=== PATIENT | male | born 1930 | race Caucasian/White ===

== ENCOUNTER → 2016-10-28 | Outpatient (CLI) | payer MEDICARE, OTHER | LOC: SP 14:59 | PROVIDERS: ATTEND Internal Medicine Pulmonary Disease | DX: R93.8 Abnormal findings on diagnostic imaging of other specified body structures (principal) | CPT/HCPCS: 93880 ==

== ENCOUNTER → 2016-10-30 | Day surgery (SDC) | payer MEDICARE, OTHER ==
[~2016-10-30] MED LIST: LIDOCAINE 2% JELLY 5 ML TUBE ONE
== END ==
LOC: END 10:54
PROVIDERS: ATTEND Internal Medicine Gastroenterology
PROC: 4A0B7BZ Measurement of Gastrointestinal Pressure, Via Natural or Artificial Opening (ICD-10-PCS; principal; 2016-10-30)
DX: R13.10 Dysphagia, unspecified (principal)
CPT/HCPCS: 91010

== ENCOUNTER 2016-12-21 12:02 | Emergency (ER) | payer MEDICARE, OTHER ==
[2016-12-21] MEDS ORDERED: ASPIRIN 81 MG TABLET, CHEWABLE PO ONE (12:21)
--- NOTE | 2016-12-21 12:21 | ER Document Report ---
ED Medical Screen (RME) - General Chief Complaint: Chest Pain Stated Complaint: COUGH Mode of Arrival: Ambulatory Information source: Patient Notes: Very young looking 86-year-old male presents this morning with right-sided chest pain shortness of breath. Reports he's coughing up blood. Reports he's had this cough and difficulty for the past year with his lungs. Denies other symptoms such as fever vomiting diarrhea. Patient speaking in clear reports no shortness of breath noted. RR unlabored 100% O2 sat. I have greeted and performed a rapid initial assessment of this patient. A comprehensive ED assessment and evaluation of the patient, analysis of test results and completion of the medical decision making process will be conducted by additional ED providers. TRAVEL OUTSIDE OF THE [place] IN LAST 30 DAYS: No - Related Data Allergies/Adverse Reactions: morphine [Morphine] Allergy (Verified 12/21/16 12:18) tetracycline [Tetracycline] Allergy (Verified 12/21/16 12:18) Past Medical History - Social History Chew tobacco use (# tins/day): No Frequency of alcohol use: None Drug Abuse: None - Past Medical History Cardiac Medical History: Reports: Hx Coronary Artery Disease, Hx Heart Attack, Hx Hypertension, Hx Peripheral Vascular Disease Neurological Medical History: Denies: Hx Cerebrovascular Accident, Hx Seizures Renal/ Medical History: Denies: Hx Peritoneal Dialysis GI Medical History: Reports: Hx Ulcer - HAD VAGOTOMY-ANTRECTOMY WITH A B-II ANASTOMOSIS Musculoskeltal Medical History: Denies Hx Arthritis Psychiatric Medical History: Reports: Hx Post Traumatic Stress Disorder Past Surgical History: Reports: Hx Bowel Surgery - x10 V&A w/ B-II anastomosis, Hx Carotid Endarterectomy - RIGHT SIDE, Hx Coronary Stent, Hx Vascular Surgery - ILIAC, FEMORAL STENTS - Immunizations Hx Diphtheria, Pertussis, Tetanus Vaccination: Yes Physical Exam - Vital signs Vitals: Temp Pulse Resp BP Pulse Ox 98.1 F 82 16 141/79 H 100 12/21/16 12:18 12/21/16 12:18 12/21/16 12:18 12/21/16 12:18 12/21/16 12:18 Course - Vital Signs Vital signs: Temp Pulse Resp BP Pulse Ox 98.1 F 82 16 141/79 H 100 12/21/16 12:18 12/21/16 12:18 12/21/16 12:18 12/21/16 12:18 12/21/16 12:18
[2016-12-21 12:55] LABS: ABSOLUTE BASOPHILS # (AUTO) 0.1 10^3/uL (0.0-0.2); ABSOLUTE EOSINOPHILS # (AUTO) 0.2 10^3/uL (0.0-0.6); ABSOLUTE LYMPHOCYTES (AUTO) 1.6 10^3/uL (0.5-4.7); ABSOLUTE MONOCYTES (AUTO) 0.6 10^3/uL (0.1-1.4); ABSOLUTE NEUT (AUTO) 6.1 10^3/uL (1.7-8.2); BASOPHILS % (AUTO) 0.7 % (0-2); EOSINOPHILS % (AUTO) 2.2 % (0-6); HEMATOCRIT 32.3 % (37.9-51.0); HEMOGLOBIN 10.8 g/dL (13.5-17.0); HGB HCT DIFFERENCE 0.1; LYMPHOCYTES % (AUTO) 18.1 % (13-45); MEAN CORPUSCULAR HEMOGLOBIN 28.9 pg (27.0-33.4); MEAN CORPUSCULAR HGB CONC 33.5 g/dL (32.0-36.0); MEAN CORPUSCULAR VOLUME 86 fl (80-97); MONOCYTES % (AUTO) 7.5 % (3-13); RED BLOOD COUNT 3.74 10^6/uL (4.35-5.55); RED CELL DISTRIBUTION WIDTH 15.6 % (11.5-14.0); SEGMENTED NEUTROPHILS % (AUTO) 71.5 % (42-78); WHITE BLOOD COUNT 8.6 10^3/uL (4.0-10.5)
--- NOTE | 2016-12-21 13:09 | ER Document Report ---
ED Cardiac - General Chief Complaint: Chest Pain Stated Complaint: COUGH Mode of Arrival: Ambulatory Notes: The patient is an 86-year-old male, past medical history CAD s/p 4 stents, hypertension, gastric ulcers status post partial gastrectomy, CKD< presents with a few hours of substernal chest pain and radiation to his right shoulder. He is also having 1 month of a cough and he noticed specks of blood in his cough earlier today. He was given 1 nitroglycerin and his pain resolved. He denies nausea, vomiting, leg swelling, shortness of breath, fevers, headache, rash or back pain. TRAVEL OUTSIDE OF THE [place] IN LAST 30 DAYS: No - Related Data Allergies/Adverse Reactions: morphine [Morphine] Allergy (Verified 12/21/16 12:18) tetracycline [Tetracycline] Allergy (Verified 12/21/16 12:18) Past Medical History - General Information source: Patient - Social History Smoking Status: Never Smoker Chew tobacco use (# tins/day): No Frequency of alcohol use: None Drug Abuse: None Family History: Reviewed & Not Pertinent, Other - unable to obtain - Past Medical History Cardiac Medical History: Reports: Hx Coronary Artery Disease, Hx Heart Attack, Hx Hypertension, Hx Peripheral Vascular Disease Neurological Medical History: Denies: Hx Cerebrovascular Accident, Hx Seizures Renal/ Medical History: Denies: Hx Peritoneal Dialysis GI Medical History: Reports: Hx Ulcer - HAD VAGOTOMY-ANTRECTOMY WITH A B-II ANASTOMOSIS Musculoskeltal Medical History: Denies Hx Arthritis Psychiatric Medical History: Reports: Hx Post Traumatic Stress Disorder Past Surgical History: Reports: Hx Bowel Surgery - x10 V&A w/ B-II anastomosis, Hx Carotid Endarterectomy - RIGHT SIDE, Hx Coronary Stent, Hx Vascular Surgery - ILIAC, FEMORAL STENTS - Immunizations Hx Diphtheria, Pertussis, Tetanus Vaccination: Yes Hx Pneumococcal Vaccination: 09/29/19 Review of Systems - Review of Systems Notes: REVIEW OF SYSTEMS: CONSTITUTIONAL: -fevers, -chills EENT: -eye pain, -difficulty swallowing, -nasal congestion CARDIOVASCULAR: +chest pain, -syncope. RESPIRATORY: +cough, -SOB GASTROINTESTINAL: -abdominal pain, - nausea, -vomiting, -diarrhea GENITOURINARY: -dysuria, -hematuria MUSCULOSKELETAL: -back pain, -neck pain SKIN: -rash or skin lesions. HEMATOLOGIC: -easy bruising or bleeding. LYMPHATIC: -swollen, enlarged glands. NEUROLOGICAL: -altered mental status or loss of consciousness, -headache, - neurologic symptoms PSYCHIATRIC: -anxiety, -depression. ALL OTHER SYSTEMS REVIEWED AND NEGATIVE. Physical Exam - Vital signs Vitals: Temp Pulse Resp BP Pulse Ox 98.1 F 82 16 141/79 H 100 12/21/16 12:18 12/21/16 12:18 12/21/16 12:18 12/21/16 12:18 12/21/16 12:18 - Notes Notes: PHYSICAL EXAMINATION: GENERAL: Well-appearing, well-nourished and in no acute distress. HEAD: Atraumatic, normocephalic. EYES: Pupils equal round and reactive to light, extraocular movements intact, sclera anicteric, conjunctiva are normal. ENT: nares patent, oropharynx clear without exudates. Moist mucous membranes. NECK: Normal range of motion, supple without lymphadenopathy LUNGS: Breath sounds clear to auscultation bilaterally and equal. No wheezes rales or rhonchi. HEART: Regular rate and rhythm without murmurs ABDOMEN: Soft, nontender, normoactive bowel sounds. No guarding, no rebound. No masses appreciated. EXTREMITIES: Normal range of motion, no pitting or edema. No cyanosis. NEUROLOGICAL: Cranial nerves grossly intact. Normal speech, normal gait. Normal sensory, motor, and reflex exams. PSYCH: Normal mood, normal affect. SKIN: Warm, Dry, normal turgor, no rashes or lesions noted. Course - Re-evaluation Re-evalutation: Patient without chest pain. His EKG does show new ST depressions and T-wave inversions in the anterior lateral leads compared to his EKG on 01/10/2016. His first troponin was 0.08, which is baseline for him. His second troponin increased to 0.11. He remains without chest pain. Will begin a heparin drip due to rising troponin and CKD. Patient also with slight hyperkalemia of 5.5. His creatinine is baseline for him. There are peaked T waves on his EKG, so calcium, insulin and dextrose and Lasix provided for patient to help temporize. 12/21/16 18:[address] Rojas and he has accepted patient under Dr. Foley' s service to Inpatient Telemetry bed at [facility]. - Vital Signs Vital signs: Temp Pulse Resp BP Pulse Ox 97.9 F 82 16 107/93 H 99 12/21/16 18:41 12/21/16 12:18 12/21/16 18:01 12/21/16 18:00 12/21/16 18:01 - Laboratory Result Diagrams: 12/21/16 12:30 12/21/16 12:30 Laboratory results interpreted by me: 12/21/16 12/21/16 12:30 12:30 RBC 3.74 L Hgb 10.8 L Hct 32.3 L RDW 15.6 H Potassium 5.5 H Chloride 109 H BUN 27 H Creatinine 1.61 H Est GFR ( Amer) 50 L Est GFR (Non-Af Amer) 41 L Total Protein 6.0 L Albumin 3.4 L - Diagnostic Test Radiology reviewed: Image reviewed, Reports reviewed Radiology results interpreted by me: CXR: NAD - EKG Interpretation by Me EKG shows normal: Sinus rhythm Additional EKG results interpreted by me: ST depression and T-wave inversions in anterolateral leads, new since 12/2015 EKG Critical Care Note - Critical Care Note Total time excluding time spent on procedures (mins): 35 Discharge - Discharge Clinical Impression: NSTEMI (non-ST elevated myocardial infarction), Hyperkalemia Condition: Stable Disposition: [facility] Referrals: ROMEL LAMB MD [Primary Care Provider] - Follow up as needed
[2016-12-21 13:12] LABS: ALANINE AMINOTRANSFERASE 22 U/L (21-72); ALBUMIN 3.4 g/dL (3.5-5.0); ALKALINE PHOSPHATASE 110 U/L (38-126); ANION GAP 10 (5-19); ASPARTATE AMINO TRANSFERASE 20 U/L (17-59); BILIRUBIN,DIRECT 0.3 mg/dL (0.0-0.4); BILIRUBIN,TOTAL 0.7 mg/dL (0.2-1.3); BLOOD UREA NITROGEN 27 mg/dL (7-20); CALCIUM 9.4 mg/dL (8.4-10.2); CARBON DIOXIDE 23 mmol/L (22-30); CHLORIDE 109 mmol/L (98-107); CREATININE RESULT 1.61 mg/dL (0.52-1.25); GLUCOSE 92 mg/dL (75-110); POTASSIUM 5.5 mmol/L (3.6-5.0); SODIUM 142.2 mmol/L (137-145)
[2016-12-21] MEDS ORDERED: INSULIN REG, HUMAN 100 UNIT/ML 3 ML VIAL (PYX) IV ONE (15:31)
[2016-12-21] MEDS ORDERED: DEXTROSE 50%-WATER 25 GM/50 ML DISP.SYRIN IV ONE (15:31)
[2016-12-21] MEDS ORDERED: CALCIUM GLUCONATE 1000 MG/10 ML INJ IV ONE (15:31)
[2016-12-21] MEDS ORDERED: FUROSEMIDE INJ/PF 40 MG/4 ML SDV IV ONE (15:32)
[2016-12-21] MEDS ORDERED: HEPARIN SOD (PORCINE) 1,000 UNIT/ML 10 ML VIAL IV ONE ×3 (19:36→19:55)
[2016-12-21] MEDS ORDERED: HEPARIN SODIUM,PORCINE/D5W 250 ML IV PRN (19:46)
[2016-12-21 20:02] LABS: PROTHROMBIN TIME 12.9 SEC (11.4-15.4)
[2016-12-21 20:30] VITALS: BP 127/83
--- NOTE | 2016-12-21 22:20 | EKG REPORT ---
SEVERITY:- ABNORMAL ECG - SINUS RHYTHM MULTIFORM VENTRICULAR PREMATURE COMPLEXES LEFT ANTERIOR FASCICULAR BLOCK. NONSPECIFIC LATERAL ST-T CHANGES : Confirmed by: Jon Vela MD 21-Dec-2016 17:35:49
--- NOTE | 2016-12-21 22:20 | EKG REPORT ---
SEVERITY:- ABNORMAL ECG - SINUS RHYTHM LEFT ANTERIOR FASCICULAR BLOCK NONSPECIFIC LATERAL ST-T CHANGES : Confirmed by: Jon Vela MD 21-Dec-2016 17:36:54
--- NOTE | 2016-12-21 22:27 | EKG REPORT ---
SEVERITY:- ABNORMAL ECG - SINUS RHYTHM VENTRICULAR PREMATURE COMPLEX IVCD NONSPECIFIC ANTEROLATERAL ST-T CHANGES : Confirmed by: Jon Vela MD 21-Dec-2016 17:34:07
== END 2016-12-21 20:30 | disposition short-term general hospital (02) ==
LOC: ER 12:02
DX: I21.4 Non-ST elevation (NSTEMI) myocardial infarction (principal); R07.9 Chest pain, unspecified; R05 Cough; I25.10 Atherosclerotic heart disease of native coronary artery without angina pectoris; I10 Essential (primary) hypertension
CPT/HCPCS: 93005; 96376; 99291; 96374; 96375; 36415; 85025; 85610; 80053; 84484; 71020; 93010; J1644 ×2; A9270 ×2; J0610; J3490; J1940; J1815

== ENCOUNTER 2018-01-13 09:46 | Day surgery (SDC) | payer MEDICARE, OTHER ==
[~2018-01-13 09:46] MED LIST changes: +BUPIVACAINE HCL 0.75% INJ/PF (7.5 MG/1 ML) 10 ML SDV OD PRN; +CHONDR SU A NA/HYALUR INTRAOC KIT (SURGICARE) ONE; +EPINEPHRINE INJ/PF 1 MG/1 ML AMPULE ONE; +KETOROLAC TROMETHAMINE 0.45% 4 DROP/0.4 ML DROPERETTE OD PRN; +LIDOCAINE 1% INJ-PF (10 MG/ML) 30 ML SDV ONE; -LIDOCAINE 2% JELLY 5 ML TUBE ONE; +LIDOCAINE 4% INJ/PF (40 MG/ML) 5 ML AMPUL OD PRN
[2018-01-13] MEDS: CYCLOPENTOLATE 0.2%/PHENYLEPHRINE 1% OPH SOLN 2 ML OD PRN ×3 (09:58→10:19)
[2018-01-13] MEDS: TROPICAMIDE 1% OPH SOLN 3 ML OD PRN ×3 (09:58→10:19)
[2018-01-13] MEDS: BESIFLOXACIN HCL 0.6% OPH SUSP 5 ML BOTTLE OD PRN ×3 (09:59→11:06)
[2018-01-13] MEDS: TETRACAINE HCL 0.5% OPH SOLN 0.6 ML DROPERETTE OD PRN ×2 (10:00→10:26)
[2018-01-13] MEDS ORDERED: FENTANYL CITRATE INJ/PF 100 MCG/2 ML AMPUL ONE (10:14)
[2018-01-13] MEDS ORDERED: ONDANSETRON HCL INJ/PF 4 MG/2 ML SDV ONE (10:14)
[2018-01-13] MEDS ORDERED: MIDAZOLAM 2 MG/2 ML INJ ONE (10:14)
--- NOTE | 2018-01-13 11:54 | [facility] OPERATIVE REPORT E ---
[facility] Operative Report NAME: ROSELYN DECKER AGE: 87Y DATE OF SURGERY: 01/13/2018 ROOM: PREOPERATIVE DIAGNOSIS: CATARACT, RIGHT EYE. POSTOPERATIVE DIAGNOSIS: CATARACT, RIGHT EYE. PROCEDURE PERFORMED: Phacoemulsification with posterior chamber intraocular lens, right eye. SURGEON: BERTHA VARMA M.D. ANESTHESIA: Topical with MAC. INDICATIONS FOR SURGERY: Difficulty driving at night, best corrected visual acuity 20/30. PROCEDURE: The patient was brought to the Operating Room and placed on the operative table. Following tetracaine drops, topical anesthesia was administered. This consisted of instrument wipe pledgets soaked in a solution of 4% Xylocaine mixed with 0.75% Marcaine in a 1:2 ratio. A 2 x 1 cm pledget was placed in the superior fornix. A 1 x 1 cm pledget was placed in the inferior fornix. The eye was patched shut for 5 minutes. The patch was removed. The eye was sterilely prepped and draped in the usual manner. Lid speculum was placed in the eye. The pledgets were removed. 4-0 black silk sutures were placed around the superior and the inferior rectus muscles to be used as traction. A conjunctival peritomy was made at the 10 o'clock position. Hemostasis was obtained with bipolar cautery. A posterior limbal groove was created using a crescent knife and dissected anteriorly towards the cornea. A sharp point blade was used to create a paracentesis site at the 2 o'clock position. A 2.4 mm keratome was used to enter the anterior chamber through the groove. Viscoelastic was injected into the anterior chamber. An anterior capsulotomy was performed using Utrata forceps in a capsulorrhexis fashion. Hydrodissection and hydrodelineation were performed. Phacoemulsification was performed in [id number] technique. A total of 7.38 CDE seconds phaco time was used. Following this, the I/A unit was used to remove residual cortex. Viscoelastic was injected into the capsular bag. Intraocular lens model [id number], 22.5 diopters, serial number [id number] was placed in the capsular bag. The I/A unit was used to remove residual viscoelastic. The wound was seen to be watertight under high and low pressure, and no sutures were placed. The intraocular lens was well centered. The pressure was adjusted in the eye to normal pressure. The 4-0 black silk sutures and lid speculum were removed. The eye was shielded after Besivance drops were placed. The patient tolerated the procedure well and was sent to the Recovery Room in good condition. DICTATING PHYSICIAN: BERTHA VARMA M.D. [id number] PHY#: [id number] ID: [id number] JOB#: [id number] ACCT: [id number] cc:BERTHA VARMA M.D. >
--- NOTE | 2018-01-13 18:05 | [facility] DISCHARGE SUMMARY E ---
[facility] Discharge Summary NAME: ROSELYN DECKER AGE: 87Y ADMITTED: 01/13/2018 DISCHARGED: HOSPITAL COURSE: The patient is an 87-year-old gentleman who underwent uneventful cataract extraction with intraocular lens implant, right eye on 01/13/2018. He will be discharged to home. He is instructed to resume preoperative medications, take Tylenol as needed for discomfort, to keep his eye shielded, to use Besivance, Durezol, and Ilevro at 3:00 p.m. and 8:00 p.m., to follow up in my office in 1 day. DICTATING PHYSICIAN: BERTHA VARMA M.D. [id number] PHY#: [id number] ID: [id number] JOB#: [id number] ACCT: [id number] cc:BERTHA VARMA M.D. >
== END 2018-01-13 12:15 | disposition home or self-care (01) ==
LOC: SC 09:46
PROVIDERS: ATTEND Ophthalmology
PROC: 08RJ3JZ Replacement of Right Lens with Synthetic Substitute, Percutaneous Approach (ICD-10-PCS; principal; 2018-01-13 11:00)
DX: H25.813 Combined forms of age-related cataract, bilateral (principal); H16.223 Keratoconjunctivitis sicca, not specified as Sjogren's, bilateral; I10 Essential (primary) hypertension; E78.00 Pure hypercholesterolemia, unspecified; E03.9 Hypothyroidism, unspecified; R01.1 Cardiac murmur, unspecified; Z88.5 Allergy status to narcotic agent; Z79.82 Long term (current) use of aspirin; Z79.899 Other long term (current) drug therapy; Z79.02 Long term (current) use of antithrombotics/antiplatelets; I25.2 Old myocardial infarction; Z85.46 Personal history of malignant neoplasm of prostate; Z85.819 Personal history of malignant neoplasm of unspecified site of lip, oral cavity, and pharynx
CPT/HCPCS: 66984; V2632; J2250; J3490 ×4; A9270; J0171; J2405; 142; J3010

== ENCOUNTER 2018-01-14 15:37 | Inpatient (IN) | payer MEDICARE, OTHER ==
[2018-01-14] MEDS ORDERED: ASPIRIN 81 MG TABLET, CHEWABLE PO ONE (15:58)
[2018-01-14 16:05] LABS: ABSOLUTE LYMPHOCYTES (AUTO) 1.1 10^3/uL (0.5-4.7); ABSOLUTE MONOCYTES (AUTO) 0.3 10^3/uL (0.1-1.4); ABSOLUTE NEUT (AUTO) 5.8 10^3/uL (1.7-8.2); BASOPHILS % (AUTO) 0.6 % (0-2); EOSINOPHILS % (AUTO) 0.6 % (0-6); HEMATOCRIT 28.6 % (37.9-51.0); HEMOGLOBIN 9.4 g/dL (13.5-17.0); LYMPHOCYTES % (AUTO) 15.5 % (13-45); MEAN CORPUSCULAR HEMOGLOBIN 28.1 pg (27.0-33.4); MEAN CORPUSCULAR HGB CONC 32.9 g/dL (32.0-36.0); MEAN CORPUSCULAR VOLUME 86 fl (80-97); MONOCYTES % (AUTO) 4.1 % (3-13); PLATELET COUNT 153 10^3/uL (150-450); RED BLOOD COUNT 3.35 10^6/uL (4.35-5.55); RED CELL DISTRIBUTION WIDTH 18.4 % (11.5-14.0); SEGMENTED NEUTROPHILS % (AUTO) 79.2 % (42-78); TOTAL CELLS COUNTED % (AUTO) 100 %; WHITE BLOOD COUNT 7.3 10^3/uL (4.0-10.5)
--- NOTE | 2018-01-14 16:14 | ER Document Report ---
ED Cardiac - General Chief Complaint: Chest Pain Stated Complaint: CHEST PAIN Time Seen by Provider: 01/14/18 16:12 Notes: The patient is an 87-year-old male, past medical history CAD (w/ 2 stents), repaired AAA, gastritis, presents with left upper abdominal pain rating to his left upper chest. Described as sharp and worse than he has ever had. He received 4 mg IV Zofran prior to arrival and an EKG by EMS shows ventricular bigeminy. Patient denies shortness of breath, vomiting, fevers, back pain, leg swelling, hemoptysis, diarrhea, constipation or neurologic signs. TRAVEL OUTSIDE OF THE [place] IN LAST 30 DAYS: No - Related Data Allergies/Adverse Reactions: morphine [Morphine] Allergy (Verified 01/14/18 16:02) tetracycline [Tetracycline] Allergy (Verified 01/14/18 16:02) Past Medical History - General Information source: Patient - Social History Smoking Status: Unknown if Ever Smoked Family History: Reviewed & Not Pertinent, Other - unable to obtain - Past Medical History Cardiac Medical History: Reports: Hx Coronary Artery Disease, Hx Heart Attack - X2=STENTS 2001 & 2016, Hx Hypercholesterolemia, Hx Hypertension, Hx Peripheral Vascular Disease Pulmonary Medical History: Denies: Hx Asthma Neurological Medical History: Denies: Hx Cerebrovascular Accident, Hx Seizures Renal/ Medical History: Denies: Hx Peritoneal Dialysis GI Medical History: Denies: Hx Hepatitis, Hx Hiatal Hernia, Hx Ulcer Musculoskeltal Medical History: Denies Hx Arthritis Psychiatric Medical History: Reports: Hx Post Traumatic Stress Disorder Denies: Hx Depression - anxiety Infectious Medical History: Denies: Hx Hepatitis Past Surgical History: Reports: Hx Abdominal Surgery - stomach resection, Hx Bowel Surgery - x10 V&A w/ B-II anastomosis, Hx Carotid Endarterectomy - RIGHT SIDE, Hx Coronary Stent, Hx Vascular Surgery - ILIAC, FEMORAL STENTS. Denies: Hx Open Heart Surgery, Hx Pacemaker - Immunizations Hx Diphtheria, Pertussis, Tetanus Vaccination: Yes Hx Pneumococcal Vaccination: 09/29/19 Review of Systems - Review of Systems Notes: REVIEW OF SYSTEMS: CONSTITUTIONAL: -fevers, -chills EENT: -eye pain, -difficulty swallowing, -nasal congestion CARDIOVASCULAR: +chest pain, -syncope. RESPIRATORY: -cough, -SOB GASTROINTESTINAL: -abdominal pain, +nausea, -vomiting, -diarrhea GENITOURINARY: -dysuria, -hematuria MUSCULOSKELETAL: -back pain, -neck pain SKIN: -rash or skin lesions. HEMATOLOGIC: -easy bruising or bleeding. LYMPHATIC: -swollen, enlarged glands. NEUROLOGICAL: -altered mental status or loss of consciousness, -headache, - neurologic symptoms PSYCHIATRIC: -anxiety, -depression. ALL OTHER SYSTEMS REVIEWED AND NEGATIVE. Physical Exam - Vital signs Vitals: Resp Pulse Ox 15 98 01/14/18 15:47 01/14/18 15:47 - Notes Notes: PHYSICAL EXAMINATION: GENERAL: Uncomfortable. HEAD: Atraumatic, normocephalic. EYES: Pupils equal round and reactive to light, extraocular movements intact, sclera anicteric, conjunctiva are normal. ENT: nares patent, oropharynx clear without exudates. Moist mucous membranes. NECK: Normal range of motion, supple without lymphadenopathy LUNGS: Breath sounds clear to auscultation bilaterally and equal. No wheezes rales or rhonchi. HEART: Regular rate. ABDOMEN: Soft, nontender, normoactive bowel sounds. No guarding, no rebound. No masses appreciated. EXTREMITIES: Normal range of motion, no pitting or edema. No cyanosis. NEUROLOGICAL: Cranial nerves grossly intact. Normal speech, normal gait. Normal sensory and motor exams. PSYCH: Normal mood, normal affect. SKIN: Warm, Dry, normal turgor, no rashes or lesions noted. Course - Re-evaluation Re-evalutation: Patient rise with worsening epigastric pain and chest pain. EKG shows ventricular bigeminy. Blood pressure is normal. 01/14/18 16:[address] Sadler (Management Intern). He recommends IV beta- blockers for ventricular bigeminy. If the patient's troponin is normal, we can keep patient at [place] and he will consult. If patient's troponin is elevated, he recommends transfer. 01/14/18 16:40 Troponin is negative and blood pressure is remaining stable. Creatinine is at baseline. EKG does not show a STEMI. His primary care physician is Dr. Lamb. He requires admission for further evaluation and treatment of his chest pain and ventricular bigeminy. 01/14/18 16:[address] Marshall and will admit patient to Tele. - Vital Signs Vital signs: Temp Pulse Resp BP Pulse Ox 20 121/78 97 01/14/18 16:22 01/14/18 16:22 01/14/18 16:22 - Laboratory Result Diagrams: 01/14/18 15:55 01/14/18 15:55 Laboratory results interpreted by me: 01/14/18 01/14/18 15:55 15:55 RBC 3.35 L Hgb 9.4 L Hct 28.6 L RDW 18.4 H Seg Neutrophils % 79.2 H Potassium 5.1 H Chloride 110 H BUN 37 H Creatinine 1.99 H Est GFR ( Amer) 39 L Est GFR (Non-Af Amer) 32 L Glucose 116 H Total Protein 5.7 L Albumin 3.3 L - Diagnostic Test Radiology reviewed: Image reviewed, Reports reviewed Radiology results interpreted by me: CXR: NAD - EKG Interpretation by Me EKG shows normal: Sinus rhythm Rate: Normal Rhythm: PVC's When compared to previous EKG there are: Changes noted Additional EKG results interpreted by me: Ventricular bigeminy Discharge - Discharge Clinical Impression: Ventricular bigeminy Chest pain Qualifiers: Chest pain type: unspecified Qualified Code(s): R07.9 - Chest pain, unspecified Condition: Stable Disposition: ADMITTED INPATIENT Admitting Provider: Hospitalist - [facility] Admitted: Telemetry Referrals: ROMEL LAMB MD [Primary Care Provider] - Follow up as needed
[2018-01-14 16:24] LABS: ALANINE AMINOTRANSFERASE 28 U/L (21-72); ALBUMIN 3.3 g/dL (3.5-5.0); ALKALINE PHOSPHATASE 97 U/L (38-126); ANION GAP 9 (5-19); ASPARTATE AMINO TRANSFERASE 21 U/L (17-59); BILIRUBIN,DIRECT 0.4 mg/dL (0.0-0.4); BILIRUBIN,TOTAL 0.4 mg/dL (0.2-1.3); BLOOD UREA NITROGEN 37 mg/dL (7-20); CALCIUM 9.1 mg/dL (8.4-10.2); CARBON DIOXIDE 23 mmol/L (22-30); CHLORIDE 110 mmol/L (98-107); CREATINE KINASE 81 U/L (55-170); GLUCOSE 116 mg/dL (75-110); POTASSIUM 5.1 mmol/L (3.6-5.0); SODIUM 141.8 mmol/L (137-145); TOTAL PROTEIN 5.7 g/dL (6.3-8.2)
[2018-01-14] MEDS ORDERED: NORMAL SALINE 1000 ML 1,000 ML IV ONE (16:32)
[2018-01-14] MEDS ORDERED: METOPROLOL TARTRATE PF/INJ 5 MG/5 ML SDV IV ONE (16:32)
[2018-01-14] MEDS ORDERED: ONDANSETRON HCL INJ/PF 4 MG/2 ML SDV IV ONE (16:32)
[2018-01-14 16:35] LABS: CREATINE KINASE MB 1.53 ng/mL (<4.55)
[2018-01-14 16:37] LABS: TROPONIN I < 0.012 ng/mL
--- NOTE | 2018-01-14 16:38 | RADIOLOGY REPORT (SQ) ---
EXAM DESCRIPTION: CHEST SINGLE VIEW COMPLETED DATE/TIME: 01/14/2018 4:17 pm REASON FOR STUDY: chest pain COMPARISON: 12/21/2016 EXAM PARAMETERS: NUMBER OF VIEWS: One view. TECHNIQUE: Single frontal radiographic view of the chest acquired. RADIATION DOSE: NA LIMITATIONS: None. FINDINGS: LUNGS AND PLEURA: No opacities, masses or pneumothorax. No pleural effusion. MEDIASTINUM AND HILAR STRUCTURES: No masses. Contour normal. HEART AND VASCULAR STRUCTURES: Heart normal in size. Normal vasculature. BONES: No acute findings. HARDWARE: None in the chest. OTHER: No other significant finding. IMPRESSION: NO ACUTE RADIOGRAPHIC FINDING IN THE CHEST. TECHNICAL DOCUMENTATION: JOB ID: [id number] [employer]- All Rights Reserved Reading location - IP/workstation name: [email or web address]
[2018-01-14] MEDS ORDERED: ACETAMINOPHEN 650 MG SUPP.RECT PR PRN (17:22)
[2018-01-14] MEDS ORDERED: LEVALBUTEROL HCL NEB 1.25 MG/3 ML AMPUL NEB PRN (17:22)
[2018-01-14] MEDS ORDERED: (PENDING PHARMACY ID) (Polyvinyl Alcohol/Povidone/Pf [Refresh Classic Eye Drops] 1 DROP) OU SCH (18:00)
[2018-01-14] MEDS ORDERED: (PENDING PHARMACY ID) (Difluprednate [Durezol] 1 DROP) OD SCH (18:00)
[2018-01-14] MEDS ORDERED: BESIFLOXACIN HCL 0.6% OPH SUSP 5 ML BOTTLE OD SCH (18:00)
--- NOTE | 2018-01-14 18:03 | PDOC H&P ---
History of Present Illness Admission Date/PCP: ROMEL LAMB MD Patient complains of: Chest pain History of Present Illness: ROSELYN DECKER is a 87 year old male with long-standing left lower chest pain since he had some stents placed several years ago. He had a right cataract replacement yesterday went back to the livestock rancher today for follow -up and was complaining of very severe chest pain that migrated around his chest and upper abdomen. Apparently got an EKG, was found to be in bigeminy, and was sent over to the emergency department. He continues to have pain. Pain may be worse with standing. Otherwise unrelated to activity. He took Tylenol for it without effect. Unaffected by nitro. Associated with severe nausea, and intermittent diaphoresis, and mild lightheadedness. He has no arm, neck, or jaw symptoms. He has had no loss of consciousness, no vomiting, or diarrhea. He reports a chronic cough from sinus issues that is unchanged. He denies swelling. States she has been walking in the mall and has noted a decrease in exercise tolerance that has come on slowly over the last few months. 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, Hyperlipidema, Hypertension, Peripheral Vascular Disease, Other - No history of irregular heartbeat Pulmonary Medical History: Denies: Asthma EENT Medical History: Reports: Cataracts - Status post replacement right cataract yesterday Neurological Medical History: Reports: Seizures Endocrine Medical History: Reports: Hypothyroidism Renal/ Medical History: Reports: Chronic Kidney Disease Malignancy Medical History: Reports: Other - Throat cancer and prostate cancer GI Medical History: Denies: Hepatitis, Hiatal Hernia Musculoskeltal Medical History: Denies: Arthritis Psychiatric Medical History: Reports: Post Traumatic Stress Disorder Denies: Depression - anxiety Hematology: Denies: Anemia, Sickle Cell Disease Past Surgical History Past Surgical History: Reports: Cardiac Catheterization, Carotid Endarterectomy - RIGHT SIDE, Coronary Stent, Vascular Surgery - ILIAC, FEMORAL STENTS Denies: Pacemaker Social History Smoking Status: Former Smoker Frequency of Alcohol Use: None Hx Recreational Drug Use: No Hx Prescription Drug Abuse: No - Advance Directive Resuscitation Status: Full Code - If he should be unable to make a decision he would want his to be his decision maker Family History Family History: Malignancy - Colon cancer Parental Family History Reviewed: Yes Children Family History Reviewed: Yes Sibling(s) Family History Reviewed.: Yes Medication/Allergy Home Medications: Alprazolam [Xanax 0.5 mg Tablet] 1 mg PO DAILY 01/14/18 Amlodipine Besylate [Norvasc 10 mg Tablet] 10 mg PO DAILY 01/14/18 Aspirin [Aspirin 81 mg Chewable Tablet] 81 mg PO DAILY 01/14/18 Atorvastatin Calcium [Lipitor 80 mg Tablet] 80 mg PO QHS 01/14/18 Besifloxacin HCl [Besivance 0.6% Oph Susp 5 ml] 1 drop OD BID 01/14/18 Clopidogrel Bisulfate [Plavix 75 mg Tablet] 75 mg PO DAILY 01/14/18 Cyanocobalamin (Vitamin B-12) [Vitamin B-12] 1,000 mcg PO DAILY 01/14/18 Difluprednate [Durezol] 1 drop OD BID 01/14/18 Fluticasone Propionate [Flonase Nasal [place] 50 Mcg/[place] 16 gm] 1 spray NAREB DAILY 01/14/18 Levothyroxine Sodium [Synthroid 0.05 mg Tablet] 0.05 mg PO Q6AM 01/14/18 Metoprolol Tartrate [Lopressor 25 mg Tablet] 25 mg PO DAILY 01/14/18 Nepafenac [Ilevro] 1 drop OD QAM 01/14/18 Pantoprazole Sodium [Protonix] 40 mg PO DAILY 01/14/18 Polyvinyl Alcohol/Povidone/Pf [Refresh Classic Eye Drops] 1 drop OU BID Promethazine HCl [Phenergan 25 mg Tablet] 12.5 mg PO DAILY 01/14/18 Allergies/Adverse Reactions: morphine [Morphine] Allergy (Verified 01/14/18 16:02) tetracycline [Tetracycline] Allergy (Verified 01/14/18 16:02) Review of Systems All systems: reviewed and no additional remarkable complaints except as stated Physical Exam Vital Signs: Temp Pulse Resp BP Pulse Ox 20 121/78 97 01/14/18 16:22 01/14/18 16:22 01/14/18 16:22 General appearance: PRESENT: no acute distress, thin Respiratory exam: PRESENT: clear to auscultation rodrigo Cardiovascular exam: PRESENT: irregular rhythm - Telemetry showed sinus rhythm with frequent PVCs GI/Abdominal exam: PRESENT: soft Extremities exam: PRESENT: other - No edema Musculoskeletal exam: PRESENT: normal inspection Neurological exam: PRESENT: altered, oriented to person, oriented to place, oriented to time, oriented to situation, CN II-XII grossly intact Psychiatric exam: PRESENT: anxious Skin exam: PRESENT: dry, warm Results Laboratory Results: 01/14/18 15:55 01/14/18 15:55 01/14/18 01/14/18 15:55 15:55 WBC 7.3 RBC 3.35 L Hgb 9.4 L Hct 28.6 L MCV 86 MCH 28.1 MCHC 32.9 RDW 18.4 H Plt Count 153 Seg Neutrophils % 79.2 H Lymphocytes % 15.5 Monocytes % 4.1 Eosinophils % 0.6 Basophils % 0.6 Absolute Neutrophils 5.8 Absolute Lymphocytes 1.1 Absolute Monocytes 0.3 Absolute Eosinophils 0.0 Absolute Basophils 0.0 Sodium 141.8 Potassium 5.1 H Chloride 110 H Carbon Dioxide 23 Anion Gap 9 BUN 37 H Creatinine 1.99 H Est GFR ( Amer) 39 L Est GFR (Non-Af Amer) 32 L Glucose 116 H Calcium 9.1 Total Bilirubin 0.4 AST 21 ALT 28 Alkaline Phosphatase 97 Total Protein 5.7 L Albumin 3.3 L 01/14/18 01/14/18 15:55 15:55 Creatine Kinase 81 CK-MB (CK-2) 1.53 Troponin I < 0.012 Impressions: Chest X-Ray 01/14/18 15:58 IMPRESSION: NO ACUTE RADIOGRAPHIC FINDING IN THE CHEST. Assessment & Plan - Diagnosis (1) Ventricular ectopy Is this a current diagnosis for this admission?: Yes Plan: Increase his Lopressor and consult cardiology (2) Chest pain Qualifiers: Chest pain type: other chest pain Qualified Code(s): R07.89 - Other chest pain; R07.8 - Other chest pain Is this a current diagnosis for this admission?: Yes Plan: Mostly atypical features. We will monitor him on telemetry, get serial cardiac enzymes, consult cardiology. (3) History of cataract extraction with lens replacement Is this a current diagnosis for this admission?: Yes Plan: Yesterday. Associated increased stress may have brought this on. Conceivably, 1 of his new eye Medications may have caused some difficulty as well. (5) HTN (hypertension) Qualifiers: Hypertension type: essential hypertension Qualified Code(s): I10 - Essential (primary) hypertension Is this a current diagnosis for this admission?: Yes Plan: He is on Norvasc and Lopressor at home. I will cut back on his Norvasc, so that we can increase his Lopressor. (6) CAD (coronary artery disease) Qualifiers: Coronary Disease-Associated Artery/Lesion type: [place] artery Associated angina: with unspecified angina Is this a current diagnosis for this admission?: Yes Plan: Unclear whether this recurrent pain he has is angina or an anginal equivalent. (7) Hypothyroid Qualifiers: Hypothyroidism type: acquired Qualified Code(s): E03.9 - Hypothyroidism, unspecified Plan: Continue Synthroid and check a TSH in the morning
[2018-01-14 18:07] LABS: ALBUMIN 3.6 g/dL (3.5-5.0); ANION GAP 12 (5-19); BLOOD UREA NITROGEN 41 mg/dL (7-20); CALCIUM 9.6 mg/dL (8.4-10.2); CARBON DIOXIDE 20 mmol/L (22-30); CHLORIDE 115 mmol/L (98-107); GLUCOSE 124 mg/dL (75-110); PHOSPHORUS 4.1 mg/dL (2.5-4.5); POTASSIUM 5.3 mmol/L (3.6-5.0); SODIUM 147.1 mmol/L (137-145)
[2018-01-14] MEDS ORDERED: METOPROLOL TARTRATE 25 MG TABLET PO SCH (22:00)
--- NOTE | 2018-01-14 22:42 | EKG REPORT ---
SEVERITY:- ABNORMAL ECG - SINUS RHYTHM VENTRICULAR BIGEMINY INCOMPLETE LEFT BUNDLE BRANCH BLOCK : Confirmed by: Gene Sadler 14-Jan-2018 22:42:08
[2018-01-14] MEDS: PROMETHAZINE HCL INJ 25 MG/1 ML VIAL IV PRN (23:38)
[2018-01-14] MEDS: BESIFLOXACIN HCL 0.6% OPH SUSP 5 ML BOTTLE OD SCH (23:38)
[2018-01-14] MEDS ORDERED: FLUTICASONE NASAL SPRAY 50 MCG/SPRY 120 SPRAY/16 GM NAREB ONE (23:45)
[2018-01-15] MEDS: ATORVASTATIN CALCIUM 80 MG TABLET PO SCH ×2 (02:48→22:33)
[2018-01-15] MEDS: ONDANSETRON HCL INJ/PF 4 MG/2 ML SDV IV PRN ×4 (03:00→19:46)
[2018-01-15 05:03] LABS: CHOLESTEROL 150.15 mg/dL (0-200); TRIGLYCERIDES 103 mg/dL (<150)
[2018-01-15 05:14] LABS: DIRECT LDL 57 mg/dL (<100)
[2018-01-15] MEDS: METOPROLOL TARTRATE 25 MG TABLET PO SCH ×3 (05:18→22:34)
[2018-01-15] MEDS: PROMETHAZINE HCL INJ 25 MG/1 ML VIAL IV PRN ×3 (05:21→17:29)
[2018-01-15] MEDS: ALPRAZOLAM 0.5 MG TABLET PO SCH ×3 (06:59→22:33)
[2018-01-15] MEDS ORDERED: (PENDING PHARMACY ID) (Nepafenac [Ilevro] 1 DROP) OD SCH (08:00)
[2018-01-15] MEDS: LANSOPRAZOLE 30 MG TAB.RAP.DR PO SCH (08:35)
[2018-01-15] MEDS: LEVOTHYROXINE SODIUM 0.05 MG TABLET PO SCH (08:35)
[2018-01-15] MEDS: CLOPIDOGREL BISULFATE 75 MG TABLET PO SCH (09:13)
[2018-01-15] MEDS: CYANOCOBALAMIN (VITAMIN B-12) 1,000 MCG TABLET PO SCH (09:13)
[2018-01-15] MEDS: ASPIRIN 81 MG TABLET, CHEWABLE PO SCH (09:13)
[2018-01-15] MEDS: POLYETHYLENE GLYCOL 3350 POWDER 17 GM/1 PACKET PO SCH (09:14)
--- NOTE | 2018-01-15 09:14 | EKG REPORT ---
SEVERITY:- ABNORMAL ECG - SINUS RHYTHM MULTIFORM VENTRICULAR PREMATURE COMPLEXES INCOMPLETE LEFT BUNDLE BRANCH BLOCK APCs : Confirmed by: Gene Sadler 15-Jan-2018 09:14:29
[2018-01-15] MEDS ORDERED: 1/2 NORMAL SALINE 1,000 ML IV PRN (09:19)
[2018-01-15] MEDS ORDERED: AMLODIPINE BESYLATE 5 MG TABLET PO SCH (10:00)
[2018-01-15] MEDS ORDERED: ALPRAZOLAM 0.5 MG TABLET PO SCH (10:00)
[2018-01-15] MEDS: OPTH OD SCH ×3 (11:02→18:11)
[2018-01-15] MEDS: DIFLUPREDNATE 0.05% OD SCH ×2 (11:02→18:11)
[2018-01-15] MEDS: FLUTICASONE NASAL SPRAY 50 MCG/SPRY 120 SPRAY/16 GM NAREB SCH (11:04)
[2018-01-15] MEDS: BESIFLOXACIN HCL 0.6% OPH SUSP 5 ML BOTTLE OD SCH ×2 (11:05→18:40)
[2018-01-15] MEDS: NEPAFENAC 0.3% OD SCH (11:06)
--- NOTE | 2018-01-15 12:37 | PDOC PROGRESS REPORT ---
Subjective Progress Note for:: 01/15/18 Subjective:: Continues to complain of severe abdominal pain. Has had ongoing nausea and vomiting. Reason For Visit: ATYPICAL CHEST PAIN, VENTRICULAR ECTOPY Physical Exam Vital Signs: Temp Pulse Resp BP Pulse Ox 97.9 F 80 16 151/68 H 89 L 01/15/18 04:00 01/15/18 10:05 01/15/18 10:05 01/15/18 04:00 01/15/18 10:05 Intake & Output 01/14/18 01/15/18 01/16/18 06:59 06:59 06:59 Intake Total 75 Output Total 325 Balance -250 Weight 63.7 kg General appearance: PRESENT: mild distress, thin Respiratory exam: PRESENT: clear to auscultation rodrigo Cardiovascular exam: PRESENT: irregular rhythm GI/Abdominal exam: PRESENT: normal bowel sounds, soft. ABSENT: tenderness Neurological exam: PRESENT: alert, oriented to person, oriented to place Psychiatric exam: PRESENT: agitated Skin exam: PRESENT: dry, warm Results Laboratory Results: 01/15/18 04:24 Triglycerides 103 Cholesterol 150.15 LDL Cholesterol Direct 57 VLDL Cholesterol 21.0 HDL Cholesterol 60 01/14/18 01/15/18 22:00 04:24 Troponin I 0.014 < 0.012 Impressions: Chest X-Ray 01/14/18 15:58 IMPRESSION: NO ACUTE RADIOGRAPHIC FINDING IN THE CHEST. Assessment & Plan - Diagnosis (1) Ventricular ectopy Is this a current diagnosis for this admission?: Yes Plan: Cardiology has been consulted. Continue to monitor closely. (2) Chest pain Qualifiers: Chest pain type: other chest pain Qualified Code(s): R07.89 - Other chest pain; R07.8 - Other chest pain Is this a current diagnosis for this admission?: Yes Plan: Mostly atypical features. We will monitor him on telemetry, cardiac enzymes have been negative 3, consulted cardiology. (3) Dumping syndrome Is this a current diagnosis for this admission?: Yes Plan: I think this is the source of his pain he has had flares before. I will consult a dietitian for recommendations, and put him on frequent high-protein snacks in the meantime. To be safe I will get an acute abdominal series. (4) History of cataract extraction with lens replacement Is this a current diagnosis for this admission?: Yes Plan: Yesterday. Associated increased stress may have brought this on. Conceivably, 1 of his new eye Medications may have caused some difficulty as well. (5) Epilepsy, generalized, convulsive Is this a current diagnosis for this admission?: No Plan: Continue home medications (6) HTN (hypertension) Qualifiers: Hypertension type: essential hypertension Qualified Code(s): I10 - Essential (primary) hypertension Is this a current diagnosis for this admission?: Yes Plan: Continue current medications with further adjustments as dictated by cardiology. (7) CAD (coronary artery disease) Qualifiers: Coronary Disease-Associated Artery/Lesion type: [place] artery Associated angina: with unspecified angina Is this a current diagnosis for this admission?: Yes Plan: Unclear whether this recurrent pain is angina or an anginal equivalent. I am more inclined to think this is related to his chronic GI issues (8) Hypothyroid Qualifiers: Hypothyroidism type: acquired Qualified Code(s): E03.9 - Hypothyroidism, unspecified Is this a current diagnosis for this admission?: Yes Plan: Continue home medications
[2018-01-15 13:03] LABS: ABSOLUTE BASOPHILS # (AUTO) 0.1 10^3/uL (0.0-0.2); ABSOLUTE LYMPHOCYTES (AUTO) 1.5 10^3/uL (0.5-4.7); ABSOLUTE MONOCYTES (AUTO) 0.6 10^3/uL (0.1-1.4); ABSOLUTE NEUT (AUTO) 11.5 10^3/uL (1.7-8.2); BASOPHILS % (AUTO) 0.4 % (0-2); EOSINOPHILS % (AUTO) 0.3 % (0-6); HEMATOCRIT 30.4 % (37.9-51.0); HEMOGLOBIN 9.6 g/dL (13.5-17.0); LYMPHOCYTES % (AUTO) 11.2 % (13-45); MEAN CORPUSCULAR HEMOGLOBIN 27.7 pg (27.0-33.4); MEAN CORPUSCULAR HGB CONC 31.7 g/dL (32.0-36.0); MEAN CORPUSCULAR VOLUME 88 fl (80-97); MONOCYTES % (AUTO) 4.1 % (3-13); PLATELET COUNT 162 10^3/uL (150-450); RED BLOOD COUNT 3.47 10^6/uL (4.35-5.55); RED CELL DISTRIBUTION WIDTH 18.5 % (11.5-14.0); TOTAL CELLS COUNTED % (AUTO) 100 %; WHITE BLOOD COUNT 13.7 10^3/uL (4.0-10.5)
[2018-01-15 13:06] LABS: ALANINE AMINOTRANSFERASE 27 U/L (21-72); ALBUMIN 3.3 g/dL (3.5-5.0); ALKALINE PHOSPHATASE 89 U/L (38-126); ANION GAP 12 (5-19); ASPARTATE AMINO TRANSFERASE 22 U/L (17-59); BILIRUBIN,DIRECT 0.3 mg/dL (0.0-0.4); BILIRUBIN,TOTAL 0.5 mg/dL (0.2-1.3); BLOOD UREA NITROGEN 36 mg/dL (7-20); CALCIUM 9.1 mg/dL (8.4-10.2); CARBON DIOXIDE 20 mmol/L (22-30); CHLORIDE 112 mmol/L (98-107); GLUCOSE 128 mg/dL (75-110); PHOSPHORUS 4.6 mg/dL (2.5-4.5); POTASSIUM 4.7 mmol/L (3.6-5.0); SODIUM 144.3 mmol/L (137-145); TOTAL PROTEIN 5.6 g/dL (6.3-8.2)
--- NOTE | 2018-01-15 13:37 | PDOC CONSULTATION ---
Consultation Consult Date: 01/14/18 Attending physician:: BINU CONTRERAS Consult reason:: Chest pain, abdominal pain History of Present Illness Admission Date/PCP: 01/14/18 17:23 ROMEL LAMB MD Patient complains of: Abdominal and chest pain History of Present Illness: ROSELYN DECKER is a 87 year old male with long-standing left lower chest pain since he had some stents placed several years ago. 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 Apparently got an EKG, was found to be in bigeminy, and was sent over to the emergency department. He continues to have pain. Pain may be worse with standing. Otherwise unrelated to activity. He took Tylenol for it without effect. Unaffected by nitro. Associated with severe nausea, and intermittent diaphoresis, and mild lightheadedness. He has no arm, neck, or jaw symptoms. He has had no loss of consciousness, no vomiting, or diarrhea. He reports a chronic cough from sinus issues that is unchanged. He denies swelling. States she has been walking in the mall and has noted a decrease in exercise tolerance that has come on slowly over the last few months. This history obtained by the hospitalist was reviewed and confirmed. In addition patient also complained of severe discomfort in the left lower quadrant. Patient claims that he had a aortic aneurysm stent graft placed from that site and since then he has had intermittent discomfort in that area. Patient denied any prior history of strokes or mini strokes. He does have history of coronary stents. Patient denied any sustained palpitations, syncope , near syncope. Patient claims that he does not feel the extra beats. Past Medical History Cardiac Medical History: Reports: Coronary Artery Disease, Myocardial Infarction - X2=STENTS 2001 & 2017, Hyperlipidema, Hypertension, Peripheral Vascular Disease, Other - No history of irregular heartbeat Pulmonary Medical History: Denies: Asthma EENT Medical History: Reports: Cataracts - Status post replacement right cataract yesterday Neurological Medical History: Reports: Seizures Endocrine Medical History: Reports: Hypothyroidism Renal/ Medical History: Reports: Chronic Kidney Disease Malignancy Medical History: Reports: Other - Throat cancer and prostate cancer GI Medical History: Denies: Hepatitis, Hiatal Hernia Musculoskeltal Medical History: Denies: Arthritis Psychiatric Medical History: Reports: Post Traumatic Stress Disorder Denies: Depression - anxiety Hematology: Denies: Anemia, Sickle Cell Disease Past Surgical History Past Surgical History: Reports: Cardiac Catheterization, Carotid Endarterectomy - RIGHT SIDE, Coronary Stent, Vascular Surgery - ILIAC, FEMORAL STENTS, aortic aneurysm stent graft Denies: Pacemaker Social History Information Source: Patient Smoking Status: Former Smoker Frequency of Alcohol Use: None Hx Recreational Drug Use: No Hx Prescription Drug Abuse: No - Advance Directive Resuscitation Status: Full Code Surrogate healthcare decision maker:: Surrogate decision-maker is patient's Family History Family History: Malignancy - Colon cancer Parental Family History Reviewed: Yes Children Family History Reviewed: Yes Sibling(s) Family History Reviewed.: Yes Medication/Allergy Home Medications: Alprazolam [Xanax 0.5 mg Tablet] 0.5 mg PO BID 01/14/18 Amlodipine Besylate [Norvasc 10 mg Tablet] 10 mg PO DAILY 01/14/18 Aspirin [Aspirin 81 mg Chewable Tablet] 81 mg PO DAILY 01/14/18 Besifloxacin HCl [Besivance 0.6% Oph Susp 5 ml] 1 drop OD BID MDD FOR 10DAYS AFTER SURGERY 01/14/18 Clopidogrel Bisulfate [Plavix 75 mg Tablet] 75 mg PO DAILY 01/14/18 Cyanocobalamin (Vitamin B-12) [Vitamin B-12] 1,000 mcg PO DAILY 01/14/18 Difluprednate [Durezol] 1 drop OD BID MDD FOR 10DAYS AFTER SURGERY 01/14/18 Fluticasone Propionate [Flonase Nasal [place] 50 Mcg/[place] 16 gm] 1 spray NAREB DAILY 01/14/18 Levothyroxine Sodium [Synthroid 0.05 mg Tablet] 0.05 mg PO Q6AM 01/14/18 Metoprolol Tartrate [Lopressor 25 mg Tablet] 25 mg PO DAILY 01/14/18 Nepafenac [Ilevro] 1 drop OD QAM MDD FOR 31DAYS AFTER SURGERY 01/14/18 Pantoprazole Sodium [Protonix] 40 mg PO DAILY 01/14/18 Polyvinyl Alcohol/Povidone/Pf [Refresh Classic Eye Drops] 1 drop OU BID Promethazine HCl [Phenergan 25 mg Tablet] 12.5 mg PO DAILY 01/14/18 Atorvastatin Calcium [Lipitor 20 mg Tablet] 20 mg PO QHS 01/15/18 Allergies/Adverse Reactions: morphine [Morphine] Allergy (Verified 01/14/18 16:02) tetracycline [Tetracycline] Allergy (Verified 01/14/18 16:02) Review of Systems Review of Systems: Please see history of present illness and past medical history as wall. Constitutional: No fever or chills reported. Fatigue and tiredness reported. Head : No recent chronic headaches, recent head injury. Eyes: No recent eye pain, diplopia, redness, discharge, acute visual changes. Ears: No recent chronic ear pain, acute hearing loss, ear discharge. Oral cavity: No recent ulcerations, bleeding, oral cavity discomfort. Neck: No recent acute neck pain reported. Hematologic: No recent easy bruising or bleeding or hematologic malignancy reported. Lymphatic: No recent lymphatic malignancy, chronic lymphadenopathy reported yet Cardiovascular system review: See history of present illness. Respiratory system review: No recent chronic cough, hemoptysis, blood clots in the lungs reported. Mild Shortness of breath on exertion Gastrointestinal system review: Left lower quadrant abdominal pain reported but denies hematemesis, melena, recent change in bowel habits. Genitourinary system review: No recent acute or chronic hematuria, flank pain, UTI etc. reported. Skin system review: Negative for any recent abnormal bruising, no rash, no pruritus reported. Neurologic: No prior history of strokes, mini strokes, seizure disorder. Psychologic: No history of major psychosis or major depression reported. Musculoskeletal: Minor aches and pains reported. No acute joint swelling reported. Endocrine: No recent polyuria, polydipsia, recent heat or cold intolerance. Physical Exam Vital Signs: Temp Pulse Resp BP Pulse Ox 97.7 F 50 L 9 L 100/57 L 94 01/14/18 18:46 01/14/18 18:46 01/14/18 20:11 01/14/18 20:11 01/14/18 20:11 Exam: GENERAL: well-nourished and in no acute distress. Alert and oriented x3 HEAD: Atraumatic, normocephalic. EYES: Pupils equal round and reactive to light, extraocular movements intact, sclera anicteric, conjunctiva are normal. ENT: TMs normal, nares patent, oropharynx clear without exudates. Moist mucous membranes. No oral ulcerations or bleeding gums noted NECK: supple without lymphadenopathy. Trachea is central. No cervical or axillary lymphadenopathy noted. Carotids are 2+, JVD WNL LUNGS: Respiration seems nonlabored, no significant accessory muscle action noted. Breath sounds clear to auscultation bilaterally and equal noted. No wheezes rales or rhonchi noted. No significant dullness noted on percussion. CHEST: Palpation of the chest wall shows no significant chest wall tenderness. HEART: [place] LEAD CAREGIVER, No PSH, 1/6 TANMA[place] aortic area, 1/6 hong systolic murmur mitral area, no rubs, no gallops. ABDOMEN: Soft, no significant tenderness appreciated, normoactive bowel sounds. No guarding, no rebound. No rigidity noted . No masses appreciated. EXTREMITIES: Pedal pulses are 1-2+, no calf tenderness noted. No clubbing or cyanosis. negative pedal edema noted NEUROLOGICAL: Focused neurological exam showed no significant neurologic deficit. Normal speech, no focal weakness appreciated. PSYCH: Normal mood, normal affect. Judgment and insight within normal limits. SKIN: No significant ecchymosis, skin is noted to be warm. MUSCULOSKELETAL EXAM: No significant acute joint swelling noted. Results EKG Comments: Sinus rhythm with ventricular ectopy and bigeminy pattern. Minor nonspecific ST segment changes Impressions: Chest X-Ray 01/14/18 15:58 IMPRESSION: NO ACUTE RADIOGRAPHIC FINDING IN THE CHEST. Assessment & Plan - Diagnosis (1) Chest pain Qualifiers: Chest pain type: other chest pain Qualified Code(s): R07.89 - Other chest pain; R07.8 - Other chest pain Is this a current diagnosis for this admission?: Yes (2) Abdominal discomfort Is this a current diagnosis for this admission?: Yes (3) CAD (coronary artery disease) Qualifiers: Coronary Disease-Associated Artery/Lesion type: [place] artery Associated angina: with unspecified angina Is this a current diagnosis for this admission?: Yes (4) HTN (hypertension) Qualifiers: Hypertension type: essential hypertension Qualified Code(s): I10 - Essential (primary) hypertension Is this a current diagnosis for this admission?: Yes (5) Ventricular bigeminy Is this a current diagnosis for this admission?: Yes (6) Hyperlipidemia Qualifiers: Hyperlipidemia type: unspecified Qualified Code(s): E78.5 - Hyperlipidemia , unspecified Is this a current diagnosis for this admission?: Yes (7) Gastroesophageal reflux disease Qualifiers: Esophagitis presence: esophagitis presence not specified Qualified Code(s) : K21.9 - Gastro-esophageal reflux disease without esophagitis Is this a current diagnosis for this admission?: Yes - Notes Notes: Patient was seen yesterday at night. Patient complained of significant abdominal discomfort. In fact this was his main complaints. However on questioning he did admit to having some chest discomfort. He is not aware of the ventricular ectopies. She describes history of some procedure carried out from the left groin area which I believe could be a stent graft. As regards chest discomfort: Recommend that we obtain serial EKGs and cardiac enzymes. Once we have figured out the cause of his abdominal pain and nothing other serious things going on will consider doing a stress test. As regards ventricular bigeminy: Will recommend maintaining electrolytes within normal limits. Agree with beta-chiquis therapy. May consider Ranexa therapy. Hypertension: Blood pressure goal is 140/90 or less in this gentleman. However should avoid any postural hypotension. Hyperlipidemia: Continue with high potency statin therapy. Gastroesophageal reflux: Continue with proton pump inhibitor. Coronary artery disease: Continue with current management plans with optimization of CAD regimen during this admission. - Time Time Spent: 30 to 50 Minutes - CODE STATUS was discussed, patient remains full code. Surrogate decision-maker patient's . Multiple medical problems were addressed. More than 50% of the time spent coordinating care, discussing management plans with involved caregivers. Management plans discussed with involved personnels. Medical decision making was of moderate to high complexity , patient's has multiple comorbidities. Medications reviewed and adjusted accordingly: Yes
--- NOTE | 2018-01-15 13:40 | PDOC PROGRESS REPORT ---
Subjective Progress Note for:: 01/15/18 Subjective:: Patient main complaint today is severe lower quadrant abdominal discomfort. Pt is denying any chest arm or neck discomfort. Patient denying any PND, orthopnea. Patient denied any sustained palpitations, dizziness, syncope, near syncope. Patient denying any fever chills. Patient denying any other significant discomfort. Patient is maintaining sinus rhythm. Frequent ectopy still noted. Review of systems: Rest review of systems negative. Medications: Medications have been reviewed. Reason For Visit: ATYPICAL CHEST PAIN, VENTRICULAR ECTOPY Physical Exam Vital Signs: Temp Pulse Resp BP Pulse Ox 97.9 F 80 16 151/68 H 89 L 01/15/18 04:00 01/15/18 10:05 01/15/18 10:05 01/15/18 04:00 01/15/18 10:05 Intake & Output 01/14/18 01/15/18 01/16/18 06:59 06:59 06:59 Intake Total 75 Output Total 325 Balance -250 Weight 63.7 kg Exam: GENERAL: well-nourished and in no acute distress. Alert and oriented x3 HEAD: Atraumatic, normocephalic. EYES: Pupils equal round and reactive to light, extraocular movements intact, sclera anicteric, conjunctiva are normal. ENT: TMs normal, nares patent, oropharynx clear without exudates. Moist mucous membranes. No oral ulcerations or bleeding gums noted NECK: supple without lymphadenopathy. Trachea is central. No cervical or axillary lymphadenopathy noted. Carotids are 2+, JVD WNL LUNGS: Respiration seems nonlabored, no significant accessory muscle action noted. Breath sounds clear to auscultation bilaterally and equal noted. No wheezes rales or rhonchi noted. No significant dullness noted on percussion. CHEST: Palpation of the chest wall shows no significant chest wall tenderness. 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 ABDOMEN: Soft, left lower quadrant tenderness appreciated, normoactive bowel sounds. No guarding, no rebound. No rigidity noted . No masses appreciated. EXTREMITIES: Pedal pulses are 1-2+, no calf tenderness noted. No clubbing or cyanosis. negative pedal edema noted NEUROLOGICAL: Focused neurological exam showed no significant neurologic deficit. Normal speech, no focal weakness appreciated. PSYCH: Normal mood, normal affect. Judgment and insight within normal limits. SKIN: No significant ecchymosis, skin is noted to be warm. MUSCULOSKELETAL EXAM: No significant acute joint swelling noted. Results Laboratory Results: 01/15/18 04:24 01/15/18 11:24 01/15/18 01/15/18 01/15/18 04:24 04:24 11:24 WBC 13.7 H RBC 3.47 L Hgb 9.6 L Hct 30.4 L MCV 88 MCH 27.7 MCHC 31.7 L RDW 18.5 H Plt Count 162 Seg Neutrophils % 84.0 H Lymphocytes % 11.2 L Monocytes % 4.1 Eosinophils % 0.3 Basophils % 0.4 Absolute Neutrophils 11.5 H Absolute Lymphocytes 1.5 Absolute Monocytes 0.6 Absolute Eosinophils 0.0 Absolute Basophils 0.1 Sodium 144.3 Potassium 4.7 Chloride 112 H Carbon Dioxide 20 L Anion Gap 12 BUN 36 H Creatinine 2.02 H Est GFR ( Amer) 38 L Est GFR (Non-Af Amer) 32 L Glucose 128 H Calcium 9.1 Phosphorus 4.6 H Magnesium 2.0 Total Bilirubin 0.5 AST 22 ALT 27 Alkaline Phosphatase 89 Total Protein 5.6 L Albumin 3.3 L Triglycerides 103 Cholesterol 150.15 LDL Cholesterol Direct 57 VLDL Cholesterol 21.0 HDL Cholesterol 60 01/14/18 01/15/18 01/15/18 22:00 04:24 11:24 Troponin I 0.014 < 0.012 0.017 NT-Pro-B Natriuret Pep 01/15/18 11:24 Troponin I NT-Pro-B Natriuret Pep 82273 H EKG Comments: Shows no significant change from before. Still has frequent ectopy. Impressions: Chest X-Ray 01/14/18 15:58 IMPRESSION: NO ACUTE RADIOGRAPHIC FINDING IN THE CHEST. Assessment & Plan - Diagnosis (1) Chest pain Qualifiers: Chest pain type: other chest pain Qualified Code(s): R07.89 - Other chest pain; R07.8 - Other chest pain Is this a current diagnosis for this admission?: Yes (2) Abdominal discomfort Is this a current diagnosis for this admission?: Yes (3) CAD (coronary artery disease) Qualifiers: Coronary Disease-Associated Artery/Lesion type: [place] artery Associated angina: with unspecified angina Is this a current diagnosis for this admission?: Yes (4) HTN (hypertension) Qualifiers: Hypertension type: essential hypertension Qualified Code(s): I10 - Essential (primary) hypertension Is this a current diagnosis for this admission?: Yes (5) Ventricular bigeminy Is this a current diagnosis for this admission?: Yes (6) Hyperlipidemia Qualifiers: Hyperlipidemia type: unspecified Qualified Code(s): E78.5 - Hyperlipidemia , unspecified Is this a current diagnosis for this admission?: Yes (7) Gastroesophageal reflux disease Qualifiers: Esophagitis presence: esophagitis presence not specified Qualified Code(s) : K21.9 - Gastro-esophageal reflux disease without esophagitis Is this a current diagnosis for this admission?: Yes - Notes Notes: So far cardiac enzymes has been negative. EKG is without any significant new changes. Ventricular ectopy continues but somewhat reduced. At this point patient main complaint seems to be severe abdominal pain. Recommend CT of the abdomen, chest. Have also ordered for a ultrasound of the abdomen to be performed. May consider subspecialty consultation such as GI or surgical. At this point further cardiac evaluation with stress test is on hold until, patient is more comfortable and a diagnosis of his abdominal discomfort is available since this is patient's main concern at this time. Will continue to follow patient. Will repeat an EKG in the morning. Further plan after review of CT chest, CT abdomen and ultrasound of the abdomen results. These tests were handwritten in the order sheet and given to the secretary book keeper. - Time Time with patient: Greater than 35 minutes - CODE STATUS was discussed, patient remains full code. Surrogate decision-maker unchanged. Multiple medical problems were addressed. More than 50% of the time spent coordinating care, discussing management plans with involved caregivers. Management plans discussed with involved personnels. Medical decision making was of moderate to high complexity, patient's has multiple comorbidities. Medications reviewed and adjusted accordingly: Yes
--- NOTE | 2018-01-15 13:45 | XCELERA REPORT ---
[address] [address] Transthoracic Echocardiogram Report Name: ROSELYN DECKER Age: 87 yrs Gender: Male : 1930 Patient Status: Inpatient Patient Location: [address] [place] [address] Study Date: 01/15/2018 10:15 AM Height: 69 in Weight: 132 lb BSA: 1.7 m2 Procedure: A complete two-dimensional transthoracic echocardiogram was performed (2D, M-mode, spectral and color flow Doppler). The study was technically adequate with some images being suboptimal in quality. Reason For Study: Ventricular dysrhythmia Ordering Physician: GENE GRANT Performed By: Macrina Olmedo Interpretation Summary Left ventricular systolic function is mildly reduced. The Ejection Fraction estimate is 45-50% Doppler measurements suggest normal left ventricular diastolic function The left ventricle is grossly normal size. There is borderline concentric left ventricular hypertrophy. There is mild global hypokinesis of the left ventricle. Regional wall motion abnormalities cannot be excluded due to limited visualization. The right ventricle is grossly normal size. The right ventricular systolic function is normal. Borderline left atrial enlargement. There is no mitral valve stenosis. There is a mild amount of mitral regurgitation There is no aortic valve stenosis There is a trace to mild amount of aortic regurgitation There is no tricuspid stenosis. No tricuspid regurgitation. The aortic root is not well visualized but is probably normal size. The inferior vena cava was not visualized There is no pericardial effusion. MMode/2D Measurements & Calculations RVDd: 1.7 cm LVIDd: 5.3 cm FS: 28.6 % Ao root diam: 3.2 cm IVSd: 0.75 cm LVIDs: 3.8 cm EDV(Teich): 137.9 ml LVPWd: 0.81 cm ESV(Teich): 62.5 ml Ao root area: 7.9 cm2 EF(Teich): 54.7 % LA dimension: 3.4 cm Doppler Measurements & Calculations MV E max brooke: MV P1/2t max brooke: Ao V2 max: AI max brooke: 105.8 cm/sec 104.2 cm/sec 141.6 cm/sec 295.6 cm/sec MV A max brooke: MV P1/2t: 53.2 msec Ao max PG: AI max P.8 cm/sec 8.0 mmHg 35.0 mmHg MV E/A: 1.2 MVA(P1/2t): 4.1 cm2 AI dec slope: MV dec slope: 573.1 cm/sec2 137.4 cm/sec2 AI P1/2t: 630.2 msec LV V1 max PG: PA V2 max: 5.7 mmHg 120.1 cm/sec LV V1 max: PA max P.8 mmHg 119.5 cm/sec Left Ventricle The left ventricle is grossly normal size. There is borderline concentric left ventricular hypertrophy. Left ventricular systolic function is mildly reduced. The Ejection Fraction estimate is 45-50%. Doppler measurements suggest normal left ventricular diastolic function. There is mild global hypokinesis of the left ventricle. Regional wall motion abnormalities cannot be excluded due to limited visualization. Right Ventricle The right ventricle is grossly normal size. There is normal right ventricular wall thickness. The right ventricular systolic function is normal. Atria The right atrium is normal in size. Borderline left atrial enlargement. Interarterial septum not well visualized and not well dopplered. Cannot comment on ASD/PFO presence. Mitral Valve The mitral valve leaflets are sclerotic, but show no functional abnormalities. There is no mitral valve stenosis. There is a mild amount of mitral regurgitation. Aortic Valve The aortic valve is not well visualized secondary to technical limitations. There is no aortic valve stenosis. There is a trace to mild amount of aortic regurgitation. Tricuspid Valve The tricuspid valve is not well visualized, but is grossly normal. There is no tricuspid stenosis. No tricuspid regurgitation. Pulmonic Valve The pulmonic valve is not well visualized. Great Vessels The aortic root is not well visualized but is probably normal size. The inferior vena cava was not visualized. Effusions There is no pericardial effusion. : GENE GRANT > Gene Grant
--- NOTE | 2018-01-15 15:25 | RADIOLOGY REPORT (SQ) ---
EXAM DESCRIPTION: U/S ABD AORTIC SCREENING COMPLETED DATE/TIME: 01/15/2018 3:06 pm REASON FOR STUDY: ABD PAIN LLQ AND AORTA H/O ANEURYSM R06.02 SHORTNESS OF BREATH R07.9 CHEST KISHORE N, UNSPECIFIED R11.2 NAUSEA WITH VOMITING, UNSPECIFIED COMPARISON: None. TECHNIQUE: Static and dynamic grayscale images acquired of the aorta and stored on PACs. Selected co janie Doppler and spectral images recorded. LIMITATIONS: None. FINDINGS: AORTIC CALIBER MAXIMAL PROXIMAL: 1.9 cm. MID: 3.9 cm. DISTAL: 1.6 cm. Common iliac arteries not well visualized. IMPRESSION: 4 cm aortic aneurysm. COMMENT: Aorta screening examinations categories: Negative - less than 3 cm. TECHNICAL DOCUMENTATION: JOB ID: [id number] [employer]- All Rights Reserved Reading location - IP/workstation name: [facility]
--- NOTE | 2018-01-15 15:28 | RADIOLOGY REPORT (SQ) ---
EXAM DESCRIPTION: CT CHEST WITHOUT COMPLETED DATE/TIME: 01/15/2018 2:27 pm REASON FOR STUDY: chest pain and abd pain R06.02 SHORTNESS OF BREATH R07.9 CHEST PAIN, UNSPECIFIED R11.2 NAUSEA WITH VOMITING, UNSPECIFIED COMPARISON: 09/13/2016 TECHNIQUE: CT scan performed of the chest without intravenous contrast. Images reviewed with lung, soft tissue and bone windows. Reconstructed coronal and sagittal MPR images reviewed. All images st ored on PACS. All CT scanners at this facility use dose modulation, iterative reconstruction, and/or weight based d osing when appropriate to reduce radiation dose to as low as reasonably achievable (ALARA). [facility]: Dose Right [facility]: CareDose [facility]: Dose Right [facility]: Teradose 4D [facility]: [employer] RADIATION DOSE: mGy. LIMITATIONS: No technical limitations. FINDINGS: LUNGS AND PLEURA: Segmental airspace disease in both lower lobes. Small pleural effusions . Calcified plaque anterior right lung. HILAR AND MEDIASTINAL STRUCTURES: No identified masses or abnormal nodes. No obvious aneurysm. HEART AND VASCULAR STRUCTURES: Diffuse atherosclerotic calcifications. UPPER ABDOMEN: See separate report of the CT of the abdomen. THYROID AND OTHER SOFT TISSUES: No masses. No adenopathy. BONES: No significant finding. HARDWARE: None in the chest. OTHER: No other significant findings. IMPRESSION: Bilateral lower lobe pneumonia. TECHNICAL DOCUMENTATION: JOB ID: [id number] Quality ID # [id number]: Final reports with documentation of one or more dose reduction techniques (e.g., Au tomated exposure control, adjustment of the mA and/or kV according to patient size, use of iterative reconstruction technique) 2010 [employer] All Rights Reserved Reading location - IP/workstation name: [facility]RR[facility]
--- NOTE | 2018-01-15 15:36 | RADIOLOGY REPORT (SQ) ---
EXAM DESCRIPTION: CT ABD/PELVIS NO ORAL OR IV COMPLETED DATE/TIME: 01/15/2018 2:27 pm REASON FOR STUDY: chest pain and abd pain R06.02 SHORTNESS OF BREATH R07.9 CHEST PAIN, UNSPECIFIED R11.2 NAUSEA WITH VOMITING, UNSPECIFIED COMPARISON: 12/10/2015 TECHNIQUE: CT scan of the abdomen and pelvis performed without intravenous or oral contrast. Images reviewed with lung, soft tissue, and bone windows. Reconstructed coronal and sagittal MPR images revi ewed. All images stored on PACS. All CT scanners at this facility use dose modulation, iterative reconstruction, and/or weight based d osing when appropriate to reduce radiation dose to as low as reasonably achievable (ALARA). [facility]: Dose Right [facility]: CareDose [facility]: Dose Right [facility]: Teradose 4D [facility]: [employer] RADIATION DOSE: CT Rad equipment meets quality standard of care and radiation dose reduction techniq ues were employed. CTDIvol: 6.0 - 6.6 mGy. DLP: 578 mGy-cm.mGy. LIMITATIONS: Patient motion. FINDINGS: LOWER CHEST: See separate report of the CT of the chest. NON-CONTRASTED LIVER, SPLEEN, ADRENALS: Evaluation limited by lack of IV contrast. No identified sign ificant masses. PANCREAS: No masses. No peripancreatic inflammatory changes. GALLBLADDER: No identified stones by CT criteria. No inflammatory changes to suggest cholecystitis. RIGHT KIDNEY AND URETER: Cortical cysts. No suspicious masses. Assessment limited by lack of IV cont rast. No significant calcifications. No hydronephrosis or hydroureter. LEFT KIDNEY AND URETER: No suspicious masses. Assessment limited by lack of IV contrast. No signifi cant calcifications. No hydronephrosis or hydroureter. AORTA AND RETROPERITONEUM: Aortic iliac endograft. Sac diameter 4.2 x 4.9 cm. BOWEL AND PERITONEAL CAVITY: Epigastric clips. Sigmoid diverticulosis. No obvious masses or inflamm atory changes. Small amount of ascites . APPENDIX: Normal. PELVIS, BLADDER, AND ABDOMINAL WALL:Seed markers in the prostate bed. No adenopathy. Normal urinary bladder. BONES: No acute findings. OTHER: No other significant finding. IMPRESSION: 1. Trace amount of ascites. 2. Stable aortic iliac endograft. COMMENT: Quality ID # [id number]: Final reports with documentation of one or more dose reduction techniques (e.g., Automated exposure control, adjustment of the mA and/or kV according to patient size, use of iterative reconstruction technique) TECHNICAL DOCUMENTATION: JOB ID: [id number] [employer]- All Rights Reserved Reading location - IP/workstation name: [facility][email or web address]
--- NOTE | 2018-01-15 15:40 | RADIOLOGY REPORT (SQ) ---
EXAM DESCRIPTION: ACUTE ABDOMEN SERIES COMPLETED DATE/TIME: 01/15/2018 3:10 pm REASON FOR STUDY: abd pain R06.02 SHORTNESS OF BREATH R07.9 CHEST PAIN, UNSPECIFIED R11.2 NAUSEA WITH VOMITING, UNSPECIFIED COMPARISON: Chest x-ray dated 01/14/2018 NUMBER OF VIEWS: Three views. TECHNIQUE: Frontal chest, supine abdomen and upright/decubitus abdomen radiographic images acquired. LIMITATIONS: None. FINDINGS: CHEST: There has been interval development of patchy airspace consolidation in the lung ba ses left greater than right most consistent with pneumonic infiltrates. There is apparent tracheal n arrowing in the lower cervical region. FREE AIR: None. No abnormal gas collections. BOWEL GAS PATTERN: Nonobstructive pattern. No dilated loops or air fluid levels. CALCIFICATIONS: Radiopaque density is identified in the right upper quadrant of uncertain etiology or significance HARDWARE: Aorto bi-iliac endograft is identified. Prostatic seeds are identified in the lower pelvis in the midline SOFT TISSUES: No gross mass or suggestion of organomegaly. BONES: No acute fracture. No worrisome bone lesions. OTHER: No other significant finding. IMPRESSION: Bibasilar airspace consolidations left greater than right most consistent with pneumonic infiltrates. Nonspecific intestinal bowel gas pattern. Other findings as noted above TECHNICAL DOCUMENTATION: JOB ID: [id number] [employer] All Rights Reserved Reading location - IP/workstation name: [email or web address]
[2018-01-15 18:00] LABS: ALBUMIN 3.5 g/dL (3.5-5.0); ANION GAP 14 (5-19); BLOOD UREA NITROGEN 37 mg/dL (7-20); CALCIUM 9.1 mg/dL (8.4-10.2); CARBON DIOXIDE 20 mmol/L (22-30); CHLORIDE 109 mmol/L (98-107); GLUCOSE 151 mg/dL (75-110); PHOSPHORUS 4.8 mg/dL (2.5-4.5); POTASSIUM 4.6 mmol/L (3.6-5.0)
[2018-01-16] MEDS: LANSOPRAZOLE 30 MG TAB.RAP.DR PO SCH (05:56)
[2018-01-16] MEDS: LEVOTHYROXINE SODIUM 0.05 MG TABLET PO SCH (05:56)
[2018-01-16] MEDS ORDERED: FUROSEMIDE INJ/PF 40 MG/4 ML SDV IV ONE ×2 (08:15→18:00)
[2018-01-16] MEDS: POLYETHYLENE GLYCOL 3350 POWDER 17 GM/1 PACKET PO SCH (09:10)
[2018-01-16] MEDS: METOPROLOL TARTRATE 25 MG TABLET PO SCH ×2 (09:10→22:18)
[2018-01-16] MEDS: CYANOCOBALAMIN (VITAMIN B-12) 1,000 MCG TABLET PO SCH (09:10)
[2018-01-16] MEDS: CLOPIDOGREL BISULFATE 75 MG TABLET PO SCH (09:10)
[2018-01-16] MEDS: ALPRAZOLAM 0.5 MG TABLET PO SCH ×2 (09:11→22:18)
[2018-01-16] MEDS: BESIFLOXACIN HCL 0.6% OPH SUSP 5 ML BOTTLE OD SCH ×2 (09:11→22:18)
[2018-01-16] MEDS: FLUTICASONE NASAL SPRAY 50 MCG/SPRY 120 SPRAY/16 GM NAREB SCH (09:11)
[2018-01-16] MEDS: ASPIRIN 81 MG TABLET, CHEWABLE PO SCH (09:11)
[2018-01-16] MEDS: DIFLUPREDNATE 0.05% OD SCH ×2 (09:15→18:00)
[2018-01-16] MEDS: OPTH OD SCH ×3 (09:15→18:00)
[2018-01-16] MEDS: NEPAFENAC 0.3% OD SCH (09:20)
[2018-01-16] MEDS: CARBOXYMETHYLCELLULOSE SOD 0.5% 0.4 ML DROPERETTE OU SCH ×2 (09:25→18:08)
[2018-01-16] MEDS ORDERED: FUROSEMIDE 40 MG TABLET PO SCH (10:00)
--- NOTE | 2018-01-16 13:54 | PDOC PROGRESS REPORT ---
Subjective Progress Note for:: 01/16/18 Subjective:: Much more comfortable today. Tolerating current diet. Pain in his abdomen is back to his usual discomfort. Reason For Visit: ATYPICAL CHEST PAIN, VENTRICULAR ECTOPY Physical Exam Vital Signs: Temp Pulse Resp BP Pulse Ox 98.3 F 82 16 115/62 95 01/16/18 12:00 01/16/18 12:56 01/16/18 12:56 01/16/18 12:00 01/16/18 12:00 Intake & Output 01/15/18 01/16/18 01/17/18 06:59 06:59 06:59 Intake Total 75 320 Output Total 325 180 Balance -250 140 Weight 63.7 kg 63.8 kg General appearance: PRESENT: no acute distress, thin Respiratory exam: PRESENT: clear to auscultation rodrigo Cardiovascular exam: PRESENT: irregular rhythm GI/Abdominal exam: PRESENT: soft Extremities exam: PRESENT: other - No edema Musculoskeletal exam: PRESENT: normal inspection Neurological exam: PRESENT: alert, oriented to person, oriented to place Psychiatric exam: PRESENT: appropriate affect Skin exam: PRESENT: dry, warm Results Laboratory Results: 01/15/18 04:24 01/15/18 17:30 01/15/18 01/15/18 11:24 17:30 Sodium 143.0 Potassium 4.6 Chloride 109 H Carbon Dioxide 20 L Anion Gap 14 BUN 37 H Creatinine 1.99 H Est GFR ( Amer) 39 L Est GFR (Non-Af Amer) 32 L Glucose 151 H Calcium 9.1 Phosphorus 4.8 H Magnesium 1.9 Iron 58.4 Albumin 3.5 01/14/18 01/15/18 01/15/18 22:00 04:24 11:24 Troponin I 0.014 < 0.012 0.017 NT-Pro-B Natriuret Pep 01/15/18 01/15/18 11:24 17:30 Troponin I NT-Pro-B Natriuret Pep 60907 H 01174 H Impressions: Chest X-Ray 01/14/18 15:58 IMPRESSION: NO ACUTE RADIOGRAPHIC FINDING IN THE CHEST. Abdomen/Pelvis CT 01/15/18 00:00 IMPRESSION: 1. Trace amount of ascites. 2. Stable aortic iliac endograft. Acute Abdomen Series 01/15/18 00:00 IMPRESSION: Bibasilar airspace consolidations left greater than right most consistent with pneumonic infiltrates. Nonspecific intestinal bowel gas pattern. Other findings as noted above Chest CT 01/15/18 10:37 IMPRESSION: Bilateral lower lobe pneumonia. Abdomen Ultrasound 01/15/18 10:39 IMPRESSION: 4 cm aortic aneurysm. Assessment & Plan - Diagnosis (1) Ventricular ectopy Is this a current diagnosis for this admission?: Yes Plan: Cardiology has been consulted. Continue to monitor closely. Discussed with Dr. Sadler who, I understand, plans to do a stress test tomorrow (2) Chest pain Qualifiers: Chest pain type: other chest pain Qualified Code(s): R07.89 - Other chest pain; R07.8 - Other chest pain Is this a current diagnosis for this admission?: Yes Plan: Mostly atypical features. We will monitor him on telemetry, cardiac enzymes have been negative 3, consulted cardiology. (3) Dumping syndrome Is this a current diagnosis for this admission?: Yes Plan: Improved. I think this is the source of his pain. He has had flares before going back 20 years. I will order dietitians recommendations. (4) History of cataract extraction with lens replacement Is this a current diagnosis for this admission?: Yes Plan: 01/13/18. Associated increased stress may have brought this on. Conceivably, 1 of his new eye Medications may have caused some difficulty as well. (5) Epilepsy, generalized, convulsive Is this a current diagnosis for this admission?: No Plan: Continue home medications (6) HTN (hypertension) Qualifiers: Hypertension type: essential hypertension Qualified Code(s): I10 - Essential (primary) hypertension Is this a current diagnosis for this admission?: Yes Plan: Continue current medications with further adjustments as dictated by cardiology. (7) CAD (coronary artery disease) Qualifiers: Coronary Disease-Associated Artery/Lesion type: [place] artery Associated angina: with unspecified angina Is this a current diagnosis for this admission?: Yes Plan: Unclear whether this recurrent pain is angina or an anginal equivalent. I am more inclined to think this is related to his chronic GI issues (8) Hypothyroid Qualifiers: Hypothyroidism type: acquired Qualified Code(s): E03.9 - Hypothyroidism, unspecified Is this a current diagnosis for this admission?: Yes Plan: Continue home medications
[2018-01-16 15:30] LABS: ALBUMIN 2.9 g/dL (3.5-5.0); ANION GAP 15 (5-19); BLOOD UREA NITROGEN 43 mg/dL (7-20); CALCIUM 8.8 mg/dL (8.4-10.2); CARBON DIOXIDE 22 mmol/L (22-30); CHLORIDE 107 mmol/L (98-107); GLUCOSE 98 mg/dL (75-110); PHOSPHORUS 3.6 mg/dL (2.5-4.5); POTASSIUM 4.4 mmol/L (3.6-5.0); SODIUM 143.6 mmol/L (137-145)
--- NOTE | 2018-01-16 22:10 | PDOC PROGRESS REPORT ---
Subjective Progress Note for:: 01/16/18 Subjective:: Patient main complaint today is severe lower quadrant abdominal discomfort. Pt is denying any chest arm or neck discomfort. Patient denying any PND, orthopnea. Patient denied any sustained palpitations, dizziness, syncope, near syncope. Patient denying any fever chills. Patient denying any other significant discomfort. Patient is maintaining sinus rhythm. Frequent ectopy still noted. Review of systems: Rest review of systems negative. Medications: Medications have been reviewed. Reason For Visit: ATYPICAL CHEST PAIN, VENTRICULAR ECTOPY Physical Exam Vital Signs: Temp Pulse Resp BP Pulse Ox 98.9 F 62 18 111/64 96 01/16/18 20:00 01/16/18 20:00 01/16/18 20:00 01/16/18 20:00 01/16/18 20:00 Intake & Output 01/15/18 01/16/18 01/17/18 06:59 06:59 06:59 Intake Total 75 320 718 Output Total 325 180 350 Balance -250 140 368 Weight 63.7 kg 63.8 kg Results Laboratory Results: 01/15/18 04:24 01/16/18 15:03 01/16/18 15:03 Sodium 143.6 Potassium 4.4 Chloride 107 Carbon Dioxide 22 Anion Gap 15 BUN 43 H Creatinine 2.28 H Est GFR ( Amer) 33 L Est GFR (Non-Af Amer) 27 L Glucose 98 Calcium 8.8 Phosphorus 3.6 Magnesium 2.1 Albumin 2.9 L 01/14/18 01/15/18 01/15/18 22:00 04:24 11:24 Troponin I 0.014 < 0.012 0.017 NT-Pro-B Natriuret Pep 01/15/18 01/15/18 01/16/18 11:24 17:30 15:03 Troponin I NT-Pro-B Natriuret Pep 38169 H 39749 H 44074 H Impressions: Chest X-Ray 01/14/18 15:58 IMPRESSION: NO ACUTE RADIOGRAPHIC FINDING IN THE CHEST. Abdomen/Pelvis CT 01/15/18 00:00 IMPRESSION: 1. Trace amount of ascites. 2. Stable aortic iliac endograft. Acute Abdomen Series 01/15/18 00:00 IMPRESSION: Bibasilar airspace consolidations left greater than right most consistent with pneumonic infiltrates. Nonspecific intestinal bowel gas pattern. Other findings as noted above Chest CT 01/15/18 10:37 IMPRESSION: Bilateral lower lobe pneumonia. Abdomen Ultrasound 01/15/18 10:39 IMPRESSION: 4 cm aortic aneurysm. Assessment & Plan - Diagnosis (1) Chest pain Qualifiers: Chest pain type: other chest pain Qualified Code(s): R07.89 - Other chest pain; R07.8 - Other chest pain Is this a current diagnosis for this admission?: Yes (2) Abdominal discomfort Is this a current diagnosis for this admission?: Yes (3) CAD (coronary artery disease) Qualifiers: Coronary Disease-Associated Artery/Lesion type: [place] artery Associated angina: with unspecified angina Is this a current diagnosis for this admission?: Yes (4) HTN (hypertension) Qualifiers: Hypertension type: essential hypertension Qualified Code(s): I10 - Essential (primary) hypertension Is this a current diagnosis for this admission?: Yes (5) Ventricular bigeminy Is this a current diagnosis for this admission?: Yes (6) Hyperlipidemia Qualifiers: Hyperlipidemia type: unspecified Qualified Code(s): E78.5 - Hyperlipidemia , unspecified Is this a current diagnosis for this admission?: Yes (7) Gastroesophageal reflux disease Qualifiers: Esophagitis presence: esophagitis presence not specified Qualified Code(s) : K21.9 - Gastro-esophageal reflux disease without esophagitis Is this a current diagnosis for this admission?: Yes - Notes Notes: Patient continues with frequent ventricular ectopy. Otherwise no sustained tachycardia or bradycardia noted. Medical management is gradually being optimized. Schedule NST - Time Time with patient: 15-25 minutes - CODE STATUS was discussed, patient remains full code. Surrogate decision-maker unchanged. Multiple medical problems were addressed. More than 50% of the time spent coordinating care, discussing management plans with involved caregivers. Management plans discussed with involved personnels. Medical decision making was of moderate to high complexity , patient's has multiple comorbidities. Medications reviewed and adjusted accordingly: Yes
[2018-01-16] MEDS: ATORVASTATIN CALCIUM 80 MG TABLET PO SCH (22:18)
[2018-01-17] MEDS: LEVOTHYROXINE SODIUM 0.05 MG TABLET PO SCH (06:25)
[2018-01-17] MEDS: LANSOPRAZOLE 30 MG TAB.RAP.DR PO SCH (06:25)
--- NOTE | 2018-01-17 09:26 | EKG REPORT ---
SEVERITY:- ABNORMAL ECG - SINUS RHYTHM VENTRICULAR BIGEMINY IVCD, CONSIDER ATYPICAL RBBB : Confirmed by: Gene Sadler 17-Jan-2018 09:25:17
[2018-01-17] MEDS ORDERED: METOPROLOL SUCCINATE 50 MG TAB.SR.24H PO ONE (11:00)
[2018-01-17] MEDS ORDERED: AMINOPHYLLINE INJ/PF 250 MG/10 ML SDV IV ONE (11:27)
[2018-01-17] MEDS ORDERED: REGADENOSON INJ 0.4 MG/5 ML DISP.SYRIN IV ONE (11:27)
[2018-01-17] MEDS: POLYETHYLENE GLYCOL 3350 POWDER 17 GM/1 PACKET PO SCH (11:27)
[2018-01-17] MEDS: CLOPIDOGREL BISULFATE 75 MG TABLET PO SCH (11:29)
[2018-01-17] MEDS: ASPIRIN 81 MG TABLET, CHEWABLE PO SCH (11:29)
[2018-01-17] MEDS: ALPRAZOLAM 0.5 MG TABLET PO SCH ×2 (11:29→21:31)
[2018-01-17] MEDS: CYANOCOBALAMIN (VITAMIN B-12) 1,000 MCG TABLET PO SCH (11:30)
[2018-01-17] MEDS: BESIFLOXACIN HCL 0.6% OPH SUSP 5 ML BOTTLE OD SCH ×2 (11:33→21:31)
[2018-01-17] MEDS: CARBOXYMETHYLCELLULOSE SOD 0.5% 0.4 ML DROPERETTE OU SCH ×2 (11:35→18:57)
[2018-01-17] MEDS: FLUTICASONE NASAL SPRAY 50 MCG/SPRY 120 SPRAY/16 GM NAREB SCH (11:36)
[2018-01-17] MEDS: OPTH OD SCH ×3 (11:36→18:57)
[2018-01-17] MEDS: DIFLUPREDNATE 0.05% OD SCH ×2 (11:36→18:57)
[2018-01-17] MEDS: NEPAFENAC 0.3% OD SCH (11:40)
--- NOTE | 2018-01-17 13:40 | PDOC PROGRESS REPORT ---
Subjective Progress Note for:: 01/17/18 Subjective:: Abdominal pain is more severe today. Reason For Visit: ATYPICAL CHEST PAIN, VENTRICULAR ECTOPY Physical Exam Vital Signs: Temp Pulse Resp BP Pulse Ox 98.6 F 64 16 131/45 H 97 01/17/18 07:57 01/17/18 07:57 01/17/18 07:57 01/17/18 07:57 01/17/18 07:57 Intake & Output 01/16/18 01/17/18 01/18/18 06:59 06:59 06:59 Intake Total 320 1368 Output Total 180 1490 Balance 140 -122 Weight 63.8 kg 67.2 kg General appearance: PRESENT: mild distress Respiratory exam: PRESENT: clear to auscultation rodrigo Cardiovascular exam: PRESENT: irregular rhythm Extremities exam: ABSENT: other - No edema Musculoskeletal exam: PRESENT: normal inspection Neurological exam: PRESENT: alert Psychiatric exam: PRESENT: anxious Skin exam: PRESENT: warm Results Laboratory Results: 01/15/18 04:24 01/16/18 15:03 01/16/18 15:03 Sodium 143.6 Potassium 4.4 Chloride 107 Carbon Dioxide 22 Anion Gap 15 BUN 43 H Creatinine 2.28 H Est GFR ( Amer) 33 L Est GFR (Non-Af Amer) 27 L Glucose 98 Calcium 8.8 Phosphorus 3.6 Magnesium 2.1 Albumin 2.9 L 01/14/18 01/15/18 01/15/18 22:00 04:24 11:24 Troponin I 0.014 < 0.012 0.017 NT-Pro-B Natriuret Pep 01/15/18 01/15/18 01/16/18 11:24 17:30 15:03 Troponin I NT-Pro-B Natriuret Pep 98873 H 17999 H 55303 H Impressions: Chest X-Ray 01/14/18 15:58 IMPRESSION: NO ACUTE RADIOGRAPHIC FINDING IN THE CHEST. Abdomen/Pelvis CT 01/15/18 00:00 IMPRESSION: 1. Trace amount of ascites. 2. Stable aortic iliac endograft. Acute Abdomen Series 01/15/18 00:00 IMPRESSION: Bibasilar airspace consolidations left greater than right most consistent with pneumonic infiltrates. Nonspecific intestinal bowel gas pattern. Other findings as noted above Chest CT 01/15/18 10:37 IMPRESSION: Bilateral lower lobe pneumonia. Abdomen Ultrasound 01/15/18 10:39 IMPRESSION: 4 cm aortic aneurysm. Assessment & Plan - Diagnosis (1) Ventricular ectopy Is this a current diagnosis for this admission?: Yes Plan: Cardiology has been consulted. Continue to monitor closely. Stress test today (2) Chest pain Qualifiers: Chest pain type: other chest pain Qualified Code(s): R07.89 - Other chest pain; R07.8 - Other chest pain Is this a current diagnosis for this admission?: Yes Plan: Mostly atypical features. Continue to monitor him on telemetry, cardiac enzymes have been negative 3 (3) Dumping syndrome Is this a current diagnosis for this admission?: Yes Plan: Improved. I think this is the source of his pain. He has had flares before going back 20 years. I will order dietitians recommendations. (4) History of cataract extraction with lens replacement Is this a current diagnosis for this admission?: Yes Plan: 01/13/18. Associated increased stress may have brought this on. Conceivably, 1 of his new eye Medications may have caused some difficulty as well. (5) Epilepsy, generalized, convulsive Is this a current diagnosis for this admission?: No Plan: Continue home medications (6) HTN (hypertension) Qualifiers: Hypertension type: essential hypertension Qualified Code(s): I10 - Essential (primary) hypertension Is this a current diagnosis for this admission?: Yes Plan: Continue current medications with further adjustments as dictated by cardiology. (7) CAD (coronary artery disease) Qualifiers: Coronary Disease-Associated Artery/Lesion type: [place] artery Associated angina: with unspecified angina Is this a current diagnosis for this admission?: Yes Plan: Unclear whether this recurrent pain is angina or an anginal equivalent. I am more inclined to think this is related to his chronic GI issues (8) Hypothyroid Qualifiers: Hypothyroidism type: acquired Qualified Code(s): E03.9 - Hypothyroidism, unspecified Is this a current diagnosis for this admission?: Yes Plan: Continue home medications
--- NOTE | 2018-01-17 14:16 | DRAGON STRESS TEST REPORT ---
INTRAVENOUS LEXISCAN CARDIOLITE STRESS TEST USING SINGLE PHOTON EMMISION COMPUTERIZED TOMOGRAPHIC. DATE OF PROCEDURE: January 17, 2018, INDICATION : Chest pain CARDIAC RISK FACTORS: CAD, PVD RESTING EKG: Sinus rhythm, left axis deviation, frequent ventricular ectopy. STRESS EKG: No significant ST segment changes noted with LexiScan bolus. Increased ventricular ectopy was noted during the procedure but patient does have a history of increased ventricular ectopy. Some ventricular couplets were also noted. REASON FOR TERMINATION: Protocol. PROCEDURE REPORT: Baseline heart rate 66 beats per minute with blood pressure of 107/65. Patient had no significant complaints. Patient was bolused with Lexiscan 0.4 mg intravenously followed by saline bolus. Heart rate at 2 minutes post bolus 90 with a blood pressure of 114/78. 3 minutes post bolus heart rate 88 with blood pressure of 119/76. No significant EKG changes were noted. Patient had no significant complaints during the procedure or postprocedure. Patient injected with Aminophyllin 75 mg at 3 minutes or later after Lexiscan bolus. CONCLUSIONS: Normal EKG and hemodynamic response to IV LexiScan. NUCLEAR DATA: At rest the patient was given 9.67 millicuries of technetium 99 sestamibi injected intravenously. As per protocol rest gated SPECT images were obtained. On day of stress test, the patient was given intravenous LexiScan at a dose of 0.4 mg in 5 mL intravenously, followed by flush with normal saline. Subsequently the stress dose of 31.5 millicuries of technetium 99 sestamibi was injected intravenously. As per protocol stress gated images were obtained. NUCLEAR INTERPRETATION: Both raw and processed data were used for interpretation. Visual, qualitative, computer-generated quantitative data was used. There was good myocardial uptake of technetium compound. Motion artifact and soft tissue attenuations were noted. Increased visceral uptake was noted. A small area of predominantly severe fixed defect noted in the distal inferior wall with some extension into the inferoapex with minimal area of minimal surrounding ischemia. EKG gated imaging showed LV EF at 42 %, rest and stress gated EF similar visually, distal inferior wall hypokinesia was noted. T. I D. ratio was 0.81. Lung heart ratio noted to be within normal limits 0.38. No significant extracardiac and abnormal radiotracer activities were noted. RV free wall uptake was noted to be WNL. IMPRESSION: Also refer to comments under nuclear interpretation. Also test results needs to be interpreted in the context of pretest probability. 1. A small area of predominantly severe fixed defect suggestive of scar, noted in the distal inferior wall with some extension into the inferoapex with minimal area of minimal surrounding ischemia. 2. Increased ventricular ectopy noted with pharmacologic agent infusion, Lexiscan. 3. EKG gated imaging shows left ventricular ejection fraction of approx. 42 % with distal inferior wall hypokinesia. 4. Clinical correlation requested as occasionally single vessel disease or balanced ischemia could be missed. In approximately 10% of the cases Lexiscan may not cause adequate vasodilatory stress. RECOMMENDATIONS: Aggressive risk factor modification and medical management. Further evaluation may be needed if continued symptoms or other high risk indicators are noted on clinical evaluation. Close cardiology follow-up is also recommended. Clinical correlation with echocardiogram derived ejection fraction. Inability to exercise by itself can lead to increased cardiovascular event risks. Consider cardiology consultation and or follow-up if clinically indicated. 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 PRINCE
[2018-01-17] MEDS ORDERED: NORMAL SALINE 250 ML IV ONE (15:30)
--- NOTE | 2018-01-17 18:54 | PDOC PROGRESS REPORT ---
Subjective Progress Note for:: 01/17/18 Subjective:: Patient main complaint today is severe lower quadrant abdominal discomfort. Pt is denying any chest arm or neck discomfort. Patient denying any PND, orthopnea. Patient denied any sustained palpitations, dizziness, syncope, near syncope. Patient denying any fever chills. Patient denying any other significant discomfort. Patient is maintaining sinus rhythm. Frequent ectopy still noted. Review of systems: Rest review of systems negative. Medications: Medications have been reviewed. Reason For Visit: ATYPICAL CHEST PAIN, VENTRICULAR ECTOPY Physical Exam Vital Signs: Temp Pulse Resp BP Pulse Ox 98.6 F 64 16 131/45 H 97 01/17/18 07:57 01/17/18 07:57 01/17/18 07:57 01/17/18 07:57 01/17/18 07:57 Intake & Output 01/16/18 01/17/18 01/18/18 06:59 06:59 06:59 Intake Total 320 1368 Output Total 180 1490 Balance 140 -122 Weight 63.8 kg 67.2 kg Results Laboratory Results: 01/15/18 04:24 01/16/18 15:03 01/16/18 15:03 Sodium 143.6 Potassium 4.4 Chloride 107 Carbon Dioxide 22 Anion Gap 15 BUN 43 H Creatinine 2.28 H Est GFR ( Amer) 33 L Est GFR (Non-Af Amer) 27 L Glucose 98 Calcium 8.8 Phosphorus 3.6 Magnesium 2.1 Albumin 2.9 L 01/14/18 01/15/18 01/15/18 22:00 04:24 11:24 Troponin I 0.014 < 0.012 0.017 NT-Pro-B Natriuret Pep 01/15/18 01/15/18 01/16/18 11:24 17:30 15:03 Troponin I NT-Pro-B Natriuret Pep 12781 H 46904 H 66402 H Impressions: Chest X-Ray 01/14/18 15:58 IMPRESSION: NO ACUTE RADIOGRAPHIC FINDING IN THE CHEST. Abdomen/Pelvis CT 01/15/18 00:00 IMPRESSION: 1. Trace amount of ascites. 2. Stable aortic iliac endograft. Acute Abdomen Series 01/15/18 00:00 IMPRESSION: Bibasilar airspace consolidations left greater than right most consistent with pneumonic infiltrates. Nonspecific intestinal bowel gas pattern. Other findings as noted above Chest CT 01/15/18 10:37 IMPRESSION: Bilateral lower lobe pneumonia. Abdomen Ultrasound 01/15/18 10:39 IMPRESSION: 4 cm aortic aneurysm. Assessment & Plan - Diagnosis (1) Chest pain Qualifiers: Chest pain type: other chest pain Qualified Code(s): R07.89 - Other chest pain; R07.8 - Other chest pain Is this a current diagnosis for this admission?: Yes (2) Abdominal discomfort Is this a current diagnosis for this admission?: Yes (3) CAD (coronary artery disease) Qualifiers: Coronary Disease-Associated Artery/Lesion type: [place] artery Associated angina: with unspecified angina Is this a current diagnosis for this admission?: Yes (4) HTN (hypertension) Qualifiers: Hypertension type: essential hypertension Qualified Code(s): I10 - Essential (primary) hypertension Is this a current diagnosis for this admission?: Yes (5) Ventricular bigeminy Is this a current diagnosis for this admission?: Yes (6) Hyperlipidemia Qualifiers: Hyperlipidemia type: unspecified Qualified Code(s): E78.5 - Hyperlipidemia , unspecified Is this a current diagnosis for this admission?: Yes (7) Gastroesophageal reflux disease Qualifiers: Esophagitis presence: esophagitis presence not specified Qualified Code(s) : K21.9 - Gastro-esophageal reflux disease without esophagitis Is this a current diagnosis for this admission?: Yes - Notes Notes: Increase metoprolol and switch to metoprolol succinate to 50 mg p.o. twice daily. Addendum: Patient was seen after nuclear stress test was completed. Results were discussed. Patient also being placed on Ranexa 500 mg p.o. twice daily. Chest discomfort: This was evaluated by a nuclear stress test. It showed predominantly a small area of severe fixed defect indicative of scar in the distal inferior wall with minimal area of surrounding ischemia. Medical management is being recommended in view of patient other significant comorbid problems. So far cardiac enzymes has been negative. No other high risk features identified. As regards ventricular bigeminy: Will recommend maintaining electrolytes within normal limits. Metoprolol succinate dose increased to 50 mg p.o. twice daily. Patient was also started on Ranexa. Hypertension: Blood pressure goal is 140/90 or less in this gentleman. Blood pressure goal could be more liberal in this elderly gentleman. However should avoid any postural hypotension. Hyperlipidemia: Continue with high potency statin therapy. Gastroesophageal reflux: Continue with proton pump inhibitor. Coronary artery disease: Continue with current management plans with optimization of CAD regimen during this admission. This is being gradually optimized. In fact patient medical regimen seems quite satisfactory. May consider escalating doses of above agent if tolerated by patient's blood pressure. Possible underlying anxiety disorder and dysthymia: Consider SSRI agents. - Time Time with patient: Greater than 35 minutes - Patient was seen multiple times. Total time exceeds 40 minutes. In the morning nuclear stress test procedure, risks benefits, alternatives were discussed. Patient seen during the stress test. Patient also seen after stress test when results were discussed with the patient in detail. Patient's questions were answered. Nuclear stress test results were discussed with the patient. Patient was informed that no definitive evidence of pharmacologic stress-induced ischemia noted. No definite fixed defects were noted. Patient informed that occasionally significant single vessel disease or balanced ischemia could be missed. However based on the current study results, would recommend aggressive risk factor modification and medical therapy. It may also be worthwhile to consider evaluation or empiric management of other causes of chest pain. Should no other cause be found and if persistent in having chest pain, then cardiac catheterization should be considered. Right now, recommendations are for aggressive risk factor modification and medical management. Medications reviewed and adjusted accordingly: Yes
[2018-01-17] MEDS: METOPROLOL SUCCINATE 50 MG TAB.SR.24H PO SCH (21:31)
[2018-01-17] MEDS: ATORVASTATIN CALCIUM 80 MG TABLET PO SCH (21:31)
[2018-01-17] MEDS: RANOLAZINE 500 MG TAB.SR.12H PO SCH (21:31)
[2018-01-18] MEDS: LANSOPRAZOLE 30 MG TAB.RAP.DR PO SCH (05:53)
[2018-01-18] MEDS: LEVOTHYROXINE SODIUM 0.05 MG TABLET PO SCH (05:53)
[2018-01-18 08:26] LABS: ABSOLUTE BASOPHILS # (AUTO) 0.1 10^3/uL (0.0-0.2); ABSOLUTE EOSINOPHILS # (AUTO) 0.2 10^3/uL (0.0-0.6); ABSOLUTE LYMPHOCYTES (AUTO) 1.2 10^3/uL (0.5-4.7); ABSOLUTE MONOCYTES (AUTO) 0.6 10^3/uL (0.1-1.4); EOSINOPHILS % (AUTO) 2.9 % (0-6); LYMPHOCYTES % (AUTO) 14.7 % (13-45); MEAN CORPUSCULAR HEMOGLOBIN 28.3 pg (27.0-33.4); MEAN CORPUSCULAR HGB CONC 33.4 g/dL (32.0-36.0); MEAN CORPUSCULAR VOLUME 85 fl (80-97); MONOCYTES % (AUTO) 7.6 % (3-13); PLATELET COUNT 143 10^3/uL (150-450); RED BLOOD COUNT 3.18 10^6/uL (4.35-5.55); RED CELL DISTRIBUTION WIDTH 17.2 % (11.5-14.0); SEGMENTED NEUTROPHILS % (AUTO) 73.8 % (42-78); TOTAL CELLS COUNTED % (AUTO) 100 %; WHITE BLOOD COUNT 8.1 10^3/uL (4.0-10.5)
[2018-01-18] MEDS: FUROSEMIDE 20 MG TABLET PO SCH (09:09)
[2018-01-18] MEDS: CYANOCOBALAMIN (VITAMIN B-12) 1,000 MCG TABLET PO SCH (09:10)
[2018-01-18] MEDS: ASPIRIN 81 MG TABLET, CHEWABLE PO SCH (09:10)
[2018-01-18] MEDS: ALPRAZOLAM 0.5 MG TABLET PO SCH ×2 (09:10→21:18)
[2018-01-18] MEDS: METOPROLOL SUCCINATE 50 MG TAB.SR.24H PO SCH ×2 (09:10→21:19)
[2018-01-18] MEDS: CLOPIDOGREL BISULFATE 75 MG TABLET PO SCH (09:10)
[2018-01-18] MEDS: BESIFLOXACIN HCL 0.6% OPH SUSP 5 ML BOTTLE OD SCH ×2 (09:11→21:19)
[2018-01-18] MEDS: NEPAFENAC 0.3% OD SCH (09:12)
[2018-01-18] MEDS: CARBOXYMETHYLCELLULOSE SOD 0.5% 0.4 ML DROPERETTE OU SCH ×2 (09:12→18:30)
[2018-01-18] MEDS: DIFLUPREDNATE 0.05% OD SCH ×2 (09:12→18:41)
[2018-01-18] MEDS: OPTH OD SCH ×3 (09:12→18:41)
[2018-01-18] MEDS: RANOLAZINE 500 MG TAB.SR.12H PO SCH ×2 (09:13→21:19)
[2018-01-18] MEDS: FLUTICASONE NASAL SPRAY 50 MCG/SPRY 120 SPRAY/16 GM NAREB SCH (09:14)
[2018-01-18] MEDS: POLYETHYLENE GLYCOL 3350 POWDER 17 GM/1 PACKET PO SCH (09:15)
--- NOTE | 2018-01-18 12:25 | PDOC PROGRESS REPORT ---
Subjective Progress Note for:: 01/18/18 Subjective:: Patient noted to be resting comfortably in bed. Pt is denying any chest arm or neck discomfort. Patient denying any PND, orthopnea. Patient denied any sustained palpitations, dizziness, syncope, near syncope. Patient denying any fever chills. Patient denying any other significant discomfort. Patient is maintaining sinus rhythm. Frequent ectopy still noted. Review of systems: Rest review of systems negative. Medications: Medications have been reviewed. Reason For Visit: ABD PAIN DUMPING SYNDROME VENTRICULAR ECTOPY Physical Exam Vital Signs: Temp Pulse Resp BP Pulse Ox 99.3 F 62 14 128/67 H 93 01/18/18 07:43 01/18/18 07:43 01/18/18 07:43 01/18/18 07:43 01/18/18 07:43 Intake & Output 01/17/18 01/18/18 01/19/18 06:59 06:59 06:59 Intake Total 1368 666 Output Total 1490 740 Balance -122 -74 Weight 67.2 kg 60.7 kg Exam: GENERAL: well-nourished and in no acute distress. Alert and oriented x3 HEAD: Atraumatic, normocephalic. EYES: Pupils equal round and reactive to light, extraocular movements intact, sclera anicteric, conjunctiva are normal. ENT: TMs normal, nares patent, oropharynx clear without exudates. Moist mucous membranes. No oral ulcerations or bleeding gums noted NECK: supple without lymphadenopathy. Trachea is central. No cervical or axillary lymphadenopathy noted. Carotids are 2+, JVD WNL LUNGS: Respiration seems nonlabored, no significant accessory muscle action noted. Breath sounds clear to auscultation bilaterally and equal noted. No wheezes rales or rhonchi noted. No significant dullness noted on percussion. CHEST: Palpation of the chest wall shows no significant chest wall tenderness. 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 ABDOMEN: Soft, no significant tenderness appreciated, normoactive bowel sounds. No guarding, no rebound. No rigidity noted . No masses appreciated. EXTREMITIES: Pedal pulses are 1-2+, no calf tenderness noted. No clubbing or cyanosis. negative pedal edema noted NEUROLOGICAL: Focused neurological exam showed no significant neurologic deficit. Normal speech, no focal weakness appreciated. PSYCH: Normal mood, normal affect. Judgment and insight within normal limits. SKIN: No significant ecchymosis, skin is noted to be warm. MUSCULOSKELETAL EXAM: No significant acute joint swelling noted. Results Laboratory Results: 01/18/18 08:17 01/16/18 15:03 01/18/18 08:17 WBC 8.1 RBC 3.18 L Hgb 9.0 L Hct 27.0 L MCV 85 MCH 28.3 MCHC 33.4 RDW 17.2 H Plt Count 143 L Seg Neutrophils % 73.8 Lymphocytes % 14.7 Monocytes % 7.6 Eosinophils % 2.9 Basophils % 1.0 Absolute Neutrophils 6.0 Absolute Lymphocytes 1.2 Absolute Monocytes 0.6 Absolute Eosinophils 0.2 Absolute Basophils 0.1 01/14/18 01/15/18 01/15/18 22:00 04:24 11:24 Troponin I 0.014 < 0.012 0.017 NT-Pro-B Natriuret Pep 01/15/18 01/15/18 01/16/18 11:24 17:30 15:03 Troponin I NT-Pro-B Natriuret Pep 84269 H 56252 H 01464 H EKG Comments: Telemetry shows sinus rhythm with frequent APCs and VPCs. Impressions: Chest X-Ray 01/14/18 15:58 IMPRESSION: NO ACUTE RADIOGRAPHIC FINDING IN THE CHEST. Abdomen/Pelvis CT 01/15/18 00:00 IMPRESSION: 1. Trace amount of ascites. 2. Stable aortic iliac endograft. Acute Abdomen Series 01/15/18 00:00 IMPRESSION: Bibasilar airspace consolidations left greater than right most consistent with pneumonic infiltrates. Nonspecific intestinal bowel gas pattern. Other findings as noted above Chest CT 01/15/18 10:37 IMPRESSION: Bilateral lower lobe pneumonia. Abdomen Ultrasound 01/15/18 10:39 IMPRESSION: 4 cm aortic aneurysm. Assessment & Plan - Diagnosis (1) Chest pain Qualifiers: Chest pain type: other chest pain Qualified Code(s): R07.89 - Other chest pain; R07.8 - Other chest pain Is this a current diagnosis for this admission?: Yes (2) Abdominal discomfort Is this a current diagnosis for this admission?: Yes (3) CAD (coronary artery disease) Qualifiers: Coronary Disease-Associated Artery/Lesion type: [place] artery Associated angina: with unspecified angina Is this a current diagnosis for this admission?: Yes (4) HTN (hypertension) Qualifiers: Hypertension type: essential hypertension Qualified Code(s): I10 - Essential (primary) hypertension Is this a current diagnosis for this admission?: Yes (5) Ventricular bigeminy Is this a current diagnosis for this admission?: Yes (6) Hyperlipidemia Qualifiers: Hyperlipidemia type: unspecified Qualified Code(s): E78.5 - Hyperlipidemia , unspecified Is this a current diagnosis for this admission?: Yes (7) Gastroesophageal reflux disease Qualifiers: Esophagitis presence: esophagitis presence not specified Qualified Code(s) : K21.9 - Gastro-esophageal reflux disease without esophagitis Is this a current diagnosis for this admission?: Yes (8) Dysthymia (or depressive neurosis) Is this a current diagnosis for this admission?: Yes - Notes Notes: Chest discomfort: This was evaluated by a nuclear stress test. It showed predominantly a small area of severe fixed defect indicative of scar in the distal inferior wall with minimal area of surrounding ischemia. Medical management is being recommended in view of patient other significant comorbid problems. So far cardiac enzymes has been negative. No other high risk features identified. As regards ventricular bigeminy: Will recommend maintaining electrolytes within normal limits. Metoprolol succinate dose increased to 50 mg p.o. twice daily. Patient was also started on Ranexa. So far tolerating this medication changes well. Hypertension: Blood pressure goal is 140/90 or less in this gentleman. Blood pressure goal could be more liberal in this elderly gentleman. However should avoid any postural hypotension. Hyperlipidemia: Continue with high potency statin therapy. Gastroesophageal reflux: Continue with proton pump inhibitor. Coronary artery disease: Continue with current management plans with optimization of CAD regimen during this admission. This is being gradually optimized. In fact patient medical regimen seems quite satisfactory. May consider escalating doses of above agent if tolerated by patient's blood pressure. Possible underlying anxiety disorder and dysthymia: Consider SSRI agents. - Time Time with patient: Greater than 35 minutes - CODE STATUS was discussed, patient remains full code. Surrogate decision-maker unchanged. Multiple medical problems were addressed. More than 50% of the time spent coordinating care, discussing management plans with involved caregivers. Management plans discussed with involved personnels. Medical decision making was of moderate to high complexity, patient's has multiple comorbidities.
--- NOTE | 2018-01-18 16:13 | PDOC PROGRESS REPORT ---
Subjective Progress Note for:: 01/18/18 Subjective:: 87-year-old gentleman who presented to the hospital on January 14 at 5:36 PM. Past medical history: Coronary artery disease [place] stents in 2001 and 2017 Lipidemia Hypertension Peripheral vascular disease Cataracts Seizures Hypothyroidism Chronic kidney disease stage III Throat cancer Prostate cancer Posttraumatic stress disorder Presented to the hospital with severe chest pain and upper abdominal pain. 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 Chest pain was associated with severe nausea intermittent diaphoresis and mild lightheadedness. For ventricular ectopy Lopressor dose was increased. Serial EKGs and cardiac enzymes were obtained. CT of the abdomen and pelvis showed trace amount of ascites with stable aorto iliac endograft. Abdominal ultrasound showed a 4 cm aortic aneurysm. The patient continued to have severe abdominal pain and was diagnosed with dumping syndrome. Reportedly had flares for the past 20 years. He was evaluated by the clinical Information Delivery Analyst and appropriate diet was ordered. He feels good today. Tolerated his breakfast well with no nausea or abdominal pain. No chest pain Reason For Visit: ABD PAIN DUMPING SYNDROME VENTRICULAR ECTOPY Physical Exam Vital Signs: Temp Pulse Resp BP Pulse Ox 98.4 F 61 16 136/47 H 95 01/18/18 11:46 01/18/18 14:18 01/18/18 14:18 01/18/18 11:46 01/18/18 14:18 Intake & Output 01/17/18 01/18/18 01/19/18 06:59 06:59 06:59 Intake Total 1368 666 Output Total 1490 740 Balance -122 -74 Weight 67.2 kg 60.7 kg General appearance: PRESENT: no acute distress Head exam: PRESENT: normocephalic Eye exam: ABSENT: scleral icterus Ear exam: PRESENT: normal external ear exam Mouth exam: PRESENT: moist Neck exam: ABSENT: tenderness Respiratory exam: PRESENT: clear to auscultation rodrigo, symmetrical, unlabored Cardiovascular exam: PRESENT: RRR GI/Abdominal exam: PRESENT: normal bowel sounds, soft. ABSENT: tenderness Rectal exam: PRESENT: deferred Extremities exam: ABSENT: calf tenderness, pedal edema Musculoskeletal exam: PRESENT: normal inspection Neurological exam: PRESENT: alert, awake, oriented to person, oriented to place , oriented to time Psychiatric exam: PRESENT: appropriate affect Skin exam: ABSENT: petechiae Results Laboratory Results: 01/18/18 08:17 01/16/18 15:03 01/18/18 08:17 WBC 8.1 RBC 3.18 L Hgb 9.0 L Hct 27.0 L MCV 85 MCH 28.3 MCHC 33.4 RDW 17.2 H Plt Count 143 L Seg Neutrophils % 73.8 Lymphocytes % 14.7 Monocytes % 7.6 Eosinophils % 2.9 Basophils % 1.0 Absolute Neutrophils 6.0 Absolute Lymphocytes 1.2 Absolute Monocytes 0.6 Absolute Eosinophils 0.2 Absolute Basophils 0.1 01/14/18 01/15/18 01/15/18 22:00 04:24 11:24 Troponin I 0.014 < 0.012 0.017 NT-Pro-B Natriuret Pep 01/15/18 01/15/18 01/16/18 11:24 17:30 15:03 Troponin I NT-Pro-B Natriuret Pep 41573 H 21596 H 56651 H Impressions: Chest X-Ray 01/14/18 15:58 IMPRESSION: NO ACUTE RADIOGRAPHIC FINDING IN THE CHEST. Abdomen/Pelvis CT 01/15/18 00:00 IMPRESSION: 1. Trace amount of ascites. 2. Stable aortic iliac endograft. Acute Abdomen Series 01/15/18 00:00 IMPRESSION: Bibasilar airspace consolidations left greater than right most consistent with pneumonic infiltrates. Nonspecific intestinal bowel gas pattern. Other findings as noted above Chest CT 01/15/18 10:37 IMPRESSION: Bilateral lower lobe pneumonia. Abdomen Ultrasound 01/15/18 10:39 IMPRESSION: 4 cm aortic aneurysm. Assessment & Plan - Diagnosis (1) Dumping syndrome Is this a current diagnosis for this admission?: Yes Plan: Modified diet. (2) Abdominal discomfort Is this a current diagnosis for this admission?: Yes Plan: Improved. (3) CAD (coronary artery disease) Qualifiers: Coronary Disease-Associated Artery/Lesion type: [place] artery Associated angina: with unspecified angina Is this a current diagnosis for this admission?: Yes Plan: Continue aspirin, Plavix, statin, metoprolol, Lasix, Ranexa. (4) Chest pain Qualifiers: Chest pain type: other chest pain Qualified Code(s): R07.89 - Other chest pain; R07.8 - Other chest pain Is this a current diagnosis for this admission?: Yes Plan: Likely musculoskeletal versus GERD related. (5) Gastroesophageal reflux disease Qualifiers: Esophagitis presence: esophagitis presence not specified Qualified Code(s) : K21.9 - Gastro-esophageal reflux disease without esophagitis Is this a current diagnosis for this admission?: Yes Plan: Continue lansoprazole. (6) HTN (hypertension) Qualifiers: Hypertension type: essential hypertension Qualified Code(s): I10 - Essential (primary) hypertension Is this a current diagnosis for this admission?: Yes Plan: As above, stable. (7) History of cataract extraction with lens replacement Is this a current diagnosis for this admission?: Yes Plan: Continue eyedrops (8) Hyperlipidemia Qualifiers: Hyperlipidemia type: unspecified Qualified Code(s): E78.5 - Hyperlipidemia , unspecified Is this a current diagnosis for this admission?: Yes Plan: Continue statin (9) Hypothyroid Qualifiers: Hypothyroidism type: acquired Qualified Code(s): E03.9 - Hypothyroidism, unspecified Is this a current diagnosis for this admission?: Yes Plan: On Synthroid (10) Ventricular bigeminy Is this a current diagnosis for this admission?: Yes Plan: Continue metoprolol. (11) Epilepsy Is this a current diagnosis for this admission?: No Plan: Continue outpatient medications. - Time Time Spent with patient: 35 or more minutes
[2018-01-18] MEDS: ATORVASTATIN CALCIUM 80 MG TABLET PO SCH (21:18)
[2018-01-19] MEDS: LANSOPRAZOLE 30 MG TAB.RAP.DR PO SCH (05:57)
[2018-01-19] MEDS: LEVOTHYROXINE SODIUM 0.05 MG TABLET PO SCH (05:57)
[2018-01-19] MEDS: PROMETHAZINE HCL INJ 25 MG/1 ML VIAL IV PRN (08:30)
[2018-01-19] MEDS: METOPROLOL SUCCINATE 50 MG TAB.SR.24H PO SCH ×2 (10:17→23:29)
[2018-01-19] MEDS: ALPRAZOLAM 0.5 MG TABLET PO SCH ×2 (10:17→23:29)
[2018-01-19] MEDS: FUROSEMIDE 20 MG TABLET PO SCH (10:17)
[2018-01-19] MEDS: CLOPIDOGREL BISULFATE 75 MG TABLET PO SCH (10:19)
[2018-01-19] MEDS: CYANOCOBALAMIN (VITAMIN B-12) 1,000 MCG TABLET PO SCH (10:20)
[2018-01-19] MEDS: ASPIRIN 81 MG TABLET, CHEWABLE PO SCH (10:20)
[2018-01-19] MEDS: DIFLUPREDNATE 0.05% OD SCH ×2 (10:21→18:14)
[2018-01-19] MEDS: FLUTICASONE NASAL SPRAY 50 MCG/SPRY 120 SPRAY/16 GM NAREB SCH (10:21)
[2018-01-19] MEDS: OPTH OD SCH ×3 (10:21→18:14)
[2018-01-19] MEDS: BESIFLOXACIN HCL 0.6% OPH SUSP 5 ML BOTTLE OD SCH ×2 (10:21→23:29)
[2018-01-19] MEDS: RANOLAZINE 500 MG TAB.SR.12H PO SCH ×2 (10:22→23:30)
[2018-01-19] MEDS: POLYETHYLENE GLYCOL 3350 POWDER 17 GM/1 PACKET PO SCH (10:22)
[2018-01-19] MEDS: CARBOXYMETHYLCELLULOSE SOD 0.5% 0.4 ML DROPERETTE OU SCH ×2 (10:35→18:12)
[2018-01-19] MEDS: NEPAFENAC 0.3% OD SCH (10:35)
--- NOTE | 2018-01-19 13:18 | PDOC PROGRESS REPORT ---
Subjective Progress Note for:: 01/19/18 Subjective:: Patient tolerating optimize therapy for CAD. Currently on increased dose of metoprolol succinate and also on Ranexa. Patient just seems quite debilitated. Pt is denying any chest arm or neck discomfort. Patient denying any PND, orthopnea. Patient denied any sustained palpitations, dizziness, syncope, near syncope. Patient denying any fever chills. Patient denying any other significant discomfort. Patient is maintaining sinus rhythm. Frequent ectopy still noted. Review of systems: Rest review of systems negative. Medications: Medications have been reviewed. Reason For Visit: ABD PAIN DUMPING SYNDROME VENTRICULAR ECTOPY Physical Exam Vital Signs: Temp Pulse Resp BP Pulse Ox 98.7 F 61 16 136/76 H 94 01/19/18 08:18 01/19/18 08:18 01/19/18 08:18 01/19/18 08:18 01/19/18 08:18 Intake & Output 01/18/18 01/19/18 01/20/18 06:59 06:59 06:59 Intake Total 666 763 Output Total 740 925 Balance -74 -162 Weight 60.7 kg 61.4 kg Exam: GENERAL: well-nourished and in no acute distress. Alert and oriented x3 HEAD: Atraumatic, normocephalic. EYES: Pupils equal round and reactive to light, extraocular movements intact, sclera anicteric, conjunctiva are normal. ENT: TMs normal, nares patent, oropharynx clear without exudates. Moist mucous membranes. No oral ulcerations or bleeding gums noted NECK: supple without lymphadenopathy. Trachea is central. No cervical or axillary lymphadenopathy noted. Carotids are 2+, JVD WNL LUNGS: Respiration seems nonlabored, no significant accessory muscle action noted. Breath sounds clear to auscultation bilaterally and equal noted. No wheezes rales or rhonchi noted. No significant dullness noted on percussion. CHEST: Palpation of the chest wall shows no significant chest wall tenderness. 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 ABDOMEN: Soft, no significant tenderness appreciated, normoactive bowel sounds. No guarding, no rebound. No rigidity noted . No masses appreciated. EXTREMITIES: Pedal pulses are 1-2+, no calf tenderness noted. No clubbing or cyanosis. negative pedal edema noted NEUROLOGICAL: Focused neurological exam showed no significant neurologic deficit. Normal speech, no focal weakness appreciated. PSYCH: Normal mood, normal affect. Judgment and insight within normal limits. SKIN: No significant ecchymosis, skin is noted to be warm. MUSCULOSKELETAL EXAM: No significant acute joint swelling noted. Results Laboratory Results: 01/18/18 08:17 01/16/18 15:03 01/19/18 06:21 Magnesium 2.0 01/14/18 01/15/18 01/15/18 22:00 04:24 11:24 Troponin I 0.014 < 0.012 0.017 NT-Pro-B Natriuret Pep 01/15/18 01/15/18 01/16/18 11:24 17:30 15:03 Troponin I NT-Pro-B Natriuret Pep [id number] H 45197 H 63593 H 01/19/18 06:21 Troponin I NT-Pro-B Natriuret Pep 5590 H EKG Comments: Shows sinus rhythm with frequent ventricular ectopy and occasional ventricular couplets. Impressions: Chest X-Ray 01/14/18 15:58 IMPRESSION: NO ACUTE RADIOGRAPHIC FINDING IN THE CHEST. Abdomen/Pelvis CT 01/15/18 00:00 IMPRESSION: 1. Trace amount of ascites. 2. Stable aortic iliac endograft. Acute Abdomen Series 01/15/18 00:00 IMPRESSION: Bibasilar airspace consolidations left greater than right most consistent with pneumonic infiltrates. Nonspecific intestinal bowel gas pattern. Other findings as noted above Chest CT 01/15/18 10:37 IMPRESSION: Bilateral lower lobe pneumonia. Abdomen Ultrasound 01/15/18 10:39 IMPRESSION: 4 cm aortic aneurysm. Assessment & Plan - Diagnosis (1) Chest pain Qualifiers: Chest pain type: other chest pain Qualified Code(s): R07.89 - Other chest pain; R07.8 - Other chest pain Is this a current diagnosis for this admission?: Yes (2) Abdominal discomfort Is this a current diagnosis for this admission?: Yes (3) CAD (coronary artery disease) Qualifiers: Coronary Disease-Associated Artery/Lesion type: [place] artery Associated angina: with unspecified angina Is this a current diagnosis for this admission?: Yes (4) HTN (hypertension) Qualifiers: Hypertension type: essential hypertension Qualified Code(s): I10 - Essential (primary) hypertension Is this a current diagnosis for this admission?: Yes (5) Ventricular bigeminy Is this a current diagnosis for this admission?: Yes (6) Hyperlipidemia Qualifiers: Hyperlipidemia type: unspecified Qualified Code(s): E78.5 - Hyperlipidemia , unspecified Is this a current diagnosis for this admission?: Yes (7) Gastroesophageal reflux disease Qualifiers: Esophagitis presence: esophagitis presence not specified Qualified Code(s) : K21.9 - Gastro-esophageal reflux disease without esophagitis Is this a current diagnosis for this admission?: Yes - Notes Notes: Patient has been chest pain-free for last several days. Currently seems to be on a stable regimen. Patient is likely to keep on having ventricular ectopies. No therapy indicated unless patient has sustained ventricular dysrhythmia. Patient will benefit from increasing activities. At this point will sign off. Please reconsult if needed. Chest discomfort: Patient has been chest pain-free for last several days. This was evaluated by a nuclear stress test. It showed predominantly a small area of severe fixed defect indicative of scar in the distal inferior wall with minimal area of surrounding ischemia. Medical management is being recommended in view of patient other significant comorbid problems. So far cardiac enzymes has been negative. No other high risk features identified. As regards ventricular bigeminy: Will recommend maintaining electrolytes within normal limits. Metoprolol succinate dose increased to 50 mg p.o. twice daily. Patient was also started on Ranexa. So far tolerating this medication changes well. Hypertension: Blood pressure goal is 140/90 or less in this gentleman. Blood pressure goal could be more liberal in this elderly gentleman. However should avoid any postural hypotension. Hyperlipidemia: Continue with high potency statin therapy. Gastroesophageal reflux: Continue with proton pump inhibitor. Coronary artery disease: Continue with current management plans with optimization of CAD regimen during this admission. This is being gradually optimized. In fact patient medical regimen seems quite satisfactory. May consider escalating doses of above agent if tolerated by patient's blood pressure. Possible underlying anxiety disorder and dysthymia: Consider SSRI agents. Will leave management to cab starter and drafter seismograph here. - Time Time with patient: 15-25 minutes - CODE STATUS was discussed, patient remains full code. Surrogate decision-maker unchanged. Multiple medical problems were addressed. More than 50% of the time spent coordinating care, discussing management plans with involved caregivers. Management plans discussed with involved personnels. Medical decision making was of moderate to high complexity , patient's has multiple comorbidities. Will sign off. Please reconsult if needed Medications reviewed and adjusted accordingly: Yes
--- NOTE | 2018-01-19 15:51 | PDOC DISCHARGE SUMMARY ---
General - Admit/Disc Date/PCP Admission Date/Primary Care Provider: 01/14/18 17:23 ROMEL LAMB MD Discharge Date: 01/19/18 - Discharge Diagnosis (1) Dumping syndrome Is this a current diagnosis for this admission?: Yes (2) Abdominal discomfort Is this a current diagnosis for this admission?: Yes (3) CAD (coronary artery disease) Is this a current diagnosis for this admission?: Yes (4) Chest pain Is this a current diagnosis for this admission?: Yes Summary: Likely due to GERD Normal stress test (5) Gastroesophageal reflux disease Is this a current diagnosis for this admission?: Yes (6) HTN (hypertension) Is this a current diagnosis for this admission?: Yes (7) History of cataract extraction with lens replacement Is this a current diagnosis for this admission?: Yes (8) Hyperlipidemia Is this a current diagnosis for this admission?: Yes (9) Hypothyroid Is this a current diagnosis for this admission?: Yes (10) Ventricular bigeminy Is this a current diagnosis for this admission?: Yes Summary: Started on Metoprolol (11) Epilepsy Is this a current diagnosis for this admission?: No - Additional Information Resuscitation Status: Full Code Discharge Diet: Cardiac Prescriptions: Azithromycin [Zithromax 250 mg Tablet] 500 mg PO DAILY 3 Days #3 tab Furosemide [Lasix 20 mg Tablet] 20 mg PO DAILY 15 Days #15 tablet Metoprolol Succinate [Toprol Xl 50 mg Tab.sr] 50 mg PO Q12 30 Days #30 tab.sr.24h Ranolazine [Ranexa 500 mg Tab.sr] 500 mg PO Q12 30 Days #60 tab.sr.12h Home Medications: Alprazolam [Xanax 0.5 mg Tablet] 0.5 mg PO BID 01/14/18 Aspirin [Aspirin 81 mg Chewable Tablet] 81 mg PO DAILY 01/14/18 Besifloxacin HCl [Besivance 0.6% Oph Susp 5 ml] 1 drop OD BID MDD FOR 10DAYS AFTER SURGERY 01/14/18 Clopidogrel Bisulfate [Plavix 75 mg Tablet] 75 mg PO DAILY 01/14/18 Cyanocobalamin (Vitamin B-12) [Vitamin B-12] 1,000 mcg PO DAILY 01/14/18 Difluprednate [Durezol] 1 drop OD BID MDD FOR 10DAYS AFTER SURGERY 01/14/18 Fluticasone Propionate [Flonase Nasal [place] 50 Mcg/[place] 16 gm] 1 spray NAREB DAILY 01/14/18 Levothyroxine Sodium [Synthroid 0.05 mg Tablet] 0.05 mg PO Q6AM 01/14/18 Nepafenac [Ilevro] 1 drop OD QAM MDD FOR 31DAYS AFTER SURGERY 01/14/18 Pantoprazole Sodium [Protonix] 40 mg PO DAILY 01/14/18 Polyvinyl Alcohol/Povidone/Pf [Refresh Classic Eye Drops] 1 drop OU BID Atorvastatin Calcium [Lipitor 20 mg Tablet] 20 mg PO QHS 01/15/18 Aspirin [Aspirin 81 mg Chewable Tablet] 81 mg PO DAILY tab.chew 01/19/18 Atorvastatin Calcium [Lipitor 80 mg Tablet] 80 mg PO QHS tablet 01/19/18 Azithromycin [Zithromax 250 mg Tablet] 500 mg PO DAILY 3 Days #3 tab 01/19/18 Furosemide [Lasix 20 mg Tablet] 20 mg PO DAILY 15 Days #15 tablet 01/19/18 Metoprolol Succinate [Toprol Xl 50 mg Tab.sr] 50 mg PO Q12 30 Days #30 tab.sr.24h 01/19/18 Ranolazine [Ranexa 500 mg Tab.sr] 500 mg PO Q12 30 Days #60 tab.sr.12h 01/19/18 History of Present Illness History of Present Illness: 87-year-old gentleman who presented to the hospital on January 14 at 5:36 PM. Past medical history: Coronary artery disease [place] stents in 2001 and 2016 Lipidemia Hypertension Peripheral vascular disease Cataracts Seizures Hypothyroidism Chronic kidney disease stage III Throat cancer Prostate cancer Posttraumatic stress disorder Presented to the hospital with severe chest pain and upper abdominal pain. 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 Chest pain was associated with severe nausea intermittent diaphoresis and mild lightheadedness. For ventricular ectopy Lopressor dose was increased. Serial EKGs and cardiac enzymes were obtained. CT of the abdomen and pelvis showed trace amount of ascites with stable aorto iliac endograft 4.2 x 4.9 cm Abdominal ultrasound showed a 4 cm aortic aneurysm. The patient continued to have severe abdominal pain and was diagnosed with dumping syndrome. Reportedly had flares for the past 20 years. He was evaluated by the clinical [place] and low carbohydrate high protein diet- small frequent meals was recommended. Tolerated his food with no nausea or abdominal pain. No chest pain the past 2 days. Echo showed left ventricular ejection fraction of 45-50% with normal diastolic function. Stable for discharge home. He is complaining of some cough with yellowish phlegm and postnasal drip. He will be given a prescription for 3 days of azithromycin 500 mg daily. Physical Exam Vital Signs: Temp Pulse Resp BP Pulse Ox 98.7 F 61 16 136/76 H 94 01/19/18 08:18 01/19/18 08:18 01/19/18 08:18 01/19/18 08:18 01/19/18 08:18 Intake & Output 01/18/18 01/19/18 01/20/18 06:59 06:59 06:59 Intake Total 666 763 Output Total 740 925 Balance -74 -162 Weight 60.7 kg 61.4 kg General appearance: PRESENT: no acute distress GI/Abdominal exam: PRESENT: soft. ABSENT: tenderness Neurological exam: PRESENT: alert, awake, oriented to person, oriented to place , oriented to time, oriented to situation Psychiatric exam: PRESENT: appropriate affect Results Laboratory Results: 01/18/18 08:17 01/16/18 15:03 01/19/18 06:21 Magnesium 2.0 01/14/18 01/15/18 01/15/18 22:00 04:24 11:24 Troponin I 0.014 < 0.012 0.017 NT-Pro-B Natriuret Pep 01/15/18 01/15/18 01/16/18 11:24 17:30 15:03 Troponin I NT-Pro-B Natriuret Pep 51678 H 16426 H 93135 H 01/19/18 06:21 Troponin I NT-Pro-B Natriuret Pep 5590 H Impressions: Chest X-Ray 01/14/18 15:58 IMPRESSION: NO ACUTE RADIOGRAPHIC FINDING IN THE CHEST. Abdomen/Pelvis CT 01/15/18 00:00 IMPRESSION: 1. Trace amount of ascites. 2. Stable aortic iliac endograft. Acute Abdomen Series 01/15/18 00:00 IMPRESSION: Bibasilar airspace consolidations left greater than right most consistent with pneumonic infiltrates. Nonspecific intestinal bowel gas pattern. Other findings as noted above Chest CT 01/15/18 10:37 IMPRESSION: Bilateral lower lobe pneumonia. Abdomen Ultrasound 01/15/18 10:39 IMPRESSION: 4 cm aortic aneurysm. Qualifiers - * PATEINT BEING DISCHARGED WITH ANY OF THE FOLLOWING DIAGNOSIS?: No - Follow up PCP in 1 week
--- NOTE | 2018-01-19 18:50 | PDOC PROGRESS REPORT ---
Subjective Progress Note for:: 01/19/18 Subjective:: 87-year-old gentleman who presented to the hospital on January 14 at 5:36 PM. Past medical history: Coronary artery disease [place] stents in 2001 and 2017 Lipidemia Hypertension Peripheral vascular disease Cataracts Seizures Hypothyroidism Chronic kidney disease stage III Throat cancer Prostate cancer Posttraumatic stress disorder Presented to the hospital with severe chest pain and upper abdominal pain. 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 Chest pain was associated with severe nausea intermittent diaphoresis and mild lightheadedness. For ventricular ectopy Lopressor dose was increased. Serial EKGs and cardiac enzymes were obtained. CT of the abdomen and pelvis without contrast showed trace amount of ascites with stable aorto iliac endograft. Abdominal ultrasound showed a 4 cm aortic aneurysm. Unfortunately he continues to have abdominal pain with food. He tells me that he has had stents in his abdomen but is not sure which vessels were involved. His creatinine is 2.2, we cannot to CT angiogram of the abdomen and pelvis with contrast unfortunately. I will get an sound of the abdomen with Doppler study to evaluate possible celiac stenosis. I am not sure if this patient with multiple comorbidities and advanced age and CKD would be a candidate for any procedures such as celiac artery stenting. Reason For Visit: ABD PAIN DUMPING SYNDROME VENTRICULAR ECTOPY Physical Exam Vital Signs: Temp Pulse Resp BP Pulse Ox 97.6 F 60 20 158/61 H 98 01/19/18 15:53 01/19/18 14:00 01/19/18 15:53 01/19/18 15:53 01/19/18 15:53 Intake & Output 01/18/18 01/19/18 01/20/18 06:59 06:59 06:59 Intake Total 666 763 180 Output Total 740 925 260 Balance -74 -162 -80 Weight 60.7 kg 61.4 kg General appearance: PRESENT: cooperative, thin Head exam: PRESENT: normocephalic Eye exam: ABSENT: scleral icterus Ear exam: PRESENT: normal external ear exam Mouth exam: PRESENT: moist Respiratory exam: PRESENT: clear to auscultation rodrigo, symmetrical, unlabored Cardiovascular exam: PRESENT: RRR GI/Abdominal exam: PRESENT: normal bowel sounds, soft Rectal exam: PRESENT: deferred Extremities exam: ABSENT: pedal edema Neurological exam: PRESENT: alert, altered, oriented to person, oriented to place, oriented to time, oriented to situation Psychiatric exam: PRESENT: appropriate affect Results Laboratory Results: 01/18/18 08:17 01/16/18 15:03 01/19/18 06:21 Magnesium 2.0 01/14/18 01/15/18 01/15/18 22:00 04:24 11:24 Troponin I 0.014 < 0.012 0.017 NT-Pro-B Natriuret Pep 01/15/18 01/15/18 01/16/18 11:24 17:30 15:03 Troponin I NT-Pro-B Natriuret Pep 19659 H 95889 H 73805 H 01/19/18 06:21 Troponin I NT-Pro-B Natriuret Pep 5590 H Impressions: Chest X-Ray 01/14/18 15:58 IMPRESSION: NO ACUTE RADIOGRAPHIC FINDING IN THE CHEST. Abdomen/Pelvis CT 01/15/18 00:00 IMPRESSION: 1. Trace amount of ascites. 2. Stable aortic iliac endograft. Acute Abdomen Series 01/15/18 00:00 IMPRESSION: Bibasilar airspace consolidations left greater than right most consistent with pneumonic infiltrates. Nonspecific intestinal bowel gas pattern. Other findings as noted above Chest CT 01/15/18 10:37 IMPRESSION: Bilateral lower lobe pneumonia. Abdomen Ultrasound 01/15/18 10:39 IMPRESSION: 4 cm aortic aneurysm. Assessment & Plan - Diagnosis (1) Dumping syndrome Is this a current diagnosis for this admission?: Yes Plan: Modified diet. (2) Abdominal discomfort Is this a current diagnosis for this admission?: Yes Plan: US abdomen with doppler (3) CAD (coronary artery disease) Qualifiers: Coronary Disease-Associated Artery/Lesion type: [place] artery Associated angina: with unspecified angina Is this a current diagnosis for this admission?: Yes Plan: Continue aspirin, Plavix, statin, metoprolol, Lasix, Ranexa. (4) Chest pain Qualifiers: Chest pain type: other chest pain Qualified Code(s): R07.89 - Other chest pain; R07.8 - Other chest pain Is this a current diagnosis for this admission?: Yes Plan: Likely musculoskeletal versus GERD related. Stress test normal. (5) Gastroesophageal reflux disease Qualifiers: Esophagitis presence: esophagitis presence not specified Qualified Code(s) : K21.9 - Gastro-esophageal reflux disease without esophagitis Is this a current diagnosis for this admission?: Yes Plan: Continue lansoprazole. (6) HTN (hypertension) Qualifiers: Hypertension type: essential hypertension Qualified Code(s): I10 - Essential (primary) hypertension Is this a current diagnosis for this admission?: Yes Plan: As above, stable. (7) History of cataract extraction with lens replacement Is this a current diagnosis for this admission?: Yes Plan: Continue eyedrops (8) Hyperlipidemia Qualifiers: Hyperlipidemia type: unspecified Qualified Code(s): E78.5 - Hyperlipidemia , unspecified Is this a current diagnosis for this admission?: Yes Plan: Statin (9) Hypothyroid Qualifiers: Hypothyroidism type: acquired Qualified Code(s): E03.9 - Hypothyroidism, unspecified Is this a current diagnosis for this admission?: Yes Plan: On Synthroid (10) Ventricular bigeminy Is this a current diagnosis for this admission?: Yes Plan: Continue metoprolol. (11) Epilepsy Is this a current diagnosis for this admission?: No Plan: Continue outpatient medications. - Time Time Spent with patient: 35 or more minutes
[2018-01-19] MEDS: ATORVASTATIN CALCIUM 80 MG TABLET PO SCH (23:29)
[2018-01-20] MEDS: LEVOTHYROXINE SODIUM 0.05 MG TABLET PO SCH (05:32)
[2018-01-20] MEDS: LANSOPRAZOLE 30 MG TAB.RAP.DR PO SCH (05:32)
[2018-01-20 06:45] LABS: ANION GAP 16 (5-19); BLOOD UREA NITROGEN 52 mg/dL (7-20); CALCIUM 9.2 mg/dL (8.4-10.2); CARBON DIOXIDE 25 mmol/L (22-30); CHLORIDE 101 mmol/L (98-107); GLUCOSE 85 mg/dL (75-110); POTASSIUM 4.5 mmol/L (3.6-5.0); SODIUM 141.7 mmol/L (137-145)
[2018-01-20] MEDS: PROMETHAZINE HCL INJ 25 MG/1 ML VIAL IV PRN ×2 (08:59→17:25)
[2018-01-20] MEDS: CARBOXYMETHYLCELLULOSE SOD 0.5% 0.4 ML DROPERETTE OU SCH ×2 (10:00→19:00)
[2018-01-20] MEDS: NEPAFENAC 0.3% OD SCH (10:00)
[2018-01-20] MEDS: OPTH OD SCH ×3 (10:00→17:22)
--- NOTE | 2018-01-20 10:40 | RADIOLOGY REPORT (SQ) ---
EXAM DESCRIPTION: [facility] DUPLEX ART/LEONIDES FLOW COMPLETED DATE/TIME: 01/20/2018 10:13 am REASON FOR STUDY: Abdominal pain- eval for celiac artery stenosis. known AAA R06.02 SHORTNESS OF BR EATH R07.9 CHEST PAIN, UNSPECIFIED R11.2 NAUSEA WITH VOMITING, UNSPECIFIED COMPARISON: Abdominal aorta ultrasound 01/15/2018 CT chest abdomen pelvis 01/15/2018 TECHNIQUE: Realtime and static grayscale images acquired. Selected color Doppler, velocities and spe ctral images recorded of the abdominal aorta, celiac artery, superior mesenteric artery. LIMITATIONS: None. FINDINGS: Patient has an abdominal aortic stent graft with stents in the origin of the celiac artery and SMA. A short segment of the celiac artery is identified with color flow. This is distal to the stent. Th e stent and origin of the celiac artery were difficult to visualize due to upper abdominal bowel gas and body habitus. Short segment visualize color flow and spectral tracings in the celiac artery demo nstrates a peak systolic velocity 250 cm/sec, which is abnormally elevated. Minimal diastolic flow. The SMA origin and stent are difficult to visualize. Distal to the stent, color flow is seen in the superior mesenteric artery. Velocities suggest against proximal stenosis, with peak systolic velocit y of less than 100 cm/sec which is within normal range. Minimal diastolic flow. 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 No stenosis suspected in the SMA. COMMENT: [id number] PPD 85% for significant stenosis in the celiac artery if peak systolic velocity is greater than 200 c m/sec PPD 80% forsignificant stenosis in the superior mesenteric artery if peak systolic velocity is greate r than 250 cm/sec TECHNICAL DOCUMENTATION: JOB ID: [id number] [employer]- All Rights Reserved Reading location - IP/workstation name: [facility]-[email or web address]
[2018-01-20] MEDS: CYANOCOBALAMIN (VITAMIN B-12) 1,000 MCG TABLET PO SCH (10:41)
[2018-01-20] MEDS: CLOPIDOGREL BISULFATE 75 MG TABLET PO SCH (10:41)
[2018-01-20] MEDS: METOPROLOL SUCCINATE 50 MG TAB.SR.24H PO SCH ×2 (10:41→22:19)
[2018-01-20] MEDS: FUROSEMIDE 20 MG TABLET PO SCH (10:42)
[2018-01-20] MEDS: ASPIRIN 81 MG TABLET, CHEWABLE PO SCH (10:42)
[2018-01-20] MEDS: ALPRAZOLAM 0.5 MG TABLET PO SCH ×2 (10:42→22:19)
[2018-01-20] MEDS: FLUTICASONE NASAL SPRAY 50 MCG/SPRY 120 SPRAY/16 GM NAREB SCH (10:43)
[2018-01-20] MEDS: RANOLAZINE 500 MG TAB.SR.12H PO SCH ×2 (10:44→22:19)
[2018-01-20] MEDS: DIFLUPREDNATE 0.05% OD SCH ×2 (10:45→17:22)
[2018-01-20] MEDS: BESIFLOXACIN HCL 0.6% OPH SUSP 5 ML BOTTLE OD SCH ×2 (10:45→22:22)
[2018-01-20] MEDS: POLYETHYLENE GLYCOL 3350 POWDER 17 GM/1 PACKET PO SCH (10:46)
[2018-01-20] MEDS: ONDANSETRON HCL INJ/PF 4 MG/2 ML SDV IV PRN ×2 (12:45→22:19)
[2018-01-20] MEDS ORDERED: GLUCAGON,HUMAN RECOMB 1 MG INJ SUBCUT PRN (16:52)
[2018-01-20] MEDS ORDERED: DEXTROSE 50%-WATER 25 GM/50 ML DISP.SYRIN IV PRN ×2 (16:52)
[2018-01-20] MEDS ORDERED: DEXTROSE 40% GEL 15 GM TUBE PO PRN ×2 (16:52)
--- NOTE | 2018-01-20 16:52 | PDOC PROGRESS REPORT ---
Subjective Progress Note for:: 01/20/18 Subjective:: 87-year-old gentleman who presented to the hospital on January 14 at 5:36 PM. Past medical history: Coronary artery disease [place] stents in 2001 and 2016 Lipidemia Hypertension Peripheral vascular disease Cataracts Seizures Hypothyroidism Chronic kidney disease stage III Throat cancer Prostate cancer Posttraumatic stress disorder Presented to the hospital with severe chest pain and upper abdominal pain. 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 Chest pain was associated with severe nausea intermittent diaphoresis and mild lightheadedness. For ventricular ectopy Lopressor dose was increased. Serial EKGs and cardiac enzymes were obtained. CT of the abdomen and pelvis without contrast showed trace amount of ascites with stable aorto iliac endograft. Abdominal ultrasound showed a 4 cm aortic aneurysm. Unfortunately he continues to have abdominal pain with food. He tells me that he has had stents in his abdomen but is not sure which vessels were involved. His creatinine is 2.2, we cannot to CT angiogram of the abdomen and pelvis with contrast unfortunately. Ultrasound of the abdomen with Doppler study showed elevated velocities in the celiac artery. I discussed the case with Antonina Ruiz SECTION LABORER at Dr. Henrry Diaz's office ( vascular surgeon in [place]) the patient had SMA and celiac artery angioplasty and stenting in [address] Rain was symptomatic even after the procedure. At this point Dr. Diaz does not feel that the patient would benefit from any further procedures given the flow velocities. He has recommended a possible GI work up. Patient is unable to tolerate much PO, gets nauseated even with a few bites of food. He is agreeable to an endoscopy, his last one was more than 6 months ago and he reports that it showed bile reflux. Will consult Dr. Mckinney who will be here tomorrow per call schedule. Reason For Visit: ABD PAIN DUMPING SYNDROME VENTRICULAR ECTOPY Physical Exam Vital Signs: Temp Pulse Resp BP Pulse Ox 98.7 F 55 L 20 138/75 H 96 01/20/18 11:29 01/20/18 11:29 01/20/18 11:29 01/20/18 11:29 01/20/18 11:29 Intake & Output 01/19/18 01/20/18 01/21/18 06:59 06:59 06:59 Intake Total 763 449 Output Total 925 1160 Balance -162 -711 Weight 61.4 kg 61.7 kg General appearance: PRESENT: no acute distress, thin Head exam: PRESENT: normocephalic Eye exam: ABSENT: scleral icterus Ear exam: PRESENT: normal external ear exam Mouth exam: PRESENT: moist Neck exam: ABSENT: tenderness Respiratory exam: PRESENT: symmetrical, unlabored Cardiovascular exam: PRESENT: RRR GI/Abdominal exam: PRESENT: normal bowel sounds, soft Rectal exam: PRESENT: deferred Extremities exam: ABSENT: pedal edema Neurological exam: PRESENT: alert, awake, oriented to person, oriented to place , oriented to time Psychiatric exam: PRESENT: appropriate affect Skin exam: ABSENT: petechiae Results Laboratory Results: 01/18/18 08:17 01/20/18 05:37 01/20/18 05:37 Sodium 141.7 Potassium 4.5 Chloride 101 Carbon Dioxide 25 Anion Gap 16 BUN 52 H Creatinine 2.37 H Est GFR ( Amer) 32 L Est GFR (Non-Af Amer) 26 L Glucose 85 Calcium 9.2 01/14/18 01/15/18 01/15/18 22:00 04:24 11:24 Troponin I 0.014 < 0.012 0.017 NT-Pro-B Natriuret Pep 01/15/18 01/15/18 01/16/18 11:24 17:30 15:03 Troponin I NT-Pro-B Natriuret Pep 68491 H 64870 H 69408 H 01/19/18 06:21 Troponin I NT-Pro-B Natriuret Pep 5590 H Impressions: Chest X-Ray 01/14/18 15:58 IMPRESSION: NO ACUTE RADIOGRAPHIC FINDING IN THE CHEST. Abdomen/Pelvis CT 01/15/18 00:00 IMPRESSION: 1. Trace amount of ascites. 2. Stable aortic iliac endograft. Acute Abdomen Series 01/15/18 00:00 IMPRESSION: Bibasilar airspace consolidations left greater than right most consistent with pneumonic infiltrates. Nonspecific intestinal bowel gas pattern. Other findings as noted above Chest CT 01/15/18 10:37 IMPRESSION: Bilateral lower lobe pneumonia. Abdomen Ultrasound 01/15/18 10:39 IMPRESSION: 4 cm aortic aneurysm. 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 No stenosis suspected in the SMA. Assessment & Plan - Diagnosis (1) Abdominal discomfort Is this a current diagnosis for this admission?: Yes Plan: Endoscopy in am (2) CAD (coronary artery disease) Qualifiers: Coronary Disease-Associated Artery/Lesion type: [place] artery Associated angina: with unspecified angina Is this a current diagnosis for this admission?: Yes Plan: Continue aspirin, Plavix, statin, metoprolol, Lasix, Ranexa. (3) Chest pain Qualifiers: Chest pain type: other chest pain Qualified Code(s): R07.89 - Other chest pain; R07.8 - Other chest pain Is this a current diagnosis for this admission?: Yes Plan: Stress test normal. Endoscopy in am to evaluate for possible GI cause (4) Gastroesophageal reflux disease Qualifiers: Esophagitis presence: esophagitis presence not specified Qualified Code(s) : K21.9 - Gastro-esophageal reflux disease without esophagitis Is this a current diagnosis for this admission?: Yes Plan: Continue lansoprazole. (5) HTN (hypertension) Qualifiers: Hypertension type: essential hypertension Qualified Code(s): I10 - Essential (primary) hypertension Is this a current diagnosis for this admission?: Yes Plan: As above, stable. (6) History of cataract extraction with lens replacement Is this a current diagnosis for this admission?: Yes Plan: Continue eyedrops (7) Hyperlipidemia Qualifiers: Hyperlipidemia type: unspecified Qualified Code(s): E78.5 - Hyperlipidemia , unspecified Is this a current diagnosis for this admission?: Yes Plan: Statin (8) Hypothyroid Qualifiers: Hypothyroidism type: acquired Qualified Code(s): E03.9 - Hypothyroidism, unspecified Is this a current diagnosis for this admission?: Yes Plan: On Synthroid (9) Ventricular bigeminy Is this a current diagnosis for this admission?: Yes Plan: Continue metoprolol. (10) Epilepsy Is this a current diagnosis for this admission?: No Plan: Continue outpatient medications. - Time Time Spent with patient: 35 or more minutes
[2018-01-20] MEDS: ATORVASTATIN CALCIUM 80 MG TABLET PO SCH (22:19)
[2018-01-21] MEDS: PROMETHAZINE HCL INJ 25 MG/1 ML VIAL IV PRN ×3 (03:59→19:00)
[2018-01-21] MEDS: LEVOTHYROXINE SODIUM 0.05 MG TABLET PO SCH (06:17)
[2018-01-21] MEDS: LANSOPRAZOLE 30 MG TAB.RAP.DR PO SCH (06:17)
[2018-01-21 06:54] LABS: ANION GAP 17 (5-19); BLOOD UREA NITROGEN 65 mg/dL (7-20); CARBON DIOXIDE 20 mmol/L (22-30); CHLORIDE 102 mmol/L (98-107); GLUCOSE 77 mg/dL (75-110); SODIUM 139.1 mmol/L (137-145)
[2018-01-21] MEDS: ONDANSETRON HCL INJ/PF 4 MG/2 ML SDV IV PRN (08:35)
--- NOTE | 2018-01-21 08:40 | PDOC CONSULTATION ---
Consultation Consult Date: 01/20/18 Attending physician:: ALFONSO COURTNEY Consult reason:: post prandial abdominal pain. nausea and vomiting History of Present Illness Admission Date/PCP: 01/14/18 17:23 ROMEL LAMB MD History of Present Illness: ROSELYN DECKER is a 87 year old male patient seen in the past has also been seen by multiple GI physicians including myself, Dr Euceda GI MD in [facility] etc came in with post prandial abdominal pain always associated with food has seen Vascular surgery and has had stents placed in the past both the celiac and SMA has been worked up abdominal pain is generalized and is accompanied by nausea and vomiting Hospitalist asked us to see this patient ? 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 however EGD is requested to rule out for possible peptic ulcer disease patient made NPO 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, Hyperlipidema, Hypertension, Peripheral Vascular Disease, Other - No history of irregular heartbeat Pulmonary Medical History: Denies: Asthma EENT Medical History: Reports: Cataracts - Status post replacement right cataract yesterday Neurological Medical History: Reports: Seizures Endocrine Medical History: Reports: Hypothyroidism Renal/ Medical History: Reports: Chronic Kidney Disease Malignancy Medical History: Reports: Other - Throat cancer and prostate cancer GI Medical History: Denies: Hepatitis, Hiatal Hernia Musculoskeltal Medical History: Denies: Arthritis Psychiatric Medical History: Reports: Post Traumatic Stress Disorder Denies: Depression - anxiety Hematology: Denies: Anemia, Sickle Cell Disease Past Surgical History Past Surgical History: Reports: Cardiac Catheterization, Carotid Endarterectomy - RIGHT SIDE, Coronary Stent, Vascular Surgery - ILIAC, FEMORAL STENTS, aortic aneurysm stent graft Denies: Pacemaker Social History Smoking Status: Former Smoker Frequency of Alcohol Use: None Hx Recreational Drug Use: No Hx Prescription Drug Abuse: No - Advance Directive Resuscitation Status: Full Code Family History Family History: Malignancy - Colon cancer Parental Family History Reviewed: Yes Children Family History Reviewed: Unknown Sibling(s) Family History Reviewed.: Unknown Medication/Allergy Home Medications: Alprazolam [Xanax 0.5 mg Tablet] 0.5 mg PO BID 01/14/18 Aspirin [Aspirin 81 mg Chewable Tablet] 81 mg PO DAILY 01/14/18 Besifloxacin HCl [Besivance 0.6% Oph Susp 5 ml] 1 drop OD BID MDD FOR 10DAYS AFTER SURGERY 01/14/18 Clopidogrel Bisulfate [Plavix 75 mg Tablet] 75 mg PO DAILY 01/14/18 Cyanocobalamin (Vitamin B-12) [Vitamin B-12] 1,000 mcg PO DAILY 01/14/18 Difluprednate [Durezol] 1 drop OD BID MDD FOR 10DAYS AFTER SURGERY 01/14/18 Fluticasone Propionate [Flonase Nasal [place] 50 Mcg/[place] 16 gm] 1 spray NAREB DAILY 01/14/18 Levothyroxine Sodium [Synthroid 0.05 mg Tablet] 0.05 mg PO Q6AM 01/14/18 Nepafenac [Ilevro] 1 drop OD QAM MDD FOR 31DAYS AFTER SURGERY 01/14/18 Pantoprazole Sodium [Protonix] 40 mg PO DAILY 01/14/18 Polyvinyl Alcohol/Povidone/Pf [Refresh Classic Eye Drops] 1 drop OU BID Atorvastatin Calcium [Lipitor 20 mg Tablet] 20 mg PO QHS 01/15/18 Aspirin [Aspirin 81 mg Chewable Tablet] 81 mg PO DAILY tab.chew 01/19/18 Atorvastatin Calcium [Lipitor 80 mg Tablet] 80 mg PO QHS tablet 01/19/18 Azithromycin [Zithromax 250 mg Tablet] 500 mg PO DAILY 3 Days #3 tab 01/19/18 Furosemide [Lasix 20 mg Tablet] 20 mg PO DAILY 15 Days #15 tablet 01/19/18 Metoprolol Succinate [Toprol Xl 50 mg Tab.sr] 50 mg PO Q12 30 Days #30 tab.sr.24h 01/19/18 Ranolazine [Ranexa 500 mg Tab.sr] 500 mg PO Q12 30 Days #60 tab.sr.12h 01/19/18 Allergies/Adverse Reactions: morphine [Morphine] Allergy (Verified 01/14/18 16:02) tetracycline [Tetracycline] Allergy (Verified 01/14/18 16:02) Review of Systems Constitutional: PRESENT: weakness. ABSENT: fever(s), headache(s), night sweats Eyes: ABSENT: visual disturbances Ears: ABSENT: hearing changes Nose, Mouth, and Throat: ABSENT: mouth pain, sore throat Cardiovascular: ABSENT: edema, palpitations Respiratory: ABSENT: dyspnea, hemoptysis Gastrointestinal: PRESENT: abdominal pain, nausea, vomiting Genitourinary: ABSENT: dysuria, hematuria Integumentary: ABSENT: pruritus Neurological: ABSENT: syncope, tingling, tremor(s), vertigo Endocrine: ABSENT: polydipsia, polyphagia Hematologic/Lymphatic: PRESENT: easy bruising Physical Exam Vital Signs: Temp Pulse Resp BP Pulse Ox 97.8 F 65 17 142/74 H 99 01/21/18 04:00 01/21/18 07:00 01/21/18 04:00 01/21/18 04:00 01/21/18 04:00 Intake & Output 01/20/18 01/21/18 01/22/18 06:59 06:59 06:59 Intake Total 449 0 Output Total 1160 550 Balance -711 -550 Weight 61.7 kg 60.6 kg General appearance: PRESENT: mild distress, thin Head exam: PRESENT: atraumatic, normocephalic Eye exam: PRESENT: EOMI, PERRLA. ABSENT: nystagmus, periorbital swelling, scleral icterus Mouth exam: PRESENT: moist, neck supple Throat exam: ABSENT: tonsillar exudate, tonsillogmegaly Neck exam: ABSENT: meningismus, tenderness, thyromegaly Respiratory exam: PRESENT: unlabored. ABSENT: symmetrical, tachypnea, wheezes Cardiovascular exam: PRESENT: RRR, +S1, +S2 GI/Abdominal exam: PRESENT: soft. ABSENT: rebound, rigid, tenderness Extremities exam: ABSENT: joint swelling Musculoskeletal exam: PRESENT: full ROM Neurological exam: PRESENT: oriented to time, oriented to situation, CN II-XII grossly intact Focused psych exam: ABSENT: restlessness Skin exam: PRESENT: normal color. ABSENT: mottled, pallor, urticaria, vesicles Results Laboratory Results: 01/18/18 08:17 01/21/18 06:07 01/21/18 06:07 Sodium 139.1 Potassium 5.0 Chloride 102 Carbon Dioxide 20 L Anion Gap 17 BUN 65 H Creatinine 2.45 H Est GFR ( Amer) 31 L Est GFR (Non-Af Amer) 25 L Glucose 77 Calcium 9.0 01/14/18 01/15/18 01/15/18 22:00 04:24 11:24 Troponin I 0.014 < 0.012 0.017 NT-Pro-B Natriuret Pep 01/15/18 01/15/18 01/16/18 11:24 17:30 15:03 Troponin I NT-Pro-B Natriuret Pep 44293 H 44977 H 05465 H 01/19/18 06:21 Troponin I NT-Pro-B Natriuret Pep 5590 H Impressions: Chest X-Ray 01/14/18 15:58 IMPRESSION: NO ACUTE RADIOGRAPHIC FINDING IN THE CHEST. Abdomen/Pelvis CT 01/15/18 00:00 IMPRESSION: 1. Trace amount of ascites. 2. Stable aortic iliac endograft. Acute Abdomen Series 01/15/18 00:00 IMPRESSION: Bibasilar airspace consolidations left greater than right most consistent with pneumonic infiltrates. Nonspecific intestinal bowel gas pattern. Other findings as noted above Chest CT 01/15/18 10:37 IMPRESSION: Bilateral lower lobe pneumonia. Abdomen Ultrasound 01/15/18 10:39 IMPRESSION: 4 cm aortic aneurysm. 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 No stenosis suspected in the SMA. 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
[2018-01-21] MEDS ORDERED: PROMETHAZINE HCL INJ 25 MG/1 ML VIAL ONE (09:06)
[2018-01-21] MEDS: NEPAFENAC 0.3% OD SCH (10:00)
[2018-01-21] MEDS: OPTH OD SCH ×3 (10:00→19:01)
[2018-01-21] MEDS: ASPIRIN 81 MG TABLET, CHEWABLE PO SCH (11:40)
[2018-01-21] MEDS: CYANOCOBALAMIN (VITAMIN B-12) 1,000 MCG TABLET PO SCH (11:40)
[2018-01-21] MEDS: METOPROLOL SUCCINATE 50 MG TAB.SR.24H PO SCH ×2 (11:40→21:48)
[2018-01-21] MEDS: RANOLAZINE 500 MG TAB.SR.12H PO SCH ×2 (11:41→21:48)
[2018-01-21] MEDS: FUROSEMIDE 20 MG TABLET PO SCH (11:41)
[2018-01-21] MEDS: ALPRAZOLAM 0.5 MG TABLET PO SCH ×2 (11:41→21:48)
[2018-01-21] MEDS: CLOPIDOGREL BISULFATE 75 MG TABLET PO SCH (11:41)
[2018-01-21] MEDS: BESIFLOXACIN HCL 0.6% OPH SUSP 5 ML BOTTLE OD SCH ×2 (11:42→21:48)
[2018-01-21] MEDS: FLUTICASONE NASAL SPRAY 50 MCG/SPRY 120 SPRAY/16 GM NAREB SCH (11:42)
[2018-01-21] MEDS: POLYETHYLENE GLYCOL 3350 POWDER 17 GM/1 PACKET PO SCH (11:42)
[2018-01-21] MEDS: CARBOXYMETHYLCELLULOSE SOD 0.5% 0.4 ML DROPERETTE OU SCH ×2 (11:43→18:00)
[2018-01-21] MEDS: DIFLUPREDNATE 0.05% OD SCH ×2 (11:43→19:01)
[2018-01-21] MEDS ORDERED: MORPHINE SULFATE 10 MG/ML INJ IV PRN (12:30)
--- NOTE | 2018-01-21 12:44 | Progress Note ---
Provider Note Provider Note: Spoke with the patient about performing EGD, he was made NPO he was just given Phernegren prior to my meeting with him states that he wants more phernegren and then if " feels better, will proceed with EGD" he is on a scheduled IV phernegren he is not due for for several more hours patient given some Zofran by RN patient declines to have procedure done will be able to schedule him tomorrow PM if he were to change his mind
[2018-01-21] MEDS: OXYCODONE HCL IR 5 MG TABLET PO PRN ×2 (13:51→19:00)
--- NOTE | 2018-01-21 16:17 | PDOC PROGRESS REPORT ---
Subjective Progress Note for:: 01/21/18 Subjective:: The patient is an 87-year-old male with severe vascular disease. He has a past medical history significant for coronary artery disease with stents placed in 2001 and 2016. In addition he has peripheral vascular disease, hypertension, chronic kidney disease stage III as well as a history of throat cancer and prostate cancer. He presented to the emergency room with severe chest pain and upper abdominal pain. He had also had severe nausea with intermittent diaphoresis and lightheadedness. He was found to have bigeminy D and his Lopressor dose was increased. Serial EKGs and cardiac enzymes were negative. He had a CT scan of the abdomen and pelvis which revealed a stable aortic iliac endograft 4.24.9 cm. Abdominal ultrasound revealed a 4 cm aneurysm. 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 Reportedly has had flares for the past 20 years. He has had an echocardiogram which revealed a diminished ejection fraction of 45-50%. He has been seen in the past by , vascular surgeon in [facility]. Today when I saw the patient he states that his pain has gotten significantly worse. He states that it is much worse than when he first came into the hospital. He had abdominal Doppler study performed which revealed peak systolic velocity of 25 cm/s in the celiac artery suggestive of a more proximal stenosis. The SMA did not appear to have stenosis. Due to his increased pain and concerned I did speak to Dr. Cayla Farfan who is not mine production engineer. He has graciously agreed to come into the hospital and evaluate the patient as he does feel his symptoms are somewhat concerning. He hopefully will be able to see the patient tomorrow. Today the patient has had issues with nausea. He has required multiple doses of anti-emetics. He states he is not really vomiting but having dry heaves. Continues to have significant abdominal pain located in the left upper quadrant and left chest. He has had no heart palpitations that he is aware of. He is unable to tolerate a diet at this point. He has not had a bowel movement today. No dysuria, frequency or hematuria Reason For Visit: ABD PAIN DUMPING SYNDROME VENTRICULAR ECTOPY Physical Exam Vital Signs: Temp Pulse Resp BP Pulse Ox 98.1 F 65 12 126/73 H 99 01/21/18 11:47 01/21/18 14:00 01/21/18 11:47 01/21/18 11:47 01/21/18 11:47 Intake & Output 01/20/18 01/21/18 01/22/18 06:59 06:59 06:59 Intake Total 449 0 Output Total 1160 550 Balance -711 -550 Weight 61.7 kg 60.6 kg General appearance: PRESENT: no acute distress, well-developed, well-nourished Head exam: PRESENT: atraumatic, normocephalic Mouth exam: PRESENT: moist, tongue midline Respiratory exam: PRESENT: clear to auscultation rodrigo. ABSENT: rales, rhonchi, wheezes Cardiovascular exam: PRESENT: RRR. ABSENT: diastolic murmur, rubs, systolic murmur GI/Abdominal exam: PRESENT: normal bowel sounds, tenderness - He has significant tenderness to palpation with guarding in the left upper abdomen and epigastric area. Rectal exam: PRESENT: deferred Extremities exam: PRESENT: full ROM. ABSENT: calf tenderness, clubbing, pedal edema Neurological exam: PRESENT: alert, awake, oriented to person, oriented to place , oriented to time, oriented to situation, CN II-XII grossly intact. ABSENT: motor sensory deficit Psychiatric exam: PRESENT: appropriate affect, normal mood. ABSENT: homicidal ideation, suicidal ideation Skin exam: PRESENT: dry, intact, warm. ABSENT: cyanosis, rash Results Laboratory Results: 01/18/18 08:17 01/21/18 06:07 01/21/18 06:07 Sodium 139.1 Potassium 5.0 Chloride 102 Carbon Dioxide 20 L Anion Gap 17 BUN 65 H Creatinine 2.45 H Est GFR ( Amer) 31 L Est GFR (Non-Af Amer) 25 L Glucose 77 Calcium 9.0 01/14/18 01/15/18 01/15/18 22:00 04:24 11:24 Troponin I 0.014 < 0.012 0.017 NT-Pro-B Natriuret Pep 01/15/18 01/15/18 01/16/18 11:24 17:30 15:03 Troponin I NT-Pro-B Natriuret Pep 18997 H 36830 H 65250 H 01/19/18 06:21 Troponin I NT-Pro-B Natriuret Pep 5590 H Impressions: Chest X-Ray 01/14/18 15:58 IMPRESSION: NO ACUTE RADIOGRAPHIC FINDING IN THE CHEST. Abdomen/Pelvis CT 01/15/18 00:00 IMPRESSION: 1. Trace amount of ascites. 2. Stable aortic iliac endograft. Acute Abdomen Series 01/15/18 00:00 IMPRESSION: Bibasilar airspace consolidations left greater than right most consistent with pneumonic infiltrates. Nonspecific intestinal bowel gas pattern. Other findings as noted above Chest CT 01/15/18 10:37 IMPRESSION: Bilateral lower lobe pneumonia. Abdomen Ultrasound 01/15/18 10:39 IMPRESSION: 4 cm aortic aneurysm. 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 No stenosis suspected in the SMA. Assessment & Plan - Diagnosis (1) Chest pain Qualifiers: Chest pain type: other chest pain Qualified Code(s): R07.89 - Other chest pain; R07.8 - Other chest pain Is this a current diagnosis for this admission?: Yes Plan: At this point it is not felt that there is a cardiac cause for his chest pain. It is likely related to underlying ischemia in the abdomen. Plan as outlined below (2) Celiac artery stenosis Is this a current diagnosis for this admission?: Yes Plan: This may be the cause of his ongoing severe abdominal pain. Dr. Farfan has graciously agreed to coming to the hospital and see the patient and we look forward to his recommendations. He was given a dose of IV morphine today for his pain and he has oxycodone available as well. (3) Chronic kidney disease Qualifiers: Chronic kidney disease stage: stage 4 (severe) Qualified Code(s): N18.4 - Chronic kidney disease, stage 4 (severe) Is this a current diagnosis for this admission?: Yes Plan: This may limit further workup if he needs an angiogram. We will await recommendations from vascular surgery (4) Acute on chronic systolic (congestive) heart failure Is this a current diagnosis for this admission?: Yes Plan: He likely had a mild exacerbation due to being given IV fluids. He was diuresed with IV Lasix and currently stable on p.o. Lasix. (5) CAD (coronary artery disease) Qualifiers: Coronary Disease-Associated Artery/Lesion type: [place] artery Associated angina: with unspecified angina Is this a current diagnosis for this admission?: Yes Plan: He was evaluated by cardiology earlier in this hospitalization. Continue current regimen. (6) GERD (gastroesophageal reflux disease) Is this a current diagnosis for this admission?: Yes Plan: I have started the patient on IV Protonix. (7) Anemia Is this a current diagnosis for this admission?: Yes Plan: Hemoglobin is stable (8) Epilepsy Is this a current diagnosis for this admission?: Yes Plan: Continue home regimen. No issues during this hospitalization (9) HTN (hypertension) Qualifiers: Hypertension type: essential hypertension Qualified Code(s): I10 - Essential (primary) hypertension Is this a current diagnosis for this admission?: Yes Plan: Stable on metoprolol and Lasix. 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 (11) Hyperlipidemia Qualifiers: Hyperlipidemia type: unspecified Qualified Code(s): E78.5 - Hyperlipidemia , unspecified Is this a current diagnosis for this admission?: Yes Plan: Continue atorvastatin (12) Ventricular bigeminy Is this a current diagnosis for this admission?: Yes Plan: Continue metoprolol (13) Full code status Is this a current diagnosis for this admission?: Yes - Time Time Spent with patient: 35 or more minutes - Inpatient Certification Medical Necessity: Other - Inpatient hospitalization remains necessary. Overall the patient is having increased pain is actually getting worse rather than better here in the hospital. Vascular surgery is going to see the patient. Timing of disposition will be determined by his clinical course
[2018-01-21] MEDS: PANTOPRAZOLE SODIUM 40 MG VIAL IV SCH (18:59)
[2018-01-21] MEDS: ATORVASTATIN CALCIUM 80 MG TABLET PO SCH (21:48)
[2018-01-21] MEDS ORDERED: LACTULOSE SYRUP 20 GM/30 ML UDCUP PO ONE (22:00)
[2018-01-22 05:34] LABS: ABSOLUTE BASOPHILS # (AUTO) 0.1 10^3/uL (0.0-0.2); ABSOLUTE EOSINOPHILS # (AUTO) 0.1 10^3/uL (0.0-0.6); ABSOLUTE LYMPHOCYTES (AUTO) 1.5 10^3/uL (0.5-4.7); ABSOLUTE MONOCYTES (AUTO) 0.9 10^3/uL (0.1-1.4); ABSOLUTE NEUT (AUTO) 9.4 10^3/uL (1.7-8.2); BASOPHILS % (AUTO) 0.6 % (0-2); EOSINOPHILS % (AUTO) 0.7 % (0-6); HEMATOCRIT 33.2 % (37.9-51.0); HEMOGLOBIN 10.9 g/dL (13.5-17.0); LYMPHOCYTES % (AUTO) 12.4 % (13-45); MEAN CORPUSCULAR HEMOGLOBIN 27.8 pg (27.0-33.4); MEAN CORPUSCULAR HGB CONC 32.9 g/dL (32.0-36.0); MEAN CORPUSCULAR VOLUME 85 fl (80-97); MONOCYTES % (AUTO) 7.4 % (3-13); PLATELET COUNT 226 10^3/uL (150-450); RED BLOOD COUNT 3.93 10^6/uL (4.35-5.55); RED CELL DISTRIBUTION WIDTH 17.2 % (11.5-14.0); SEGMENTED NEUTROPHILS % (AUTO) 78.9 % (42-78); TOTAL CELLS COUNTED % (AUTO) 100 %; WHITE BLOOD COUNT 11.8 10^3/uL (4.0-10.5)
[2018-01-22 05:58] LABS: ANION GAP 18 (5-19); BLOOD UREA NITROGEN 76 mg/dL (7-20); CALCIUM 9.3 mg/dL (8.4-10.2); CARBON DIOXIDE 24 mmol/L (22-30); CHLORIDE 101 mmol/L (98-107); GLUCOSE 98 mg/dL (75-110); POTASSIUM 5.4 mmol/L (3.6-5.0); SODIUM 142.9 mmol/L (137-145)
[2018-01-22] MEDS: LEVOTHYROXINE SODIUM 0.05 MG TABLET PO SCH (06:06)
[2018-01-22] MEDS: PANTOPRAZOLE SODIUM 40 MG VIAL IV SCH ×2 (06:06→18:40)
[2018-01-22] MEDS: LANSOPRAZOLE 30 MG TAB.RAP.DR PO SCH (06:06)
[2018-01-22] MEDS: OPTH OD SCH ×3 (09:30→18:00)
[2018-01-22] MEDS: DIFLUPREDNATE 0.05% OD SCH ×2 (09:30→18:00)
[2018-01-22] MEDS: RANOLAZINE 500 MG TAB.SR.12H PO SCH ×2 (09:35→21:13)
[2018-01-22] MEDS: CYANOCOBALAMIN (VITAMIN B-12) 1,000 MCG TABLET PO SCH (09:36)
[2018-01-22] MEDS: FUROSEMIDE 20 MG TABLET PO SCH (09:36)
[2018-01-22] MEDS: ALPRAZOLAM 0.5 MG TABLET PO SCH ×2 (09:36→21:13)
[2018-01-22] MEDS: METOPROLOL SUCCINATE 50 MG TAB.SR.24H PO SCH ×2 (09:36→21:13)
[2018-01-22] MEDS: BESIFLOXACIN HCL 0.6% OPH SUSP 5 ML BOTTLE OD SCH ×2 (09:36→21:13)
[2018-01-22] MEDS: ASPIRIN 81 MG TABLET, CHEWABLE PO SCH (09:36)
[2018-01-22] MEDS: CLOPIDOGREL BISULFATE 75 MG TABLET PO SCH (09:36)
[2018-01-22] MEDS: POLYETHYLENE GLYCOL 3350 POWDER 17 GM/1 PACKET PO SCH (09:37)
[2018-01-22] MEDS: FLUTICASONE NASAL SPRAY 50 MCG/SPRY 120 SPRAY/16 GM NAREB SCH (09:37)
[2018-01-22] MEDS: NEPAFENAC 0.3% OD SCH (09:40)
[2018-01-22] MEDS: CARBOXYMETHYLCELLULOSE SOD 0.5% 0.4 ML DROPERETTE OU SCH ×2 (09:45→18:12)
[2018-01-22] MEDS: ONDANSETRON HCL INJ/PF 4 MG/2 ML SDV IV PRN (10:37)
--- NOTE | 2018-01-22 14:50 | PDOC PROGRESS REPORT ---
Subjective Progress Note for:: 01/22/18 Subjective:: Abdominal pain essentially unchanged Reason For Visit: ABD PAIN DUMPING SYNDROME VENTRICULAR ECTOPY Physical Exam Vital Signs: Temp Pulse Resp BP Pulse Ox 97.5 F 61 18 112/65 97 01/22/18 11:32 01/22/18 11:32 01/22/18 11:32 01/22/18 11:32 01/22/18 11:32 Intake & Output 01/21/18 01/22/18 01/23/18 06:59 06:59 06:59 Intake Total 0 0 Output Total 550 250 Balance -550 -250 Weight 60.6 kg 60.2 kg General appearance: PRESENT: no acute distress Respiratory exam: PRESENT: clear to auscultation rodrigo Cardiovascular exam: PRESENT: RRR GI/Abdominal exam: PRESENT: soft. ABSENT: tenderness Neurological exam: PRESENT: awake Psychiatric exam: PRESENT: appropriate affect Skin exam: PRESENT: warm Results Laboratory Results: 01/22/18 05:13 01/22/18 05:13 01/22/18 01/22/18 05:13 05:13 WBC 11.8 H RBC 3.93 L Hgb 10.9 L Hct 33.2 L MCV 85 MCH 27.8 MCHC 32.9 RDW 17.2 H Plt Count 226 Seg Neutrophils % 78.9 H Lymphocytes % 12.4 L Monocytes % 7.4 Eosinophils % 0.7 Basophils % 0.6 Absolute Neutrophils 9.4 H Absolute Lymphocytes 1.5 Absolute Monocytes 0.9 Absolute Eosinophils 0.1 Absolute Basophils 0.1 Sodium 142.9 Potassium 5.4 H Chloride 101 Carbon Dioxide 24 Anion Gap 18 BUN 76 H Creatinine 2.99 H Est GFR ( Amer) 24 L Est GFR (Non-Af Amer) 20 L Glucose 98 Calcium 9.3 Magnesium 2.5 H 01/14/18 01/15/18 01/15/18 22:00 04:24 11:24 Troponin I 0.014 < 0.012 0.017 NT-Pro-B Natriuret Pep 01/15/18 01/15/18 01/16/18 11:24 17:30 15:03 Troponin I NT-Pro-B Natriuret Pep 11109 H 63297 H 59742 H 01/19/18 06:21 Troponin I NT-Pro-B Natriuret Pep 5590 H Impressions: Chest X-Ray 01/14/18 15:58 IMPRESSION: NO ACUTE RADIOGRAPHIC FINDING IN THE CHEST. Abdomen/Pelvis CT 01/15/18 00:00 IMPRESSION: 1. Trace amount of ascites. 2. Stable aortic iliac endograft. Acute Abdomen Series 01/15/18 00:00 IMPRESSION: Bibasilar airspace consolidations left greater than right most consistent with pneumonic infiltrates. Nonspecific intestinal bowel gas pattern. Other findings as noted above Chest CT 01/15/18 10:37 IMPRESSION: Bilateral lower lobe pneumonia. Abdomen Ultrasound 01/15/18 10:39 IMPRESSION: 4 cm aortic aneurysm. 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 No stenosis suspected in the SMA. Assessment & Plan - Diagnosis (1) Abdominal pain Qualifiers: Abdominal location: generalized Qualified Code(s): R10.84 - Generalized abdominal pain Is this a current diagnosis for this admission?: Yes Plan: Vascular evaluation pending (2) Ventricular ectopy Is this a current diagnosis for this admission?: Yes Plan: Stable. Continue present medications (3) Epilepsy, generalized, convulsive Is this a current diagnosis for this admission?: No Plan: Continue home medications (4) HTN (hypertension) Qualifiers: Hypertension type: essential hypertension Qualified Code(s): I10 - Essential (primary) hypertension Is this a current diagnosis for this admission?: Yes Plan: Continue current medications with further adjustments as dictated by cardiology. (5) CAD (coronary artery disease) Qualifiers: Coronary Disease-Associated Artery/Lesion type: [place] artery Associated angina: with unspecified angina Is this a current diagnosis for this admission?: Yes Plan: Stable. Continue present medications (6) Hypothyroid Qualifiers: Hypothyroidism type: acquired Qualified Code(s): E03.9 - Hypothyroidism, unspecified Is this a current diagnosis for this admission?: Yes Plan: Continue home medications
[2018-01-22] MEDS: ATORVASTATIN CALCIUM 80 MG TABLET PO SCH (21:13)
[2018-01-23 05:06] LABS: ALBUMIN 3.3 g/dL (3.5-5.0); ANION GAP 17 (5-19); BLOOD UREA NITROGEN 77 mg/dL (7-20); CALCIUM 8.9 mg/dL (8.4-10.2); CARBON DIOXIDE 21 mmol/L (22-30); CHLORIDE 100 mmol/L (98-107); GLUCOSE 95 mg/dL (75-110); PHOSPHORUS 5.1 mg/dL (2.5-4.5); POTASSIUM 4.9 mmol/L (3.6-5.0); SODIUM 138.1 mmol/L (137-145)
[2018-01-23] MEDS: PANTOPRAZOLE SODIUM 40 MG VIAL IV SCH ×2 (05:35→18:43)
[2018-01-23] MEDS: LEVOTHYROXINE SODIUM 0.05 MG TABLET PO SCH (05:35)
[2018-01-23] MEDS ORDERED: FUROSEMIDE 20 MG TABLET PO SCH (09:01)
[2018-01-23] MEDS: ALPRAZOLAM 0.5 MG TABLET PO SCH ×2 (10:07→23:10)
[2018-01-23] MEDS: CYANOCOBALAMIN (VITAMIN B-12) 1,000 MCG TABLET PO SCH (10:07)
[2018-01-23] MEDS: ASPIRIN 81 MG TABLET, CHEWABLE PO SCH (10:07)
[2018-01-23] MEDS: FLUTICASONE NASAL SPRAY 50 MCG/SPRY 120 SPRAY/16 GM NAREB SCH (10:08)
[2018-01-23] MEDS: FUROSEMIDE 40 MG TABLET PO SCH (10:08)
[2018-01-23] MEDS: RANOLAZINE 500 MG TAB.SR.12H PO SCH ×2 (10:08→23:10)
[2018-01-23] MEDS: CLOPIDOGREL BISULFATE 75 MG TABLET PO SCH (10:08)
[2018-01-23] MEDS: POLYETHYLENE GLYCOL 3350 POWDER 17 GM/1 PACKET PO SCH (10:09)
[2018-01-23] MEDS: CARBOXYMETHYLCELLULOSE SOD 0.5% 0.4 ML DROPERETTE OU SCH ×2 (10:09→18:43)
[2018-01-23] MEDS: OPTH OD SCH ×3 (10:09→18:43)
[2018-01-23] MEDS: DIFLUPREDNATE 0.05% OD SCH ×2 (10:09→18:43)
[2018-01-23] MEDS: BESIFLOXACIN HCL 0.6% OPH SUSP 5 ML BOTTLE OD SCH ×2 (10:09→23:09)
[2018-01-23] MEDS: NEPAFENAC 0.3% OD SCH (10:40)
--- NOTE | 2018-01-23 13:47 | PDOC PROGRESS REPORT ---
Subjective Progress Note for:: 01/23/18 Subjective:: No nausea presently. Still having some low level abdominal pain consistent with his baseline. Requesting food Reason For Visit: ABD PAIN DUMPING SYNDROME VENTRICULAR ECTOPY Physical Exam Vital Signs: Temp Pulse Resp BP Pulse Ox 97.8 F 59 L 15 99/85 L 95 01/23/18 12:40 01/23/18 12:40 01/23/18 12:40 01/23/18 12:40 01/23/18 12:40 Intake & Output 01/22/18 01/23/18 01/24/18 06:59 06:59 06:59 Intake Total 0 528 Output Total 250 825 Balance -250 -297 Weight 132 lb 11.492 oz 134 lb 14.766 oz General appearance: PRESENT: no acute distress, thin Respiratory exam: PRESENT: clear to auscultation rodrigo Cardiovascular exam: PRESENT: RRR GI/Abdominal exam: PRESENT: soft. ABSENT: tenderness Musculoskeletal exam: PRESENT: normal inspection Neurological exam: PRESENT: alert Psychiatric exam: PRESENT: anxious Skin exam: PRESENT: warm Results Laboratory Results: 01/22/18 05:13 01/23/18 04:04 01/23/18 04:04 Sodium 138.1 Potassium 4.9 Chloride 100 Carbon Dioxide 21 L Anion Gap 17 BUN 77 H Creatinine 2.92 H Est GFR ( Amer) 25 L Est GFR (Non-Af Amer) 21 L Glucose 95 Calcium 8.9 Phosphorus 5.1 H Albumin 3.3 L 01/14/18 01/15/18 01/15/18 22:00 04:24 11:24 Troponin I 0.014 < 0.012 0.017 NT-Pro-B Natriuret Pep 01/15/18 01/15/18 01/16/18 11:24 17:30 15:03 Troponin I NT-Pro-B Natriuret Pep 59326 H 14171 H 76472 H 01/19/18 06:21 Troponin I NT-Pro-B Natriuret Pep 5590 H Impressions: Chest X-Ray 01/14/18 15:58 IMPRESSION: NO ACUTE RADIOGRAPHIC FINDING IN THE CHEST. Abdomen/Pelvis CT 01/15/18 00:00 IMPRESSION: 1. Trace amount of ascites. 2. Stable aortic iliac endograft. Acute Abdomen Series 01/15/18 00:00 IMPRESSION: Bibasilar airspace consolidations left greater than right most consistent with pneumonic infiltrates. Nonspecific intestinal bowel gas pattern. Other findings as noted above Chest CT 01/15/18 10:37 IMPRESSION: Bilateral lower lobe pneumonia. Abdomen Ultrasound 01/15/18 10:39 IMPRESSION: 4 cm aortic aneurysm. 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 No stenosis suspected in the SMA. Assessment & Plan - Diagnosis (1) Abdominal pain Qualifiers: Abdominal location: generalized Qualified Code(s): R10.84 - Generalized abdominal pain Is this a current diagnosis for this admission?: Yes Plan: Vascular evaluation pending (2) Ventricular ectopy Is this a current diagnosis for this admission?: Yes Plan: Stable. Continue present medications (3) Epilepsy, generalized, convulsive Is this a current diagnosis for this admission?: No Plan: Continue home medications (4) HTN (hypertension) Qualifiers: Hypertension type: essential hypertension Qualified Code(s): I10 - Essential (primary) hypertension Is this a current diagnosis for this admission?: Yes Plan: Continue current medications with further adjustments as dictated by cardiology. (5) CAD (coronary artery disease) Qualifiers: Coronary Disease-Associated Artery/Lesion type: [place] artery Associated angina: with unspecified angina Is this a current diagnosis for this admission?: Yes Plan: Stable. Continue present medications (6) Hypothyroid Qualifiers: Hypothyroidism type: acquired Qualified Code(s): E03.9 - Hypothyroidism, unspecified Is this a current diagnosis for this admission?: Yes Plan: Continue home medications
[2018-01-23] MEDS: METOPROLOL SUCCINATE 50 MG TAB.SR.24H PO SCH ×2 (15:12→23:12)
[2018-01-23] MEDS: ATORVASTATIN CALCIUM 80 MG TABLET PO SCH (23:10)
[2018-01-24] MEDS: LEVOTHYROXINE SODIUM 0.05 MG TABLET PO SCH (05:58)
[2018-01-24] MEDS: PANTOPRAZOLE SODIUM 40 MG VIAL IV SCH (05:58)
[2018-01-24 07:21] LABS: ALBUMIN 3.3 g/dL (3.5-5.0); ANION GAP 13 (5-19); BLOOD UREA NITROGEN 80 mg/dL (7-20); CARBON DIOXIDE 25 mmol/L (22-30); CHLORIDE 100 mmol/L (98-107); GLUCOSE 113 mg/dL (75-110); PHOSPHORUS 4.1 mg/dL (2.5-4.5); POTASSIUM 4.4 mmol/L (3.6-5.0); SODIUM 137.9 mmol/L (137-145)
[2018-01-24] MEDS: ALPRAZOLAM 0.5 MG TABLET PO SCH ×2 (10:26→21:40)
[2018-01-24] MEDS: ASPIRIN 81 MG TABLET, CHEWABLE PO SCH (10:28)
[2018-01-24] MEDS: CLOPIDOGREL BISULFATE 75 MG TABLET PO SCH (10:29)
[2018-01-24] MEDS: CYANOCOBALAMIN (VITAMIN B-12) 1,000 MCG TABLET PO SCH (10:29)
[2018-01-24] MEDS: RANOLAZINE 500 MG TAB.SR.12H PO SCH ×2 (10:30→21:40)
[2018-01-24] MEDS: FUROSEMIDE 40 MG TABLET PO SCH (10:31)
[2018-01-24] MEDS: FLUTICASONE NASAL SPRAY 50 MCG/SPRY 120 SPRAY/16 GM NAREB SCH (10:34)
[2018-01-24] MEDS: BESIFLOXACIN HCL 0.6% OPH SUSP 5 ML BOTTLE OD SCH (10:35)
[2018-01-24] MEDS: POLYETHYLENE GLYCOL 3350 POWDER 17 GM/1 PACKET PO SCH (10:45)
[2018-01-24] MEDS: CARBOXYMETHYLCELLULOSE SOD 0.5% 0.4 ML DROPERETTE OU SCH ×2 (10:45→18:49)
[2018-01-24] MEDS: METOPROLOL SUCCINATE 50 MG TAB.SR.24H PO SCH (10:45)
[2018-01-24] MEDS: OPTH OD SCH ×3 (10:50→18:35)
[2018-01-24] MEDS: DIFLUPREDNATE 0.05% OD SCH ×2 (10:50→18:35)
[2018-01-24] MEDS: NEPAFENAC 0.3% OD SCH (10:59)
--- NOTE | 2018-01-24 11:08 | PDOC CONSULTATION ---
Consultation Consult Date: 01/24/18 Attending physician:: PEPE ESPAÑA History of Present Illness Admission Date/PCP: 01/14/18 17:23 ROMEL LAMB MD Patient complains of: Abdominal pain, difficulty eating. History of Present Illness: ROSELYN DECKER is a 87 year old male he has been hospitalized and evaluated including with a ultrasound of the abdominal arteries including a GI consult with appropriate endoscopy. At this point the question is whether his mesenteric problems are sufficient to be causing his GI problems. The patient did have a Billroth I gastrectomy when he was 25 years old for bleeding ulcer. His weight has remained pretty much the same except that he loses about 12-70 pounds every time he gets hospitalized. He notices that he has problems eating and with appetite just about every December. Last December he spent 30 days in hospital in [facility]. He does have abdominal pain, numbing, burning at times for over 20 years. He does not notice anything that makes it better or worse. Seems to be of moderate or greater severity. Unrelated to food. Separately the patient has had a right carotid endarterectomy. He seems to have an aortic aneurysm endovascular repair and several coronary stents. He has had cardiac stents. He does have a strong family history of what sounds like coronary artery disease , he says many or most of his relatives have in their 60s from heart attacks. His son of what seems to have been a heart attack at age 52. The patient's vascular work has been done by Dr. Rain in [place] and Dr. Pike is his current vascular intervention is in [place]. 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, Hyperlipidema, Hypertension, Peripheral Vascular Disease, Other - No history of irregular heartbeat Pulmonary Medical History: Denies: Asthma EENT Medical History: Reports: Cataracts - Status post replacement right cataract yesterday Neurological Medical History: Reports: Seizures Endocrine Medical History: Reports: Hypothyroidism Renal/ Medical History: Reports: Chronic Kidney Disease Malignancy Medical History: Reports: Other - Throat cancer and prostate cancer GI Medical History: Denies: Hepatitis, Hiatal Hernia Musculoskeltal Medical History: Denies: Arthritis Psychiatric Medical History: Reports: Post Traumatic Stress Disorder Denies: Depression - anxiety Hematology: Denies: Anemia, Sickle Cell Disease Past Surgical History Past Surgical History: Reports: Cardiac Catheterization, Carotid Endarterectomy - RIGHT SIDE, Coronary Stent, Vascular Surgery - ILIAC, FEMORAL STENTS, aortic aneurysm stent graft Denies: Pacemaker Social History Smoking Status: Former Smoker Frequency of Alcohol Use: None Hx Recreational Drug Use: No Hx Prescription Drug Abuse: No - Advance Directive Resuscitation Status: Full Code Family History Family History: Malignancy - Colon cancer Parental Family History Reviewed: No Children Family History Reviewed: No Sibling(s) Family History Reviewed.: No Medication/Allergy Home Medications: Alprazolam [Xanax 0.5 mg Tablet] 0.5 mg PO BID 01/14/18 Aspirin [Aspirin 81 mg Chewable Tablet] 81 mg PO DAILY 01/14/18 Besifloxacin HCl [Besivance 0.6% Oph Susp 5 ml] 1 drop OD BID MDD FOR 10DAYS AFTER SURGERY 01/14/18 Clopidogrel Bisulfate [Plavix 75 mg Tablet] 75 mg PO DAILY 01/14/18 Cyanocobalamin (Vitamin B-12) [Vitamin B-12] 1,000 mcg PO DAILY 01/14/18 Difluprednate [Durezol] 1 drop OD BID MDD FOR 10DAYS AFTER SURGERY 01/14/18 Fluticasone Propionate [Flonase Nasal Phillips 50 Mcg/Phillips 16 gm] 1 spray NAREB DAILY 01/14/18 Levothyroxine Sodium [Synthroid 0.05 mg Tablet] 0.05 mg PO Q6AM 01/14/18 Nepafenac [Ilevro] 1 drop OD QAM MDD FOR 31DAYS AFTER SURGERY 01/14/18 Pantoprazole Sodium [Protonix] 40 mg PO DAILY 01/14/18 Polyvinyl Alcohol/Povidone/Pf [Refresh Classic Eye Drops] 1 drop OU BID Atorvastatin Calcium [Lipitor 20 mg Tablet] 20 mg PO QHS 01/15/18 Aspirin [Aspirin 81 mg Chewable Tablet] 81 mg PO DAILY tab.chew 01/19/18 Atorvastatin Calcium [Lipitor 80 mg Tablet] 80 mg PO QHS tablet 01/19/18 Azithromycin [Zithromax 250 mg Tablet] 500 mg PO DAILY 3 Days #3 tab 01/19/18 Furosemide [Lasix 20 mg Tablet] 20 mg PO DAILY 15 Days #15 tablet 01/19/18 Metoprolol Succinate [Toprol Xl 50 mg Tab.sr] 50 mg PO Q12 30 Days #30 tab.sr.24h 01/19/18 Ranolazine [Ranexa 500 mg Tab.sr] 500 mg PO Q12 30 Days #60 tab.sr.12h 01/19/18 Allergies/Adverse Reactions: morphine [Morphine] Allergy (Verified 01/14/18 16:02) tetracycline [Tetracycline] Allergy (Verified 01/14/18 16:02) Physical Exam Vital Signs: Temp Pulse Resp BP Pulse Ox 97.8 F 31 L 15 130/44 H 98 01/24/18 07:44 01/24/18 07:44 01/24/18 07:44 01/24/18 07:44 01/24/18 07:44 Intake & Output 01/23/18 01/24/18 01/25/18 06:59 06:59 06:59 Intake Total 528 830 Output Total 825 1000 Balance -297 -170 Weight 61.2 kg 57.4 kg Additional comments: Constitutional: Well-developed well-nourished gentleman, small build. No apparent acute distress. Eyes: Mucous membranes pink and moist, pupils equal and reactive to light. Conjunctiva normal. Arcus senilis noted. ENT: Hearing grossly normal. External pinna normal to inspection. Teeth mostly intact. Tongue normal to inspection. Chest: Normal to inspection. Cardiac: Heart sounds 1 and 2 normal, no murmurs. Left-sided carotid bruit appreciated. Neck: Left-sided carotid bruit. Right-sided carotid endarterectomy scar noted. Respiratory breath sounds are present bilaterally, normal. Normal respiratory effort. Skin: Normal to inspection, for age, left forearm tattoo. No ulcers, normal turgor. Abdomen: Soft, nontender, scaphoid. Liver and spleen are not palpably enlarged. Bowel sounds are normal. No hernia noted. Surgical scars upper midline, presents. Psychiatric: Judgment, memory, insight seem normal. Mood is pleasant and appropriate. Extremities: Upper extremities show normal range of movement. Pulses present noted to the radial arteries. Capillary refill normal. No cyanosis noted. No muscle wasting noted. Lower extremities show normal range of movement. Pulses present noted to the dorsalis pedis artery. Capillary refill normal. No cyanosis noted. No muscle wasting noted. Results Laboratory Results: 01/22/18 05:13 01/24/18 05:57 01/24/18 05:57 Sodium 137.9 Potassium 4.4 Chloride 100 Carbon Dioxide 25 Anion Gap 13 BUN 80 H Creatinine 2.82 H Est GFR ( Amer) 26 L Est GFR (Non-Af Amer) 21 L Glucose 113 H Calcium 9.0 Phosphorus 4.1 Albumin 3.3 L 01/14/18 01/15/18 01/15/18 22:00 04:24 11:24 Troponin I 0.014 < 0.012 0.017 NT-Pro-B Natriuret Pep 01/15/18 01/15/18 01/16/18 11:24 17:30 15:03 Troponin I NT-Pro-B Natriuret Pep 56643 H 62643 H 62349 H 01/19/18 01/24/18 06:21 05:57 Troponin I NT-Pro-B Natriuret Pep 5590 H 4340 H Impressions: Chest X-Ray 01/14/18 15:58 IMPRESSION: NO ACUTE RADIOGRAPHIC FINDING IN THE CHEST. Abdomen/Pelvis CT 01/15/18 00:00 IMPRESSION: 1. Trace amount of ascites. 2. Stable aortic iliac endograft. Acute Abdomen Series 01/15/18 00:00 IMPRESSION: Bibasilar airspace consolidations left greater than right most consistent with pneumonic infiltrates. Nonspecific intestinal bowel gas pattern. Other findings as noted above Chest CT 01/15/18 10:37 IMPRESSION: Bilateral lower lobe pneumonia. Abdomen Ultrasound 01/15/18 10:39 IMPRESSION: 4 cm aortic aneurysm. 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 No stenosis suspected in the SMA. Assessment & Plan - Diagnosis (1) Abdominal discomfort Is this a current diagnosis for this admission?: Yes Plan: In this patient with a 20 year history of abdominal pain, intermittent poor appetite, celiac axis stenosis on ultrasound, further evaluation is certainly indicated. This would be an angiogram with preparations for angioplasty and/or stenting. He has had appropriate gastrointestinal workup and right no I think the focuses should be on getting him home and out of hospital. There seems to be in no acute problem. The main thing is to find a strategy for adequate calories. This may mean high density intake such as Ensure. Dietary consultation seems well in order. I have discussed with him seeing his vascular vascular intervention is in [place]. This can be done after discharge. It will require thoughtful consideration and possibly intervention. Not something to bergeron into this patient almost 88 years was really doing remarkably well overall. (2) CAD (coronary artery disease) Qualifiers: Coronary Disease-Associated Artery/Lesion type: [place] artery Associated angina: with unspecified angina Is this a current diagnosis for this admission?: Yes (3) Celiac artery stenosis Is this a current diagnosis for this admission?: Yes (4) Chronic kidney disease Qualifiers: Chronic kidney disease stage: stage 4 (severe) Qualified Code(s): N18.4 - Chronic kidney disease, stage 4 (severe) Is this a current diagnosis for this admission?: Yes (5) Epilepsy Is this a current diagnosis for this admission?: Yes (6) GERD (gastroesophageal reflux disease) Is this a current diagnosis for this admission?: Yes (7) HTN (hypertension) Qualifiers: Hypertension type: essential hypertension Qualified Code(s): I10 - Essential (primary) hypertension Is this a current diagnosis for this admission?: Yes - Plan Summary Plan Summary: I will be available for further consultation. At this point I would focus on getting the patient on adequate dietary regimes. This cannot be done then it may justify transfer. At this point I feel what once he can get an adequate diet home and follow-up with his vascular intervention is in [place].
--- NOTE | 2018-01-24 13:21 | PDOC PROGRESS REPORT ---
Subjective Progress Note for:: 01/24/18 Subjective:: Nausea and vomiting returned as soon as he tried eating. Reason For Visit: ABD PAIN DUMPING SYNDROME VENTRICULAR ECTOPY Physical Exam Vital Signs: Temp Pulse Resp BP Pulse Ox 98.1 F 34 L 14 131/41 H 100 01/24/18 11:28 01/24/18 11:28 01/24/18 11:28 01/24/18 11:28 01/24/18 11:28 Intake & Output 01/23/18 01/24/18 01/25/18 06:59 06:59 06:59 Intake Total 528 830 Output Total 825 1000 Balance -297 -170 Weight 134 lb 14.766 oz 126 lb 8.725 oz General appearance: PRESENT: no acute distress Respiratory exam: PRESENT: clear to auscultation rodrigo Cardiovascular exam: PRESENT: RRR GI/Abdominal exam: PRESENT: soft Musculoskeletal exam: PRESENT: normal inspection Neurological exam: PRESENT: alert Psychiatric exam: PRESENT: appropriate affect Skin exam: PRESENT: warm Results Laboratory Results: 01/22/18 05:13 01/24/18 05:57 01/24/18 05:57 Sodium 137.9 Potassium 4.4 Chloride 100 Carbon Dioxide 25 Anion Gap 13 BUN 80 H Creatinine 2.82 H Est GFR ( Amer) 26 L Est GFR (Non-Af Amer) 21 L Glucose 113 H Calcium 9.0 Phosphorus 4.1 Albumin 3.3 L 01/14/18 01/15/18 01/15/18 22:00 04:24 11:24 Troponin I 0.014 < 0.012 0.017 NT-Pro-B Natriuret Pep 01/15/18 01/15/18 01/16/18 11:24 17:30 15:03 Troponin I NT-Pro-B Natriuret Pep 22553 H 21532 H 53710 H 01/19/18 01/24/18 06:21 05:57 Troponin I NT-Pro-B Natriuret Pep 5590 H 4340 H Impressions: Chest X-Ray 01/14/18 15:58 IMPRESSION: NO ACUTE RADIOGRAPHIC FINDING IN THE CHEST. Abdomen/Pelvis CT 01/15/18 00:00 IMPRESSION: 1. Trace amount of ascites. 2. Stable aortic iliac endograft. Acute Abdomen Series 01/15/18 00:00 IMPRESSION: Bibasilar airspace consolidations left greater than right most consistent with pneumonic infiltrates. Nonspecific intestinal bowel gas pattern. Other findings as noted above Chest CT 01/15/18 10:37 IMPRESSION: Bilateral lower lobe pneumonia. Abdomen Ultrasound 01/15/18 10:39 IMPRESSION: 4 cm aortic aneurysm. 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 No stenosis suspected in the SMA. Assessment & Plan - Diagnosis (1) Abdominal pain Qualifiers: Abdominal location: generalized Qualified Code(s): R10.84 - Generalized abdominal pain Is this a current diagnosis for this admission?: Yes Plan: Case was discussed with the vascular surgeon who felt there was no need for intervention. This is a long-standing problem. I will try him on boost to see if we can get adequate nutrition in him (2) Ventricular ectopy Is this a current diagnosis for this admission?: Yes Plan: Stable (3) Epilepsy, generalized, convulsive Is this a current diagnosis for this admission?: No Plan: Continue home medications (4) HTN (hypertension) Qualifiers: Hypertension type: essential hypertension Qualified Code(s): I10 - Essential (primary) hypertension Is this a current diagnosis for this admission?: Yes Plan: Continue current medications with further adjustments as dictated by cardiology. (5) CAD (coronary artery disease) Qualifiers: Coronary Disease-Associated Artery/Lesion type: [place] artery Associated angina: with unspecified angina Is this a current diagnosis for this admission?: Yes Plan: Stable. Continue present medications (6) Hypothyroid Qualifiers: Hypothyroidism type: acquired Qualified Code(s): E03.9 - Hypothyroidism, unspecified Is this a current diagnosis for this admission?: Yes Plan: Continue home medications (7) CKD (chronic kidney disease), stage IV Is this a current diagnosis for this admission?: Yes (8) Chronic vascular disorder of intestine Is this a current diagnosis for this admission?: Yes Plan: According to vascular surgery: Not a candidate for intervention
[2018-01-24] MEDS: ATORVASTATIN CALCIUM 80 MG TABLET PO SCH (21:40)
[2018-01-25] MEDS: LEVOTHYROXINE SODIUM 0.05 MG TABLET PO SCH (06:32)
[2018-01-25] MEDS: LANSOPRAZOLE 30 MG TAB.RAP.DR PO SCH (06:32)
[2018-01-25] MEDS: ONDANSETRON HCL 8 MG TABLET PO PRN ×2 (06:33→22:20)
[2018-01-25] MEDS: OPTH OD SCH (10:00)
[2018-01-25] MEDS: NEPAFENAC 0.3% OD SCH (10:00)
[2018-01-25] MEDS: RANOLAZINE 500 MG TAB.SR.12H PO SCH ×2 (11:06→22:20)
[2018-01-25] MEDS: ALPRAZOLAM 0.5 MG TABLET PO SCH ×2 (11:07→22:20)
[2018-01-25] MEDS: ASPIRIN 81 MG TABLET, CHEWABLE PO SCH (11:07)
[2018-01-25] MEDS: CLOPIDOGREL BISULFATE 75 MG TABLET PO SCH (11:07)
[2018-01-25] MEDS: CYANOCOBALAMIN (VITAMIN B-12) 1,000 MCG TABLET PO SCH (11:07)
[2018-01-25] MEDS: FUROSEMIDE 40 MG TABLET PO SCH (11:09)
[2018-01-25] MEDS: FLUTICASONE NASAL SPRAY 50 MCG/SPRY 120 SPRAY/16 GM NAREB SCH (11:09)
[2018-01-25] MEDS: CARBOXYMETHYLCELLULOSE SOD 0.5% 0.4 ML DROPERETTE OU SCH ×2 (11:23→18:42)
[2018-01-25] MEDS: POLYETHYLENE GLYCOL 3350 POWDER 17 GM/1 PACKET PO SCH (11:23)
--- NOTE | 2018-01-25 12:41 | PDOC PROGRESS REPORT ---
Subjective Reason For Visit: ABD PAIN DUMPING SYNDROME VENTRICULAR ECTOPY Physical Exam Vital Signs: Temp Pulse Resp BP Pulse Ox 98.9 F 81 18 120/76 95 01/25/18 07:20 01/25/18 07:20 01/25/18 07:20 01/25/18 07:20 01/25/18 07:20 Intake & Output 01/24/18 01/25/18 01/26/18 06:59 06:59 06:59 Intake Total 830 540 Output Total 1000 1200 Balance -170 -660 Weight 126 lb 8.725 oz 126 lb 5.198 oz Results Laboratory Results: 01/22/18 05:13 01/24/18 05:57 01/14/18 01/15/18 01/15/18 22:00 04:24 11:24 Troponin I 0.014 < 0.012 0.017 NT-Pro-B Natriuret Pep 01/15/18 01/15/18 01/16/18 11:24 17:30 15:03 Troponin I NT-Pro-B Natriuret Pep 29096 H 70000 H 56178 H 01/19/18 01/24/18 06:21 05:57 Troponin I NT-Pro-B Natriuret Pep 5590 H 4340 H Impressions: Chest X-Ray 01/14/18 15:58 IMPRESSION: NO ACUTE RADIOGRAPHIC FINDING IN THE CHEST. Abdomen/Pelvis CT 01/15/18 00:00 IMPRESSION: 1. Trace amount of ascites. 2. Stable aortic iliac endograft. Acute Abdomen Series 01/15/18 00:00 IMPRESSION: Bibasilar airspace consolidations left greater than right most consistent with pneumonic infiltrates. Nonspecific intestinal bowel gas pattern. Other findings as noted above Chest CT 01/15/18 10:37 IMPRESSION: Bilateral lower lobe pneumonia. Abdomen Ultrasound 01/15/18 10:39 IMPRESSION: 4 cm aortic aneurysm. 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 No stenosis suspected in the SMA. Assessment & Plan - Diagnosis (1) Abdominal pain Qualifiers: Abdominal location: generalized Qualified Code(s): R10.84 - Generalized abdominal pain Is this a current diagnosis for this admission?: Yes Plan: This is a long-standing problem. I had a long talk with him today and explained that I am out of ideas, I have no idea how I can help this unfortunate man. He still is unable to tolerate much of anything orally. I left it in his hands how he wants to proceed. He is thinking about it. (2) Ventricular ectopy Is this a current diagnosis for this admission?: Yes Plan: Stable (3) Epilepsy, generalized, convulsive Is this a current diagnosis for this admission?: No Plan: Continue home medications (4) HTN (hypertension) Qualifiers: Hypertension type: essential hypertension Qualified Code(s): I10 - Essential (primary) hypertension Is this a current diagnosis for this admission?: Yes Plan: Continue current medications. (5) CAD (coronary artery disease) Qualifiers: Coronary Disease-Associated Artery/Lesion type: [place] artery Associated angina: with unspecified angina Is this a current diagnosis for this admission?: Yes Plan: Stable. Continue present medications (6) Hypothyroid Qualifiers: Hypothyroidism type: acquired Qualified Code(s): E03.9 - Hypothyroidism, unspecified Is this a current diagnosis for this admission?: Yes Plan: Continue home medications (7) CKD (chronic kidney disease), stage IV Is this a current diagnosis for this admission?: Yes (8) Chronic vascular disorder of intestine Is this a current diagnosis for this admission?: Yes Plan: According to vascular surgery: Not a candidate for intervention
[2018-01-25] MEDS: ATORVASTATIN CALCIUM 80 MG TABLET PO SCH (22:13)
[2018-01-26] MEDS: DIFLUPREDNATE 0.05% OD SCH ×2 (01:10→22:00)
[2018-01-26] MEDS: OPTH OD SCH ×3 (01:10→22:00)
[2018-01-26] MEDS: LEVOTHYROXINE SODIUM 0.05 MG TABLET PO SCH (05:54)
[2018-01-26] MEDS: LANSOPRAZOLE 30 MG TAB.RAP.DR PO SCH (05:55)
[2018-01-26] MEDS: OXYCODONE HCL IR 5 MG TABLET PO PRN ×3 (06:06→22:12)
[2018-01-26] MEDS: ONDANSETRON HCL 8 MG TABLET PO PRN (06:07)
[2018-01-26] MEDS ORDERED: DILTIAZEM HCL INJ 25 MG/5 ML VIAL IV ONE (08:00)
[2018-01-26] MEDS: POLYETHYLENE GLYCOL 3350 POWDER 17 GM/1 PACKET PO SCH (09:14)
[2018-01-26] MEDS: CYANOCOBALAMIN (VITAMIN B-12) 1,000 MCG TABLET PO SCH (09:25)
[2018-01-26] MEDS: ALPRAZOLAM 0.5 MG TABLET PO SCH ×2 (09:25→22:11)
[2018-01-26] MEDS: RANOLAZINE 500 MG TAB.SR.12H PO SCH ×2 (09:25→22:11)
[2018-01-26] MEDS: ASPIRIN 81 MG TABLET, CHEWABLE PO SCH (09:25)
[2018-01-26] MEDS: FLUTICASONE NASAL SPRAY 50 MCG/SPRY 120 SPRAY/16 GM NAREB SCH (09:25)
[2018-01-26] MEDS: CLOPIDOGREL BISULFATE 75 MG TABLET PO SCH (09:25)
[2018-01-26] MEDS: FUROSEMIDE 40 MG TABLET PO SCH (09:26)
[2018-01-26] MEDS: CARBOXYMETHYLCELLULOSE SOD 0.5% 0.4 ML DROPERETTE OU SCH ×2 (09:26→18:19)
[2018-01-26] MEDS: NEPAFENAC 0.3% OD SCH (09:26)
[2018-01-26] MEDS ORDERED: NORMAL SALINE 1000 ML 500 ML IV ONE (11:45)
--- NOTE | 2018-01-26 12:36 | PDOC PROGRESS REPORT ---
Subjective Progress Note for:: 01/26/18 Subjective:: Abdominal pain is back to maximum intensity. Unable to eat anything. He is leaning toward going home and just being comfortable. He has not been out of bed since she has been here. I will consult palliative care to help work through those issues. Reason For Visit: ABD PAIN DUMPING SYNDROME VENTRICULAR ECTOPY Physical Exam Vital Signs: Temp Pulse Resp BP Pulse Ox 98.9 F 88 18 97/66 L 100 01/26/18 08:05 01/26/18 08:05 01/26/18 08:05 01/26/18 08:05 01/26/18 08:05 Intake & Output 01/25/18 01/26/18 01/27/18 06:59 06:59 06:59 Intake Total 540 460 Output Total 1200 800 Balance -660 -340 Weight 126 lb 5.198 oz 126 lb 5.198 oz General appearance: PRESENT: no acute distress Respiratory exam: PRESENT: clear to auscultation rodrigo Cardiovascular exam: PRESENT: other - Irregularly irregular and tachycardic GI/Abdominal exam: PRESENT: soft. ABSENT: tenderness Neurological exam: PRESENT: alert Psychiatric exam: PRESENT: appropriate affect Skin exam: PRESENT: warm Results Laboratory Results: 01/22/18 05:13 01/24/18 05:57 01/14/18 01/15/18 01/15/18 22:00 04:24 11:24 Troponin I 0.014 < 0.012 0.017 NT-Pro-B Natriuret Pep 01/15/18 01/15/18 01/16/18 11:24 17:30 15:03 Troponin I NT-Pro-B Natriuret Pep 51714 H 20350 H 94277 H 01/19/18 01/24/18 06:21 05:57 Troponin I NT-Pro-B Natriuret Pep 5590 H 4340 H Impressions: Chest X-Ray 01/14/18 15:58 IMPRESSION: NO ACUTE RADIOGRAPHIC FINDING IN THE CHEST. Abdomen/Pelvis CT 01/15/18 00:00 IMPRESSION: 1. Trace amount of ascites. 2. Stable aortic iliac endograft. Acute Abdomen Series 01/15/18 00:00 IMPRESSION: Bibasilar airspace consolidations left greater than right most consistent with pneumonic infiltrates. Nonspecific intestinal bowel gas pattern. Other findings as noted above Chest CT 01/15/18 10:37 IMPRESSION: Bilateral lower lobe pneumonia. Abdomen Ultrasound 01/15/18 10:39 IMPRESSION: 4 cm aortic aneurysm. 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 No stenosis suspected in the SMA. Assessment & Plan - Diagnosis (1) Abdominal pain Qualifiers: Abdominal location: left lower quadrant Qualified Code(s): R10.32 - Left lower quadrant pain Is this a current diagnosis for this admission?: Yes Plan: This is a long-standing problem. Due to ischemic bowel. He is not an interventional candidate. I had a long talk with him today and explained that I am out of ideas, I have no idea how I can help this unfortunate man. He still is unable to tolerate much of anything orally. I left it in his hands how he wants to proceed. He is thinking about it. Palliative care consult (2) Atrial fibrillation with rapid ventricular response Is this a current diagnosis for this admission?: Yes Plan: He has had multiple episodes of arrhythmia since admission. Has been on and off Cardizem and metoprolol. Despite his elevated BNP I think he may be intravascularly depleted. I give him back some fluids and restart his metoprolol (3) Epilepsy, generalized, convulsive Is this a current diagnosis for this admission?: No Plan: Continue home medications (4) HTN (hypertension) Qualifiers: Hypertension type: essential hypertension Qualified Code(s): I10 - Essential (primary) hypertension Is this a current diagnosis for this admission?: Yes Plan: Currently somewhat hypotensive (5) CAD (coronary artery disease) Qualifiers: Coronary Disease-Associated Artery/Lesion type: [place] artery Associated angina: with unspecified angina Is this a current diagnosis for this admission?: Yes (6) Hypothyroid Qualifiers: Hypothyroidism type: acquired Qualified Code(s): E03.9 - Hypothyroidism, unspecified Is this a current diagnosis for this admission?: Yes Plan: Continue home medications (7) CKD (chronic kidney disease), stage IV Is this a current diagnosis for this admission?: Yes (8) Chronic vascular disorder of intestine Is this a current diagnosis for this admission?: Yes Plan: According to vascular surgery: Not a candidate for intervention
[2018-01-26] MEDS ORDERED: METOPROLOL TARTRATE 25 MG TABLET PO ONE (13:00)
[2018-01-26] MEDS ORDERED: OXYCODONE HCL IR 5 MG TABLET ONE (14:18)
[2018-01-26] MEDS: METOPROLOL TARTRATE 25 MG TABLET PO SCH (22:11)
[2018-01-26] MEDS: ATORVASTATIN CALCIUM 80 MG TABLET PO SCH (22:11)
[2018-01-27] MEDS: ONDANSETRON HCL 8 MG TABLET PO PRN ×2 (00:45→11:44)
[2018-01-27] MEDS: LEVOTHYROXINE SODIUM 0.05 MG TABLET PO SCH (05:18)
[2018-01-27] MEDS: LANSOPRAZOLE 30 MG TAB.RAP.DR PO SCH (05:18)
[2018-01-27] MEDS: OXYCODONE HCL IR 5 MG TABLET PO PRN ×2 (05:19→11:44)
[2018-01-27] MEDS: ASPIRIN 81 MG TABLET, CHEWABLE PO SCH (10:02)
[2018-01-27] MEDS: ALPRAZOLAM 0.5 MG TABLET PO SCH ×2 (10:02→21:45)
[2018-01-27] MEDS: NEPAFENAC 0.3% OD SCH (10:02)
[2018-01-27] MEDS: METOPROLOL TARTRATE 25 MG TABLET PO SCH ×2 (10:02→21:45)
[2018-01-27] MEDS: RANOLAZINE 500 MG TAB.SR.12H PO SCH ×2 (10:02→21:45)
[2018-01-27] MEDS: CLOPIDOGREL BISULFATE 75 MG TABLET PO SCH (10:02)
[2018-01-27] MEDS: CYANOCOBALAMIN (VITAMIN B-12) 1,000 MCG TABLET PO SCH (10:02)
[2018-01-27] MEDS: FLUTICASONE NASAL SPRAY 50 MCG/SPRY 120 SPRAY/16 GM NAREB SCH (10:02)
[2018-01-27] MEDS: OPTH OD SCH ×2 (10:02→21:45)
[2018-01-27] MEDS: POLYETHYLENE GLYCOL 3350 POWDER 17 GM/1 PACKET PO SCH (10:03)
[2018-01-27] MEDS: CARBOXYMETHYLCELLULOSE SOD 0.5% 0.4 ML DROPERETTE OU SCH ×2 (11:31→20:09)
--- NOTE | 2018-01-27 16:19 | PDOC PROGRESS REPORT ---
Subjective Progress Note for:: 01/27/18 Subjective:: Tolerating a little grits today Reason For Visit: ABD PAIN DUMPING SYNDROME VENTRICULAR ECTOPY Physical Exam Vital Signs: Temp Pulse Resp BP Pulse Ox 97.3 F 67 12 110/48 L 100 01/27/18 11:35 01/27/18 11:35 01/27/18 11:35 01/27/18 11:35 01/27/18 11:35 Intake & Output 01/26/18 01/27/18 01/28/18 06:59 06:59 06:59 Intake Total 460 438 Output Total 800 630 Balance -340 -192 Weight 126 lb 5.198 oz 128 lb 8.472 oz General appearance: PRESENT: no acute distress, thin. ABSENT: well-nourished Respiratory exam: PRESENT: clear to auscultation rodrigo Cardiovascular exam: PRESENT: irregular rhythm GI/Abdominal exam: PRESENT: soft Musculoskeletal exam: PRESENT: normal inspection Neurological exam: PRESENT: alert Psychiatric exam: PRESENT: appropriate affect Skin exam: PRESENT: warm Results Laboratory Results: 01/22/18 05:13 01/24/18 05:57 01/14/18 01/15/18 01/15/18 22:00 04:24 11:24 Troponin I 0.014 < 0.012 0.017 NT-Pro-B Natriuret Pep 01/15/18 01/15/18 01/16/18 11:24 17:30 15:03 Troponin I NT-Pro-B Natriuret Pep 86550 H 94801 H 53330 H 01/19/18 01/24/18 06:21 05:57 Troponin I NT-Pro-B Natriuret Pep 5590 H 4340 H Impressions: Chest X-Ray 01/14/18 15:58 IMPRESSION: NO ACUTE RADIOGRAPHIC FINDING IN THE CHEST. Abdomen/Pelvis CT 01/15/18 00:00 IMPRESSION: 1. Trace amount of ascites. 2. Stable aortic iliac endograft. Acute Abdomen Series 01/15/18 00:00 IMPRESSION: Bibasilar airspace consolidations left greater than right most consistent with pneumonic infiltrates. Nonspecific intestinal bowel gas pattern. Other findings as noted above Chest CT 01/15/18 10:37 IMPRESSION: Bilateral lower lobe pneumonia. Abdomen Ultrasound 01/15/18 10:39 IMPRESSION: 4 cm aortic aneurysm. 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 No stenosis suspected in the SMA. Assessment & Plan - Diagnosis (1) Abdominal pain Qualifiers: Abdominal location: left lower quadrant Qualified Code(s): R10.32 - Left lower quadrant pain Is this a current diagnosis for this admission?: Yes Plan: This is a long-standing problem. Due to ischemic bowel. He is not an interventional candidate. I had a long talk with him today and explained that I am out of ideas, I have no idea how I can help this unfortunate man. He still is unable to tolerate much of anything orally. I left it in his hands how he wants to proceed. He is thinking about it. Palliative care consult (2) Atrial fibrillation with rapid ventricular response Is this a current diagnosis for this admission?: Yes Plan: Resolved. Continue metoprolol (3) Epilepsy, generalized, convulsive Is this a current diagnosis for this admission?: No Plan: Continue home medications (4) HTN (hypertension) Qualifiers: Hypertension type: essential hypertension Qualified Code(s): I10 - Essential (primary) hypertension Is this a current diagnosis for this admission?: Yes Plan: Continue current medications (5) CAD (coronary artery disease) Qualifiers: Coronary Disease-Associated Artery/Lesion type: [place] artery Associated angina: with unspecified angina Is this a current diagnosis for this admission?: Yes (6) Hypothyroid Qualifiers: Hypothyroidism type: acquired Qualified Code(s): E03.9 - Hypothyroidism, unspecified Is this a current diagnosis for this admission?: Yes Plan: Continue home medications (7) CKD (chronic kidney disease), stage IV Is this a current diagnosis for this admission?: Yes (8) Chronic vascular disorder of intestine Is this a current diagnosis for this admission?: Yes Plan: According to vascular surgery: Not a candidate for intervention
[2018-01-27] MEDS: PROMETHAZINE HCL INJ 25 MG/1 ML VIAL IV PRN (18:09)
[2018-01-27] MEDS: ONDANSETRON 4 MG TAB.RAPDIS PO PRN (20:09)
[2018-01-27] MEDS: ATORVASTATIN CALCIUM 80 MG TABLET PO SCH (21:45)
[2018-01-27] MEDS: DIFLUPREDNATE 0.05% OD SCH (21:45)
[2018-01-27] MEDS ORDERED: METOCLOPRAMIDE HCL INJ/PF 10 MG/2 ML SDV IV ONE (22:00)
--- NOTE | 2018-01-27 22:59 | Progress Note ---
Provider Note Provider Note: Palliative care note: Attempted to visit with patient on two trips to hospital today, once at 4: 10Pm and once at 6:35 PM. Both times, patient was fast asleep and no family present. I will call and try to arrange time when I can meet with the two of them to discuss advance directives and symptom management at home.
[2018-01-28] MEDS: ONDANSETRON 4 MG TAB.RAPDIS PO PRN (03:37)
[2018-01-28] MEDS: PROMETHAZINE HCL INJ 25 MG/1 ML VIAL IV PRN (03:37)
[2018-01-28] MEDS: LANSOPRAZOLE 30 MG TAB.RAP.DR PO SCH (05:40)
[2018-01-28] MEDS: LEVOTHYROXINE SODIUM 0.05 MG TABLET PO SCH (05:40)
[2018-01-28] MEDS: OPTH OD SCH ×2 (10:00→21:30)
[2018-01-28] MEDS: NEPAFENAC 0.3% OD SCH (10:00)
[2018-01-28] MEDS: METOPROLOL TARTRATE 25 MG TABLET PO SCH ×2 (11:44→21:30)
[2018-01-28] MEDS: CYANOCOBALAMIN (VITAMIN B-12) 1,000 MCG TABLET PO SCH (11:46)
[2018-01-28] MEDS: CARBOXYMETHYLCELLULOSE SOD 0.5% 0.4 ML DROPERETTE OU SCH ×2 (11:46→18:19)
[2018-01-28] MEDS: CLOPIDOGREL BISULFATE 75 MG TABLET PO SCH (11:46)
[2018-01-28] MEDS: RANOLAZINE 500 MG TAB.SR.12H PO SCH ×2 (11:46→21:30)
[2018-01-28] MEDS: ASPIRIN 81 MG TABLET, CHEWABLE PO SCH (11:47)
[2018-01-28] MEDS: ALPRAZOLAM 0.5 MG TABLET PO SCH ×2 (11:47→21:31)
[2018-01-28] MEDS: FLUTICASONE NASAL SPRAY 50 MCG/SPRY 120 SPRAY/16 GM NAREB SCH (11:48)
[2018-01-28] MEDS: POLYETHYLENE GLYCOL 3350 POWDER 17 GM/1 PACKET PO SCH (11:55)
[2018-01-28] MEDS ORDERED: NORMAL SALINE 1000 ML 500 ML IV ONE (15:59)
--- NOTE | 2018-01-28 15:59 | PDOC PROGRESS REPORT ---
Subjective Progress Note for:: 01/28/18 Subjective:: No new complaints. Thinks that he may go home tomorrow. PT notes that he was able to ambulate 60 feet and recommended a front wheeled walker as well as continued physical therapy Reason For Visit: ABD PAIN DUMPING SYNDROME VENTRICULAR ECTOPY Physical Exam Vital Signs: Temp Pulse Resp BP Pulse Ox 98.1 F 64 16 96/54 L 100 01/28/18 11:10 01/28/18 14:00 01/28/18 11:10 01/28/18 11:10 01/28/18 11:10 Intake & Output 01/27/18 01/28/18 01/29/18 06:59 06:59 06:59 Intake Total 438 260 Output Total 630 150 Balance -192 110 Weight 128 lb 8.472 oz 130 lb 8.218 oz General appearance: PRESENT: no acute distress, thin. ABSENT: well-nourished Respiratory exam: PRESENT: clear to auscultation rodrigo Cardiovascular exam: PRESENT: RRR GI/Abdominal exam: PRESENT: soft. ABSENT: tenderness Musculoskeletal exam: PRESENT: normal inspection Neurological exam: PRESENT: alert Psychiatric exam: PRESENT: appropriate affect Skin exam: PRESENT: warm Results Laboratory Results: 01/22/18 05:13 01/24/18 05:57 01/14/18 01/15/18 01/15/18 22:00 04:24 11:24 Troponin I 0.014 < 0.012 0.017 NT-Pro-B Natriuret Pep 01/15/18 01/15/18 01/16/18 11:24 17:30 15:03 Troponin I NT-Pro-B Natriuret Pep 43797 H 34766 H 04102 H 01/19/18 01/24/18 06:21 05:57 Troponin I NT-Pro-B Natriuret Pep 5590 H 4340 H Impressions: Chest X-Ray 01/14/18 15:58 IMPRESSION: NO ACUTE RADIOGRAPHIC FINDING IN THE CHEST. Abdomen/Pelvis CT 01/15/18 00:00 IMPRESSION: 1. Trace amount of ascites. 2. Stable aortic iliac endograft. Acute Abdomen Series 01/15/18 00:00 IMPRESSION: Bibasilar airspace consolidations left greater than right most consistent with pneumonic infiltrates. Nonspecific intestinal bowel gas pattern. Other findings as noted above Chest CT 01/15/18 10:37 IMPRESSION: Bilateral lower lobe pneumonia. Abdomen Ultrasound 01/15/18 10:39 IMPRESSION: 4 cm aortic aneurysm. 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 No stenosis suspected in the SMA. Assessment & Plan - Diagnosis (1) Chronic vascular disorder of intestine Is this a current diagnosis for this admission?: Yes Plan: Long-standing problem over at least the last 20 years. Not a candidate for intervention. (2) Abdominal pain Qualifiers: Abdominal location: left lower quadrant Qualified Code(s): R10.32 - Left lower quadrant pain Is this a current diagnosis for this admission?: Yes Plan: This is a long-standing problem. Due to ischemic bowel. He is not an interventional candidate. I have explained that I am out of ideas, I have no idea how I can help this unfortunate man. He still is unable to tolerate much of anything orally. I left it in his hands how he wants to proceed. Today he said he would go home tomorrow. Palliative care consult (3) Atrial fibrillation with rapid ventricular response Is this a current diagnosis for this admission?: Yes Plan: Resolved. Continue metoprolol (4) Epilepsy, generalized, convulsive Is this a current diagnosis for this admission?: No Plan: Continue home medications (5) HTN (hypertension) Qualifiers: Hypertension type: essential hypertension Qualified Code(s): I10 - Essential (primary) hypertension Is this a current diagnosis for this admission?: Yes Plan: Continue current medications (6) CAD (coronary artery disease) Qualifiers: Coronary Disease-Associated Artery/Lesion type: [place] artery Associated angina: with unspecified angina Is this a current diagnosis for this admission?: Yes Plan: Stable. Continue present medications (7) Hypothyroid Qualifiers: Hypothyroidism type: acquired Qualified Code(s): E03.9 - Hypothyroidism, unspecified Is this a current diagnosis for this admission?: Yes Plan: Continue home medications (8) CKD (chronic kidney disease), stage IV Is this a current diagnosis for this admission?: Yes
[2018-01-28] MEDS: DIFLUPREDNATE 0.05% OD SCH (21:30)
[2018-01-28] MEDS: ATORVASTATIN CALCIUM 80 MG TABLET PO SCH (21:30)
[2018-01-29] MEDS: LANSOPRAZOLE 30 MG TAB.RAP.DR PO SCH (05:04)
[2018-01-29] MEDS: LEVOTHYROXINE SODIUM 0.05 MG TABLET PO SCH (05:04)
[2018-01-29 06:35] LABS: HEMATOCRIT 29.8 % (37.9-51.0); MEAN CORPUSCULAR HEMOGLOBIN 27.9 pg (27.0-33.4); MEAN CORPUSCULAR HGB CONC 33.6 g/dL (32.0-36.0); MEAN CORPUSCULAR VOLUME 83 fl (80-97); PLATELET COUNT 223 10^3/uL (150-450); RED BLOOD COUNT 3.59 10^6/uL (4.35-5.55); RED CELL DISTRIBUTION WIDTH 16.4 % (11.5-14.0); WHITE BLOOD COUNT 15.3 10^3/uL (4.0-10.5)
[2018-01-29 06:48] LABS: ALBUMIN 2.9 g/dL (3.5-5.0); ANION GAP 15 (5-19); BLOOD UREA NITROGEN 91 mg/dL (7-20); CALCIUM 8.7 mg/dL (8.4-10.2); CARBON DIOXIDE 24 mmol/L (22-30); CHLORIDE 99 mmol/L (98-107); GLUCOSE 105 mg/dL (75-110); PHOSPHORUS 4.3 mg/dL (2.5-4.5); POTASSIUM 4.6 mmol/L (3.6-5.0); SODIUM 138.3 mmol/L (137-145)
[2018-01-29] MEDS: OPTH OD SCH ×2 (10:00→21:09)
[2018-01-29] MEDS: NEPAFENAC 0.3% OD SCH (10:00)
[2018-01-29] MEDS: CARBOXYMETHYLCELLULOSE SOD 0.5% 0.4 ML DROPERETTE OU SCH ×2 (10:05→18:53)
[2018-01-29] MEDS: CLOPIDOGREL BISULFATE 75 MG TABLET PO SCH (10:06)
[2018-01-29] MEDS: RANOLAZINE 500 MG TAB.SR.12H PO SCH ×2 (10:06→21:08)
[2018-01-29] MEDS: CYANOCOBALAMIN (VITAMIN B-12) 1,000 MCG TABLET PO SCH (10:06)
[2018-01-29] MEDS: ALPRAZOLAM 0.5 MG TABLET PO SCH ×2 (10:06→21:09)
[2018-01-29] MEDS: METOPROLOL TARTRATE 25 MG TABLET PO SCH ×2 (10:06→21:08)
[2018-01-29] MEDS: FLUTICASONE NASAL SPRAY 50 MCG/SPRY 120 SPRAY/16 GM NAREB SCH (10:07)
[2018-01-29] MEDS: ASPIRIN 81 MG TABLET, CHEWABLE PO SCH (10:07)
[2018-01-29] MEDS: POLYETHYLENE GLYCOL 3350 POWDER 17 GM/1 PACKET PO SCH (10:08)
[2018-01-29] MEDS ORDERED: NORMAL SALINE 1000 ML 1,000 ML IV PRN (10:39)
--- NOTE | 2018-01-29 11:19 | PROGRESS NOTE E ---
Progress Note NAME: ROSELYN DECKER : 1930 AGE: 87Y DATE: 01/29/2018 ROOM: 428 SUBJECTIVE: The patient is a lying in bed. The patient states he feels better today, that his appetite has improved, however, he did not have much of an appetite yesterday. The patient's creatinine has bumped significantly overnight. The patient denies any nausea, vomiting, diarrhea. No shortness of breath, dizziness, chest pain. No fever or chills. His abdominal pain is under relative good control and the patient does not voice any other concerns at this time. REVIEW OF SYSTEMS: The rest of the review of systems is negative. MEDICATIONS: Reviewed. OBJECTIVE: GENERAL: The patient is an 88-year-old male who is awake, alert. He is oriented to person, place, time, and situation. He is verbal conversational. Does not appear to be in distress. VITAL SIGNS: Temperature 97.3, pulse is 64, respirations 17, blood pressure 113/67, oxygen saturation is 100% on room air. SKIN: Pale, dry. No rashes, not diaphoretic. HEENT: Pupils equal, round and reactive to light and accommodation. Conjunctivae pink. There is no evidence of JVP. CARDIOVASCULAR: Heart is regular. There is no murmur or rub. CHEST: Clear, symmetrical, unlabored. ABDOMEN: Soft, nontender, nondistended. BACK: No CVA tenderness or sacral edema. EXTREMITIES: No clubbing, cyanosis, or edema. GENITOURINARY: The patient's urine is quite concentrated and dark. DIAGNOSTICS: Lab values are as follows. Hematology obtained on 01/29/2018: WBC 15.3, hemoglobin 10.0, hematocrit 28.9, platelet count 232,000. Chemistries obtained on 01/29/2018: Sodium is 138, potassium 4.6, chloride 99, carbon dioxide 24, BUN 91, creatinine 4.03, glucose 105, calcium is 8.7, phosphorus 4.3, magnesium is 2.6. IMPRESSION AND PLAN: 1. CHRONIC VASCULAR DISORDER OF THE INTESTINE. This is a longstanding standing problem over at least 20 years. The patient's appetite has improved today. He is not a candidate for any further intervention. 2. ACUTE KIDNEY INJURY ON TOP OF STAGE 4 CHRONIC KIDNEY DISEASE. We will hydrate the patient 1 L over 12 hours and repeat chemistry in the a.m. 3. ABDOMINAL PAIN SECONDARY TO NUMBER ONE. This is chronic. 4. ATRIAL FIBRILLATION WITH RAPID VENTRICULAR RESPONSE. This has resolved. The patient is on metoprolol, is tolerating current dosage. 5. EPILEPTIC. Continue the patient's home medication. 6. HYPERTENSION. Continue home meds. 7. CORONARY ARTERY DISEASE. We will continue the patient's home meds. Overall stable. 8. HYPOTHYROIDISM. We will continue current medications. CODE STATUS: The patient is a full code DISPOSITION: Depending on the patient's symptomatology and diagnostic findings, we will reevaluate in the a.m. TIME SPENT: On this follow up including assessment and plan, physical examination, patient education, and review of records is 25 minutes. DICTATING PHYSICIAN: KI MCDANIEL NP [id number] PHY#: [id number] ID: [id number] JOB#: [id number] ACCT: [id number] cc: >
[2018-01-29] MEDS: ATORVASTATIN CALCIUM 80 MG TABLET PO SCH (21:08)
[2018-01-29] MEDS: DIFLUPREDNATE 0.05% OD SCH (21:09)
[2018-01-30 05:06] LABS: HEMATOCRIT 29.1 % (37.9-51.0); HEMOGLOBIN 9.8 g/dL (13.5-17.0); MEAN CORPUSCULAR HEMOGLOBIN 27.9 pg (27.0-33.4); MEAN CORPUSCULAR HGB CONC 33.6 g/dL (32.0-36.0); MEAN CORPUSCULAR VOLUME 83 fl (80-97); PLATELET COUNT 230 10^3/uL (150-450); RED BLOOD COUNT 3.51 10^6/uL (4.35-5.55); RED CELL DISTRIBUTION WIDTH 16.6 % (11.5-14.0); WHITE BLOOD COUNT 9.6 10^3/uL (4.0-10.5)
[2018-01-30 05:22] LABS: ANION GAP 14 (5-19); BLOOD UREA NITROGEN 86 mg/dL (7-20); CALCIUM 8.3 mg/dL (8.4-10.2); CARBON DIOXIDE 23 mmol/L (22-30); CHLORIDE 99 mmol/L (98-107); GLUCOSE 124 mg/dL (75-110); POTASSIUM 4.4 mmol/L (3.6-5.0); SODIUM 135.7 mmol/L (137-145)
[2018-01-30] MEDS: LANSOPRAZOLE 30 MG TAB.RAP.DR PO SCH (06:18)
[2018-01-30] MEDS: LEVOTHYROXINE SODIUM 0.05 MG TABLET PO SCH (06:18)
[2018-01-30] MEDS: RANOLAZINE 500 MG TAB.SR.12H PO SCH ×2 (09:45→21:38)
[2018-01-30] MEDS: POLYETHYLENE GLYCOL 3350 POWDER 17 GM/1 PACKET PO SCH (09:45)
[2018-01-30] MEDS: CYANOCOBALAMIN (VITAMIN B-12) 1,000 MCG TABLET PO SCH (09:47)
[2018-01-30] MEDS: METOPROLOL TARTRATE 25 MG TABLET PO SCH ×2 (09:48→21:39)
[2018-01-30] MEDS: ASPIRIN 81 MG TABLET, CHEWABLE PO SCH (09:50)
[2018-01-30] MEDS: ALPRAZOLAM 0.5 MG TABLET PO SCH ×2 (09:51→21:39)
[2018-01-30] MEDS: CLOPIDOGREL BISULFATE 75 MG TABLET PO SCH (09:52)
[2018-01-30] MEDS: CARBOXYMETHYLCELLULOSE SOD 0.5% 0.4 ML DROPERETTE OU SCH ×2 (09:53→18:57)
[2018-01-30] MEDS: FLUTICASONE NASAL SPRAY 50 MCG/SPRY 120 SPRAY/16 GM NAREB SCH (09:57)
[2018-01-30] MEDS: NEPAFENAC 0.3% OD SCH (10:00)
[2018-01-30] MEDS: OPTH OD SCH ×2 (10:00→21:39)
[2018-01-30] MEDS ORDERED: NORMAL SALINE 1000 ML 1,000 ML IV PRN (10:10)
--- NOTE | 2018-01-30 17:34 | PROGRESS NOTE E ---
Progress Note NAME: ROSELYN DECKER : 1930 AGE: 87Y DATE: 01/30/2018 ROOM: 428 SUBJECTIVE: The patient is currently lying in bed. The patient states that he feels a little better than he did yesterday. Abdominal pain has improved. Patient's creatinine has come down to 3.62. Still dehydrated, it appears, but the patient states his appetite is improving. The patient has had no reported episodes of vomiting nor diarrhea, and the patient does not voice any other concerns at the time of review of systems. REVIEW OF SYSTEMS: Negative. MEDICATIONS: Reviewed. OBJECTIVE: GENERAL: The patient is an 88-year-old male, who is awake, alert. He is oriented to person, place, time and situation. He is verbal, conversational. Does not appear to be in any acute distress. VITAL SIGNS: Temperature is 97.9, pulse 73, respirations 16, blood pressure is 108/58, oxygen saturation 95% on 2 liters nasal cannula. SKIN: Warm and dry. No rash. Not diaphoretic. HEENT: Pupils equal, round, reactive to light and accommodation. Conjunctivae pink. No evidence of JVP. CVS: Heart is regular. No murmur or rub. CHEST: Clear, symmetrical, unlabored. ABDOMEN: Soft, nontender, nondistended. BACK: No CVA tenderness or sacral edema. EXTREMITIES: No clubbing, cyanosis or edema. PSYCHIATRIC: Appropriate affect. Pleasant mood. DIAGNOSTICS: Lab values are as follows: Hematology obtained on 01/30/2018: WBCs are 9.6, hemoglobin is 9.8, hematocrit is 29.6, platelet count is 230,000. Chemistry obtained on 01/30/2018: Sodium is 135, potassium 4.4, chloride is 99, carbon dioxide 23, BUN 86, creatinine 3.6, glucose 124. Calcium is 8.6, magnesium is 2.6. IMPRESSION AND PLAN: 1. CHRONIC VASCULAR DISORDER OF THE INTESTINE. This is a long-standing problem for the patient for over 20 years. He has seen multiple specialists for this. Not a candidate for any further intervention. Will continue symptomatic management. The patient's appetite is improved. 2. ACUTE KIDNEY INJURY ON TOP OF CHRONIC KIDNEY DISEASE, STAGE 4. Will hydrate the patient and give him another liter again today, as the patient's creatinine did improve with the 1 liter yesterday. 3. ABDOMINAL PAIN, SECONDARY TO #1. This is chronic. 4. ATRIAL FIBRILLATION WITH RAPID VENTRICULAR RESPONSE. This is resolved. The patient is on metoprolol, tolerating current doses. 5. EPILEPSY. The patient continues on home medication. 6. HYPERTENSION. Continue home meds. 7. CORONARY ARTERY DISEASE. Will continue the patient's home medication. 8. HYPOTHYROIDISM. Will continue patient's home meds. DISPOSITION: The patient is a FULL CODE. Pending patient's symptomatology and diagnostic findings, will reevaluate in the a.m. Time spent on this followup, including assessment, plan, physical examination, patient education and review of records, is 25 minutes. DICTATING PHYSICIAN: KI MCDANIEL NP [id number] PHY#: [id number] ID: [id number] JOB#: [id number] ACCT: [id number] cc: >
[2018-01-30] MEDS: ATORVASTATIN CALCIUM 80 MG TABLET PO SCH (21:39)
[2018-01-30] MEDS: DIFLUPREDNATE 0.05% OD SCH (21:39)
[2018-01-31] MEDS: LEVOTHYROXINE SODIUM 0.05 MG TABLET PO SCH (05:16)
[2018-01-31] MEDS: LANSOPRAZOLE 30 MG TAB.RAP.DR PO SCH (05:16)
[2018-01-31 07:51] LABS: HEMATOCRIT 29.3 % (37.9-51.0); HEMOGLOBIN 9.9 g/dL (13.5-17.0); MEAN CORPUSCULAR HEMOGLOBIN 28.5 pg (27.0-33.4); MEAN CORPUSCULAR HGB CONC 33.7 g/dL (32.0-36.0); MEAN CORPUSCULAR VOLUME 85 fl (80-97); PLATELET COUNT 245 10^3/uL (150-450); RED BLOOD COUNT 3.47 10^6/uL (4.35-5.55); RED CELL DISTRIBUTION WIDTH 17.1 % (11.5-14.0); WHITE BLOOD COUNT 7.9 10^3/uL (4.0-10.5)
[2018-01-31 09:09] LABS: ANION GAP 13 (5-19); BLOOD UREA NITROGEN 73 mg/dL (7-20); CALCIUM 8.5 mg/dL (8.4-10.2); CARBON DIOXIDE 23 mmol/L (22-30); CHLORIDE 104 mmol/L (98-107); GLUCOSE 93 mg/dL (75-110); POTASSIUM 4.2 mmol/L (3.6-5.0); SODIUM 140.1 mmol/L (137-145)
[2018-01-31] MEDS: NEPAFENAC 0.3% OD SCH ×2 (09:32→11:02)
[2018-01-31] MEDS: METOPROLOL TARTRATE 25 MG TABLET PO SCH ×2 (09:32→21:22)
[2018-01-31] MEDS: ALPRAZOLAM 0.5 MG TABLET PO SCH ×2 (09:32→21:22)
[2018-01-31] MEDS: ASPIRIN 81 MG TABLET, CHEWABLE PO SCH (09:32)
[2018-01-31] MEDS: CLOPIDOGREL BISULFATE 75 MG TABLET PO SCH (09:32)
[2018-01-31] MEDS: OPTH OD SCH ×3 (09:32→21:20)
[2018-01-31] MEDS: CYANOCOBALAMIN (VITAMIN B-12) 1,000 MCG TABLET PO SCH (09:32)
[2018-01-31] MEDS: FLUTICASONE NASAL SPRAY 50 MCG/SPRY 120 SPRAY/16 GM NAREB SCH (09:33)
[2018-01-31] MEDS: CARBOXYMETHYLCELLULOSE SOD 0.5% 0.4 ML DROPERETTE OU SCH ×2 (09:33→17:14)
[2018-01-31] MEDS: RANOLAZINE 500 MG TAB.SR.12H PO SCH ×2 (09:33→21:22)
[2018-01-31] MEDS: POLYETHYLENE GLYCOL 3350 POWDER 17 GM/1 PACKET PO SCH (11:02)
--- NOTE | 2018-01-31 16:02 | PDOC PROGRESS REPORT ---
Subjective Progress Note for:: 01/31/18 Subjective:: Patient c/o pain L shoulder, no chest pain. Denies any nausea or vomiting. Has constant abdominal pain Reason For Visit: ABD PAIN DUMPING SYNDROME VENTRICULAR ECTOPY Physical Exam Vital Signs: Temp Pulse Resp BP Pulse Ox 98.2 F 110 H 18 105/57 L 95 01/31/18 12:08 01/31/18 14:00 01/31/18 12:08 01/31/18 12:08 01/31/18 12:08 Intake & Output 01/30/18 01/31/18 02/01/18 06:59 06:59 06:59 Intake Total 620 387 Output Total 1090 695 Balance -470 -308 Weight 58.2 kg 60.3 kg General appearance: PRESENT: no acute distress Head exam: PRESENT: atraumatic Neck exam: ABSENT: carotid bruit, JVD, lymphadenopathy, thyromegaly Cardiovascular exam: PRESENT: irregular rhythm, +S1, +S2 GI/Abdominal exam: PRESENT: soft, tenderness - vague generalized Rectal exam: PRESENT: deferred Neurological exam: PRESENT: awake, oriented to situation Results Laboratory Results: 01/31/18 06:39 01/31/18 08:22 01/31/18 01/31/18 01/31/18 06:39 06:39 08:22 WBC 7.9 RBC 3.47 L Hgb 9.9 L Hct 29.3 L MCV 85 MCH 28.5 MCHC 33.7 RDW 17.1 H Plt Count 245 Sodium Cancelled 140.1 Potassium Cancelled 4.2 Chloride Cancelled 104 Carbon Dioxide Cancelled 23 Anion Gap Cancelled 13 BUN Cancelled 73 H Creatinine Cancelled 3.02 H Est GFR ( Amer) Cancelled 24 L Est GFR (Non-Af Amer) Cancelled 20 L Glucose Cancelled 93 Calcium Cancelled 8.5 Magnesium Cancelled 2.5 H 01/14/18 01/15/18 01/15/18 22:00 04:24 11:24 Troponin I 0.014 < 0.012 0.017 NT-Pro-B Natriuret Pep 01/15/18 01/15/18 01/16/18 11:24 17:30 15:03 Troponin I NT-Pro-B Natriuret Pep 86230 H 58848 H 60150 H 01/19/18 01/24/18 06:21 05:57 Troponin I NT-Pro-B Natriuret Pep 5590 H 4340 H Impressions: Chest X-Ray 01/14/18 15:58 IMPRESSION: NO ACUTE RADIOGRAPHIC FINDING IN THE CHEST. Abdomen/Pelvis CT 01/15/18 00:00 IMPRESSION: 1. Trace amount of ascites. 2. Stable aortic iliac endograft. Acute Abdomen Series 01/15/18 00:00 IMPRESSION: Bibasilar airspace consolidations left greater than right most consistent with pneumonic infiltrates. Nonspecific intestinal bowel gas pattern. Other findings as noted above Chest CT 01/15/18 10:37 IMPRESSION: Bilateral lower lobe pneumonia. Abdomen Ultrasound 01/15/18 10:39 IMPRESSION: 4 cm aortic aneurysm. 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 No stenosis suspected in the SMA. Assessment & Plan - Time Time Spent with patient: 15-24 minutes Medications reviewed and adjusted accordingly: Yes Anticipated discharge: Home Within: within 72 hours - Inpatient Certification Based on my medical assessment, after consideration of the patient's comorbidities, presenting symptoms, or acuity I expect that the services needed warrant INPATIENT care.: Yes Medical Necessity: Need For IV Fluids - Plan Summary Plan Summary: Chronic vascular disorder of the intestine. This is a chronic issue. It is not a candidate for any further intervention and this is to be managed medically. 2. Acute kidney injury on chronic kidney disease stage IV. His creatinine has come down somewhat. Will continue to monitor 3. Chronic abdominal pain secondary to #1 above #4 atrial fibrillation, paroxysmal, resolved 5. Seizures continue on home medications 6. Hypertension currently controlled 7. Stable coronary artery disease 8. Hypothyroidism
[2018-01-31] MEDS: DIFLUPREDNATE 0.05% OD SCH (21:20)
[2018-01-31] MEDS: ATORVASTATIN CALCIUM 80 MG TABLET PO SCH (21:22)
[2018-02-01] MEDS: LEVOTHYROXINE SODIUM 0.05 MG TABLET PO SCH (05:35)
[2018-02-01] MEDS: LANSOPRAZOLE 30 MG TAB.RAP.DR PO SCH (05:35)
[2018-02-01] MEDS: ALPRAZOLAM 0.5 MG TABLET PO SCH ×2 (09:38→21:44)
[2018-02-01] MEDS: METOPROLOL TARTRATE 25 MG TABLET PO SCH ×2 (09:38→21:44)
[2018-02-01] MEDS: ASPIRIN 81 MG TABLET, CHEWABLE PO SCH (09:39)
[2018-02-01] MEDS: CLOPIDOGREL BISULFATE 75 MG TABLET PO SCH (09:39)
[2018-02-01] MEDS: FLUTICASONE NASAL SPRAY 50 MCG/SPRY 120 SPRAY/16 GM NAREB SCH (09:39)
[2018-02-01] MEDS: CARBOXYMETHYLCELLULOSE SOD 0.5% 0.4 ML DROPERETTE OU SCH ×2 (09:39→18:28)
[2018-02-01] MEDS: CYANOCOBALAMIN (VITAMIN B-12) 1,000 MCG TABLET PO SCH (09:39)
[2018-02-01] MEDS: RANOLAZINE 500 MG TAB.SR.12H PO SCH ×2 (09:40→21:44)
[2018-02-01] MEDS: POLYETHYLENE GLYCOL 3350 POWDER 17 GM/1 PACKET PO SCH (09:40)
[2018-02-01 11:01] LABS: ANION GAP 9 (5-19); BLOOD UREA NITROGEN 60 mg/dL (7-20); CALCIUM 8.3 mg/dL (8.4-10.2); CARBON DIOXIDE 20 mmol/L (22-30); CHLORIDE 111 mmol/L (98-107); GLUCOSE 122 mg/dL (75-110); POTASSIUM 4.4 mmol/L (3.6-5.0); SODIUM 139.9 mmol/L (137-145)
[2018-02-01] MEDS ORDERED: NORMAL SALINE 1000 ML 1,000 ML IV PRN (17:20)
[2018-02-01] MEDS: DIFLUPREDNATE 0.05% OD SCH (21:44)
[2018-02-01] MEDS: OPTH OD SCH (21:44)
[2018-02-01] MEDS: ATORVASTATIN CALCIUM 80 MG TABLET PO SCH (21:44)
[2018-02-02] MEDS: LANSOPRAZOLE 30 MG TAB.RAP.DR PO SCH (05:45)
[2018-02-02] MEDS: LEVOTHYROXINE SODIUM 0.05 MG TABLET PO SCH (05:45)
[2018-02-02 07:01] LABS: ANION GAP 9 (5-19); BLOOD UREA NITROGEN 56 mg/dL (7-20); CALCIUM 8.3 mg/dL (8.4-10.2); CARBON DIOXIDE 20 mmol/L (22-30); CHLORIDE 111 mmol/L (98-107); GLUCOSE 112 mg/dL (75-110); POTASSIUM 4.4 mmol/L (3.6-5.0); SODIUM 140.4 mmol/L (137-145)
[2018-02-02] MEDS: POLYETHYLENE GLYCOL 3350 POWDER 17 GM/1 PACKET PO SCH (09:19)
[2018-02-02] MEDS: CARBOXYMETHYLCELLULOSE SOD 0.5% 0.4 ML DROPERETTE OU SCH (09:19)
--- NOTE | 2018-02-02 09:54 | PDOC DISCHARGE SUMMARY ---
General - Admit/Disc Date/PCP Admission Date/Primary Care Provider: 01/14/18 17:23 ROMEL LAMB MD Discharge Date: 02/02/18 - Discharge Diagnosis (1) Acute kidney failure Is this a current diagnosis for this admission?: Yes (2) Abdominal pain Is this a current diagnosis for this admission?: Yes (3) Acute on chronic systolic (congestive) heart failure Is this a current diagnosis for this admission?: Yes (4) Atrial fibrillation with rapid ventricular response Is this a current diagnosis for this admission?: Yes (5) CAD (coronary artery disease) Is this a current diagnosis for this admission?: Yes (6) CKD (chronic kidney disease), stage IV Is this a current diagnosis for this admission?: Yes (7) HTN (hypertension) Is this a current diagnosis for this admission?: Yes (8) Ventricular bigeminy Is this a current diagnosis for this admission?: Yes (9) Paroxysmal a-fib Is this a current diagnosis for this admission?: Yes (10) Celiac artery stenosis Is this a current diagnosis for this admission?: Yes (11) Full code status Is this a current diagnosis for this admission?: Yes - Additional Information Resuscitation Status: Full Code Discharge Diet: Cardiac Discharge Activity: Activity As Tolerated Prescriptions: Promethazine HCl [Phenergan 25 mg Tablet] 25 mg PO Q6HP PRN #30 tablet PRN Reason: Alprazolam [Xanax 0.5 mg Tablet] 0.5 mg PO BID 10 Days #20 tablet Furosemide [Lasix 20 mg Tablet] 20 mg PO DAILY 15 Days #15 tablet Metoprolol Succinate [Toprol Xl 50 mg Tab.sr] 50 mg PO Q12 30 Days #30 tab.sr.24h Metoprolol Tartrate [Lopressor 25 mg Tablet] 25 mg PO Q12 30 Days #60 tablet Ranolazine [Ranexa 500 mg Tab.sr] 500 mg PO Q12 30 Days #60 tab.sr.12h Home Medications: Aspirin [Aspirin 81 mg Chewable Tablet] 81 mg PO DAILY 01/14/18 Besifloxacin HCl [Besivance 0.6% Oph Susp 5 ml] 1 drop OD BID MDD FOR 10DAYS AFTER SURGERY 01/14/18 Clopidogrel Bisulfate [Plavix 75 mg Tablet] 75 mg PO DAILY 01/14/18 Cyanocobalamin (Vitamin B-12) [Vitamin B-12] 1,000 mcg PO DAILY 01/14/18 Difluprednate [Durezol] 1 drop OD BID MDD FOR 10DAYS AFTER SURGERY 01/14/18 Fluticasone Propionate [Flonase Nasal [place] 50 Mcg/[place] 16 gm] 1 spray NAREB DAILY 01/14/18 Levothyroxine Sodium [Synthroid 0.05 mg Tablet] 0.05 mg PO Q6AM 01/14/18 Nepafenac [Ilevro] 1 drop OD QAM MDD FOR 31DAYS AFTER SURGERY 01/14/18 Pantoprazole Sodium [Protonix] 40 mg PO DAILY 01/14/18 Polyvinyl Alcohol/Povidone/Pf [Refresh Classic Eye Drops] 1 drop OU BID Atorvastatin Calcium [Lipitor 20 mg Tablet] 20 mg PO QHS 01/15/18 Aspirin [Aspirin 81 mg Chewable Tablet] 81 mg PO DAILY tab.chew 01/19/18 Atorvastatin Calcium [Lipitor 80 mg Tablet] 80 mg PO QHS tablet 01/19/18 Furosemide [Lasix 20 mg Tablet] 20 mg PO DAILY 15 Days #15 tablet 01/19/18 Metoprolol Succinate [Toprol Xl 50 mg Tab.sr] 50 mg PO Q12 30 Days #30 tab.sr.24h 01/19/18 Ranolazine [Ranexa 500 mg Tab.sr] 500 mg PO Q12 30 Days #60 tab.sr.12h 01/19/18 Alprazolam [Xanax 0.5 mg Tablet] 0.5 mg PO BID 10 Days #20 tablet 02/02/18 Metoprolol Tartrate [Lopressor 25 mg Tablet] 25 mg PO Q12 30 Days #60 tablet 04/15 Promethazine HCl [Phenergan 25 mg Tablet] 25 mg PO Q6HP PRN #30 tablet 02/02/18 History of Present Illness History of Present Illness: ROSELYN DECKER is a 87 year old male with long-standing left lower chest pain since he had some stents placed several years ago. He had a right cataract replacement yesterday went back to the supervisor assembly today for follow -up and was complaining of very severe chest pain that migrated around his chest and upper abdomen. Apparently got an EKG, was found to be in bigeminy, and was sent over to the emergency department. He continues to have pain. Pain may be worse with standing. Otherwise unrelated to activity. He took Tylenol for it without effect. Unaffected by nitro. Associated with severe nausea, and intermittent diaphoresis, and mild lightheadedness. He has no arm, neck, or jaw symptoms. He has had no loss of consciousness, no vomiting, or diarrhea. He reports a chronic cough from sinus issues that is unchanged. He denies swelling. States she has been walking in the mall and has noted a decrease in exercise tolerance that has come on slowly over the last few months. Hospital Course Hospital Course: This gentleman was admitted with complaints of chest pain and was found to have bigeminy on initial presentation. He subsequently had atrial fibrillation with rapid ventricular response and was seen by cardiology. Patient has long- standing abdominal pain that was evaluated by surgery during this hospitalization. Because he does have been on history of celiac axis stenosis that was confirmed on ultrasound it is felt that patient may benefit from further angiogram with angioplasty however this is felt to be a few nonurgent nature and he has been advised to follow-up with his surgeons as outpatient. 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 Patient declined to have an EGD done. Cardiolite stress test was done and this revealed small area of predominantly severe fixed defect suggestive of scar in the inferior wall as well as his noted increased ventricular ectopy with ejection fraction of 42% aggressive risk factor modification was advised. As for his ventricular ectopy as it was felt that no therapy was indicated unless the ectopies are sustained. Patient's multiple medical problems became stabilized but was noted to have an acute kidney injury with his creatinine going up as high as 4.0 and BUN of 91. Today's kidney function reflects a creatinine of 2.4 and BUN of 56. He did respond to cautious judicious hydration. He is to follow-up with his primary care physician with follow-up BMP and follow-up with his other specialists for further evaluation and management. Patient was a full code throughout his hospital stay Physical Exam Vital Signs: Temp Pulse Resp BP Pulse Ox 98.0 F 70 20 139/73 H 96 02/02/18 07:43 02/02/18 07:43 02/02/18 07:43 02/02/18 07:43 02/02/18 07:43 Intake & Output 02/01/18 02/02/18 02/03/18 06:59 06:59 06:59 Intake Total 520 746 Output Total 485 620 Balance 35 126 Weight 61.4 kg 62 kg General appearance: PRESENT: cooperative - elderly, thin Head exam: PRESENT: atraumatic Eye exam: PRESENT: conjunctiva pink, EOMI, PERRLA. ABSENT: scleral icterus Ear exam: PRESENT: normal external ear exam Neck exam: ABSENT: carotid bruit, JVD, lymphadenopathy, thyromegaly Respiratory exam: PRESENT: clear to auscultation rodrigo. ABSENT: rales, rhonchi, wheezes Cardiovascular exam: PRESENT: irregular rhythm Pulses: PRESENT: normal dorsalis pedis pul GI/Abdominal exam: PRESENT: normal bowel sounds, soft. ABSENT: distended, guarding, mass, organolmegaly, rebound, tenderness Rectal exam: PRESENT: deferred Extremities exam: PRESENT: full ROM. ABSENT: calf tenderness, clubbing, pedal edema Musculoskeletal exam: PRESENT: ambulatory Neurological exam: PRESENT: alert, awake, oriented to person, oriented to place , oriented to time Results Laboratory Results: 01/31/18 06:39 02/02/18 05:55 02/01/18 02/02/18 10:29 05:55 Sodium 139.9 140.4 Potassium 4.4 4.4 Chloride 111 H 111 H Carbon Dioxide 20 L 20 L Anion Gap 9 9 BUN 60 H 56 H Creatinine 2.54 H 2.46 H Est GFR ( Amer) 29 L 30 L Est GFR (Non-Af Amer) 24 L 25 L Glucose 122 H 112 H Calcium 8.3 L 8.3 L 01/14/18 01/15/18 01/15/18 22:00 04:24 11:24 Troponin I 0.014 < 0.012 0.017 NT-Pro-B Natriuret Pep 01/15/18 01/15/18 01/16/18 11:24 17:30 15:03 Troponin I NT-Pro-B Natriuret Pep 69018 H 44842 H 21147 H 01/19/18 01/24/18 06:21 05:57 Troponin I NT-Pro-B Natriuret Pep 5590 H 4340 H Impressions: Chest X-Ray 01/14/18 15:58 IMPRESSION: NO ACUTE RADIOGRAPHIC FINDING IN THE CHEST. Abdomen/Pelvis CT 01/15/18 00:00 IMPRESSION: 1. Trace amount of ascites. 2. Stable aortic iliac endograft. Acute Abdomen Series 01/15/18 00:00 IMPRESSION: Bibasilar airspace consolidations left greater than right most consistent with pneumonic infiltrates. Nonspecific intestinal bowel gas pattern. Other findings as noted above Chest CT 01/15/18 10:37 IMPRESSION: Bilateral lower lobe pneumonia. Abdomen Ultrasound 01/15/18 10:39 IMPRESSION: 4 cm aortic aneurysm. 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 No stenosis suspected in the SMA. Qualifiers - * PATIENT BEING DISCHARGED WITH ANY OF THE FOLLOWING DIAGNOSIS: No - Follow up PCP in 1 week Plan Time Spent: Greater than 30 Minutes
[2018-02-02] MEDS: ASPIRIN 81 MG TABLET, CHEWABLE PO SCH (10:01)
[2018-02-02] MEDS: ALPRAZOLAM 0.5 MG TABLET PO SCH (10:01)
[2018-02-02] MEDS: CLOPIDOGREL BISULFATE 75 MG TABLET PO SCH (10:02)
[2018-02-02] MEDS: CYANOCOBALAMIN (VITAMIN B-12) 1,000 MCG TABLET PO SCH (10:03)
[2018-02-02] MEDS: METOPROLOL TARTRATE 25 MG TABLET PO SCH (10:03)
[2018-02-02] MEDS: RANOLAZINE 500 MG TAB.SR.12H PO SCH (10:03)
[2018-02-02] MEDS: NEPAFENAC 0.3% OD SCH (10:04)
[2018-02-02] MEDS: FLUTICASONE NASAL SPRAY 50 MCG/SPRY 120 SPRAY/16 GM NAREB SCH (10:04)
[2018-02-02] MEDS: OPTH OD SCH (10:04)
[2018-02-02 14:30] VITALS: BP 144/69
== END 2018-02-02 14:30 | disposition home health service (06) | DRG 392 ==
LOC: ER 15:37 → INTOOBSV 17:23 → OBSVTOIN 17:23 → EH 17:23 → 4S 21:11
PROVIDERS: ADMIT Internal Medicine; ATTEND Internal Medicine
DX: K91.1 Postgastric surgery syndromes (principal); I77.4 Celiac artery compression syndrome; I13.0 Hypertensive heart and chronic kidney disease with heart failure and stage 1 through stage 4 chronic kidney disease, or unspecified chronic kidney disease; N18.4 Chronic kidney disease, stage 4 (severe); I50.22 Chronic systolic (congestive) heart failure; N17.9 Acute kidney failure, unspecified; R00.8 Other abnormalities of heart beat; R07.9 Chest pain, unspecified; I25.10 Atherosclerotic heart disease of native coronary artery without angina pectoris; E78.5 Hyperlipidemia, unspecified; I73.9 Peripheral vascular disease, unspecified; C61 Malignant neoplasm of prostate; I71.4 Abdominal aortic aneurysm, without rupture; E03.9 Hypothyroidism, unspecified; C14.0 Malignant neoplasm of pharynx, unspecified; G40.909 Epilepsy, unspecified, not intractable, without status epilepticus; F43.10 Post-traumatic stress disorder, unspecified; I25.2 Old myocardial infarction; Z79.01 Long term (current) use of anticoagulants; Z79.82 Long term (current) use of aspirin; Z79.899 Other long term (current) drug therapy; Z95.5 Presence of coronary angioplasty implant and graft; Z98.41 Cataract extraction status, right eye; Z96.1 Presence of intraocular lens
CPT/HCPCS: 36415; 71045; 71250; 74022; 74176; 76706; 78452; 80048; 80053; 80061; 80069; 82550; 82553; 83540; 83735; 83880; 84100; 84443; 84484; 85025; 85027; 93005; 93010; 93017; 93306; 93976; 96361; 96374; 96375; 99285; A9500; G0378; G8978-GP; G8979-GP; G8996-GN; G8997-GN; G8998-GN; J0280; J1940; J2405; J2550; J2765; J2785; J3490; J7030; J7050; Q9969; S0119; S0164

== ENCOUNTER 2018-03-31 09:49 | Day surgery (SDC) | payer MEDICARE, OTHER ==
[~2018-03-31 09:49] MED LIST changes: -BUPIVACAINE HCL 0.75% INJ/PF (7.5 MG/1 ML) 10 ML SDV OD PRN; +BUPIVACAINE HCL 0.75% INJ/PF (7.5 MG/1 ML) 10 ML SDV OS PRN; -KETOROLAC TROMETHAMINE 0.45% 4 DROP/0.4 ML DROPERETTE OD PRN; +KETOROLAC TROMETHAMINE 0.45% 4 DROP/0.4 ML DROPERETTE OS PRN; -LIDOCAINE 4% INJ/PF (40 MG/ML) 5 ML AMPUL OD PRN; +LIDOCAINE 4% INJ/PF (40 MG/ML) 5 ML AMPUL OS PRN
[2018-03-31] MEDS: CYCLOPENTOLATE 0.2%/PHENYLEPHRINE 1% OPH SOLN 2 ML OS PRN ×3 (10:14→10:37)
[2018-03-31] MEDS: BESIFLOXACIN HCL 0.6% OPH SUSP 5 ML BOTTLE OS PRN ×4 (10:14→11:13)
[2018-03-31] MEDS: TROPICAMIDE 1% OPH SOLN 3 ML OS PRN ×3 (10:14→10:37)
[2018-03-31] MEDS: TETRACAINE HCL 0.5% OPH SOLN 0.6 ML DROPERETTE OS PRN ×2 (10:14→10:37)
[2018-03-31] MEDS ORDERED: MIDAZOLAM 2 MG/2 ML INJ ONE ×2 (10:18)
[2018-03-31] MEDS ORDERED: FENTANYL CITRATE INJ/PF 100 MCG/2 ML AMPUL ONE (10:18)
--- NOTE | 2018-03-31 11:45 | [facility] OPERATIVE REPORT E ---
[facility] Operative Report NAME: ROSELYN DECKER AGE: 88Y DATE OF SURGERY: 03/31/2018 ROOM: PREOPERATIVE DIAGNOSIS: Cataract, left eye. POSTOPERATIVE DIAGNOSIS: Cataract, left eye. PROCEDURE PERFORMED: Phacoemulsification with posterior chamber intraocular lens, left eye. SURGEON: BERTHA VARMA M.D. ANESTHESIA: Topical with MAC. INDICATIONS FOR SURGERY: Difficulty seeing road signs and words on TV. PROCEDURE: The patient was brought to the operating room and placed on the operative table. Following tetracaine drops, topical anesthesia was administered. This consisted of instrument wipe pledgets soaked in a solution of 4% Xylocaine mixed with 0.75% Marcaine in a 1:2 ratio. A 2 x 1 cm pledget was placed in the superior fornix. A 1 x 1 cm pledget was placed in the inferior fornix. The eye was patched shut for 5 minutes. The patch was removed. The eye was sterilely prepped and draped in the usual manner. Lid speculum was placed in the eye. The pledgets were removed and 4-0 black silk sutures were placed around the superior and the inferior rectus muscles to be used as traction. A conjunctival peritomy was made at the 10 o'clock position. Hemostasis was obtained with bipolar cautery. A posterior limbal groove was created using a crescent knife and dissected anteriorly towards the cornea. A sharp point blade was used to create a paracentesis site at the 2 o'clock position. A 2.4 mm keratome was used to enter the anterior chamber through the groove. Viscoelastic was injected into the anterior chamber. An anterior capsulotomy was performed using Utrata forceps in a capsulorrhexis fashion. Hydrodissection and hydrodelineation were performed. Phacoemulsification was performed in [id number] technique. A total of 60 seconds phaco time was used. Following this, the I/A unit was used to remove residual cortex. Viscoelastic was injected into the capsular bag. Intraocular lens model [id number], 25.0 diopters, serial number [id number], was placed in the capsular bag. The I/A unit was used to remove residual viscoelastic. The wound was seen to be watertight under high and low pressure, and no sutures were placed. The intraocular lens was well centered. The pressure was adjusted in the eye to normal pressure. The 4-0 black silk sutures and lid speculum were removed. The eye was shielded after Besivance drops were placed. The patient tolerated the procedure well and was sent to the recovery room in good condition. DICTATING PHYSICIAN: BERTHA VARMA M.D. [id number] PHY#: [id number] ID: [id number] JOB#: [id number] ACCT: [id number] cc:BERTHA VARMA M.D. >
--- NOTE | 2018-03-31 11:46 | [facility] DISCHARGE SUMMARY E ---
[facility] Discharge Summary NAME: ROSELYN DECKER AGE: 88Y ADMITTED: 03/31/2018 DISCHARGED: 03/31/2018 FINAL DIAGNOSIS: Cataract, left eye. HOSPITAL COURSE: The patient is an 88-year-old who underwent uneventful cataract extraction with intraocular lens implant, left eye, on 03/31/2018. He will be discharged to home. He was instructed to resume preoperative medications; to take Tylenol as needed for discomfort; to keep his eye shielded; to use Besivance, Durezol, and Ilevro at 3 p.m. and 8 p.m. He will follow up in my office today at 4 o'clock. DICTATING PHYSICIAN: BERTHA VARMA M.D. [id number] PHY#: [id number] ID: [id number] JOB#: [id number] ACCT: [id number] cc:BERTHA VARMA M.D. >
== END 2018-03-31 11:58 | disposition home or self-care (01) ==
LOC: SC 09:49
PROVIDERS: ATTEND Ophthalmology
DX: H25.812 Combined forms of age-related cataract, left eye (principal); Z96.1 Presence of intraocular lens; H34.211 Partial retinal artery occlusion, right eye; E03.9 Hypothyroidism, unspecified; K21.9 Gastro-esophageal reflux disease without esophagitis; R01.1 Cardiac murmur, unspecified; I11.9 Hypertensive heart disease without heart failure; I48.91 Unspecified atrial fibrillation; Z87.891 Personal history of nicotine dependence; Z88.5 Allergy status to narcotic agent; Z85.46 Personal history of malignant neoplasm of prostate; Z85.819 Personal history of malignant neoplasm of unspecified site of lip, oral cavity, and pharynx; I25.2 Old myocardial infarction; Z79.02 Long term (current) use of antithrombotics/antiplatelets; Z79.82 Long term (current) use of aspirin
CPT/HCPCS: 66984; V2632; J2250; J3490 ×4; A9270; J0171; 142; J3010

== ENCOUNTER 2018-05-11 14:44 | Inpatient (IN) | payer MEDICARE, OTHER ==
[~2018-05-11 14:44] MED LIST changes: -BUPIVACAINE HCL 0.75% INJ/PF (7.5 MG/1 ML) 10 ML SDV OS PRN; +CEFTRIAXONE SODIUM 2,000 MG in DEXTROSE 5%-WATER 100 ML IV ONE; -CHONDR SU A NA/HYALUR INTRAOC KIT (SURGICARE) ONE; -EPINEPHRINE INJ/PF 1 MG/1 ML AMPULE ONE; -KETOROLAC TROMETHAMINE 0.45% 4 DROP/0.4 ML DROPERETTE OS PRN; -LIDOCAINE 1% INJ-PF (10 MG/ML) 30 ML SDV ONE; -LIDOCAINE 4% INJ/PF (40 MG/ML) 5 ML AMPUL OS PRN
[2018-05-11] MEDS ORDERED: ONDANSETRON HCL INJ/PF 4 MG/2 ML SDV IV ONE (15:01)
[2018-05-11] MEDS ORDERED: NALBUPHINE HCL INJ 10 MG/1 ML AMPULE INJ ONE ×2 (15:01→15:51)
--- NOTE | 2018-05-11 15:07 | ER Document Report ---
ED General - General Chief Complaint: Abdominal Pain Stated Complaint: VOMITING Time Seen by Provider: 05/11/18 14:53 TRAVEL OUTSIDE OF THE [place] IN LAST 30 DAYS: No - HPI Notes: 88-year-old male with a history of bilateral hernia repair, Billroth II gastric surgery, prostate cancer, cardiac stents, aortic stent, esophageal cancer, abdominal stent, peritoneal adhesions, esophageal stricture, mesenteric artery stenosis, congestive heart failure, afib, chronic kidney disease presents with severe lower sharp abdominal pain radiating from his left to his right abdomen, multiple episodes of vomiting, and diarrhea for the past 2 days. He reports chronic alternating diarrhea and constipation. He has been unable to eat today and is vomiting yellow bile. EMS noted initial blood pressure of 160 systolic that dropped to the 130s with standing. He was given 500 cc fluid bolus and 4mg zofran. Patient denies any current burning with urination, but does have it occasionally. Denies fevers or chills. - Related Data Allergies/Adverse Reactions: morphine [Morphine] Allergy (Severe, Verified 03/31/18 11:01) Hallucinations tetracycline [Tetracycline] Allergy (Unknown, Verified 03/31/18 11:01) Past Medical History - Social History Smoking Status: Unknown if Ever Smoked Family History: Reviewed & Not Pertinent, Malignancy - Colon cancer - Past Medical History Cardiac Medical History: Reports: Hx Coronary Artery Disease, Hx Heart Attack - X3=STENTS/ 2001 & 2017, Hx Hypercholesterolemia, Hx Hypertension - MEDICATED, Hx Peripheral Vascular Disease Pulmonary Medical History: Denies: Hx Asthma Neurological Medical History: Denies: Hx Cerebrovascular Accident, Hx Seizures Endocrine Medical History: Reports: Hx Hypothyroidism Renal/ Medical History: Denies: Hx Peritoneal Dialysis GI Medical History: Reports: Hx Ulcer. Denies: Hx Hepatitis, Hx Hiatal Hernia Musculoskeletal Medical History: Denies Hx Arthritis Psychiatric Medical History: Reports: Hx Post Traumatic Stress Disorder Denies: Hx Depression - anxiety Infectious Medical History: Denies: Hx Hepatitis Past Surgical History: Reports: Hx Abdominal Surgery - stomach resection, Hx Bowel Surgery - x10 V&A w/ B-II anastomosis, Hx Cardiac Catheterization, Hx Carotid Endarterectomy - RIGHT SIDE, Hx Coronary Stent, Hx Vascular Surgery - ILIAC, FEMORAL STENTS, aortic aneurysm stent graft. Denies: Hx Open Heart Surgery, Hx Pacemaker - Immunizations Hx Diphtheria, Pertussis, Tetanus Vaccination: Yes Hx Pneumococcal Vaccination: 09/29/19 Review of Systems - Review of Systems Notes: Constitutional: Negative for fever. Positive for fatigue HENT: Negative for sore throat. Eyes: Negative for visual changes. Cardiovascular: Negative for chest pain. Respiratory: Negative for shortness of breath. Positive for cough Gastrointestinal: Positive for abdominal pain, vomiting and diarrhea. Genitourinary: Negative for dysuria. Musculoskeletal: Negative for back pain. Skin: Negative for rash. Neurological: Negative for headaches, weakness or numbness. 10 point ROS negative except as marked above and in HPI. Physical Exam - Vital signs Vitals: Resp 25 H 05/11/18 15:06 - Notes Notes: PHYSICAL EXAMINATION: GENERAL: Well-appearing, well-nourished and in no acute distress. Appears mildly uncomfortable HEAD: Atraumatic, normocephalic. EYES: Pupils equal round and reactive to light, extraocular movements intact, conjunctiva are normal. ENT: nares patent, oropharynx clear without exudates. Moist mucous membranes. NECK: Normal range of motion, supple without lymphadenopathy LUNGS: Breath sounds clear to auscultation bilaterally and equal. No wheezes rales or rhonchi. HEART: Regular rate and rhythm, no chest wall tenderness ABDOMEN: Soft, normoactive bowel sounds. No guarding, no rebound. Mild diffuse tenderness. Abdominal bruit present EXTREMITIES: Normal range of motion, no pitting or edema. No cyanosis. NEUROLOGICAL: Cranial nerves grossly intact. Normal speech, normal gait. Normal sensory and motor exams. PSYCH: Normal mood, normal affect. SKIN: Warm, Dry, normal turgor, no rashes or lesions noted. Course - Re-evaluation Re-evalutation: 05/11/18 15:07 CT ordered. Pain treated. 05/11/18 20:00 CT shows no acute findings in the abdomen. He has a stable aortic graft. Suspicion for bilateral lower lobes infiltrates, the patient has not had any cough or shortness of breath. No fevers. Potassium elevated with chronic kidney disease. Discussed with hospitalist, but preferred we treat in the emergency department. We will continue hydration. Given insulin, glucose, bicarbonate, Kayexalate, albuterol neb. Patient has chronic bundle branch block on EKG without any obvious hyperkalemia changes, so calcium not given. Will continue to monitor. 05/11/18 23:03 Potassium improved, but patient continuing to vomit and unable to tolerate oral challenge. Discussed again with hospitalist and agreed for admission. Patient does report chronic cough that has slightly worsened recently with yellow sputum. Will give antibiotics. - Vital Signs Vital signs: Temp Pulse Resp BP Pulse Ox 97.5 F 13 157/71 H 94 05/11/18 18:00 05/11/18 19:04 05/11/18 19:04 05/11/18 19:04 - Laboratory Result Diagrams: 05/11/18 16:44 05/11/18 22:25 Laboratory results interpreted by me: 05/11/18 05/11/18 05/11/18 16:44 16:44 18:37 WBC 12.8 H RBC 3.84 L Hgb 10.9 L Hct 34.0 L RDW 16.7 H Seg Neutrophils % 86.6 H Lymphocytes % 9.0 L Absolute Neutrophils 11.1 H Potassium 6.2 H* 5.9 H Carbon Dioxide 19 L BUN 46 H Creatinine 2.23 H Est GFR ( Amer) 34 L Est GFR (Non-Af Amer) 28 L AST 14 L ALT 11 L Lipase 14.4 L Urine Protein Urine Ketones 05/11/18 05/11/18 20:30 22:25 WBC RBC Hgb Hct RDW Seg Neutrophils % Lymphocytes % Absolute Neutrophils Potassium 5.1 H Carbon Dioxide BUN Creatinine Est GFR ( Amer) Est GFR (Non-Af Amer) AST ALT Lipase Urine Protein 30 H Urine Ketones TRACE H Discharge - Discharge Clinical Impression: Vomiting and diarrhea, Pulmonary infiltrates, Hyperkalemia, Acute kidney injury superimposed on chronic kidney disease Condition: Fair Disposition: ADMITTED OBSERVATION Admitting Provider: Hospitalist Unit Admitted: Medical Floor Referrals: ROMEL LAMB MD [Primary Care Provider] - Follow up as needed
[2018-05-11 16:59] LABS: ABSOLUTE LYMPHOCYTES (AUTO) 1.2 10^3/uL (0.5-4.7); ABSOLUTE MONOCYTES (AUTO) 0.5 10^3/uL (0.1-1.4); ABSOLUTE NEUT (AUTO) 11.1 10^3/uL (1.7-8.2); BASOPHILS % (AUTO) 0.2 % (0-2); HEMOGLOBIN 10.9 g/dL (13.5-17.0); MEAN CORPUSCULAR HEMOGLOBIN 28.4 pg (27.0-33.4); MEAN CORPUSCULAR VOLUME 89 fl (80-97); MONOCYTES % (AUTO) 4.2 % (3-13); PLATELET COUNT 192 10^3/uL (150-450); RED BLOOD COUNT 3.84 10^6/uL (4.35-5.55); RED CELL DISTRIBUTION WIDTH 16.7 % (11.5-14.0); SEGMENTED NEUTROPHILS % (AUTO) 86.6 % (42-78); TOTAL CELLS COUNTED % (AUTO) 100 %; WHITE BLOOD COUNT 12.8 10^3/uL (4.0-10.5)
[2018-05-11] MEDS ORDERED: METOCLOPRAMIDE HCL INJ/PF 10 MG/2 ML SDV IV ONE (17:04)
[2018-05-11 17:18] LABS: ALANINE AMINOTRANSFERASE 11 U/L (21-72); ALBUMIN 3.9 g/dL (3.5-5.0); ALKALINE PHOSPHATASE 79 U/L (38-126); ANION GAP 16 (5-19); ASPARTATE AMINO TRANSFERASE 14 U/L (17-59); BILIRUBIN,DIRECT 0.4 mg/dL (0.0-0.4); BILIRUBIN,TOTAL 0.7 mg/dL (0.2-1.3); BLOOD UREA NITROGEN 46 mg/dL (7-20); CALCIUM 9.4 mg/dL (8.4-10.2); CARBON DIOXIDE 19 mmol/L (22-30); CHLORIDE 106 mmol/L (98-107); GLUCOSE 95 mg/dL (75-110); LIPASE 14.4 U/L (23-300); SODIUM 140.9 mmol/L (137-145); TOTAL PROTEIN 6.8 g/dL (6.3-8.2)
[2018-05-11 17:23] LABS: POTASSIUM 6.2 mmol/L (3.6-5.0)
--- NOTE | 2018-05-11 19:33 | RADIOLOGY REPORT (SQ) ---
EXAM DESCRIPTION: CT ABD/PELVIS ORAL ONLY COMPLETED DATE/TIME: 05/11/2018 7:08 pm REASON FOR STUDY: Abdominal pain, vomiting, diarrhea, multiple surg COMPARISON: 01/15/2018 TECHNIQUE: CT scan of the abdomen and pelvis performed without intravenous contrast. Oral contrast was given. Images reviewed with lung, soft tissue, and bone windows. Reconstructed coronal and sagitt al MPR images reviewed. All images stored on PACS. All CT scanners at this facility use dose modulation, iterative reconstruction, and/or weight based d osing when appropriate to reduce radiation dose to as low as reasonably achievable (ALARA). [facility]: Dose Right [facility]: CareDose [facility]: Dose Right [facility]: Teradose 4D [facility]: [employer] RADIATION DOSE: CT Rad equipment meets quality standard of care and radiation dose reduction techniq ues were employed. CTDIvol: 4.9 mGy. DLP: 245 mGy-cm.mGy. LIMITATIONS: None. FINDINGS: LOWER CHEST: Patchy opacification in the lower lobes bilaterally. Left more than right. NON-CONTRASTED LIVER, SPLEEN, ADRENALS: Evaluation limited by lack of IV contrast. No identified sign ificant masses. PANCREAS: No masses. No peripancreatic inflammatory changes. GALLBLADDER: Distended. No stones. RIGHT KIDNEY AND URETER: Atrophic changes. No masses. Vascular calcifications. No hydronephrosis or hydroureter. LEFT KIDNEY AND URETER: Atrophic changes. No masses. Vascular calcifications. No hydronephrosis or hydroureter. AORTA AND RETROPERITONEUM: Aortoiliac endograft. Stable appearance. BOWEL AND PERITONEAL CAVITY: Mild diverticulosis. No acute inflammatory changes. APPENDIX: Normal. PELVIS, BLADDER, AND ABDOMINAL WALL:No abnormal masses. No free fluid. Bladder normal. BONES: No significant findings. OTHER: No other significant finding. IMPRESSION: 1. Patchy lower lobe opacification. Cannot exclude lower lobe pneumonia on either side . Cannot exclude pulmonary vascular congestion. 2. 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 3. Mild diverticulosis. 4. Atrophic changes of the kidneys. Renal vascular calcifications. COMMENT: Quality ID # [id number]: Final reports with documentation of one or more dose reduction techniques (e.g., Automated exposure control, adjustment of the mA and/or kV according to patient size, use of iterative reconstruction technique) TECHNICAL DOCUMENTATION: JOB ID: [id number] [employer]- All Rights Reserved Reading location - IP/workstation name: [email or web address]
[2018-05-11] MEDS ORDERED: RINGERS SOLUTION,LACTATED 1,000 ML IV ONE (19:50)
[2018-05-11] MEDS ORDERED: INSULIN REG, HUMAN 100 UNIT/ML 3 ML VIAL (PYX) IV ONE (19:50)
[2018-05-11] MEDS ORDERED: DEXTROSE 50%-WATER 25 GM/50 ML DISP.SYRIN IV ONE (19:50)
[2018-05-11] MEDS ORDERED: SODIUM BICARBONATE 8.4% INJ 50 MEQ/50 ML DISP.SYRIN IV ONE (19:58)
[2018-05-11] MEDS ORDERED: ALBUTEROL SULFATE 0.083% NEB 2.5 MG/3 ML AMPUL NEB ONE (19:59)
[2018-05-11] MEDS ORDERED: SODIUM POLYSTYRENE SULFONATE 15 GM/60 ML PO ONE (19:59)
--- NOTE | 2018-05-11 20:40 | EKG REPORT ---
SEVERITY:- ABNORMAL ECG - SINUS RHYTHM MULTIPLE ATRIALAND VENTRICULAR PREMATURE COMPLEXES LEFT BUNDLE BRANCH BLOCK : Confirmed by: Jon Vela MD 11-May-2018 20:39:20
[2018-05-11 21:28] LABS: APPEARANCE,URINE CLEAR; BILIRUBIN,URINE NEGATIVE (NEGATIVE); COLOR,URINE YELLOW; GLUCOSE, URINE NEGATIVE (NEGATIVE); KETONES,URINE TRACE mg/dL (NEGATIVE); LEUKOCYTE ESTERASE,URINE NEGATIVE (NEGATIVE); NITRITE,URINE NEGATIVE (NEGATIVE); PROTEIN,URINE 30 mg/dL (NEGATIVE); URINE SPECIFIC GRAVITY 1.016; UROBILINOGEN,URINE NEGATIVE mg/dL (<2.0)
--- NOTE | 2018-05-11 21:45 | RADIOLOGY REPORT (SQ) ---
EXAM DESCRIPTION: CHEST 2 VIEWS COMPLETED DATE/TIME: 05/11/2018 9:37 pm REASON FOR STUDY: cough COMPARISON: 12/21/2016 EXAM PARAMETERS: NUMBER OF VIEWS: two views TECHNIQUE: Digital Frontal and Lateral radiographic views of the chest acquired. RADIATION DOSE: NA LIMITATIONS: none FINDINGS: LUNGS AND PLEURA: No opacities, masses or pneumothorax. No pleural effusion. MEDIASTINUM AND HILAR STRUCTURES: No masses or contour abnormalities. HEART AND VASCULAR STRUCTURES: Heart normal size. No evidence for failure. BONES: No acute findings. HARDWARE: None in the chest. OTHER: No other significant finding. IMPRESSION: NO ACUTE RADIOGRAPHIC FINDING IN THE CHEST. TECHNICAL DOCUMENTATION: JOB ID: [id number] [employer]- All Rights Reserved Reading location - IP/workstation name: [email or web address]
[2018-05-11] MEDS ORDERED: LEVOFLOXACIN 500 MG/D5W RTU 500 MG/100 ML RTUPB IV ONE (23:04)
[2018-05-11] MEDS ORDERED: MAGNESIUM HYDROXIDE SUSP 30 ML UDCUP PO PRN (23:36)
[2018-05-11] MEDS ORDERED: IPRATROPIUM/ALBUTEROL 0.5-2.5 MG/3 ML AMPUL NEB PRN (23:38)
[2018-05-11] MEDS ORDERED: CEFTRIAXONE 2000 MG IV PRN (23:56)
[2018-05-11] MEDS ORDERED: AZITHROMYCIN INJ 500 MG VIAL IV PRN (23:58)
[2018-05-12] MEDS ORDERED: AZITHROMYCIN 500 MG in DEXTROSE 5%-WATER 250 ML IV ONE ×2
[2018-05-12] MEDS ORDERED: CEFTRIAXONE SODIUM 2,000 MG in DEXTROSE 5%-WATER 100 ML IV ONE (00:05)
[2018-05-12 00:51] LABS: ANION GAP 13 (5-19); BLOOD UREA NITROGEN 45 mg/dL (7-20); CALCIUM 8.9 mg/dL (8.4-10.2); CARBON DIOXIDE 23 mmol/L (22-30); CHLORIDE 104 mmol/L (98-107); GLUCOSE 163 mg/dL (75-110); POTASSIUM 5.3 mmol/L (3.6-5.0); SODIUM 140.1 mmol/L (137-145)
--- NOTE | 2018-05-12 01:03 | PDOC H&P ---
History of Present Illness Admission Date/PCP: 05/11/18 23:26 ROMEL LAMB MD Patient complains of: Vomiting, diarrhea and cough History of Present Illness: ROSELYN DECKER is a pleasant 88 year old male with history of multiple medical problems that would be mentioned below who presented to the emergency room with acute onset of recurrent nausea vomiting and diarrhea for the last couple of days with associated crampy abdominal pain. He admitted to cough productive of grayish and yellowish sputum which has been worse over the last week with occasional wheezing without dyspnea. He denies any chest pain or palpitations. He admitted to occasional rhinorrhea and nasal congestion. No sore throat or earache. No dysuria, oliguria, hematuria or flank pain. Upon arrival to the emergency room, his blood pressure was 157/71 with a pulse of 102, respiratory rate of 13 and later 24 temperature 97.5 and pulse oximetry 94% on room air. Labs revealed mild leukocytosis and neutrophilia as well as anemia. His CMP was remarkable for a potassium of 6.2 which repeat level came back 5.9 and after management of her hyperkalemia came down to 5.1. BUN was 46 and creatinine 2.23 with GFR of 28 serum lipase was 14.4 And urinalysis came back with 30 protein and trace ketones. The patient was given 5 mg of IV Reglan and 4 mg of IV Zofran, D50 and insulin as well as 15 g of Kayexalate and an ampule of sodium bicarbonate. He was then given IV Levaquin and as his abdominal pelvic CT scan showed patchy lower lobe opacification with inability to rule out lower lobe pneumonia. His aorto iliac endograft appears stable. It showed mild diverticulosis and atrophic changes of the kidneys with renal vascular calcifications. Chest x-ray earlier showed no acute cardiopulmonary disease. His EKG showed normal sinus rhythm with a rate of 82 with PACs and left bundle branch block. He will be admitted to the medical monitor bed for further evaluation and management. Past Medical History Cardiac Medical History: Reports: Coronary Artery Disease, Myocardial Infarction - X3=STENTS/ 2001 & 2017, Hyperlipidema, Hypertension - MEDICATED, Peripheral Vascular Disease Pulmonary Medical History: Denies: Asthma Neurological Medical History: Denies: Seizures Endocrine Medical History: Reports: Hypothyroidism GI Medical History: Denies: Hepatitis, Hiatal Hernia Musculoskeltal Medical History: Denies: Arthritis Psychiatric Medical History: Reports: Post Traumatic Stress Disorder Denies: Depression - anxiety Hematology: Denies: Anemia, Sickle Cell Disease Past Surgical History Past Surgical History: Reports: Cardiac Catheterization, Carotid Endarterectomy - RIGHT SIDE, Coronary Stent, Vascular Surgery - ILIAC, FEMORAL STENTS, aortic aneurysm stent graft Denies: Pacemaker Social History Smoking Status: Never Smoker Frequency of Alcohol Use: None Hx Recreational Drug Use: No Hx Prescription Drug Abuse: No Family History Family History: Malignancy - Colon cancer Parental Family History Reviewed: Yes Children Family History Reviewed: Yes Sibling(s) Family History Reviewed.: Yes Medication/Allergy Home Medications: Besifloxacin HCl [Besivance 0.6% Oph Susp 5 ml] 1 drop OD .3PM AND 8PM TODAY Clopidogrel Bisulfate [Plavix 75 mg Tablet] 75 mg PO DAILY 01/14/18 Cyanocobalamin (Vitamin B-12) [Vitamin B-12] 1,000 mcg PO DAILY 01/14/18 Difluprednate [Durezol] 1 drop OD .3PM AND 8PM TODAY 01/14/18 Fluticasone Propionate [Flonase Nasal Grant 50 Mcg/Grant 16 gm] 1 spray NAREB DAILY 01/14/18 Levothyroxine Sodium [Synthroid 0.05 mg Tablet] 0.05 mg PO Q6AM 01/14/18 Nepafenac [Ilevro] 1 drop OD .3PM AND 8PM TODAY 01/14/18 Pantoprazole Sodium [Protonix] 40 mg PO DAILY 01/14/18 Polyvinyl Alcohol/Povidone/Pf [Refresh Classic Eye Drops] 1 drop OU BID Atorvastatin Calcium [Lipitor 20 mg Tablet] 20 mg PO QHS 01/15/18 Aspirin [Aspirin 81 mg Chewable Tablet] 81 mg PO DAILY tab.chew 01/19/18 Atorvastatin Calcium [Lipitor 80 mg Tablet] 80 mg PO QHS tablet 01/19/18 Furosemide [Lasix 20 mg Tablet] 20 mg PO DAILY 15 Days #15 tablet 01/19/18 Alprazolam [Xanax 0.5 mg Tablet] 0.5 mg PO BID 10 Days #20 tablet 02/02/18 Metoprolol Tartrate [Lopressor 25 mg Tablet] 25 mg PO Q12 #60 tab 02/02/18 Promethazine HCl [Phenergan 25 mg Tablet] 25 mg PO Q6HP PRN #30 tablet 02/02/18 Ranolazine [Ranexa 500 mg Tab.sr] 500 mg PO Q12 #60 tab.sr.12h 02/02/18 Allergies/Adverse Reactions: morphine [Morphine] Allergy (Severe, Verified 03/31/18 11:01) Hallucinations tetracycline [Tetracycline] Allergy (Unknown, Verified 03/31/18 11:01) Review of Systems Review of Systems: As per history of present illness. All pertinent systems were reviewed above. Constitutional, HEENT, cardiovascular, respiratory, GI, , musculoskeletal, neuro, psychiatric, endocrine, integumentary and hematologic systems were reviewed and are otherwise negative/unremarkable except for positive findings mentioned above in the HPI. Physical Exam Vital Signs: Temp Pulse Resp BP Pulse Ox 98.6 F 22 H 125/67 94 05/11/18 23:01 05/11/18 23:01 05/11/18 23:01 05/11/18 23:01 Intake & Output 05/10/18 05/11/18 05/12/18 06:59 06:59 06:59 Intake Total 33 Balance 33 Exam: Generally: Very pleasant elderly male in no acute distress Vital signs-as listed Head - atraumatic, normocephalic. Pupils - equal, round and reactive to light and accommodation. Extraocular movements are intact. No scleral icterus. Oropharynx -slightly dry mucous membranes and tongue. No pharyngeal erythema or exudate. Neck - supple. No JVD. Carotid pulses 2+ bilaterally. No carotid bruits. No palpable thyromegaly or lymphadenopathy. Cardiovascular - regular rate and rhythm. Normal S1 and S2. No murmurs, gallops or rubs. Lungs -diminished bibasilar breath sounds with bibasilar Abdomen - soft and nontender. Positive bowel sounds. No palpable organomegaly or masses. Extremities - no pitting edema, clubbing or cyanosis. Neuro - grossly non-focal. Skin - no rashes. and rectal exam - deferred. Results Impressions: Abdomen/Pelvis CT 05/11/18 15:01 IMPRESSION: 1. Patchy lower lobe opacification. Cannot exclude lower lobe pneumonia on either side. Cannot exclude pulmonary vascular congestion. 2. 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 3. Mild diverticulosis. 4. Atrophic changes of the kidneys. Renal vascular calcifications. Chest X-Ray 05/11/18 20:40 IMPRESSION: NO ACUTE RADIOGRAPHIC FINDING IN THE CHEST. Assessment & Plan - Diagnosis (1) Community acquired pneumonia Qualifiers: Lung location: lower lobe of lung Is this a current diagnosis for this admission?: Yes Plan: The patient will be admitted to a medically monitored bed for community- acquired pneumonia and will be placed on IV Rocephin and Zithromax. Mucolytic therapy be provided as well as duo nebs q.i.d. and q.4 hours p.r.n.. Sputum Gram stain culture and sensitivity will be obtained. Will follow Blood Cultures. (2) Acute gastroenteritis Is this a current diagnosis for this admission?: Yes Plan: The patient will be placed on hydration with IV normal saline. It is likely the culprit for his prerenal acute kidney injury. Will obtain stool studies (3) Acute kidney injury superimposed on chronic kidney disease Is this a current diagnosis for this admission?: Yes Plan: We will hydrate him with IV normal saline and follow his BMP. (4) Hypothyroidism Is this a current diagnosis for this admission?: Yes Plan: We will continue Synthroid and check TSH (5) Coronary artery disease Is this a current diagnosis for this admission?: Yes Plan: Continue Ranexa and Lopressor and statin therapy. Aspirin can be continued only with improvement of his nausea and vomiting. (6) Dyslipidemia Is this a current diagnosis for this admission?: Yes Plan: Statin therapy will be reviewed (7) DVT prophylaxis Is this a current diagnosis for this admission?: Yes Plan: Subcutaneous Lovenox and GI prophylaxis with IV PPI. - Plan Summary Plan Summary: The plan of care was discussed in details with the patient. I answered all questions. The patient agreed to proceed with the above-mentioned plan. The patient is presumably full code. This note was created by [employer] software and may contain typo errors that may have not been proofread.
[2018-05-12] MEDS: ONDANSETRON HCL INJ/PF 4 MG/2 ML SDV IV PRN (02:02)
[2018-05-12] MEDS: NORMAL SALINE 1000 ML 1,000 ML IV PRN ×2 (03:43→14:30)
[2018-05-12 06:36] LABS: ABSOLUTE LYMPHOCYTES (AUTO) 0.7 10^3/uL (0.5-4.7); ABSOLUTE MONOCYTES (AUTO) 0.6 10^3/uL (0.1-1.4); ABSOLUTE NEUT (AUTO) 10.5 10^3/uL (1.7-8.2); BASOPHILS % (AUTO) 0.1 % (0-2); HEMATOCRIT 25.3 % (37.9-51.0); LYMPHOCYTES % (AUTO) 6.2 % (13-45); MEAN CORPUSCULAR HEMOGLOBIN 29.5 pg (27.0-33.4); MEAN CORPUSCULAR HGB CONC 33.6 g/dL (32.0-36.0); MEAN CORPUSCULAR VOLUME 88 fl (80-97); MONOCYTES % (AUTO) 4.7 % (3-13); PLATELET COUNT 134 10^3/uL (150-450); RED BLOOD COUNT 2.88 10^6/uL (4.35-5.55); RED CELL DISTRIBUTION WIDTH 16.1 % (11.5-14.0); TOTAL CELLS COUNTED % (AUTO) 100 %; WHITE BLOOD COUNT 11.8 10^3/uL (4.0-10.5)
[2018-05-12 06:58] LABS: HEMOGLOBIN 8.5 g/dL (13.5-17.0)
[2018-05-12] MEDS: IPRATROPIUM/ALBUTEROL 0.5-2.5 MG/3 ML AMPUL NEB SCH ×4 (08:27→20:45)
[2018-05-12] MEDS ORDERED: ENOXAPARIN SODIUM INJ 40 MG/0.4 ML DISP.SYRIN SUBCUT SCH (10:00)
[2018-05-12] MEDS: PANTOPRAZOLE SODIUM 40 MG VIAL IV SCH ×2 (11:16→22:16)
[2018-05-12] MEDS ORDERED: CEFTRIAXONE SODIUM 2,000 MG in DEXTROSE 5%-WATER 100 ML IV SCH (22:00)
[2018-05-12] MEDS: ALPRAZOLAM 0.5 MG TABLET PO SCH (22:15)
[2018-05-12] MEDS: AZITHROMYCIN 500 MG in DEXTROSE 5%-WATER 250 ML IV SCH (22:16)
[2018-05-13] MEDS: NORMAL SALINE 1000 ML 1,000 ML IV PRN (06:07)
--- NOTE | 2018-05-13 07:38 | PDOC PROGRESS REPORT ---
Subjective Progress Note for:: 05/13/18 Subjective:: less cough vomiting diarrhea Reason For Visit: ACUTE GASTROENTERITIS,COMMUNITY ACQUIRED Physical Exam Vital Signs: Temp Pulse Resp BP Pulse Ox 98.0 F 85 16 100/47 L 95 05/13/18 03:18 05/13/18 03:18 05/13/18 03:18 05/13/18 03:18 05/13/18 04:22 Intake & Output 05/11/18 05/12/18 05/13/18 07:59 07:59 07:59 Intake Total 1350 2570 Output Total 400 Balance 1350 2170 Weight 120 lb 9.486 oz 124 lb 5.451 oz General appearance: PRESENT: no acute distress Respiratory exam: PRESENT: rales - few basal Cardiovascular exam: ABSENT: diastolic murmur, irregular rhythm, systolic murmur GI/Abdominal exam: ABSENT: mass, organolmegaly, tenderness Extremities exam: ABSENT: pedal edema Neurological exam: PRESENT: oriented to situation Psychiatric exam: PRESENT: appropriate affect Results Laboratory Results: 05/12/18 06:05 05/12/18 00:20 Impressions: Abdomen/Pelvis CT 05/11/18 15:01 IMPRESSION: 1. Patchy lower lobe opacification. Cannot exclude lower lobe pneumonia on either side. Cannot exclude pulmonary vascular congestion. 2. 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 3. Mild diverticulosis. 4. Atrophic changes of the kidneys. Renal vascular calcifications. Chest X-Ray 05/11/18 20:40 IMPRESSION: NO ACUTE RADIOGRAPHIC FINDING IN THE CHEST. Assessment & Plan - Diagnosis (1) Celiac artery stenosis Is this a current diagnosis for this admission?: Yes (2) Atherosclerosis of superior mesenteric artery Is this a current diagnosis for this admission?: Yes (3) Old myocardial infarction Is this a current diagnosis for this admission?: Yes (4) Carotid artery syndrome hemispheric Is this a current diagnosis for this admission?: Yes (5) Postgastric surgery syndrome Is this a current diagnosis for this admission?: Yes (6) Persistent atrial fibrillation Is this a current diagnosis for this admission?: Yes (7) Chronic systolic congestive heart failure Is this a current diagnosis for this admission?: Yes (8) CKD (chronic kidney disease), stage IV Is this a current diagnosis for this admission?: Yes (9) Acute panacinar emphysema Is this a current diagnosis for this admission?: Yes (10) Bronchopneumonia Is this a current diagnosis for this admission?: Yes Plan: continue azith ceftri - Inpatient Certification Medical Necessity: Failure to Improve With Outpatient Therapy, Significant Comorbidiites Make Outpatient Treatment Too Risky, Need Close Monitoring Due to Risk of Patient Decompensation, Need For IV Fluids, Need For Continuous Telemetry Monitoring, Need for Nebulizer Therapy and Monitoring of Response, Need for IV Antibiotics, Risk of Complication if Not Cared For in Hospital, Risk of Diagnosis Which Will Require Inpatient Eval/Care/Monitoring
[2018-05-13] MEDS: IPRATROPIUM/ALBUTEROL 0.5-2.5 MG/3 ML AMPUL NEB SCH ×4 (08:44→20:32)
[2018-05-13] MEDS ORDERED: ENOXAPARIN SODIUM INJ 40 MG/0.4 ML DISP.SYRIN SUBCUT SCH (10:00)
[2018-05-13] MEDS: ALPRAZOLAM 0.5 MG TABLET PO SCH ×2 (11:05→21:17)
[2018-05-13] MEDS: PANTOPRAZOLE SODIUM 40 MG VIAL IV SCH ×2 (11:05→21:16)
[2018-05-13] MEDS: AZITHROMYCIN 500 MG in DEXTROSE 5%-WATER 250 ML IV SCH (21:17)
[2018-05-13] MEDS: CEFTRIAXONE SODIUM 2,000 MG in NORMAL SALINE 100 ML IV SCH (21:19)
[2018-05-13] MEDS: ACETAMINOPHEN 325 MG TABLET PO PRN (23:51)
[2018-05-14 00:02] LABS: ANION GAP 9 (5-19); BLOOD UREA NITROGEN 35 mg/dL (7-20); CALCIUM 7.8 mg/dL (8.4-10.2); CARBON DIOXIDE 20 mmol/L (22-30); CHLORIDE 110 mmol/L (98-107); GLUCOSE 96 mg/dL (75-110); POTASSIUM 4.4 mmol/L (3.6-5.0); SODIUM 139.4 mmol/L (137-145)
[2018-05-14 06:52] LABS: ABSOLUTE BASOPHILS # (AUTO) 0.1 10^3/uL (0.0-0.2); ABSOLUTE LYMPHOCYTES (AUTO) 0.9 10^3/uL (0.5-4.7); ABSOLUTE MONOCYTES (AUTO) 0.4 10^3/uL (0.1-1.4); ABSOLUTE NEUT (AUTO) 6.4 10^3/uL (1.7-8.2); BASOPHILS % (AUTO) 0.7 % (0-2); EOSINOPHILS % (AUTO) 0.6 % (0-6); HEMATOCRIT 24.2 % (37.9-51.0); HEMOGLOBIN 8.2 g/dL (13.5-17.0); LYMPHOCYTES % (AUTO) 11.9 % (13-45); MEAN CORPUSCULAR HEMOGLOBIN 29.7 pg (27.0-33.4); MEAN CORPUSCULAR HGB CONC 33.7 g/dL (32.0-36.0); MEAN CORPUSCULAR VOLUME 88 fl (80-97); MONOCYTES % (AUTO) 5.6 % (3-13); PLATELET COUNT 128 10^3/uL (150-450); RED BLOOD COUNT 2.75 10^6/uL (4.35-5.55); RED CELL DISTRIBUTION WIDTH 16.5 % (11.5-14.0); SEGMENTED NEUTROPHILS % (AUTO) 81.2 % (42-78); TOTAL CELLS COUNTED % (AUTO) 100 %; WHITE BLOOD COUNT 7.9 10^3/uL (4.0-10.5)
[2018-05-14] MEDS: IPRATROPIUM/ALBUTEROL 0.5-2.5 MG/3 ML AMPUL NEB SCH ×2 (08:27→12:35)
[2018-05-14] MEDS ORDERED: NORMAL SALINE 250 ML IV PRN (08:40)
--- NOTE | 2018-05-14 08:41 | PDOC PROGRESS REPORT ---
Subjective Progress Note for:: 05/14/18 Subjective:: yesterday chest pain twice *1min once with walking when rate up. Moderate hemoptysis. No vomiting. Reason For Visit: ACUTE GASTROENTERITIS,COMMUNITY ACQUIRED Physical Exam Vital Signs: Temp Pulse Resp BP Pulse Ox 98.2 F 100 16 120/60 96 05/14/18 07:58 05/14/18 07:58 05/14/18 07:58 05/14/18 07:58 05/14/18 08:27 Intake & Output 05/13/18 05/14/18 05/15/18 07:59 07:59 07:59 Intake Total 2570 674 Output Total 400 975 Balance 2170 -301 Weight 124 lb 5.451 oz 124 lb 8.979 oz General appearance: PRESENT: no acute distress Respiratory exam: PRESENT: clear to auscultation rodrigo Cardiovascular exam: ABSENT: diastolic murmur, irregular rhythm, systolic murmur GI/Abdominal exam: ABSENT: mass, organolmegaly, tenderness Extremities exam: ABSENT: pedal edema Neurological exam: PRESENT: oriented to situation Psychiatric exam: PRESENT: appropriate affect Results Laboratory Results: 05/14/18 06:40 05/13/18 23:33 05/13/18 05/14/18 23:33 06:40 WBC 7.9 RBC 2.75 L Hgb 8.2 L Hct 24.2 L MCV 88 MCH 29.7 MCHC 33.7 RDW 16.5 H Plt Count 128 L Seg Neutrophils % 81.2 H Lymphocytes % 11.9 L Monocytes % 5.6 Eosinophils % 0.6 Basophils % 0.7 Absolute Neutrophils 6.4 Absolute Lymphocytes 0.9 Absolute Monocytes 0.4 Absolute Eosinophils 0.0 Absolute Basophils 0.1 Sodium 139.4 Potassium 4.4 Chloride 110 H Carbon Dioxide 20 L Anion Gap 9 BUN 35 H Creatinine 1.72 H Est GFR ( Amer) 46 L Est GFR (Non-Af Amer) 38 L Glucose 96 Calcium 7.8 L Impressions: Abdomen/Pelvis CT 05/11/18 15:01 IMPRESSION: 1. Patchy lower lobe opacification. Cannot exclude lower lobe pneumonia on either side. Cannot exclude pulmonary vascular congestion. 2. 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 3. Mild diverticulosis. 4. Atrophic changes of the kidneys. Renal vascular calcifications. Chest X-Ray 05/11/18 20:40 IMPRESSION: NO ACUTE RADIOGRAPHIC FINDING IN THE CHEST. Assessment & Plan - Diagnosis (1) Anemia of renal disease Is this a current diagnosis for this admission?: Yes Plan: stop lovenox (not given). Iron studies occult blood 2u prbc (2) Celiac artery stenosis Is this a current diagnosis for this admission?: Yes (3) Atherosclerosis of superior mesenteric artery Is this a current diagnosis for this admission?: Yes (4) Old myocardial infarction Is this a current diagnosis for this admission?: Yes Plan: consult Dr Saeed (5) Carotid artery syndrome hemispheric Is this a current diagnosis for this admission?: Yes (6) Postgastric surgery syndrome Is this a current diagnosis for this admission?: Yes (7) Persistent atrial fibrillation Is this a current diagnosis for this admission?: Yes (8) Chronic systolic congestive heart failure Is this a current diagnosis for this admission?: Yes (9) CKD (chronic kidney disease), stage IV Is this a current diagnosis for this admission?: Yes (10) Acute panacinar emphysema Is this a current diagnosis for this admission?: Yes (11) Bronchopneumonia Is this a current diagnosis for this admission?: Yes - Inpatient Certification Medical Necessity: Failure to Improve With Outpatient Therapy, Significant Comorbidiites Make Outpatient Treatment Too Risky, Need Close Monitoring Due to Risk of Patient Decompensation, Need For IV Fluids, Need For Continuous Telemetry Monitoring, Need for Nebulizer Therapy and Monitoring of Response, Need for IV Antibiotics, Risk of Complication if Not Cared For in Hospital, Risk of Diagnosis Which Will Require Inpatient Eval/Care/Monitoring
[2018-05-14 08:52] LABS: ABSOLUTE RETICS # 0.035 10^6/uL (0.028-0.122); RETICULOCYTE COUNT (AUTO) 1.23 % (0.66-2.85)
[2018-05-14 10:08] LABS: FOLATE 8.78 ng/mL (>2.76)
[2018-05-14 10:09] LABS: IRON(TIBC) < 10.1 ug/dL (49-181)
[2018-05-14] MEDS: PANTOPRAZOLE SODIUM 40 MG VIAL IV SCH ×2 (10:11→22:25)
[2018-05-14] MEDS: ALPRAZOLAM 0.5 MG TABLET PO SCH ×2 (10:12→22:29)
[2018-05-14] MEDS: ONDANSETRON HCL INJ/PF 4 MG/2 ML SDV IV PRN ×3 (10:14→20:07)
[2018-05-14] MEDS: NORMAL SALINE 1000 ML 1,000 ML IV PRN (16:38)
[2018-05-14] MEDS: PROMETHAZINE HCL 25 MG TABLET PO PRN (20:44)
[2018-05-14 22:05] LABS: HEMATOCRIT 37.7 % (37.9-51.0); HEMOGLOBIN 12.4 g/dL (13.5-17.0); MEAN CORPUSCULAR HEMOGLOBIN 27.6 pg (27.0-33.4); PLATELET COUNT 152 10^3/uL (150-450); RED CELL DISTRIBUTION WIDTH 20.5 % (11.5-14.0); WHITE BLOOD COUNT 11.2 10^3/uL (4.0-10.5)
[2018-05-14 22:06] LABS: MEAN CORPUSCULAR VOLUME 84 fl (80-97)
[2018-05-14] MEDS: CEFTRIAXONE SODIUM 2,000 MG in NORMAL SALINE 100 ML IV SCH (22:25)
[2018-05-14] MEDS: AZITHROMYCIN 500 MG in DEXTROSE 5%-WATER 250 ML IV SCH (22:29)
[2018-05-14] MEDS: MAG HYDROX/AL HYDROX/SIMETH SUSP 30 ML UDCUP PO PRN (23:33)
[2018-05-15] MEDS: PROMETHAZINE HCL 25 MG TABLET PO PRN ×2 (03:26→12:45)
[2018-05-15] MEDS: ONDANSETRON HCL INJ/PF 4 MG/2 ML SDV IV PRN (04:03)
[2018-05-15] MEDS ORDERED: METOPROLOL SUCCINATE 25 MG TAB.SR.24H PO ONE (06:30)
[2018-05-15] MEDS ORDERED: NORMAL SALINE 1000 ML 1,000 ML IV PRN (06:41)
[2018-05-15] MEDS ORDERED: FUROSEMIDE INJ/PF 40 MG/4 ML SDV IV ONE (06:45)
--- NOTE | 2018-05-15 07:27 | EKG REPORT ---
SEVERITY:- ABNORMAL ECG - SINUS TACHYCARDIA PAIRED VENTRICULAR PREMATURE COMPLEXES INCOMPLETE LEFT BUNDLE BRANCH BLOCK NEW T INVERSION ANTERIOR LEADS,CLINICAL CORRELATION NEEDED. : Confirmed by: Jon Vela MD 15-May-2018 07:27:04
--- NOTE | 2018-05-15 07:29 | EKG REPORT ---
SEVERITY:- ABNORMAL ECG - SINUS TACHYCARDIA PAIRED VENTRICULAR PREMATURE COMPLEXES INCOMPLETE LEFT BUNDLE BRANCH BLOCK NEW T INVERSION ANTERIOR LEADS, CLINICAL CORRELATION NEEDED. COMPARED TO 01/17/18 EKG, : Confirmed by: Jon Vela MD 15-May-2018 07:29:23
[2018-05-15 08:03] LABS: HEMATOCRIT 40.3 % (37.9-51.0); HEMOGLOBIN 13.2 g/dL (13.5-17.0); MEAN CORPUSCULAR HEMOGLOBIN 27.6 pg (27.0-33.4); MEAN CORPUSCULAR HGB CONC 32.6 g/dL (32.0-36.0); MEAN CORPUSCULAR VOLUME 85 fl (80-97); PLATELET COUNT 140 10^3/uL (150-450); RED BLOOD COUNT 4.77 10^6/uL (4.35-5.55); RED CELL DISTRIBUTION WIDTH 20.4 % (11.5-14.0); WHITE BLOOD COUNT 11.7 10^3/uL (4.0-10.5)
[2018-05-15] MEDS: DILTIAZEM HCL/D5W 125 MG/125 ML RTUINJ IV PRN ×2 (08:30→19:24)
--- NOTE | 2018-05-15 09:08 | PDOC PROGRESS REPORT ---
Subjective Progress Note for:: 05/15/18 Subjective:: nausea. Still pink sputum Reason For Visit: ACUTE GASTROENTERITIS,COMMUNITY ACQUIRED Physical Exam Vital Signs: Temp Pulse Resp BP Pulse Ox 97.7 F 117 H 26 H 149/100 H 95 05/15/18 07:41 05/15/18 07:41 05/15/18 07:41 05/15/18 07:41 05/15/18 07:41 Intake & Output 05/14/18 05/15/18 05/16/18 07:59 07:59 07:59 Intake Total 1924 1950 Output Total 975 350 Balance 949 1600 Weight 124 lb 8.979 oz 124 lb 1.924 oz General appearance: PRESENT: mild distress Respiratory exam: PRESENT: rales - diffuse Cardiovascular exam: ABSENT: diastolic murmur, irregular rhythm, systolic murmur GI/Abdominal exam: PRESENT: tenderness - moderate epigastric. ABSENT: mass, organolmegaly Extremities exam: ABSENT: pedal edema Neurological exam: PRESENT: oriented to situation Psychiatric exam: PRESENT: appropriate affect Results Laboratory Results: 05/15/18 06:13 05/13/18 23:33 05/14/18 05/14/18 05/14/18 06:40 10:06 10:49 WBC RBC Hgb Hct MCV MCH MCHC RDW Plt Count Iron < 10.1 L TIBC 200 L % Saturation UNABLE TO CALCULATE Ferritin 97.80 Vitamin B12 > 1000.0 H Folate 8.78 Stool Occult Blood Stool for White Cells Blood Type Cancelled O POSITIVE Antibody Screen Cancelled NEGATIVE 05/14/18 05/14/18 05/14/18 12:07 12:07 20:59 WBC Cancelled RBC Cancelled Hgb Cancelled Hct Cancelled MCV Cancelled MCH Cancelled MCHC Cancelled RDW Cancelled Plt Count Cancelled Iron TIBC % Saturation Ferritin Vitamin B12 Folate Stool Occult Blood NEGATIVE Stool for White Cells NO WBCs SEEN Blood Type Antibody Screen 05/14/18 05/15/18 21:55 06:13 WBC 11.2 H 11.7 H RBC 4.50 4.77 Hgb 12.4 L D 13.2 L Hct 37.7 L 40.3 MCV 84 D 85 MCH 27.6 27.6 MCHC 33.0 32.6 RDW 20.5 H 20.4 H Plt Count 152 140 L Iron TIBC % Saturation Ferritin Vitamin B12 Folate Stool Occult Blood Stool for White Cells Blood Type Antibody Screen 05/12/18 11:20 Sputum Gram Stain - Final 05/12/18 11:20 Sputum Sputum Culture - Final NORMAL MANOLO Impressions: Abdomen/Pelvis CT 05/11/18 15:01 IMPRESSION: 1. Patchy lower lobe opacification. Cannot exclude lower lobe pneumonia on either side. Cannot exclude pulmonary vascular congestion. 2. 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 3. Mild diverticulosis. 4. Atrophic changes of the kidneys. Renal vascular calcifications. Chest X-Ray 05/11/18 20:40 IMPRESSION: NO ACUTE RADIOGRAPHIC FINDING IN THE CHEST. Assessment & Plan - Diagnosis (1) Anemia of renal disease Is this a current diagnosis for this admission?: Yes Plan: hct up (2) Celiac artery stenosis Is this a current diagnosis for this admission?: Yes Plan: considering hospice (3) Atherosclerosis of superior mesenteric artery Is this a current diagnosis for this admission?: Yes (4) Old myocardial infarction Is this a current diagnosis for this admission?: Yes Plan: sinus tach. Added metoprolol 25mg qd. Now on diltiazem too. (5) Carotid artery syndrome hemispheric Is this a current diagnosis for this admission?: Yes (6) Postgastric surgery syndrome Is this a current diagnosis for this admission?: Yes (7) Persistent atrial fibrillation Is this a current diagnosis for this admission?: Yes (8) Chronic systolic congestive heart failure Is this a current diagnosis for this admission?: Yes Plan: furosemide 40iv. IV down to 30/h (9) CKD (chronic kidney disease), stage IV Is this a current diagnosis for this admission?: Yes (10) Acute panacinar emphysema Is this a current diagnosis for this admission?: Yes (11) Bronchopneumonia Is this a current diagnosis for this admission?: Yes - Inpatient Certification Medical Necessity: Failure to Improve With Outpatient Therapy, Significant Comorbidiites Make Outpatient Treatment Too Risky, Need Close Monitoring Due to Risk of Patient Decompensation, Need For IV Fluids, Need For Continuous Telemetry Monitoring, Need for IV Antibiotics, Risk of Complication if Not Cared For in Hospital, Risk of Diagnosis Which Will Require Inpatient Eval/Care/ Monitoring
[2018-05-15] MEDS: NITROGLYCERIN 2.5 MG (0.1 MG/HR) PATCH.TD24 TD SCH (09:12)
[2018-05-15] MEDS: MAG HYDROX/AL HYDROX/SIMETH SUSP 30 ML UDCUP PO PRN (09:12)
[2018-05-15] MEDS: ALPRAZOLAM 0.5 MG TABLET PO SCH ×2 (09:12→21:28)
--- NOTE | 2018-05-15 10:31 | CONSULTATION REPORT E ---
Consultation Report NAME: ROSELYN DECKER : 1930 AGE: 88Y DATE: 05/14/2018 ROOM: 333 A TO: EDWINA WASSERMAN M.D. FROM: BRENDAN HIGGINS M.D. Requesting Physician Patient was seen at 8:00 on 05/14/2018. A total of 60 minutes was spent on this patient, including review of the patient's medical records, with more than 50% spent on direct patient care. REASON FOR CONSULTATION: Patient with coronary artery disease with 2 episodes of brief angina symptoms. HISTORY: The patient is an 88-year-old male with known history of coronary artery disease, history of hypertension, history of hypothyroidism, who was admitted with cough productive of yellowish sputum and also diarrhea and, hence, diagnosed with having community-acquired pneumonia and gastroenteritis. The patient when he came in had acute on chronic kidney disease and was hyperkalemic. This with treatment from 6.2 came down to 5.1. He states that yesterday when he was walking he had a brief episode of chest pressure like heartburn from his epigastric region up to his neck in the front of the chest. It lasted for about a minute or so and subsided when the patient rested. He had a similar episode at rest. There was no time for him to take nitroglycerin. He states that this has not happened in a long time and it feels like his angina symptoms in the past. He has a history of coronary artery disease, history of stent placement in the circumflex and also in other arteries, the details of which are awaited as we have requested records from [facility]. He denies any palpitations, syncope, or near syncope. He has a history of paroxysmal atrial fibrillation also. PAST MEDICAL HISTORY: Positive for history of hypertension, hypothyroidism, history of prior paroxysmal atrial fibrillation, history of prior right carotid endarterectomy. He also has had a history of throat cancer and history of a bleeding peptic ulcer for which he has had abdominal surgery. DICTATION ENDS HERE DICTATING PHYSICIAN: EDWINA WASSERMAN M.D. [id number] PHY#: [id number] ID: [id number] JOB#: [id number] ACCT: [id number] cc:EDWINA WASSERMAN M.D. >
[2018-05-15] MEDS ORDERED: HYDROMORPHONE HCL INJ/PF 2 MG/ML AMPULE ONE (14:08)
[2018-05-15] MEDS: CEFTRIAXONE SODIUM 2,000 MG in NORMAL SALINE 100 ML IV SCH (21:29)
[2018-05-15] MEDS: AZITHROMYCIN 500 MG in DEXTROSE 5%-WATER 250 ML IV SCH (21:29)
[2018-05-16] MEDS: PROMETHAZINE HCL 25 MG TABLET PO PRN ×2 (00:44→23:25)
[2018-05-16] MEDS: ACETAMINOPHEN 325 MG TABLET PO PRN (00:44)
[2018-05-16] MEDS: MAG HYDROX/AL HYDROX/SIMETH SUSP 30 ML UDCUP PO PRN (02:23)
--- NOTE | 2018-05-16 06:30 | PROGRESS NOTE E ---
Progress Note NAME: ROSELYN DECKER : 1930 AGE: 88Y DATE: 05/15/2018 ROOM: 333 SUBJECTIVE: Note that the patient had severe nausea and vomiting this morning then had 2 episodes of PSVT. This has been controlled with starting the patient on a Cardizem drip at 5 mg per hour. The patient continues to have nausea, vomiting, decreased appetite, and diarrhea. He also has some abdominal pain if he eats anything. He denies any further anginal symptoms. There is no PND, orthopnea. There is no TIA or CVA symptoms. There is no leg edema. The patient appears to be malnourished. OBJECTIVE: GENERAL: On examination, the patient appears to be chronically ill and malnourished. He is very frail. VITAL SIGNS: His temperature is 98.1 degrees Fahrenheit, pulse is 92 beats per minute, blood pressure 102/61, respirations are 18 per minute, O2 saturations are 93% on 2 L nasal cannula. HEAD: Atraumatic, normocephalic. EYES: Pupils are equal, round, regular, reactive to light and accommodation. There is no conjunctival pallor. There is no scleral icterus. ENT: Negative. NECK: Supple. There is no JVD. Carotids are equal. There is no bruit. There is no lymphadenopathy. There is no goiter. Trachea is central. LUNGS: Diminished air entry. Prolonged expiration without rhonchi, rales, or wheezing. CARDIOVASCULAR: S1 and S2 are heard. There is no S3 gallop. There is no S4 gallop. There is a systolic murmur in the left sternal border of the apex. There is no rub. ABDOMEN: Soft. There is discomfort on palpation. Bowel sounds are slightly decreased. There is no hepatosplenomegaly. EXTREMITIES: Femorals are diminished. There femoral bruits bilaterally. Leg pulses are diminished. There is no pedal edema. There is no DVT or cellulitis. There is no cyanosis or clubbing. CENTRAL NERVOUS SYSTEM: The patient is conscious, awake, alert, oriented x3 with no focal deficits. PSYCHIATRIC: The patient's judgment and insight are intact. His affect is normal. DIAGNOSTIC STUDIES: The patient's EKG shows sinus tachycardia paired with 2 premature complexes, incomplete left bundle branch block pattern. No T inversion anterior leads. Clinical correlation is needed. The T-wave inversion is most likely secondary to post tachycardia syndrome. Note that a PVC is present. His white count is 7700, hemoglobin is 13.2, hematocrit is 40.3, platelet count is 140,000. The patient has not had any other blood work. IMPRESSION: 1. NAUSEA, VOMITING, AND DIARRHEA. THIS MAY BE MOST LIKELY SECONDARY TO CELIAC ARTERY STENOSIS/MESENTERIC ISCHEMIA. 2. EPISODES OF PSVT. AT PRESENT, PATIENT IN SINUS RHYTHM, MAINTAINED ON CARDIZEM DRIP. 3. 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 4. CORONARY ARTERY DISEASE, HISTORY OF [place], AND HISTORY OF STENTS *------* IN THE LEFT MAIN. 5. HISTORY OF HYPERTENSION, AT PRESENT BLOOD PRESSURE IS LOW NORMAL. 6. HYPOTHYROIDISM. 7. HYPERLIPIDEMIA. 8. PAROXYSMAL ATRIAL FIBRILLATION WITH NO RECURRENT AREAS OF ATRIAL FIBRILLATION. 9. PERIPHERAL ARTERIAL DISEASE, HISTORY OF STENTS IN THE AORTA AND ILIAC ARTERIES. 10. CHRONIC KIDNEY DISEASE STAGE 3. RECOMMENDATIONS: Continue IV fluids. Continue TPN parenterally. Continue antiemetics. 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 Will try to discuss with the vascular surgeon at [facility]. NOTE: Forty minutes spent on this patient with more than 50% of the time spent in direct patient care and medications have been reviewed. Medical decision making is of high complexity. Will follow with you. Discussed with the attending. Discussed with the patient and the patient's . DICTATING PHYSICIAN: EDWINA WASSERMAN M.D. [id number] PHY#: [id number] ID: [id number] JOB#: [id number] ACCT: [id number] cc: >
[2018-05-16] MEDS ORDERED: MAG HYDROX/AL HYDROX/SIMETH SUSP 30 ML UDCUP PO PRN (08:40)
--- NOTE | 2018-05-16 08:44 | PDOC PROGRESS REPORT ---
Subjective Progress Note for:: 05/16/18 Subjective:: no pain or dyspnea. Much less pink sputum since furosemide. [facility] showed december 2016 circumflex stenting of 08% to 0%. Runs of svt up to 30min controlled by diltiazem 2.5mg/h Reason For Visit: ACUTE GASTROENTERITIS,COMMUNITY ACQUIRED Physical Exam Vital Signs: Temp Pulse Resp BP Pulse Ox 97.5 F 91 16 91/62 L 92 05/16/18 07:51 05/16/18 07:51 05/16/18 07:51 05/16/18 07:51 05/16/18 07:51 Intake & Output 05/15/18 05/16/18 05/17/18 07:59 07:59 07:59 Intake Total 1950 817 Output Total 350 1550 Balance 1600 -733 Weight 124 lb 1.924 oz 127 lb 13.89 oz General appearance: PRESENT: no acute distress Respiratory exam: PRESENT: clear to auscultation rodrigo Cardiovascular exam: PRESENT: irregular rhythm. ABSENT: diastolic murmur, systolic murmur GI/Abdominal exam: ABSENT: mass, organolmegaly, tenderness Extremities exam: ABSENT: pedal edema Neurological exam: PRESENT: oriented to situation Psychiatric exam: PRESENT: appropriate affect Results Laboratory Results: 05/15/18 06:13 05/13/18 23:33 Impressions: Abdomen/Pelvis CT 05/11/18 15:01 IMPRESSION: 1. Patchy lower lobe opacification. Cannot exclude lower lobe pneumonia on either side. Cannot exclude pulmonary vascular congestion. 2. 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 3. Mild diverticulosis. 4. Atrophic changes of the kidneys. Renal vascular calcifications. Chest X-Ray 05/11/18 20:40 IMPRESSION: NO ACUTE RADIOGRAPHIC FINDING IN THE CHEST. Assessment & Plan - Diagnosis (1) Anemia of renal disease Is this a current diagnosis for this admission?: Yes (2) Celiac artery stenosis Is this a current diagnosis for this admission?: Yes (3) Atherosclerosis of superior mesenteric artery Is this a current diagnosis for this admission?: Yes (4) Old myocardial infarction Is this a current diagnosis for this admission?: Yes (5) Carotid artery syndrome hemispheric Is this a current diagnosis for this admission?: Yes (6) Postgastric surgery syndrome Is this a current diagnosis for this admission?: Yes (7) Persistent atrial fibrillation Is this a current diagnosis for this admission?: Yes (8) Chronic systolic congestive heart failure Is this a current diagnosis for this admission?: Yes (9) CKD (chronic kidney disease), stage IV Is this a current diagnosis for this admission?: Yes (10) Acute panacinar emphysema Is this a current diagnosis for this admission?: Yes (11) Bronchopneumonia Is this a current diagnosis for this admission?: Yes (12) SVT (supraventricular tachycardia) Is this a current diagnosis for this admission?: Yes Plan: try diltiazem 30mg po q8h - Inpatient Certification Medical Necessity: Failure to Improve With Outpatient Therapy, Significant Comorbidiites Make Outpatient Treatment Too Risky, Need Close Monitoring Due to Risk of Patient Decompensation, Need For IV Fluids, Need For Continuous Telemetry Monitoring, Need for IV Antibiotics, Risk of Complication if Not Cared For in Hospital, Risk of Diagnosis Which Will Require Inpatient Eval/Care/ Monitoring
[2018-05-16] MEDS: NITROGLYCERIN 2.5 MG (0.1 MG/HR) PATCH.TD24 TD SCH (09:10)
[2018-05-16] MEDS: METOPROLOL SUCCINATE 25 MG TAB.SR.24H PO SCH (09:10)
[2018-05-16] MEDS: ALPRAZOLAM 0.5 MG TABLET PO SCH ×2 (09:10→22:29)
[2018-05-16] MEDS: DILTIAZEM HCL 30 MG TABLET PO SCH ×2 (14:34→22:29)
--- NOTE | 2018-05-16 20:35 | PROGRESS NOTE E ---
Progress Note NAME: ROSELYN DECKER : 1930 AGE: 88Y DATE: 05/16/2018 ROOM: 333 SUBJECTIVE: The patient states that he has no further nausea or vomiting. There is no diarrhea. There is no chest pain or discomfort. There is no PND, orthopnea. The patient does state that after eating he does have some abdominal pain. Hence, he eats small amounts. There is no recurrence of atrial fibrillation. There is no ventricular arrhythmia seen on the monitor. OBJECTIVE: GENERAL: On examination the patient appears to be chronically ill and malnourished. He is very frail. VITAL SIGNS: He is afebrile with a temperature of 97.6 degrees Fahrenheit. His pulse is 86 beats per minute, blood pressure is 107/67, respirations are 14 per minute, O2 saturations are 94% on 2.5 liters nasal cannula. HEENT: Head is atraumatic, normocephalic. Eyes: Pupils are equal, round and regular, reactive to light and accommodation. Extraocular movements are normal. There is no conjunctival pallor. There is no scleral icterus. ENT is negative. NECK: Supple. There is no JVD. There is no lymphadenopathy. There is no goiter. Carotids are equal. There is a right carotid endarterectomy scar present. There are faint bilateral carotid bruits present. There is no carotid delay. Trachea is central. LUNGS: Show diminished air entry, prolonged expiration without any rhonchi, rales, or wheezing. On percussion there is hyperresonance. There is no chest wall tenderness. HEART: S1, S2 is heard. There is no S3 gallop. There is no S4 gallop. There is a systolic murmur in the left sternal border and the apex. There is no rub. ABDOMEN: Soft, nontender. There is no discomfort on palpation. Bowel sounds are well heard. There is no hepatosplenomegaly. EXTREMITIES: Femorals are diminished. There are femoral bruits bilaterally. Leg pulses are diminished. There is no pedal edema. There is no cyanosis or clubbing. There is no DVT or cellulitis. CENTRAL NERVOUS SYSTEM: The patient is conscious, awake, alert and oriented x3 with no focal deficits. PSYCHIATRIC: The patient's judgment and insight are intact. His affect is normal. IMPRESSION: 1. NAUSEA, VOMITING, AND DIARRHEA, THIS IS RESOLVED, SECONDARY TO CELIAC ARTERY STENOSIS/MESENTERIC ISCHEMIA VERSUS SECONDARY TO GASTROENTERITIS. 2. EPISODES OF PSVT. Note the patient is off the Cardizem drip with no recurrence. The patient is on p.o. Cardizem. 3. CELIAC ARTERY STENOSIS MOST LIKELY CAUSING MESENTERIC ISCHEMIA, HISTORY OF SUPERIOR MESENTERIC AND CELIAC ARTERY STENTS IN THE PAST. 4. CORONARY ARTERY DISEASE, HISTORY OF [place], HISTORY OF STENTS IN THE CIRCUMFLEX AND LATER IN THE LEFT MAIN. 5. HISTORY OF HYPERTENSION, BLOOD PRESSURE IS LOW NORMAL. 6. HYPOTHYROIDISM. 7. HYPERLIPIDEMIA. 8. PAROXYSMAL ATRIAL FIBRILLATION. 9. PERIPHERAL ARTERIAL DISEASE. HISTORY OF STENTS IN THE AORTA AND ILIAC ARTERIES. HISTORY OF ABDOMINAL AORTIC ANEURYSM. 10. CHRONIC KIDNEY DISEASE STAGE 3. RECOMMENDATIONS: Continue current treatment. Note that the patient has p.o. Cardizem. The patient is not a candidate for chronic anticoagulation therapy. We will later sent the patient as an outpatient to Dr. Diaz in [place], vascular surgery, to see if the patient can have, and revisit, to see if there is restenosis of is mesenteric artery and celiac artery stenosis. Medications have been reviewed. Discussed with the attending physician. TIME SPENT: Note 35 minutes spent on the patient with more 50% of the time spent on direct patient care. We will follow with you. DICTATING PHYSICIAN: EDWINA WASSERMAN M.D. [id number] KARTIK#: [id number] ID: [id number] JOB#: [id number] ACCT: [id number] cc: >
[2018-05-16] MEDS: CEFTRIAXONE SODIUM 2,000 MG in NORMAL SALINE 100 ML IV SCH (22:32)
[2018-05-17] MEDS: PROMETHAZINE HCL 25 MG TABLET PO PRN (04:11)
[2018-05-17] MEDS: DILTIAZEM HCL 30 MG TABLET PO SCH ×3 (06:35→22:26)
[2018-05-17] MEDS: ACETAMINOPHEN 325 MG TABLET PO PRN (06:35)
--- NOTE | 2018-05-17 06:38 | PDOC PROGRESS REPORT ---
Subjective Progress Note for:: 05/17/18 Subjective:: had good night till fell going to bathroom few minutes ago. No particular injury. Reason For Visit: ACUTE GASTROENTERITIS,COMMUNITY ACQUIRED Physical Exam Vital Signs: Temp Pulse Resp BP Pulse Ox 98.4 F 101 H 20 137/89 H 92 05/17/18 04:06 05/17/18 04:06 05/17/18 04:06 05/17/18 04:06 05/17/18 04:06 Intake & Output 05/15/18 05/16/18 05/17/18 07:59 07:59 07:59 Intake Total 1950 817 640 Output Total 350 1550 400 Balance 1600 -733 240 Weight 124 lb 1.924 oz 127 lb 13.89 oz 128 lb 15.527 oz General appearance: PRESENT: mild distress Respiratory exam: PRESENT: clear to auscultation rodrigo Cardiovascular exam: ABSENT: diastolic murmur, irregular rhythm, systolic murmur GI/Abdominal exam: PRESENT: tenderness - mild RUQ. ABSENT: mass, organolmegaly Extremities exam: ABSENT: pedal edema Neurological exam: PRESENT: oriented to situation Psychiatric exam: PRESENT: appropriate affect Results Laboratory Results: 05/15/18 06:13 05/13/18 23:33 05/14/18 12:07 Stool - Stool - Final 05/14/18 12:07 Stool - Stool Stool Culture - Final Impressions: Abdomen/Pelvis CT 05/11/18 15:01 IMPRESSION: 1. Patchy lower lobe opacification. Cannot exclude lower lobe pneumonia on either side. Cannot exclude pulmonary vascular congestion. 2. 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 3. Mild diverticulosis. 4. Atrophic changes of the kidneys. Renal vascular calcifications. Chest X-Ray 05/11/18 20:40 IMPRESSION: NO ACUTE RADIOGRAPHIC FINDING IN THE CHEST. Assessment & Plan - Diagnosis (1) Anemia of renal disease Is this a current diagnosis for this admission?: Yes (2) Celiac artery stenosis Is this a current diagnosis for this admission?: Yes Plan: Dr Diaz has rulled out further angiograms because of ckd. I feel he is in an end game and have offered hospice. (3) Atherosclerosis of superior mesenteric artery Is this a current diagnosis for this admission?: Yes (4) Old myocardial infarction Is this a current diagnosis for this admission?: Yes (5) Carotid artery syndrome hemispheric Is this a current diagnosis for this admission?: Yes (6) Postgastric surgery syndrome Is this a current diagnosis for this admission?: Yes (7) Persistent atrial fibrillation Is this a current diagnosis for this admission?: Yes (8) Chronic systolic congestive heart failure Is this a current diagnosis for this admission?: Yes (9) CKD (chronic kidney disease), stage IV Is this a current diagnosis for this admission?: Yes (10) Acute panacinar emphysema Is this a current diagnosis for this admission?: Yes (11) Bronchopneumonia Is this a current diagnosis for this admission?: Yes Plan: d6 ceftri (12) SVT (supraventricular tachycardia) Is this a current diagnosis for this admission?: Yes Plan: rate controlled by metoprolol 25 & diltiazem 90 qd
[2018-05-17] MEDS: NITROGLYCERIN 2.5 MG (0.1 MG/HR) PATCH.TD24 TD SCH (10:52)
[2018-05-17] MEDS: METOPROLOL SUCCINATE 25 MG TAB.SR.24H PO SCH (10:52)
[2018-05-17] MEDS: ALPRAZOLAM 0.5 MG TABLET PO SCH ×2 (10:52→22:26)
[2018-05-17] MEDS: CEFTRIAXONE SODIUM 2,000 MG in NORMAL SALINE 100 ML IV SCH (22:25)
[2018-05-18] MEDS: PROMETHAZINE HCL 25 MG TABLET PO PRN ×2 (02:11→22:37)
--- NOTE | 2018-05-18 04:56 | PROGRESS NOTE E ---
Progress Note NAME: ROSELYN DECKER : 1930 AGE: 88Y DATE: 05/17/2018 ROOM: 333 SUBJECTIVE: The patient states that he has no further nausea, vomiting, or diarrhea. There is no abdominal pain. There are no anginal symptoms. There is no recurrence of atrial fibrillation or PSVT. OBJECTIVE: GENERAL: The patient appears to be chronically ill and malnourished. He is very frail. VITAL SIGNS: He is afebrile with a temperature of 97.4 degrees Fahrenheit. Pulse is 76 beats per minute. Blood pressure is 93/42. Respirations are 18 per minute. O2 sats are 96% on 4.5 L nasal O2. HEAD: Atraumatic, normocephalic. EYES: Pupils are equal, round, regular, reactive to light and accommodation. Extraocular movements are normal. There is no conjunctival pallor. There is no scleral icterus. EARS, NOSE, AND THROAT: Negative. NECK: Supple. There is no JVD. There is a right carotid endarterectomy scar present. There are faint bruits bilaterally. There is no lymphadenopathy. There is no goiter. Trachea is central. LUNGS: Show diminished air entry, prolonged expiration, without any rhonchi, rales, or wheezing. There is no chest wall tenderness. HEART: S1 and S2 are heard. There is no S3 gallop. There is no S4 gallop. There is a systolic murmur in the left sternal border in the apex. There is no rub. ABDOMEN: Soft, nontender. There is no hepatosplenomegaly. Bowel sounds are well heard. There are no tender areas or masses. EXTREMITIES: Femorals are diminished. There are bilateral femoral bruits present. Leg pulses are diminished. There is no pedal edema. There is no cyanosis or clubbing. There is no DVT or cellulitis. CENTRAL NERVOUS SYSTEM: The patient is conscious, awake, alert, oriented x3, with no focal deficit. PSYCHIATRIC: The patient's judgment and insight are intact. His affect is normal. IMPRESSION: 1. NAUSEA, VOMITING, AND DIARRHEA. THIS IS RESOLVED, SECONDARY TO MOST LIKELY GASTROENTERITIS RATHER THAN CELIAC ARTERY STENOSIS. 2. EPISODE OF PSVT. No recurrence on p.o. Cardizem and metoprolol. 3. CELIAC ARTERY STENOSIS AND HISTORY OF SUPERIOR MESENTERIC AND CELIAC ARTERY STENTS IN THE PAST. 4. CORONARY ARTERY DISEASE, HISTORY OF [place], HISTORY OF STENTS IN THE CIRCUMFLEX AND LATER IN THE DISTAL LEFT MAIN. 5. HISTORY OF HYPERTENSION. Blood pressure is on the lower side, but patient asymptomatic. 6. HYPOTHYROIDISM. 7. HYPERLIPIDEMIA. 8. PAROXYSMAL ATRIAL FIBRILLATION. 9. PERIPHERAL ARTERY DISEASE. HISTORY OF STENTS IN THE AORTA AND ILIAC ARTERIES. HISTORY OF ABDOMINAL AORTIC ANEURYSM. 10. CHRONIC KIDNEY DISEASE STAGE 3. 11. MALNUTRITION. RECOMMENDATIONS: Continue metoprolol. Continue Cardizem. The patient anticoagulated for a long time on chronic anticoagulation therapy. Continue his other current medications. Medical decision making is of moderate complexity. NOTE: Forty minutes spent on the patient, with more than 50% of the time spent in direct patient care. Medications have been reviewed. The patient's cardiac status is stable. We will follow the patient as an outpatient. Will sign off the case. Discussed with the attending physician taking care of the patient. Thanking you. DICTATING PHYSICIAN: EDWINA WASSERMAN M.D. [id number] KARTIK#: [id number] ID: [id number] JOB#: [id number] ACCT: [id number] cc: >
[2018-05-18] MEDS: DILTIAZEM HCL 30 MG TABLET PO SCH ×3 (05:45→22:33)
--- NOTE | 2018-05-18 07:31 | PDOC PROGRESS REPORT ---
Subjective Progress Note for:: 05/18/18 Subjective:: still some hemoptysis. No vomiting. He and his are not interested in hospice but are awaiting further recomendations from Dr Saeed. Reason For Visit: ACUTE GASTROENTERITIS,COMMUNITY ACQUIRED Physical Exam Vital Signs: Temp Pulse Resp BP Pulse Ox 98.2 F 89 20 124/76 97 05/18/18 03:48 05/18/18 03:48 05/18/18 03:48 05/18/18 03:48 05/18/18 03:48 Intake & Output 05/16/18 05/17/18 05/18/18 07:59 07:59 07:59 Intake Total 817 496 3135 Output Total 9977 743 5285 Balance -733 -10 0 Weight 127 lb 13.89 oz 128 lb 15.527 oz 130 lb 11.746 oz General appearance: PRESENT: no acute distress Respiratory exam: PRESENT: clear to auscultation rodrigo Cardiovascular exam: PRESENT: irregular rhythm. ABSENT: diastolic murmur, systolic murmur GI/Abdominal exam: ABSENT: mass, organolmegaly, tenderness Extremities exam: ABSENT: pedal edema Neurological exam: PRESENT: oriented to time. ABSENT: oriented to situation Psychiatric exam: PRESENT: appropriate affect Results Laboratory Results: 05/15/18 06:13 05/13/18 23:33 Impressions: Abdomen/Pelvis CT 05/11/18 15:01 IMPRESSION: 1. Patchy lower lobe opacification. Cannot exclude lower lobe pneumonia on either side. Cannot exclude pulmonary vascular congestion. 2. 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 3. Mild diverticulosis. 4. Atrophic changes of the kidneys. Renal vascular calcifications. Chest X-Ray 05/11/18 20:40 IMPRESSION: NO ACUTE RADIOGRAPHIC FINDING IN THE CHEST. Assessment & Plan - Diagnosis (1) Bronchopneumonia Is this a current diagnosis for this admission?: Yes Plan: d6 ceftri (2) Celiac artery stenosis Is this a current diagnosis for this admission?: Yes Plan: I am out of options and anticipate many admissions for symptomatic therapy. (3) Atherosclerosis of superior mesenteric artery Is this a current diagnosis for this admission?: Yes (4) Old myocardial infarction Is this a current diagnosis for this admission?: Yes (5) Carotid artery syndrome hemispheric Is this a current diagnosis for this admission?: Yes (6) Postgastric surgery syndrome Is this a current diagnosis for this admission?: Yes (7) Persistent atrial fibrillation Is this a current diagnosis for this admission?: Yes (8) Chronic systolic congestive heart failure Is this a current diagnosis for this admission?: Yes (9) CKD (chronic kidney disease), stage IV Is this a current diagnosis for this admission?: Yes (10) Acute panacinar emphysema Is this a current diagnosis for this admission?: Yes (11) SVT (supraventricular tachycardia) Is this a current diagnosis for this admission?: Yes (12) Anemia of renal disease Is this a current diagnosis for this admission?: Yes - Inpatient Certification Medical Necessity: Failure to Improve With Outpatient Therapy, Significant Comorbidiites Make Outpatient Treatment Too Risky, Need Close Monitoring Due to Risk of Patient Decompensation, Need For Continuous Telemetry Monitoring, Need for IV Antibiotics, Risk of Complication if Not Cared For in Hospital, Risk of Diagnosis Which Will Require Inpatient Eval/Care/Monitoring
[2018-05-18] MEDS: ALPRAZOLAM 0.5 MG TABLET PO SCH ×2 (10:59→22:33)
[2018-05-18] MEDS: METOPROLOL SUCCINATE 25 MG TAB.SR.24H PO SCH (10:59)
[2018-05-18] MEDS: NITROGLYCERIN 2.5 MG (0.1 MG/HR) PATCH.TD24 TD SCH (10:59)
[2018-05-18] MEDS: CEFTRIAXONE SODIUM 2,000 MG in NORMAL SALINE 100 ML IV SCH (22:33)
[2018-05-19] MEDS: DILTIAZEM HCL 30 MG TABLET PO SCH ×3 (05:54→21:09)
[2018-05-19] MEDS: PROMETHAZINE HCL 25 MG TABLET PO PRN ×3 (05:56→21:15)
--- NOTE | 2018-05-19 06:42 | PDOC PROGRESS REPORT ---
Subjective Subjective:: no dyspnea. Wants PT. Last stool 2d ago. Reason For Visit: ACUTE GASTROENTERITIS,COMMUNITY ACQUIRED Physical Exam Vital Signs: Temp Pulse Resp BP Pulse Ox 98.2 F 92 18 120/69 97 05/19/18 03:24 05/19/18 03:24 05/19/18 03:24 05/19/18 03:24 05/19/18 03:24 Intake & Output 05/17/18 05/18/18 05/19/18 07:59 07:59 07:59 Intake Total 640 1250 700 Output Total 650 1250 900 Balance -10 0 -200 Weight 128 lb 15.527 oz 130 lb 11.746 oz General appearance: PRESENT: no acute distress Respiratory exam: PRESENT: clear to auscultation rodrigo Cardiovascular exam: PRESENT: irregular rhythm. ABSENT: diastolic murmur, systolic murmur GI/Abdominal exam: PRESENT: tenderness - mild LLQ. ABSENT: mass, organolmegaly Extremities exam: ABSENT: pedal edema Neurological exam: PRESENT: alert Psychiatric exam: PRESENT: appropriate affect Results Laboratory Results: 05/15/18 06:13 05/13/18 23:33 05/14/18 12:07 Stool - Stool - Final 05/14/18 12:07 Stool - Stool Stool Culture - Final Impressions: Abdomen/Pelvis CT 05/11/18 15:01 IMPRESSION: 1. Patchy lower lobe opacification. Cannot exclude lower lobe pneumonia on either side. Cannot exclude pulmonary vascular congestion. 2. 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 3. Mild diverticulosis. 4. Atrophic changes of the kidneys. Renal vascular calcifications. Chest X-Ray 05/11/18 20:40 IMPRESSION: NO ACUTE RADIOGRAPHIC FINDING IN THE CHEST. Assessment & Plan - Diagnosis (1) Bronchopneumonia Is this a current diagnosis for this admission?: Yes Plan: d7 ceftri (2) Celiac artery stenosis Is this a current diagnosis for this admission?: Yes (3) Atherosclerosis of superior mesenteric artery Is this a current diagnosis for this admission?: Yes (4) Old myocardial infarction Is this a current diagnosis for this admission?: Yes (5) Carotid artery syndrome hemispheric Is this a current diagnosis for this admission?: Yes (6) Postgastric surgery syndrome Is this a current diagnosis for this admission?: Yes (7) Persistent atrial fibrillation Is this a current diagnosis for this admission?: Yes (8) Chronic systolic congestive heart failure Is this a current diagnosis for this admission?: Yes Plan: needing 4L oxygen. NS still kvo. Stop it. Furosemide 20. (9) CKD (chronic kidney disease), stage IV Is this a current diagnosis for this admission?: Yes Plan: bmp (10) Acute panacinar emphysema Is this a current diagnosis for this admission?: Yes (11) SVT (supraventricular tachycardia) Is this a current diagnosis for this admission?: Yes (12) Anemia of renal disease Is this a current diagnosis for this admission?: Yes - Inpatient Certification Medical Necessity: Failure to Improve With Outpatient Therapy, Significant Comorbidiites Make Outpatient Treatment Too Risky, Need Close Monitoring Due to Risk of Patient Decompensation, Need For Continuous Telemetry Monitoring, Need for IV Antibiotics, Risk of Complication if Not Cared For in Hospital, Risk of Diagnosis Which Will Require Inpatient Eval/Care/Monitoring
[2018-05-19 07:26] LABS: ANION GAP 9 (5-19); BLOOD UREA NITROGEN 27 mg/dL (7-20); CARBON DIOXIDE 24 mmol/L (22-30); CHLORIDE 108 mmol/L (98-107); GLUCOSE 104 mg/dL (75-110); POTASSIUM 4.3 mmol/L (3.6-5.0); SODIUM 140.6 mmol/L (137-145)
[2018-05-19] MEDS: NITROGLYCERIN 2.5 MG (0.1 MG/HR) PATCH.TD24 TD SCH (09:38)
[2018-05-19] MEDS: LUBIPROSTONE 8 MCG CAPSULE PO SCH ×2 (09:39→18:34)
[2018-05-19] MEDS: METOPROLOL SUCCINATE 25 MG TAB.SR.24H PO SCH (09:39)
[2018-05-19] MEDS: ALPRAZOLAM 0.5 MG TABLET PO SCH ×2 (09:39→22:02)
[2018-05-19] MEDS: FUROSEMIDE 20 MG TABLET PO SCH (09:39)
[2018-05-19] MEDS: CEFTRIAXONE SODIUM 2,000 MG in NORMAL SALINE 100 ML IV SCH (21:09)
[2018-05-20] MEDS: DILTIAZEM HCL 30 MG TABLET PO SCH (05:20)
[2018-05-20 06:18] LABS: ANION GAP 8 (5-19); BLOOD UREA NITROGEN 26 mg/dL (7-20); CALCIUM 7.9 mg/dL (8.4-10.2); CARBON DIOXIDE 24 mmol/L (22-30); CHLORIDE 109 mmol/L (98-107); GLUCOSE 96 mg/dL (75-110); POTASSIUM 4.1 mmol/L (3.6-5.0); SODIUM 141.3 mmol/L (137-145)
--- NOTE | 2018-05-20 07:40 | PDOC TRANSFER SUMMARY ---
General Admission Date/PCP: 05/11/18 23:26 ROMEL LAMB MD Admission Date: 05/12/18 Transfer Date: 05/20/18 Accepting Facility: Other (Comments) - [facility] Resuscitation Status: Full Code - Transfer Diagnosis (1) Bronchopneumonia Is this a current diagnosis for this admission?: Yes (2) Celiac artery stenosis Is this a current diagnosis for this admission?: Yes (3) Atherosclerosis of superior mesenteric artery Is this a current diagnosis for this admission?: Yes (4) Old myocardial infarction Is this a current diagnosis for this admission?: Yes (5) Carotid artery syndrome hemispheric Is this a current diagnosis for this admission?: Yes (6) Postgastric surgery syndrome Is this a current diagnosis for this admission?: Yes (7) Persistent atrial fibrillation Is this a current diagnosis for this admission?: Yes (8) Chronic systolic congestive heart failure Is this a current diagnosis for this admission?: Yes (9) CKD (chronic kidney disease), stage IV Is this a current diagnosis for this admission?: Yes (10) Acute panacinar emphysema Is this a current diagnosis for this admission?: Yes (11) SVT (supraventricular tachycardia) Is this a current diagnosis for this admission?: Yes (12) Anemia of renal disease Is this a current diagnosis for this admission?: Yes - Transfer Medications Home Medications: Alprazolam [Xanax 0.5 mg Tablet] 0.5 mg PO Q6HP PRN 05/12/18 Aspirin [Ecotrin 81 mg EC Tablet] 81 mg PO DAILY 05/12/18 Atorvastatin Calcium [Lipitor 20 mg Tablet] 20 mg PO QHS 05/12/18 Cetirizine HCl [Zyrtec 10 mg Tablet] 10 mg PO QHS 05/12/18 Clopidogrel Bisulfate [Plavix 75 mg Tablet] 75 mg PO DAILY 05/12/18 Cyanocobalamin (Vitamin B-12) [Vitamin B-12] 2,500 mcg SL DAILY 05/12/18 Fluticasone Propionate [Flonase Nasal [place] 50 Mcg/[place] 16 gm] 2 spray NASL DAILY 05/12/18 Levothyroxine Sodium [Synthroid 0.05 mg Tablet] 0.05 mg PO Q6AM 05/12/18 Pantoprazole Sodium [Protonix] 40 mg PO DAILY 05/12/18 Polyvinyl Alcohol/Povidone/Pf [Refresh Classic Eye Drops] 1 drop OU QIDP PRN Promethazine HCl [Phenergan 25 mg Tablet] 25 mg PO Q4HP PRN 05/12/18 Ranolazine [Ranexa] 500 mg PO Q12 05/12/18 Transfer Medications: Current Medications Acetaminophen (Tylenol 325 Mg Tablet) 650 mg PO Q4HP PRN PRN Reason: FOR HEADACHE OR PAIN Stop: 06/10/18 23:35 Last Admin: 05/17/18 06:35 Dose: 650 mg Al Hydrox/Mg Hydrox/Simethicone (Maalox Plus Susp 30 Udcup) 30 ml PO Q8HP PRN PRN Reason: HEARTBURN Stop: 06/15/18 08:39 Alprazolam (Xanax 0.5 Mg Tablet) 0.5 mg PO Q12 YESNEIA Stop: 05/26/18 21:59 Last Admin: 05/19/18 22:02 Dose: 0.5 mg Diltiazem HCl (Cardizem 30 Mg Tablet) 30 mg PO Q8 YESENIA Stop: 06/15/18 13:59 Last Admin: 05/20/18 05:20 Dose: 30 mg Furosemide (Lasix 20 Mg Tablet) 20 mg PO DAILY YESENIA Stop: 06/18/18 09:59 Last Admin: 05/19/18 09:39 Dose: 20 mg Ceftriaxone Sodium 2,000 mg/ (Sodium Chloride) 100 mls @ 200 mls/hr IV QHS YESENIA Stop: 05/20/18 21:59 Last Admin: 05/19/18 21:09 Dose: 200 ml/hr, 200 mls/hr Lubiprostone (Amitiza 8 Mcg Capsule) 8 mcg PO BID YESENIA Stop: 06/18/18 09:59 Last Admin: 05/19/18 18:34 Dose: 8 mcg Metoprolol Succinate (Toprol Xl 25 Mg Tab.Sr) 25 mg PO DAILY YESENIA Stop: 06/15/18 09:59 Last Admin: 05/19/18 09:39 Dose: 25 mg Nitroglycerin (Nitro-Dur 2.5 Mg (0.1 Mg/Hr) Transdermal Ptch) 1 each TD DAILY YESENIA Stop: 06/14/18 09:59 Last Admin: 05/19/18 09:38 Dose: 1 each Promethazine HCl (Phenergan 25 Mg Tablet) 25 mg PO QIDP PRN PRN Reason: FOR NAUSEA/VOMITING Stop: 06/13/18 20:17 Last Admin: 05/19/18 21:15 Dose: 25 mg Sodium Chloride (Saline Flush 2.5 Ml Monoject Prefil Syrin) 2.5 ml IV Q8 YESENIA Stop: 06/11/18 05:59 Last Admin: 05/20/18 05:21 Dose: 2.5 ml - Allergies Allergies/Adverse Reactions: morphine [Morphine] Allergy (Severe, Verified 03/31/18 11:01) Hallucinations tetracycline [Tetracycline] Allergy (Unknown, Verified 03/31/18 11:01) - Diet/Activity Discharge Diet: Cardiac Hospital Course Hospital Course: Finished 4d azithromycin and 1w ceftriazone. Hct dropped. Got 2u prbc. Diltiazem was added for svt. Oxygen requirement went up to 4L. Furosemde 20mg was added. Declined hospice. Wants rehab again. Physical Exam Vital Signs: Temp Pulse Resp BP Pulse Ox 98.8 F 72 17 103/57 L 91 L 05/20/18 03:27 05/20/18 03:27 05/20/18 03:27 05/20/18 03:27 05/20/18 03:27 Intake & Output 05/18/18 05/19/18 05/20/18 07:59 07:59 07:59 Intake Total 1250 700 650 Output Total 1250 1250 1174 Balance 0 -550 -524 Weight 130 lb 11.746 oz 130 lb 8.218 oz General appearance: PRESENT: no acute distress Respiratory exam: PRESENT: clear to auscultation rodrigo Cardiovascular exam: PRESENT: irregular rhythm. ABSENT: diastolic murmur, systolic murmur GI/Abdominal exam: ABSENT: mass, organolmegaly, tenderness Extremities exam: ABSENT: pedal edema Neurological exam: PRESENT: alert Psychiatric exam: PRESENT: appropriate affect Results Laboratory Results: 05/15/18 06:13 05/19/18 06:28 Labs- Last Values WBC 11.7 10^3/uL (4.0-10.5) H 05/15/18 06:13 RBC 4.77 10^6/uL (4.35-5.55) 05/15/18 06:13 Hgb 13.2 g/dL (13.5-17.0) L 05/15/18 06:13 Hct 40.3 % (37.9-51.0) 05/15/18 06:13 MCV 85 fl (80-97) 05/15/18 06:13 MCH 27.6 pg (27.0-33.4) 05/15/18 06:13 MCHC 32.6 g/dL (32.0-36.0) 05/15/18 06:13 RDW 20.4 % (11.5-14.0) H 05/15/18 06:13 Plt Count 140 10^3/uL (150-450) L 05/15/18 06:13 Seg Neutrophils % 81.2 % (42-78) H 05/14/18 06:40 Lymphocytes % 11.9 % (13-45) L 05/14/18 06:40 Monocytes % 5.6 % (3-13) 05/14/18 06:40 Eosinophils % 0.6 % (0-6) 05/14/18 06:40 Basophils % 0.7 % (0-2) 05/14/18 06:40 Absolute Neutrophils 6.4 10^3/uL (1.7-8.2) 05/14/18 06:40 Absolute Lymphocytes 0.9 10^3/uL (0.5-4.7) 05/14/18 06:40 Absolute Monocytes 0.4 10^3/uL (0.1-1.4) 05/14/18 06:40 Absolute Eosinophils 0.0 10^3/uL (0.0-0.6) 05/14/18 06:40 Absolute Basophils 0.1 10^3/uL (0.0-0.2) 05/14/18 06:40 Platelet Estimate Cancelled 05/14/18 20:59 Retic Count (auto) 1.23 % (0.66-2.85) 05/14/18 06:40 Absolute Retic 0.035 10^6/uL (0.028-0.122) 05/14/18 06:40 Sodium 140.6 mmol/L (137-145) 05/19/18 06:28 Potassium 4.3 mmol/L (3.6-5.0) 05/19/18 06:28 Chloride 108 mmol/L (98-107) H 05/19/18 06:28 Carbon Dioxide 24 mmol/L (22-30) 05/19/18 06:28 Anion Gap 9 (5-19) 05/19/18 06:28 BUN 27 mg/dL (7-20) H 05/19/18 06:28 Creatinine 1.34 mg/dL (0.52-1.25) H 05/19/18 06:28 Est GFR ( Amer) > 60 (>60) 05/19/18 06:28 Est GFR (Non-Af Amer) 51 (>60) L 05/19/18 06:28 Glucose 104 mg/dL (75-110) 05/19/18 06:28 POC Glucose 94 mg/dL (70-110) 05/14/18 15:28 Calcium 8.0 mg/dL (8.4-10.2) L 05/19/18 06:28 Iron < 10.1 ug/dL (49-181) L 05/14/18 06:40 TIBC 200 ug/dL (250-450) L 05/14/18 06:40 % Saturation UNABLE TO CALCULATE % (20% - 50%) 05/14/18 06:40 Ferritin 97.80 ng/mL (17.9-464.0) 05/14/18 06:40 Total Bilirubin 0.7 mg/dL (0.2-1.3) 05/11/18 16:44 Direct Bilirubin 0.4 mg/dL (0.0-0.4) 05/11/18 16:44 Neonat Total Bilirubin Not Reportable 05/11/18 16:44 Neonat Direct Bilirubin Not Reportable 05/11/18 16:44 Neonat Indirect Bili Not Reportable 05/11/18 16:44 AST 14 U/L (17-59) L 05/11/18 16:44 ALT 11 U/L (21-72) L 05/11/18 16:44 Alkaline Phosphatase 79 U/L (38-126) 05/11/18 16:44 Total Protein 6.8 g/dL (6.3-8.2) 05/11/18 16:44 Albumin 3.9 g/dL (3.5-5.0) 05/11/18 16:44 Lipase 14.4 U/L (23-300) L 05/11/18 16:44 Vitamin B12 > 1000.0 pg/mL (239-931) H 05/14/18 06:40 Folate 8.78 ng/mL (>2.76) 05/14/18 06:40 TSH 3.93 uIU/mL (0.47-4.68) 05/12/18 00:20 Urine Color YELLOW 05/11/18 20:30 Urine Appearance CLEAR 05/11/18 20:30 Urine pH 5.0 (5.0-9.0) 05/11/18 20:30 Ur Specific [place] 1.016 05/11/18 20:30 Urine Protein 30 mg/dL (NEGATIVE) H 05/11/18 20:30 Urine Glucose (UA) NEGATIVE mg/dL (NEGATIVE) 05/11/18 20:30 Urine Ketones TRACE mg/dL (NEGATIVE) H 05/11/18 20:30 Urine Blood NEGATIVE (NEGATIVE) 05/11/18 20:30 Urine Nitrite NEGATIVE (NEGATIVE) 05/11/18 20:30 Urine Bilirubin NEGATIVE (NEGATIVE) 05/11/18 20:30 Urine Urobilinogen NEGATIVE mg/dL (<2.0) 05/11/18 20:30 Ur Leukocyte Esterase NEGATIVE (NEGATIVE) 05/11/18 20:30 Urine WBC (Auto) 1 /HPF 05/11/18 20:30 Urine RBC (Auto) 1 /HPF 05/11/18 20:30 Urine Mucus (Auto) RARE /LPF 05/11/18 20:30 Urine Ascorbic Acid NEGATIVE (NEGATIVE) 05/11/18 20:30 Stool Occult Blood NEGATIVE (NEGATIVE) 05/14/18 12:07 Stool for White Cells NO WBCs SEEN 05/14/18 12:07 C. difficile Tox (PCR) Cancelled 05/14/18 12:07 Slides for Path Review Cancelled 05/14/18 20:59 Blood Type O POSITIVE 05/14/18 10:49 Antibody Screen NEGATIVE 05/14/18 10:49 Crossmatch See Detail 05/14/18 10:49 Impressions: Abdomen/Pelvis CT 05/11/18 15:01 IMPRESSION: 1. Patchy lower lobe opacification. Cannot exclude lower lobe pneumonia on either side. Cannot exclude pulmonary vascular congestion. 2. 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 3. Mild diverticulosis. 4. Atrophic changes of the kidneys. Renal vascular calcifications. Chest X-Ray 05/11/18 20:40 IMPRESSION: NO ACUTE RADIOGRAPHIC FINDING IN THE CHEST. Plan Discharge Plan: I will follow at [facility].
[2018-05-20] MEDS: ALPRAZOLAM 0.5 MG TABLET PO SCH (09:03)
[2018-05-20] MEDS: METOPROLOL SUCCINATE 25 MG TAB.SR.24H PO SCH (09:06)
[2018-05-20] MEDS: FUROSEMIDE 20 MG TABLET PO SCH (09:07)
[2018-05-20] MEDS: NITROGLYCERIN 2.5 MG (0.1 MG/HR) PATCH.TD24 TD SCH (09:07)
[2018-05-20 13:01] VITALS: BP 107/67
== END 2018-05-20 14:17 | DRG 194 ==
LOC: ER 14:44 → EH 23:26 → OBSVTOIN 23:26 → 3S 05-12 01:53
PROVIDERS: ADMIT Family Medicine; ATTEND Family Medicine
PROC: 30283B1 Transfusion of Nonautologous 4-Factor Prothrombin Complex Concentrate into Vein, Percutaneous Approach (ICD-10-PCS; principal; 2018-05-14)
DX: J18.9 Pneumonia, unspecified organism (principal); N17.9 Acute kidney failure, unspecified; J44.0 Chronic obstructive pulmonary disease with (acute) lower respiratory infection; N18.4 Chronic kidney disease, stage 4 (severe); I48.1 Persistent atrial fibrillation; I77.4 Celiac artery compression syndrome; I13.0 Hypertensive heart and chronic kidney disease with heart failure and stage 1 through stage 4 chronic kidney disease, or unspecified chronic kidney disease; I50.22 Chronic systolic (congestive) heart failure; K55.1 Chronic vascular disorders of intestine; E46 Unspecified protein-calorie malnutrition; Z68.1 Body mass index [BMI] 19.9 or less, adult; E87.5 Hyperkalemia; I25.10 Atherosclerotic heart disease of native coronary artery without angina pectoris; I73.9 Peripheral vascular disease, unspecified; K91.1 Postgastric surgery syndromes; I48.0 Paroxysmal atrial fibrillation; E78.5 Hyperlipidemia, unspecified; Z95.9 Presence of cardiac and vascular implant and graft, unspecified; I25.2 Old myocardial infarction; F43.10 Post-traumatic stress disorder, unspecified; E03.9 Hypothyroidism, unspecified; Z79.899 Other long term (current) drug therapy; Z79.82 Long term (current) use of aspirin; Z88.6 Allergy status to analgesic agent; Z88.8 Allergy status to other drugs, medicaments and biological substances; K52.9 Noninfective gastroenteritis and colitis, unspecified; J43.1 Panlobular emphysema; D63.1 Anemia in chronic kidney disease; I70.8 Atherosclerosis of other arteries; Z85.46 Personal history of malignant neoplasm of prostate; Z85.01 Personal history of malignant neoplasm of esophagus
CPT/HCPCS: 36415; 36430; 71046; 74176; 80048; 80053; 81001; 82272; 82607; 82728; 82746; 82962; 83540; 83550; 83690; 84132; 84443; 85025; 85027; 85045; 86850; 86900; 86901; 86920; 87045; 87070; 87205; 89055; 93005; 93010; 94640; 96374; 96375; 96376; 99285; A9270 GY; G8978-GP; G8979-GP; J0456; J0696; J1650; J1815; J1940; J1956; J2300; J2405; J2765; J3490; J7030; J7060; J7120; J7620; P9016; S0164

== ENCOUNTER → 2018-11-09 | Outpatient (CLI) | payer MEDICARE, OTHER ==
[2018-11-09 09:12] LABS: ALANINE AMINOTRANSFERASE 8 U/L (21-72); ALBUMIN 3.7 g/dL (3.5-5.0); ALKALINE PHOSPHATASE 76 U/L (38-126); ANION GAP 10 (5-19); ASPARTATE AMINO TRANSFERASE 10 U/L (17-59); BILIRUBIN,DIRECT 0.3 mg/dL (0.0-0.4); BILIRUBIN,TOTAL 0.6 mg/dL (0.2-1.3); BLOOD UREA NITROGEN 40 mg/dL (7-20); CARBON DIOXIDE 22 mmol/L (22-30); CHLORIDE 108 mmol/L (98-107); CHOLESTEROL 136.62 mg/dL (0-200); GLUCOSE 101 mg/dL (75-110); SODIUM 139.5 mmol/L (137-145); TOTAL PROTEIN 6.4 g/dL (6.3-8.2); TRIGLYCERIDES 87 mg/dL (<150)
[2018-11-09 09:27] LABS: DIRECT LDL 59 mg/dL (<100)
[2018-11-09 09:36] LABS: POTASSIUM 6.2 mmol/L (3.6-5.0)
== END ==
LOC: LAB 08:14
PROVIDERS: ATTEND Family Medicine
DX: I10 Essential (primary) hypertension (principal); E03.4 Atrophy of thyroid (acquired); R79.9 Abnormal finding of blood chemistry, unspecified; E78.00 Pure hypercholesterolemia, unspecified
CPT/HCPCS: 36415; 80053; 80061; 84443

== ENCOUNTER → 2018-11-16 | Outpatient (CLI) | payer MEDICARE, OTHER ==
[2018-11-16 16:26] LABS: ANION GAP 9 (5-19); BLOOD UREA NITROGEN 26 mg/dL (7-20); CALCIUM 8.2 mg/dL (8.4-10.2); CARBON DIOXIDE 27 mmol/L (22-30); CHLORIDE 104 mmol/L (98-107); GLUCOSE 126 mg/dL (75-110); POTASSIUM 3.1 mmol/L (3.6-5.0); SODIUM 140.1 mmol/L (137-145)
== END ==
LOC: LAB 15:33
PROVIDERS: ATTEND Family Medicine
DX: N18.3 Chronic kidney disease, stage 3 (moderate) (principal); R79.9 Abnormal finding of blood chemistry, unspecified; I48.2 Chronic atrial fibrillation
CPT/HCPCS: 36415; 80048

== ENCOUNTER 2018-11-30 23:31 | Inpatient (IN) | payer MEDICARE, OTHER ==
[2018-11-30] MEDS ORDERED: FUROSEMIDE INJ/PF 20 MG/2 ML SDV IV ONE (23:53)
--- NOTE | 2018-11-30 23:58 | ER Document Report ---
ED General - General Stated Complaint: SHORTNESS OF BREATH Time Seen by Provider: 11/30/18 23:52 Primary Care Provider: ROMEL LAMB MD [Primary Care Provider] - Follow up as needed Cannot obtain history due to: Unstable vital signs Notes: Patient is an 88-year-old male with a past medical history of hypertension, hypothyroidism, no previous diagnosis of CHF or COPD who presents by EMS for increased shortness of breath over the last 36 hours. Patient reports that he has been coughing up a pinkish, white frothy sputum. Also notes that his shortness of breath has been getting progressively worse since onset. Nothing seems to improve or worsen his symptoms. His oxygenation was initially 80% for EMS, improved with supplemental oxygen patient does not normally require. Patient denies fever or constitutional symptoms. States that he has been coughing for approximately 1 week. Has not seen his primary care physician regarding today's concerns. History is otherwise limited secondary to the degree of the patient's distress at time of presentation. TRAVEL OUTSIDE OF THE [place] IN LAST 30 DAYS: No - Related Data Allergies/Adverse Reactions: morphine [Morphine] Allergy (Severe, Verified 03/31/18 11:01) Hallucinations tetracycline [Tetracycline] Allergy (Unknown, Verified 03/31/18 11:01) Past Medical History - General Information source: Patient - Social History Smoking Status: Former Smoker Frequency of alcohol use: None Drug Abuse: None Lives with: Family Family History: Reviewed & Not Pertinent, Malignancy - Colon cancer - Past Medical History Cardiac Medical History: Reports: Hx Coronary Artery Disease, Hx Heart Attack - X3=STENTS/ 2001 & 2017, Hx Hypercholesterolemia, Hx Hypertension - MEDICATED, Hx Peripheral Vascular Disease Pulmonary Medical History: Denies: Hx Asthma Neurological Medical History: Denies: Hx Cerebrovascular Accident, Hx Seizures Endocrine Medical History: Reports: Hx Hypothyroidism Renal/ Medical History: Denies: Hx Peritoneal Dialysis GI Medical History: Reports: Hx Ulcer. Denies: Hx Hepatitis, Hx Hiatal Hernia Musculoskeletal Medical History: Denies Hx Arthritis Psychiatric Medical History: Reports: Hx Post Traumatic Stress Disorder Denies: Hx Depression - anxiety Infectious Medical History: Denies: Hx Hepatitis Past Surgical History: Reports: Hx Abdominal Surgery - stomach resection, Hx Bowel Surgery - x10 V&A w/ B-II anastomosis, Hx Cardiac Catheterization, Hx Carotid Endarterectomy - RIGHT SIDE, Hx Coronary Stent, Hx Vascular Surgery - ILIAC, FEMORAL STENTS, aortic aneurysm stent graft. Denies: Hx Open Heart Surgery, Hx Pacemaker - Immunizations Hx Diphtheria, Pertussis, Tetanus Vaccination: Yes Hx Pneumococcal Vaccination: 09/29/19 Review of Systems - Review of Systems Notes: Constitutional: Negative for fever. HENT: Negative for sore throat. Eyes: Negative for visual changes. Cardiovascular: Negative for chest pain. Respiratory: Positive for shortness of breath and cough Gastrointestinal: Negative for abdominal pain, vomiting or diarrhea. Genitourinary: Negative for dysuria. Musculoskeletal: Negative for back pain. Skin: Negative for rash. Neurological: Negative for headaches, weakness or numbness. 10 point ROS negative except as marked above and in HPI. Physical Exam - Vital signs Vitals: Resp Pulse Ox 25 H 93 12/01/18 00:00 12/01/18 00:00 Interpretation: Hypertensive, Tachycardic, Hypoxic, Tachypneic Notes: PHYSICAL EXAMINATION: GENERAL: Appears ill, in moderate respiratory distress HEAD: Atraumatic, normocephalic. EYES: Pupils equal round and reactive to light, extraocular movements intact, sclera anicteric, conjunctiva are normal. ENT: nares patent, oropharynx clear without exudates. Mois moderately dry t mucous membranes. NECK: Normal range of motion, supple without lymphadenopathy LUNGS: Moderate respiratory distress, intercostal. Coarse rales in all lung brady. B-lines throughout on pleural ultrasound. HEART: Regular rate and rhythm without murmurs, bedside echocardiogram without evidence of pericardial effusion, global dyskinesia present. ABDOMEN: Soft, nontender, normoactive bowel sounds. No guarding, no rebound. No masses appreciated. EXTREMITIES: Normal range of motion, no pitting or edema. No cyanosis. NEUROLOGICAL: No focal neurological deficits. Moves all extremities spontaneously and on command. PSYCH: Normal mood, normal affect. SKIN: Warm, Dry, normal turgor, no rashes or lesions noted. Course - Re-evaluation Re-evalutation: 11/30/18 23:54 Patient presents in moderate respiratory distress, coarse rhonchi in all lung brady saturating 92% on 2 L by nasal cannula without baseline need for supplemental oxygen. Patient immediately underwent bedside ultrasound which did show some global dyskinesia on echocardiogram without evidence of pericardial effusion. Diffuse B-lines in all lung brady. At that point BiPAP was called for given patient's increased work of breathing and hypoxemia. Patient has moderate JVD, no significant bilateral lower extremity edema. IVF access will be established. Patient will be given 20 mg of IV furosemide. Standard laboratories and chest x-ray likely to be obtained. Patient is in guarded condition given respiratory distress and need for positive pressure ventilation, will be reassessed at regular intervals. 12/01/18 02:18 I have reassessed this patient on multiple occasions. His work of breathing is continued to markedly improve on BiPAP. His labs show an elevated BNP, indeterminant troponin range likely secondary to demand mediation. Patient has had similar troponins in the past. Kidney function at baseline. Patient is moderately more anemic than recent history. I have discussed this case with Dr. Lamb the patient's primary care physician who has agreed to hospitalize the patient to the [facility] on positive pressure ventilation. Agent and his son at the bedside of been updated on care plan and agreement. - Vital Signs Vital signs: Temp Pulse Resp BP Pulse Ox 25 H 93 12/01/18 00:00 12/01/18 00:00 - Laboratory Result Diagrams: 12/01/18 00:50 12/01/18 00:50 Laboratory results interpreted by me: 12/01/18 12/01/18 12/01/18 00:50 00:50 00:50 WBC 11.2 H RBC 3.28 L Hgb 9.4 L Hct 28.4 L RDW 16.5 H Seg Neutrophils % 86.5 H Lymphocytes % 7.3 L Absolute Neutrophils 9.7 H Potassium 3.3 L BUN 30 H Creatinine 1.85 H Est GFR ( Amer) 42 L Est GFR (Non-Af Amer) 35 L Glucose 121 H Calcium 8.2 L AST 12 L ALT 19 L NT-Pro-B Natriuret Pep [id number] H Total Protein 5.3 L Albumin 2.8 L - Diagnostic Test Radiology reviewed: Image reviewed, Reports reviewed Radiology results interpreted by me: 12/01/18 02:18 Chest x-ray: Diffuse pulmonary edema and cardiomegaly Critical Care Note - Critical Care Note Total time excluding time spent on procedures (mins): 38 Comments: Critical care time spent obtaining history from patient or surrogate, discussions with consultants, development of treatment plan with patient or nelson rrogate, evaluation of patient's response to treatment, examination of patient, ordering and performing treatments and interventions, ordering and review of laboratory studies, re-evaluation of patient's condition, ordering and review of radiographic studies and review of old charts Discharge - Discharge Clinical Impression: Respiratory distress, Acute on chronic systolic (congestive) heart failure Pulmonary edema Qualifiers: Chronicity: acute Qualified Code(s): J81.0 - Acute pulmonary edema Chronic kidney disease Qualifiers: Chronic kidney disease stage: unspecified stage Qualified Code(s): N18.9 - Chronic kidney disease, unspecified Condition: Fair Disposition: ADMITTED INPATIENT Admitting Provider: [facility] Unit Admitted: [facility] Referrals: ROMEL LAMB MD [Primary Care Provider] - Follow up as needed
--- NOTE | 2018-12-01 00:22 | RADIOLOGY REPORT (SQ) ---
EXAM DESCRIPTION: XR CHEST 1 VIEW COMPLETED DATE/TME: 11/30/2018 23:52 CLINICAL HISTORY: 88 years, Male, sob, pulm edema COMPARISON: 05/11/2018 chest x-ray NUMBER OF VIEWS: 1 TECHNIQUE: Portable chest LIMITATIONS: None. FINDINGS: Cardiomegaly with atheromatous change of the thoracic aorta. Osteopenia. Low lung volumes with interstitial edema and small bilateral effusions. Adjacent airspace opacities, likely representing atelectasis. No pneumothorax IMPRESSION: Cardiomegaly. Interstitial edema with low lung volumes and small bibasilar effusions copyright 2010 [employer]- All Rights Reserved
[2018-12-01 01:15] LABS: ABSOLUTE BASOPHILS # (AUTO) 0.1 10^3/uL (0.0-0.2); ABSOLUTE EOSINOPHILS # (AUTO) 0.1 10^3/uL (0.0-0.6); ABSOLUTE LYMPHOCYTES (AUTO) 0.8 10^3/uL (0.5-4.7); ABSOLUTE MONOCYTES (AUTO) 0.6 10^3/uL (0.1-1.4); ABSOLUTE NEUT (AUTO) 9.7 10^3/uL (1.7-8.2); BASOPHILS % (AUTO) 0.6 % (0-2); EOSINOPHILS % (AUTO) 0.5 % (0-6); HEMATOCRIT 28.4 % (37.9-51.0); HEMOGLOBIN 9.4 g/dL (13.5-17.0); LYMPHOCYTES % (AUTO) 7.3 % (13-45); MEAN CORPUSCULAR HEMOGLOBIN 28.7 pg (27.0-33.4); MEAN CORPUSCULAR HGB CONC 33.2 g/dL (32.0-36.0); MEAN CORPUSCULAR VOLUME 87 fl (80-97); MONOCYTES % (AUTO) 5.1 % (3-13); PLATELET COUNT 213 10^3/uL (150-450); RED BLOOD COUNT 3.28 10^6/uL (4.35-5.55); RED CELL DISTRIBUTION WIDTH 16.5 % (11.5-14.0); SEGMENTED NEUTROPHILS % (AUTO) 86.5 % (42-78); TOTAL CELLS COUNTED % (AUTO) 100 %; WHITE BLOOD COUNT 11.2 10^3/uL (4.0-10.5)
[2018-12-01 01:34] LABS: ALANINE AMINOTRANSFERASE 19 U/L (21-72); ALBUMIN 2.8 g/dL (3.5-5.0); ALKALINE PHOSPHATASE 82 U/L (38-126); ANION GAP 7 (5-19); ASPARTATE AMINO TRANSFERASE 12 U/L (17-59); BILIRUBIN,DIRECT 0.3 mg/dL (0.0-0.4); BILIRUBIN,TOTAL 0.5 mg/dL (0.2-1.3); BLOOD UREA NITROGEN 30 mg/dL (7-20); CALCIUM 8.2 mg/dL (8.4-10.2); CARBON DIOXIDE 28 mmol/L (22-30); CHLORIDE 105 mmol/L (98-107); GLUCOSE 121 mg/dL (75-110); POTASSIUM 3.3 mmol/L (3.6-5.0); TOTAL PROTEIN 5.3 g/dL (6.3-8.2)
[2018-12-01 02:08] LABS: TROPONIN I 0.063 ng/mL
[2018-12-01] MEDS ORDERED: ALPRAZOLAM 0.5 MG TABLET PO PRN (05:28)
[2018-12-01] MEDS: LEVOTHYROXINE SODIUM 0.05 MG TABLET PO SCH (06:07)
[2018-12-01] MEDS ORDERED: FUROSEMIDE INJ/PF 20 MG/2 ML SDV IV SCH (10:00)
--- NOTE | 2018-12-01 10:27 | EKG REPORT ---
SEVERITY:- ABNORMAL ECG - SINUS RHYTHM MULTIFORM VENTRICULAR PREMATURE COMPLEXES IVCD, CONSIDER ATYPICAL RBBB : Confirmed by: Marie Leal MD 01-Dec-2018 10:26:40
[2018-12-01] MEDS: LANSOPRAZOLE 30 MG TAB.RAP.DR PO SCH (10:32)
[2018-12-01] MEDS: RANOLAZINE 500 MG TAB.SR.12H PO SCH ×2 (10:32→22:53)
[2018-12-01] MEDS: ONDANSETRON HCL INJ/PF 4 MG/2 ML SDV IV PRN (10:33)
[2018-12-01] MEDS: ASPIRIN 81 MG TABLET, ENT COATED PO SCH (10:33)
[2018-12-01] MEDS: CLOPIDOGREL BISULFATE 75 MG TABLET PO SCH (10:33)
[2018-12-01] MEDS: CYANOCOBALAMIN (VITAMIN B-12) 1,000 MCG TABLET PO SCH (10:35)
[2018-12-01] MEDS ORDERED: POTASSIUM CHLORIDE 10 MEQ CAPSULE.ER PO SCH (15:00)
[2018-12-01] MEDS ORDERED: ALBUTEROL SULFATE 0.083% NEB 2.5 MG/3 ML AMPUL NEB PRN (16:34)
[2018-12-01] MEDS: ATORVASTATIN CALCIUM 20 MG TABLET PO SCH (22:52)
--- NOTE | 2018-12-02 05:12 | PDOC H&P ---
History of Present Illness Admission Date/PCP: 12/01/18 02:38 ROMEL LAMB MD Patient complains of: dyspnea History of Present Illness: ROSELYN DECKER is a 88 year old male Past Medical History Cardiac Medical History: Reports: Atrial Fibrillation, Congestive Heart Failure, Coronary Artery Disease, Myocardial Infarction - X3=STENTS/ 2001 & 2017, Hyperlipidema, Hypertension - MEDICATED, Peripheral Vascular Disease Pulmonary Medical History: Reports: Chronic Obstructive Pulmonary Disease (COPD) EENT Medical History: Reports: Nose - rhinitis Neurological Medical History: Denies: Seizures Endocrine Medical History: Reports: Hypothyroidism Renal/ Medical History: Reports: Chronic Kidney Disease 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 GI Medical History: Denies: Hepatitis, Hiatal Hernia Musculoskeltal Medical History: Denies: Arthritis Psychiatric Medical History: Reports: Post Traumatic Stress Disorder Denies: Depression - anxiety Traumatic Medical History: Reports: None Hematology: Reports: Anemia - renal Denies: Sickle Cell Disease Infectious Medical History: Reports: None Past Surgical History Past Surgical History: Reports: Cardiac Catheterization, Carotid Endarterectomy - RIGHT SIDE, Coronary Stent, Vascular Surgery - ILIAC, FEMORAL STENTS, aortic aneurysm stent graft Denies: Pacemaker Social History Lives with: Family Smoking Status: Former Smoker Frequency of Alcohol Use: None Hx Recreational Drug Use: No Hx Prescription Drug Abuse: No - Advance Directive Resuscitation Status: Full Code Family History Family History: CAD, DM, Hypertension, Malignancy - Colon cancer Parental Family History Reviewed: Yes Children Family History Reviewed: Yes Sibling(s) Family History Reviewed.: Yes Medication/Allergy Home Medications: Albuterol Sulfate [Ventolin 0.083% Neb 2.5 mg/3 ml Ampul] 1 vial NEB RTQIDP PRN 12/01/18 Alprazolam [Xanax 0.5 mg Tablet] 0.5 mg PO BID 12/01/18 Aspirin [Ecotrin 81 mg EC Tablet] 81 mg PO DAILY 12/01/18 Atorvastatin Calcium [Lipitor 20 mg Tablet] 20 mg PO QHS 12/01/18 Cetirizine HCl [Zyrtec 10 mg Tablet] 1 tab PO QHS 12/01/18 Clopidogrel Bisulfate [Plavix 75 mg Tablet] 75 mg PO DAILY 12/01/18 Cyanocobalamin (Vitamin B-12) [Vitamin B12] 2,500 mcg PO DAILY 12/01/18 Fluticasone Propionate [Flonase Nasal [place] 50 Mcg/[place] 16 gm] 2 sprays NASL DAILY 12/01/18 Levothyroxine Sodium [Synthroid 50 Mcg Tablet] 50 mcg PO Q6AM 12/01/18 Metoprolol Succinate [Toprol Xl 50 mg Tab.sr] 50 mg PO DAILY 12/01/18 Pantoprazole Sodium [Protonix] 40 mg PO Q6AM 12/01/18 Polyethylene Glycol 3350 [Miralax Powder 17 gm/Packet] 1 packet PO DAILY 12/01/18 Promethazine HCl [Phenergan 25 mg Tablet] 25 mg PO QIDP PRN 12/01/18 Ranolazine [Ranexa 500 mg Tab.sr] 500 mg PO Q12 12/01/18 Sodium Polystyrene Sulfonate [Kayexalate 15 Gm/60 Ml Susp 60 Ml] 15 gm PO DAILY 12/01/18 Allergies/Adverse Reactions: morphine [Morphine] Allergy (Severe, Verified 03/31/18 11:01) Hallucinations tetracycline [Tetracycline] Allergy (Unknown, Verified 03/31/18 11:01) Review of Systems Constitutional: ABSENT: fever(s), headache(s), weight loss Nose, Mouth, and Throat: ABSENT: sore throat Cardiovascular: PRESENT: chest pain - pleuritic, dyspnea on exertion, orthropnea. ABSENT: edema Respiratory: PRESENT: cough, dyspnea, sputum - pink Gastrointestinal: PRESENT: abdominal pain - chronic LLQ, vomiting. ABSENT: constipation, diarrhea, hematochezia Genitourinary: PRESENT: dysuria. ABSENT: hematuria Integumentary: ABSENT: rash Physical Exam Vital Signs: Temp Pulse Resp BP Pulse Ox 98.2 F 75 30 H 96 12/01/18 03:08 12/01/18 05:28 12/01/18 03:59 12/01/18 03:59 Intake & Output 11/29/18 11/30/18 12/01/18 07:59 07:59 07:59 Weight 134 lb 4.184 oz General appearance: PRESENT: no acute distress Eye exam: ABSENT: conjunctival injection, scleral icterus Mouth exam: PRESENT: dry mucosa Neck exam: ABSENT: lymphadenopathy, tenderness, thyromegaly, tracheal deviation Respiratory exam: PRESENT: rales, rhonchi, wheezes Cardiovascular exam: PRESENT: irregular rhythm. ABSENT: diastolic murmur, systolic murmur GI/Abdominal exam: ABSENT: mass, organolmegaly, tenderness Extremities exam: ABSENT: pedal edema Neurological exam: PRESENT: oriented to situation Psychiatric exam: PRESENT: appropriate affect Results Laboratory Results: 12/01/18 00:50 12/01/18 00:50 12/01/18 12/01/18 00:50 00:50 WBC 11.2 H RBC 3.28 L Hgb 9.4 L Hct 28.4 L MCV 87 MCH 28.7 MCHC 33.2 RDW 16.5 H Plt Count 213 Seg Neutrophils % 86.5 H Lymphocytes % 7.3 L Monocytes % 5.1 Eosinophils % 0.5 Basophils % 0.6 Absolute Neutrophils 9.7 H Absolute Lymphocytes 0.8 Absolute Monocytes 0.6 Absolute Eosinophils 0.1 Absolute Basophils 0.1 Sodium 140.0 Potassium 3.3 L Chloride 105 Carbon Dioxide 28 Anion Gap 7 BUN 30 H Creatinine 1.85 H Est GFR ( Amer) 42 L Est GFR (Non-Af Amer) 35 L Glucose 121 H Calcium 8.2 L Total Bilirubin 0.5 AST 12 L ALT 19 L Alkaline Phosphatase 82 Total Protein 5.3 L Albumin 2.8 L 12/01/18 00:50 Troponin I 0.063 NT-Pro-B Natriuret Pep 38075 H Impressions: Chest X-Ray 11/30/18 23:52 IMPRESSION: Cardiomegaly. Interstitial edema with low lung volumes and small bibasilar effusions copyright 2010 [employer]- All Rights Reserved Assessment & Plan - Diagnosis (1) Acute on chronic systolic (congestive) heart failure Is this a current diagnosis for this admission?: Yes Plan: resume furosemide 20mg in view of ckd. Bipap (2) Panlobular emphysema Is this a current diagnosis for this admission?: Yes (3) Chronic vascular disorder of intestine Is this a current diagnosis for this admission?: Yes (4) Chronic kidney disease, stage 3 (moderate) Is this a current diagnosis for this admission?: Yes (5) Paroxysmal a-fib Is this a current diagnosis for this admission?: Yes Plan: no anticoagulation because of anemia (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 Is this a current diagnosis for this admission?: Yes (7) Anemia of renal disease Is this a current diagnosis for this admission?: Yes - Inpatient Certification Based on my medical assessment, after consideration of the patient's comorbidities, presenting symptoms, or acuity I expect that the services needed warrant INPATIENT care.: Yes I certify that my determination is in accordance with my understanding of Medicare's requirements for reasonable and necessary INPATIENT services [42 CFR 412.3e].: Yes Medical Necessity: Significant Comorbidiites Make Outpatient Treatment Too Risky, Need Close Monitoring Due to Risk of Patient Decompensation, Need For Continuous Telemetry Monitoring, Risk of Complication if Not Cared For in Hospital, Risk of Diagnosis Which Will Require Inpatient Eval/Care/Monitoring
[2018-12-02] MEDS: LEVOTHYROXINE SODIUM 0.05 MG TABLET PO SCH (05:27)
[2018-12-02 05:57] LABS: ANION GAP 5 (5-19); BLOOD UREA NITROGEN 30 mg/dL (7-20); CALCIUM 7.9 mg/dL (8.4-10.2); CARBON DIOXIDE 30 mmol/L (22-30); CHLORIDE 104 mmol/L (98-107); GLUCOSE 94 mg/dL (75-110); POTASSIUM 3.2 mmol/L (3.6-5.0)
--- NOTE | 2018-12-02 07:42 | PDOC PROGRESS REPORT ---
Subjective Progress Note for:: 12/02/18 Subjective:: dyspnea no better Reason For Visit: ACUTE AND CHRONIC SYSTOLIC HEART FAILURE Physical Exam Vital Signs: Temp Pulse Resp BP Pulse Ox 98.1 F 69 20 154/69 H 96 12/02/18 03:46 12/02/18 03:46 12/02/18 03:46 12/02/18 03:46 12/02/18 03:46 Intake & Output 11/30/18 12/01/18 12/02/18 07:59 07:59 07:59 Intake Total 1056 Output Total 650 Balance 406 Weight 143 lb 4.807 oz 139 lb 5.314 oz General appearance: PRESENT: no acute distress Respiratory exam: PRESENT: clear to auscultation rodrigo Cardiovascular exam: ABSENT: diastolic murmur, irregular rhythm, systolic murmur GI/Abdominal exam: ABSENT: mass, organolmegaly, tenderness Extremities exam: ABSENT: pedal edema Neurological exam: PRESENT: oriented to situation Psychiatric exam: PRESENT: anxious Results Laboratory Results: 12/01/18 00:50 12/02/18 04:55 12/01/18 12/02/18 00:50 04:55 Sodium 139.0 Potassium 3.2 L Chloride 104 Carbon Dioxide 30 Anion Gap 5 BUN 30 H Creatinine 1.82 H Est GFR ( Amer) 43 L Est GFR (Non-Af Amer) 35 L Glucose 94 Calcium 7.9 L Magnesium 2.0 12/01/18 12/02/18 00:50 04:55 Troponin I 0.063 NT-Pro-B Natriuret Pep 02034 H 32523 H Impressions: Chest X-Ray 11/30/18 23:52 IMPRESSION: Cardiomegaly. Interstitial edema with low lung volumes and small bibasilar effusions copyright 2010 [employer]- All Rights Reserved Assessment & Plan - Diagnosis (1) Acute on chronic systolic (congestive) heart failure Is this a current diagnosis for this admission?: Yes Plan: proBnp 42k 37k. Weight same. Increase furosemide to 40mg iv qd. 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 Is this a current diagnosis for this admission?: Yes (7) Anemia of renal disease Is this a current diagnosis for this admission?: Yes - Inpatient Certification Medical Necessity: Failure to Improve With Outpatient Therapy, Significant Comorbidiites Make Outpatient Treatment Too Risky, Need Close Monitoring Due to Risk of Patient Decompensation, Need For Continuous Telemetry Monitoring, Risk of Complication if Not Cared For in Hospital, Risk of Diagnosis Which Will Req uire Inpatient Eval/Care/Monitoring
[2018-12-02] MEDS: FUROSEMIDE INJ/PF 40 MG/4 ML SDV IV SCH (08:57)
[2018-12-02] MEDS ORDERED: FUROSEMIDE INJ/PF 20 MG/2 ML SDV IV SCH (10:00)
[2018-12-02] MEDS ORDERED: CLOPIDOGREL BISULFATE 75 MG TABLET PO SCH (10:00)
[2018-12-02] MEDS: CLOPIDOGREL BISULFATE 75 MG TABLET PO SCH (10:48)
[2018-12-02] MEDS: CYANOCOBALAMIN (VITAMIN B-12) 1,000 MCG TABLET PO SCH (10:48)
[2018-12-02] MEDS: ASPIRIN 81 MG TABLET, ENT COATED PO SCH (10:48)
[2018-12-02] MEDS: ONDANSETRON HCL INJ/PF 4 MG/2 ML SDV IV PRN (10:48)
[2018-12-02] MEDS: METOPROLOL SUCCINATE 50 MG TAB.SR.24H PO SCH (10:48)
[2018-12-02] MEDS: RANOLAZINE 500 MG TAB.SR.12H PO SCH ×2 (10:48→21:34)
[2018-12-02] MEDS: ALPRAZOLAM 0.5 MG TABLET PO SCH ×2 (10:48→17:59)
[2018-12-02] MEDS: LANSOPRAZOLE 30 MG TAB.RAP.DR PO SCH (10:49)
[2018-12-02] MEDS: POTASSIUM CHLORIDE 10 MEQ CAPSULE.ER PO SCH ×2 (10:49→17:59)
--- NOTE | 2018-12-02 12:23 | XCELERA REPORT ---
[address] [address] Transthoracic Echocardiogram Report Name: ROSELYN DECKER Age: 88 yrs Gender: Male : 1930 Patient Status: Inpatient Patient Location: [address] [place], [place] [address] Study Date: 12/01/2018 09:59 AM Height: 69 in Weight: 134 lb BSA: 1.7 m2 Procedure: A two-dimensional transthoracic echocardiogram with color flow and Doppler was performed. Study Quality: Fair. Reason For Study: systolic failure History: CHF. Ordering Physician: ROMEL LAMB Performed By: Jennifer Wahl Interpretation Summary CHF The left ventricle is mildly to moderately dilated. There is normal left ventricular wall thickness. LV EF is 40% Left ventricular systolic function is moderately reduced. : By tissue doppplers. There is moderate to severe hypokinesis of the anterior and lateral hampton.Rest of the LV hampton show mild hypokinesis. There is no thrombus. The right atrium is normal. The left atrial size is normal. The interatrial septum is intact with no evidence for an atrial septal defect. There is no Doppler evidence for an interatrial shunt There is no evidence of mitral valve prolapse. There is no vegetation seen on the mitral valve. There is no mitral valve stenosis. There is a moderate amount of mitral regurgitation There is no aortic valvular vegetation. There is no aortic valve stenosis There is aortic sclerosis without aortic stenosis. There is no LVOT obstruction. There is a mild amount of aortic regurgitation There is no tricuspid stenosis. There is a moderate amount of tricuspid regurgitation There is moderate to severe pulmonary hypertension by echo RVSp is 59 to 64 mm of Hg , with RA mean of 5 to 10. There is no pulmonic valvular stenosis. There is a trace amount of pulmonic regurgitation The inferior vena cava appeared normal and decreased > 50% with respiration (RAP 5-10 mmHg) There is no pericardial effusion. Large left pleural effusion. MMode/2D Measurements & Calculations RVDd: 2.2 cm LVIDd: 5.8 cm FS: 20.0 % EPSS: 2.1 cm IVSd: 0.89 cm LVIDs: 4.7 cm EDV(Teich): 169.0 ml LVPWd: 0.88 cm ESV(Teich): 100.8 ml EF(Teich): 40.4 % Ao root diam: 2.9 cm LVLd ap4: 8.6 cm SV(MOD-sp4): 80.0 ml EDV(MOD-sp4): 162.0 ml Ao root area: 6.5 cm2 LVLs ap4: 6.8 cm LA dimension: 4.0 cm ESV(MOD-sp4): 82.0 ml EF(MOD-sp4): 49.4 % Doppler Measurements & Calculations MV E max brooke: MV P1/2t max brooke: Ao V2 max: AI max brooke: 110.6 cm/sec 110.1 cm/sec 164.7 cm/sec 369.2 cm/sec MV A max brooke: MV P1/2t: 43.7 msec Ao max PG: AI max P.0 cm/sec MVA(P1/2t): 5.0 cm2 10.9 mmHg 54.5 mmHg MV E/A: 0.99 MV dec slope: AI dec slope: 737.6 cm/sec2 152.1 cm/sec2 MV dec time: AI P1/2t: 0.13 sec 710.8 msec LV V1 max PG: PA V2 max: PI end-d brooke: TR max brooke: 6.0 mmHg 117.5 cm/sec 146.0 cm/sec 365.6 cm/sec LV V1 max: PA max P.5 mmHg TR max P.4 cm/sec 53.5 mmHg AV P1/2t-pr_phl: MV P1/2t-pr_phl: 710.8 msec 43.7 msec Left Ventricle The left ventricle is mildly to moderately dilated. There is normal left ventricular wall thickness. LV EF is 40%. Left ventricular systolic function is moderately reduced. Doppler measurements suggest impaired left ventricular relaxation, which is associated with grade I/IV or mild diastolic dysfunction. : By tissue doppplers. There is moderate to severe hypokinesis of the anterior and lateral hampton.Rest of the LV hampton show mild hypokinesis. There is no thrombus. There is no ventricular septal defect visualized. Right Ventricle The right ventricle is normal in size and function. Atria The right atrium is normal. The left atrial size is normal. The interatrial septum is intact with no evidence for an atrial septal defect. There is no Doppler evidence for an interatrial shunt. Mitral Valve There is no evidence of mitral valve prolapse. There is no vegetation seen on the mitral valve. There is no mitral valve stenosis. There is a moderate amount of mitral regurgitation. Aortic Valve There is no aortic valvular vegetation. There is no aortic valve stenosis. There is aortic sclerosis without aortic stenosis. There is no LVOT obstruction. There is a mild amount of aortic regurgitation. Tricuspid Valve There is no tricuspid stenosis. There is a moderate amount of tricuspid regurgitation. There is moderate to severe pulmonary hypertension by echo. RVSp is 59 to 64 mm of Hg , with RA mean of 5 to 10. Pulmonic Valve There is no pulmonic valvular stenosis. There is a trace amount of pulmonic regurgitation. Great Vessels The aortic root is normal size. The inferior vena cava appeared normal and decreased > 50% with respiration (RAP 5-10 mmHg). Effusions There is no pericardial effusion. Large left pleural effusion. : ROMEL LAMB > Marie Leal
[2018-12-02] MEDS: ATORVASTATIN CALCIUM 20 MG TABLET PO SCH (21:34)
--- NOTE | 2018-12-02 22:03 | RADIOLOGY REPORT (SQ) ---
EXAM DESCRIPTION: XR CHEST 2 VIEWS COMPLETED DATE/TME: 12/02/2018 00:00 CLINICAL HISTORY: 88 years, Male, big L effusion on echo COMPARISON: 12/01/2018 chest NUMBER OF VIEWS: 2 TECHNIQUE: Frontal and lateral views of the chest LIMITATIONS: None. FINDINGS: Heart size is normal. Atheromatous change thoracic aorta. Surgical clips in the upper abdomen. Interstitial edema with small to moderate bilateral effusions. No pneumothorax. IMPRESSION: Little change from the prior exam. Persistent interstitial edema with small to moderate bilateral effusions copyright 2010 [employer]- All Rights Reserved
[2018-12-03] MEDS: LEVOTHYROXINE SODIUM 0.05 MG TABLET PO SCH (05:19)
[2018-12-03 06:15] LABS: ANION GAP 5 (5-19); BLOOD UREA NITROGEN 32 mg/dL (7-20); CALCIUM 8.1 mg/dL (8.4-10.2); CARBON DIOXIDE 31 mmol/L (22-30); CHLORIDE 103 mmol/L (98-107); GLUCOSE 91 mg/dL (75-110); POTASSIUM 3.9 mmol/L (3.6-5.0); SODIUM 139.4 mmol/L (137-145)
--- NOTE | 2018-12-03 07:23 | PDOC PROGRESS REPORT ---
Subjective Progress Note for:: 12/03/18 Subjective:: peeing more. Bipap 2h. Reason For Visit: ACUTE AND CHRONIC SYSTOLIC HEART FAILURE Physical Exam Vital Signs: Temp Pulse Resp BP Pulse Ox 98.6 F 65 21 H 137/60 H 98 12/03/18 03:35 12/03/18 03:35 12/03/18 03:35 12/03/18 03:35 12/03/18 03:35 Intake & Output 12/01/18 12/02/18 12/03/18 07:59 07:59 07:59 Intake Total 1056 637 Output Total 650 1080 Balance 406 -443 Weight 143 lb 4.807 oz 139 lb 5.314 oz 131 lb 9.855 oz General appearance: PRESENT: no acute distress Respiratory exam: PRESENT: clear to auscultation rodrigo Cardiovascular exam: ABSENT: diastolic murmur, irregular rhythm, systolic murmur GI/Abdominal exam: ABSENT: mass, organolmegaly, tenderness Extremities exam: ABSENT: pedal edema Neurological exam: PRESENT: oriented to situation Psychiatric exam: PRESENT: appropriate affect Results Laboratory Results: 12/01/18 00:50 12/03/18 05:30 12/03/18 05:30 Sodium 139.4 Potassium 3.9 Chloride 103 Carbon Dioxide 31 H Anion Gap 5 BUN 32 H Creatinine 1.91 H Est GFR ( Amer) 41 L Est GFR (Non-Af Amer) 34 L Glucose 91 Calcium 8.1 L 12/01/18 12/02/18 12/03/18 00:50 04:55 05:30 Troponin I 0.063 NT-Pro-B Natriuret Pep 31888 H 66016 H 38357 H Impressions: Chest X-Ray 12/02/18 00:00 IMPRESSION: Little change from the prior exam. Persistent interstitial edema with small to moderate bilateral effusions copyright 2011 [employer]- All Rights Reserved Assessment & Plan - Diagnosis (1) Acute on chronic systolic (congestive) heart failure Is this a current diagnosis for this admission?: Yes Plan: Down 12#. Bnp 42k 26k. Bun30 cr1.9. K3.9. Decrease KCl to qd. 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 Is this a current diagnosis for this admission?: Yes (7) Anemia of renal disease Is this a current diagnosis for this admission?: Yes - Inpatient Certification Medical Necessity: Failure to Improve With Outpatient Therapy, Significant Comorbidiites Make Outpatient Treatment Too Risky, Need Close Monitoring Due to Risk of Patient Decompensation, Need For Continuous Telemetry Monitoring, Risk of Complication if Not Cared For in Hospital, Risk of Diagnosis Which Will Require Inpatient Eval/Care/Monitoring
[2018-12-03] MEDS: POTASSIUM CHLORIDE 10 MEQ CAPSULE.ER PO SCH (10:13)
[2018-12-03] MEDS: FUROSEMIDE INJ/PF 40 MG/4 ML SDV IV SCH (10:13)
[2018-12-03] MEDS: ASPIRIN 81 MG TABLET, ENT COATED PO SCH (10:13)
[2018-12-03] MEDS: CYANOCOBALAMIN (VITAMIN B-12) 1,000 MCG TABLET PO SCH (10:14)
[2018-12-03] MEDS: METOPROLOL SUCCINATE 50 MG TAB.SR.24H PO SCH (10:14)
[2018-12-03] MEDS: LANSOPRAZOLE 30 MG TAB.RAP.DR PO SCH (10:14)
[2018-12-03] MEDS: ALPRAZOLAM 0.5 MG TABLET PO SCH ×2 (10:16→17:36)
[2018-12-03] MEDS: CLOPIDOGREL BISULFATE 75 MG TABLET PO SCH (10:16)
[2018-12-03] MEDS: RANOLAZINE 500 MG TAB.SR.12H PO SCH ×2 (10:17→21:37)
[2018-12-03] MEDS: ATORVASTATIN CALCIUM 20 MG TABLET PO SCH (21:37)
[2018-12-04] MEDS: LEVOTHYROXINE SODIUM 0.05 MG TABLET PO SCH (05:21)
[2018-12-04 06:26] LABS: ANION GAP 7 (5-19); BLOOD UREA NITROGEN 33 mg/dL (7-20); CARBON DIOXIDE 30 mmol/L (22-30); CHLORIDE 101 mmol/L (98-107); GLUCOSE 92 mg/dL (75-110); POTASSIUM 3.8 mmol/L (3.6-5.0); SODIUM 137.9 mmol/L (137-145)
--- NOTE | 2018-12-04 08:00 | PDOC PROGRESS REPORT ---
Subjective Progress Note for:: 12/04/18 Subjective:: Dyspnea better. Wants flonase and miralax. Reason For Visit: ACUTE AND CHRONIC SYSTOLIC HEART FAILURE Physical Exam Vital Signs: Temp Pulse Resp BP Pulse Ox 98.3 F 105 H 20 155/54 H 93 12/04/18 03:49 12/04/18 03:49 12/04/18 03:49 12/04/18 03:49 12/04/18 03:49 Intake & Output 12/02/18 12/03/18 12/04/18 07:59 07:59 07:59 Intake Total 8268 451 3251 Output Total 650 1455 1475 Balance 406 -818 -300 Weight 139 lb 5.314 oz 131 lb 9.855 oz 129 lb 13.636 oz General appearance: PRESENT: no acute distress Respiratory exam: PRESENT: clear to auscultation rodrigo Cardiovascular exam: ABSENT: diastolic murmur, irregular rhythm, systolic murmur GI/Abdominal exam: ABSENT: mass, organolmegaly, tenderness Extremities exam: ABSENT: pedal edema Neurological exam: PRESENT: oriented to situation Psychiatric exam: PRESENT: appropriate affect Results Laboratory Results: 12/01/18 00:50 12/04/18 05:06 12/04/18 05:06 Sodium 137.9 Potassium 3.8 Chloride 101 Carbon Dioxide 30 Anion Gap 7 BUN 33 H Creatinine 1.85 H Est GFR ( Amer) 42 L Est GFR (Non-Af Amer) 35 L Glucose 92 Calcium 8.0 L 12/01/18 12/02/18 12/03/18 00:50 04:55 05:30 Troponin I 0.063 NT-Pro-B Natriuret Pep 56148 H 19375 H 76917 H 12/04/18 05:06 Troponin I NT-Pro-B Natriuret Pep 63470 H Impressions: Chest X-Ray 12/02/18 00:00 IMPRESSION: Little change from the prior exam. Persistent interstitial edema with small to moderate bilateral effusions copyright 2011 [employer]- All Rights Reserved Assessment & Plan - Diagnosis (1) Acute on chronic systolic (congestive) heart failure Is this a current diagnosis for this admission?: Yes Plan: proBnp still 26k. BUN33. Continue furosemide 40iv qd. 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 Is this a current diagnosis for this admission?: Yes (7) Anemia of renal disease Is this a current diagnosis for this admission?: Yes - Inpatient Certification Medical Necessity: Failure to Improve With Outpatient Therapy, Significant Comorbidiites Make Outpatient Treatment Too Risky, Need Close Monitoring Due to Risk of Patient Decompensation, Need For Continuous Telemetry Monitoring, Risk of Complication if Not Cared For in Hospital, Risk of Diagnosis Which Will Require Inpatient Eval/Care/Monitoring
[2018-12-04] MEDS: FUROSEMIDE INJ/PF 40 MG/4 ML SDV IV SCH (09:03)
[2018-12-04] MEDS: ASPIRIN 81 MG TABLET, ENT COATED PO SCH (09:04)
[2018-12-04] MEDS: CYANOCOBALAMIN (VITAMIN B-12) 1,000 MCG TABLET PO SCH (09:04)
[2018-12-04] MEDS: CLOPIDOGREL BISULFATE 75 MG TABLET PO SCH (09:04)
[2018-12-04] MEDS: ALPRAZOLAM 0.5 MG TABLET PO SCH ×2 (09:04→17:27)
[2018-12-04] MEDS: RANOLAZINE 500 MG TAB.SR.12H PO SCH ×2 (09:04→21:23)
[2018-12-04] MEDS: LANSOPRAZOLE 30 MG TAB.RAP.DR PO SCH (09:04)
[2018-12-04] MEDS: METOPROLOL SUCCINATE 50 MG TAB.SR.24H PO SCH (09:05)
[2018-12-04] MEDS: POTASSIUM CHLORIDE 10 MEQ CAPSULE.ER PO SCH (09:05)
[2018-12-04] MEDS: FLUTICASONE NASAL SPRAY 50 MCG/SPRY 120 SPRAY/16 GM NASL SCH (10:29)
[2018-12-04] MEDS: POLYETHYLENE GLYCOL 3350 POWDER 17 GM/1 PACKET PO SCH (10:31)
[2018-12-04] MEDS: PROMETHAZINE HCL 25 MG TABLET PO PRN ×2 (10:36→16:45)
[2018-12-04 14:29] LABS: ANION GAP 8 (5-19); BLOOD UREA NITROGEN 32 mg/dL (7-20); CALCIUM 8.4 mg/dL (8.4-10.2); CARBON DIOXIDE 29 mmol/L (22-30); CHLORIDE 97 mmol/L (98-107); GLUCOSE 107 mg/dL (75-110); POTASSIUM 3.8 mmol/L (3.6-5.0)
[2018-12-04] MEDS: ATORVASTATIN CALCIUM 20 MG TABLET PO SCH (21:23)
[2018-12-05] MEDS: PROMETHAZINE HCL 25 MG TABLET PO PRN ×3 (00:48→17:35)
[2018-12-05] MEDS: LEVOTHYROXINE SODIUM 0.05 MG TABLET PO SCH (05:08)
[2018-12-05] MEDS ORDERED: ONDANSETRON HCL INJ/PF 4 MG/2 ML SDV ONE (06:21)
--- NOTE | 2018-12-05 07:02 | PDOC PROGRESS REPORT ---
Subjective Progress Note for:: 12/05/18 Subjective:: vomited*4 last night. Gets like this monthly. Promethazine failed. Dyspnea better. Reason For Visit: ACUTE AND CHRONIC SYSTOLIC HEART FAILURE Physical Exam Vital Signs: Temp Pulse Resp BP Pulse Ox 98.0 F 60 20 184/63 H 95 12/05/18 03:47 12/05/18 03:47 12/05/18 03:47 12/05/18 03:47 12/05/18 03:47 Intake & Output 12/03/18 12/04/18 12/05/18 07:59 07:59 07:59 Intake Total 637 1175 591 Output Total 1455 1475 2280 Balance -637 -016 -3174 Weight 131 lb 9.855 oz 129 lb 13.636 oz 129 lb 13.636 oz General appearance: PRESENT: mild distress Respiratory exam: PRESENT: clear to auscultation rodrigo Cardiovascular exam: PRESENT: irregular rhythm - skips. ABSENT: diastolic murmur, systolic murmur GI/Abdominal exam: ABSENT: mass, organolmegaly, tenderness Extremities exam: ABSENT: pedal edema Neurological exam: PRESENT: oriented to situation Psychiatric exam: PRESENT: anxious Results Laboratory Results: 12/01/18 00:50 12/04/18 13:53 Impressions: Chest X-Ray 12/02/18 00:00 IMPRESSION: Little change from the prior exam. Persistent interstitial edema with small to moderate bilateral effusions copyright 2011 [employer]- All Rights Reserved Assessment & Plan - Diagnosis (1) Acute on chronic systolic (congestive) heart failure Is this a current diagnosis for this admission?: Yes Plan: mr mild ej40 Rvp64. CKD and recent K6 rule out wesley and entresto. COPD rules out higher beta. Systolic failure rules out amlodipine. Try hydralazine for bp & chf. (2) Panlobular emphysema Is this a current diagnosis for this admission?: Yes (3) Chronic vascular disorder of intestine Is this a current diagnosis for this admission?: Yes Plan: ondansetron (4) Chronic kidney disease, stage 3 (moderate) Is this a current diagnosis for this admission?: Yes (5) Paroxysmal a-fib Is this a current diagnosis for this admission?: Yes (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 Is this a current diagnosis for this admission?: Yes (7) Anemia of renal disease Is this a current diagnosis for this admission?: Yes (8) Postgastric surgery syndrome Is this a current diagnosis for this admission?: Yes - Inpatient Certification Medical Necessity: Failure to Improve With Outpatient Therapy, Significant Co morbidiites Make Outpatient Treatment Too Risky, Need Close Monitoring Due to Risk of Patient Decompensation, Need For Continuous Telemetry Monitoring, Risk of Complication if Not Cared For in Hospital, Risk of Diagnosis Which Will Require Inpatient Eval/Care/Monitoring
[2018-12-05 08:15] LABS: ANION GAP 11 (5-19); BLOOD UREA NITROGEN 31 mg/dL (7-20); CALCIUM 8.5 mg/dL (8.4-10.2); CARBON DIOXIDE 25 mmol/L (22-30); CHLORIDE 97 mmol/L (98-107); GLUCOSE 89 mg/dL (75-110); SODIUM 133.2 mmol/L (137-145)
[2018-12-05] MEDS: RANOLAZINE 500 MG TAB.SR.12H PO SCH ×2 (09:35→21:22)
[2018-12-05] MEDS: ALPRAZOLAM 0.5 MG TABLET PO SCH ×2 (09:35→17:35)
[2018-12-05] MEDS: CLOPIDOGREL BISULFATE 75 MG TABLET PO SCH (09:35)
[2018-12-05] MEDS: LANSOPRAZOLE 30 MG TAB.RAP.DR PO SCH (09:35)
[2018-12-05] MEDS: CYANOCOBALAMIN (VITAMIN B-12) 1,000 MCG TABLET PO SCH (09:35)
[2018-12-05] MEDS: HYDRALAZINE HCL 25 MG TABLET PO SCH ×2 (09:35→21:21)
[2018-12-05] MEDS: ASPIRIN 81 MG TABLET, ENT COATED PO SCH (09:36)
[2018-12-05] MEDS: FUROSEMIDE INJ/PF 40 MG/4 ML SDV IV SCH (09:36)
[2018-12-05] MEDS: POLYETHYLENE GLYCOL 3350 POWDER 17 GM/1 PACKET PO SCH (09:36)
[2018-12-05] MEDS: METOPROLOL SUCCINATE 50 MG TAB.SR.24H PO SCH (09:36)
[2018-12-05] MEDS: FLUTICASONE NASAL SPRAY 50 MCG/SPRY 120 SPRAY/16 GM NASL SCH (09:36)
[2018-12-05] MEDS: POTASSIUM CHLORIDE 10 MEQ CAPSULE.ER PO SCH (09:39)
[2018-12-05] MEDS: TRAMADOL HCL 50 MG TABLET PO PRN ×2 (09:50→17:35)
[2018-12-05] MEDS: ONDANSETRON HCL INJ/PF 4 MG/2 ML SDV IV PRN ×2 (13:49→20:14)
[2018-12-05] MEDS: ATORVASTATIN CALCIUM 20 MG TABLET PO SCH (21:21)
[2018-12-06] MEDS: LEVOTHYROXINE SODIUM 0.05 MG TABLET PO SCH (05:08)
[2018-12-06 05:48] LABS: ANION GAP 16 (5-19); BLOOD UREA NITROGEN 40 mg/dL (7-20); CALCIUM 8.8 mg/dL (8.4-10.2); CARBON DIOXIDE 26 mmol/L (22-30); CHLORIDE 93 mmol/L (98-107); GLUCOSE 85 mg/dL (75-110); POTASSIUM 4.3 mmol/L (3.6-5.0); SODIUM 135.3 mmol/L (137-145)
[2018-12-06] MEDS: PROMETHAZINE HCL 25 MG TABLET PO PRN ×2 (07:29)
--- NOTE | 2018-12-06 08:14 | PDOC PROGRESS REPORT ---
Subjective Progress Note for:: 12/06/18 Subjective:: LUQ pain again. Has flared yearly *4 at least. Tramadol. No bipap last night. Reason For Visit: ACUTE AND CHRONIC SYSTOLIC HEART FAILURE Physical Exam Vital Signs: Temp Pulse Resp BP Pulse Ox 97.8 F 70 20 148/62 H 97 12/06/18 04:02 12/06/18 04:02 12/06/18 04:02 12/06/18 04:21 12/06/18 04:02 Intake & Output 12/04/18 12/05/18 12/06/18 07:59 07:59 08:59 Intake Total 1175 591 475 Output Total 1475 2280 750 Balance -300 -1689 -199 Weight 129 lb 13.636 oz 124 lb 12.506 oz 120 lb 13.013 oz General appearance: PRESENT: mild distress Respiratory exam: PRESENT: clear to auscultation rodrigo Cardiovascular exam: ABSENT: diastolic murmur, irregular rhythm, systolic murmur GI/Abdominal exam: PRESENT: tenderness - mild LLQ. ABSENT: mass, organolmegaly Extremities exam: ABSENT: pedal edema Neurological exam: PRESENT: oriented to situation Psychiatric exam: PRESENT: anxious Results Laboratory Results: 12/01/18 00:50 12/06/18 04:45 12/05/18 12/06/18 07:00 04:45 Sodium 133.2 L 135.3 L Potassium 5.0 D 4.3 Chloride 97 L 93 L Carbon Dioxide 25 26 Anion Gap 11 16 BUN 31 H 40 H Creatinine 1.81 H 2.26 H Est GFR ( Amer) 43 L 33 L Est GFR (Non-Af Amer) 36 L 28 L Glucose 89 85 Calcium 8.5 8.8 12/01/18 12/02/18 12/03/18 00:50 04:55 05:30 Troponin I 0.063 NT-Pro-B Natriuret Pep 60475 H 52926 H 64953 H 12/04/18 12/05/18 12/05/18 05:06 07:00 09:49 Troponin I NT-Pro-B Natriuret Pep 09048 H Cancelled 66255 H 12/06/18 04:45 Troponin I NT-Pro-B Natriuret Pep 69654 H Impressions: Chest X-Ray 12/02/18 00:00 IMPRESSION: Little change from the prior exam. Persistent interstitial edema with small to moderate bilateral effusions copyright 2011 [employer]- All Rights Reserved Assessment & Plan - Diagnosis (1) Acute on chronic systolic (congestive) heart failure Is this a current diagnosis for this admission?: Yes Plan: cr2.3 [id number]. Stopped furosemide. Prognosis grim. Refused to consider hospice. (2) Panlobular emphysema Is this a current diagnosis for this admission?: Yes (3) Chronic vascular disorder of intestine Is this a current diagnosis for this admission?: Yes Plan: pain again. This will prolong stay as it has in past. Not eating. 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 - Inpatient Certification Medical Necessity: Failure to Improve With Outpatient Therapy, Significant Comorbidiites Make Outpatient Treatment Too Risky, Need For Continuous Telemetry Monitoring, Need for Pain Control, Risk of Complication if Not Cared For in Hospital, Risk of Diagnosis Which Will Require Inpatient Eval/Care/Monitoring
[2018-12-06] MEDS: CLOPIDOGREL BISULFATE 75 MG TABLET PO SCH (09:46)
[2018-12-06] MEDS: LANSOPRAZOLE 30 MG TAB.RAP.DR PO SCH (09:46)
[2018-12-06] MEDS: ALPRAZOLAM 0.5 MG TABLET PO SCH ×2 (09:46→17:19)
[2018-12-06] MEDS: ASPIRIN 81 MG TABLET, ENT COATED PO SCH (09:46)
[2018-12-06] MEDS: METOPROLOL SUCCINATE 50 MG TAB.SR.24H PO SCH (09:46)
[2018-12-06] MEDS: RANOLAZINE 500 MG TAB.SR.12H PO SCH ×2 (09:46→22:04)
[2018-12-06] MEDS: CYANOCOBALAMIN (VITAMIN B-12) 1,000 MCG TABLET PO SCH (09:46)
[2018-12-06] MEDS: POLYETHYLENE GLYCOL 3350 POWDER 17 GM/1 PACKET PO SCH (09:47)
[2018-12-06] MEDS: FLUTICASONE NASAL SPRAY 50 MCG/SPRY 120 SPRAY/16 GM NASL SCH (09:47)
[2018-12-06] MEDS: HYDRALAZINE HCL 25 MG TABLET PO SCH ×2 (09:47→22:04)
[2018-12-06] MEDS: ATORVASTATIN CALCIUM 20 MG TABLET PO SCH (22:04)
[2018-12-07] MEDS: LEVOTHYROXINE SODIUM 0.05 MG TABLET PO SCH (05:40)
[2018-12-07 05:55] LABS: ANION GAP 6 (5-19); BLOOD UREA NITROGEN 49 mg/dL (7-20); CARBON DIOXIDE 33 mmol/L (22-30); CHLORIDE 92 mmol/L (98-107); GLUCOSE 110 mg/dL (75-110); POTASSIUM 3.9 mmol/L (3.6-5.0); SODIUM 130.6 mmol/L (137-145)
--- NOTE | 2018-12-07 08:22 | PDOC PROGRESS REPORT ---
Subjective Progress Note for:: 12/07/18 Subjective:: better. Wants food. Nurse noted confusion last night. Reason For Visit: ACUTE AND CHRONIC SYSTOLIC HEART FAILURE Physical Exam Vital Signs: Temp Pulse Resp BP Pulse Ox 97.0 F 63 18 142/73 H 100 12/07/18 01:34 12/07/18 02:00 12/07/18 01:34 12/07/18 01:34 12/07/18 01:34 Intake & Output 12/06/18 12/07/18 12/08/18 07:59 07:59 07:59 Intake Total 412 Output Total 1150 Balance -738 Weight 121 lb 14.65 oz General appearance: PRESENT: no acute distress Respiratory exam: PRESENT: rales - few anterior Cardiovascular exam: ABSENT: diastolic murmur, irregular rhythm, systolic murmur GI/Abdominal exam: ABSENT: mass, organolmegaly, tenderness Extremities exam: ABSENT: pedal edema Neurological exam: PRESENT: oriented to situation Psychiatric exam: PRESENT: appropriate affect Results Laboratory Results: 12/01/18 00:50 12/07/18 04:33 12/07/18 04:33 Sodium 130.6 L Potassium 3.9 Chloride 92 L Carbon Dioxide 33 H Anion Gap 6 BUN 49 H Creatinine 2.31 H Est GFR ( Amer) 33 L Est GFR (Non-Af Amer) 27 L Glucose 110 Calcium 8.0 L 12/01/18 12/02/18 12/03/18 00:50 04:55 05:30 Troponin I 0.063 NT-Pro-B Natriuret Pep 20990 H 43055 H 28863 H 12/04/18 12/05/18 12/05/18 05:06 07:00 09:49 Troponin I NT-Pro-B Natriuret Pep 00237 H Cancelled 04626 H 12/06/18 12/07/18 04:45 04:33 Troponin I NT-Pro-B Natriuret Pep 17078 H 57729 H Impressions: Chest X-Ray 12/02/18 00:00 IMPRESSION: Little change from the prior exam. Persistent interstitial edema with small to moderate bilateral effusions copyright 2011 [employer]- All Rights Reserved Assessment & Plan - Diagnosis (1) Acute on chronic systolic (congestive) heart failure Is this a current diagnosis for this admission?: Yes Plan: bun 31 40 49 cr1.3. Holding furosemide again. 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 Is this a current diagnosis for this admission?: Yes (7) Anemia of renal disease Is this a current diagnosis for this admission?: Yes (8) Postgastric surgery syndrome Is this a current diagnosis for this admission?: Yes Plan: cardiac diet (9) Acute respiratory failure with hypoxemia Is this a current diagnosis for this admission?: Yes - Inpatient Certification Medical Necessity: Failure to Improve With Outpatient Therapy, Significant Comorbidiites Make Outpatient Treatment Too Risky, Need Close Monitoring Due to Risk of Patient Decompensation, Need For Continuous Telemetry Monitoring, Need for Pain Control, Risk of Complication if Not Cared For in Hospital, Risk of Diagnosis Which Will Require Inpatient Eval/Care/Monitoring
[2018-12-07] MEDS: ASPIRIN 81 MG TABLET, ENT COATED PO SCH (09:39)
[2018-12-07] MEDS: METOPROLOL SUCCINATE 50 MG TAB.SR.24H PO SCH (09:39)
[2018-12-07] MEDS: LANSOPRAZOLE 30 MG TAB.RAP.DR PO SCH (09:39)
[2018-12-07] MEDS: ALPRAZOLAM 0.5 MG TABLET PO SCH ×2 (09:39→17:07)
[2018-12-07] MEDS: RANOLAZINE 500 MG TAB.SR.12H PO SCH ×2 (09:39→21:51)
[2018-12-07] MEDS: HYDRALAZINE HCL 25 MG TABLET PO SCH ×2 (09:39→21:51)
[2018-12-07] MEDS: CLOPIDOGREL BISULFATE 75 MG TABLET PO SCH (09:39)
[2018-12-07] MEDS: CYANOCOBALAMIN (VITAMIN B-12) 1,000 MCG TABLET PO SCH (09:39)
[2018-12-07] MEDS: POLYETHYLENE GLYCOL 3350 POWDER 17 GM/1 PACKET PO SCH (09:39)
[2018-12-07] MEDS: FLUTICASONE NASAL SPRAY 50 MCG/SPRY 120 SPRAY/16 GM NASL SCH (09:40)
[2018-12-07] MEDS: ATORVASTATIN CALCIUM 20 MG TABLET PO SCH (21:52)
[2018-12-08] MEDS: LEVOTHYROXINE SODIUM 0.05 MG TABLET PO SCH (06:01)
--- NOTE | 2018-12-08 08:14 | PDOC PROGRESS REPORT ---
Subjective Progress Note for:: 12/08/18 Subjective:: better eating Reason For Visit: ACUTE AND CHRONIC SYSTOLIC HEART FAILURE Physical Exam Vital Signs: Temp Pulse Resp BP Pulse Ox 97.3 F 66 20 146/81 H 97 12/08/18 04:02 12/08/18 04:02 12/08/18 04:02 12/08/18 04:02 12/08/18 04:02 Intake & Output 12/07/18 12/08/18 12/09/18 07:59 07:59 07:59 Intake Total 412 1100 Output Total 1150 1750 Balance -738 -650 Weight 121 lb 14.65 oz 120 lb 2.431 oz General appearance: PRESENT: no acute distress Respiratory exam: PRESENT: clear to auscultation rodrigo Cardiovascular exam: ABSENT: diastolic murmur, irregular rhythm, systolic murmur GI/Abdominal exam: ABSENT: mass, organolmegaly, tenderness Extremities exam: ABSENT: pedal edema Neurological exam: PRESENT: oriented to situation Psychiatric exam: PRESENT: appropriate affect Results Laboratory Results: 12/01/18 00:50 12/07/18 04:33 12/01/18 12/02/18 12/03/18 00:50 04:55 05:30 Troponin I 0.063 NT-Pro-B Natriuret Pep 35354 H 02337 H 14364 H 12/04/18 12/05/18 12/05/18 05:06 07:00 09:49 Troponin I NT-Pro-B Natriuret Pep 22134 H Cancelled 50070 H 12/06/18 12/07/18 04:45 04:33 Troponin I NT-Pro-B Natriuret Pep 72711 H 01591 H Impressions: Chest X-Ray 12/02/18 00:00 IMPRESSION: Little change from the prior exam. Persistent interstitial edema with small to moderate bilateral effusions copyright 2011 [employer]- All Rights Reserved Assessment & Plan - Diagnosis (1) Acute on chronic systolic (congestive) heart failure Is this a current diagnosis for this admission?: Yes Plan: consider home tomorrow on furosemide 20mg daily if continues to eat 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 Is this a current diagnosis for this admission?: Yes (7) Anemia of renal disease Is this a current diagnosis for this admission?: Yes (8) Postgastric surgery syndrome Is this a current diagnosis for this admission?: Yes (9) Acute respiratory failure with hypoxemia Is this a current diagnosis for this admission?: Yes - Inpatient Certification Medical Necessity: Significant Comorbidiites Make Outpatient Treatment Too Risky, Need Close Monitoring Due to Risk of Patient Decompensation, Need For Continuous Telemetry Monitoring, Risk of Complication if Not Cared For in Hospital, Risk of Diagnosis Which Will Require Inpatient Eval/Care/Monitoring
[2018-12-08] MEDS: POLYETHYLENE GLYCOL 3350 POWDER 17 GM/1 PACKET PO SCH (09:21)
[2018-12-08] MEDS: CLOPIDOGREL BISULFATE 75 MG TABLET PO SCH (09:21)
[2018-12-08] MEDS: METOPROLOL SUCCINATE 50 MG TAB.SR.24H PO SCH (09:21)
[2018-12-08] MEDS: CYANOCOBALAMIN (VITAMIN B-12) 1,000 MCG TABLET PO SCH (09:21)
[2018-12-08] MEDS: RANOLAZINE 500 MG TAB.SR.12H PO SCH ×2 (09:21→21:55)
[2018-12-08] MEDS: LANSOPRAZOLE 30 MG TAB.RAP.DR PO SCH (09:22)
[2018-12-08] MEDS: ASPIRIN 81 MG TABLET, ENT COATED PO SCH (09:22)
[2018-12-08] MEDS: ALPRAZOLAM 0.5 MG TABLET PO SCH ×2 (09:22→18:17)
[2018-12-08] MEDS: FLUTICASONE NASAL SPRAY 50 MCG/SPRY 120 SPRAY/16 GM NASL SCH (09:23)
[2018-12-08 12:08] LABS: ANION GAP 9 (5-19); BLOOD UREA NITROGEN 41 mg/dL (7-20); CALCIUM 8.8 mg/dL (8.4-10.2); CARBON DIOXIDE 29 mmol/L (22-30); CHLORIDE 96 mmol/L (98-107); GLUCOSE 120 mg/dL (75-110); POTASSIUM 4.4 mmol/L (3.6-5.0); SODIUM 133.5 mmol/L (137-145)
[2018-12-08] MEDS: ATORVASTATIN CALCIUM 20 MG TABLET PO SCH (21:55)
[2018-12-09] MEDS: LEVOTHYROXINE SODIUM 0.05 MG TABLET PO SCH (06:32)
--- NOTE | 2018-12-09 07:01 | PDOC PROGRESS REPORT ---
Subjective Progress Note for:: 12/09/18 Subjective:: coughing all night but cant get anything up. Not ready for home. Reason For Visit: ACUTE AND CHRONIC SYSTOLIC HEART FAILURE Physical Exam Vital Signs: Temp Pulse Resp BP Pulse Ox 97.9 F 69 18 155/80 H 100 12/09/18 03:51 12/09/18 03:51 12/09/18 03:51 12/09/18 03:51 12/09/18 03:51 Intake & Output 12/07/18 12/08/18 12/09/18 07:59 07:59 07:59 Intake Total 412 1100 1270 Output Total 1150 1750 950 Balance -738 -650 320 Weight 121 lb 14.65 oz 120 lb 2.431 oz 119 lb 7.849 oz Respiratory exam: PRESENT: clear to auscultation rodrigo Cardiovascular exam: ABSENT: diastolic murmur, irregular rhythm, systolic murmur GI/Abdominal exam: ABSENT: mass, organolmegaly, tenderness Extremities exam: ABSENT: pedal edema Neurological exam: PRESENT: oriented to situation Psychiatric exam: PRESENT: appropriate affect Results Laboratory Results: 12/01/18 00:50 12/08/18 10:00 Impressions: Chest X-Ray 12/02/18 00:00 IMPRESSION: Little change from the prior exam. Persistent interstitial edema with small to moderate bilateral effusions copyright 2011 [employer]- All Rights Reserved Assessment & Plan - Diagnosis (1) Acute on chronic systolic (congestive) heart failure Is this a current diagnosis for this admission?: Yes Plan: bun and creatinine coming down. Resume furosemide at 20mg qd. 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 Is this a current diagnosis for this admission?: Yes (7) Anemia of renal disease Is this a current diagnosis for this admission?: Yes (8) Postgastric surgery syndrome Is this a current diagnosis for this admission?: Yes (9) Acute respiratory failure with hypoxemia Is this a current diagnosis for this admission?: Yes - Inpatient Certification Medical Necessity: Failure to Improve With Outpatient Therapy, Significant Comorbidiites Make Outpatient Treatment Too Risky, Need Close Monitoring Due to Risk of Patient Decompensation, Need for Nebulizer Therapy and Monitoring of Response, Risk of Complication if Not Cared For in Hospital, Risk of Diagnosis Which Will Require Inpatient Eval/Care/Monitoring
[2018-12-09 09:34] LABS: ANION GAP 8 (5-19); BLOOD UREA NITROGEN 32 mg/dL (7-20); CALCIUM 8.8 mg/dL (8.4-10.2); CARBON DIOXIDE 28 mmol/L (22-30); CHLORIDE 97 mmol/L (98-107); GLUCOSE 91 mg/dL (75-110); POTASSIUM 4.3 mmol/L (3.6-5.0); SODIUM 132.5 mmol/L (137-145)
[2018-12-09] MEDS: CYANOCOBALAMIN (VITAMIN B-12) 1,000 MCG TABLET PO SCH (09:45)
[2018-12-09] MEDS: TRAMADOL HCL 50 MG TABLET PO PRN (09:47)
[2018-12-09] MEDS: ASPIRIN 81 MG TABLET, ENT COATED PO SCH (09:47)
[2018-12-09] MEDS: RANOLAZINE 500 MG TAB.SR.12H PO SCH ×2 (09:49→21:24)
[2018-12-09] MEDS: METOPROLOL SUCCINATE 50 MG TAB.SR.24H PO SCH (09:51)
[2018-12-09] MEDS: LANSOPRAZOLE 30 MG TAB.RAP.DR PO SCH (09:51)
[2018-12-09] MEDS: CLOPIDOGREL BISULFATE 75 MG TABLET PO SCH (09:52)
[2018-12-09] MEDS: POLYETHYLENE GLYCOL 3350 POWDER 17 GM/1 PACKET PO SCH (09:53)
[2018-12-09] MEDS: FLUTICASONE NASAL SPRAY 50 MCG/SPRY 120 SPRAY/16 GM NASL SCH (09:53)
[2018-12-09] MEDS: ALPRAZOLAM 0.5 MG TABLET PO SCH ×2 (09:55→17:33)
[2018-12-09] MEDS: FUROSEMIDE 20 MG TABLET PO SCH (09:56)
[2018-12-09] MEDS: ATORVASTATIN CALCIUM 20 MG TABLET PO SCH (21:23)
[2018-12-10] MEDS: LEVOTHYROXINE SODIUM 0.05 MG TABLET PO SCH (05:35)
--- NOTE | 2018-12-10 06:45 | PDOC DISCHARGE SUMMARY ---
General - Admit/Disc Date/PCP Admission Date/Primary Care Provider: 12/01/18 02:38 ROMEL LAMB MD Discharge Date: 12/10/18 - Discharge Diagnosis (1) Acute on chronic systolic (congestive) heart failure Is this a current diagnosis for this admission?: Yes 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 Is this a current diagnosis for this admission?: Yes (7) Anemia of renal disease Is this a current diagnosis for this admission?: Yes (8) Postgastric surgery syndrome Is this a current diagnosis for this admission?: Yes (9) Acute respiratory failure with hypoxemia Is this a current diagnosis for this admission?: Yes - Additional Information Resuscitation Status: Full Code Discharge Diet: Cardiac Discharge Activity: Activity As Tolerated, Weigh Daily Prescriptions: Furosemide [Lasix] 20 mg PO DAILY #90 tablet Home Medications: Albuterol Sulfate [Ventolin 0.083% Neb 2.5 mg/3 mL Ampul] 1 vial NEB RTQIDP PRN 12/01/18 Alprazolam [Xanax 0.5 mg Tablet] 0.5 mg PO BID 12/01/18 Aspirin [Ecotrin 81 mg EC Tablet] 81 mg PO DAILY 12/01/18 Atorvastatin Calcium [Lipitor 20 mg Tablet] 20 mg PO QHS 12/01/18 Cetirizine HCl [Zyrtec 10 mg Tablet] 1 tab PO QHS 12/01/18 Clopidogrel Bisulfate [Plavix 75 mg Tablet] 75 mg PO DAILY 12/01/18 Cyanocobalamin (Vitamin B-12) [Vitamin B12] 2,500 mcg PO DAILY 12/01/18 Fluticasone Propionate [Flonase Nasal Orinda 50 Mcg/Orinda 16 gm] 2 sprays NASL DAILY 12/01/18 Levothyroxine Sodium [Synthroid 0.05 mg Tablet] 50 mcg PO Q6AM 12/01/18 Metoprolol Succinate [Toprol Xl 50 mg Tab.sr] 50 mg PO DAILY 12/01/18 Pantoprazole Sodium [Protonix] 40 mg PO Q6AM 12/01/18 Polyethylene Glycol 3350 [Miralax Powder 17 gm/Packet] 1 packet PO DAILY 12/01/18 Promethazine HCl [Phenergan 25 mg Tablet] 25 mg PO QIDP PRN 12/01/18 Ranolazine [Ranexa 500 mg Tab.sr] 500 mg PO Q12 12/01/18 Furosemide [Lasix] 20 mg PO DAILY #90 tablet 12/09/18 History of Present Illness Patient complains of: dyspnea History of Present Illness: 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 Diureses 15#. Held furosemide 2d for bun19. His ischemic bowel pain flared and improved. He is eating again. Physical Exam Vital Signs: Temp Pulse Resp BP Pulse Ox 98.2 F 65 18 140/62 H 98 12/10/18 00:09 12/10/18 02:00 12/10/18 00:09 12/10/18 00:09 12/10/18 00:09 Intake & Output 12/08/18 12/09/18 12/10/18 07:59 07:59 07:59 Intake Total 1100 1270 268 Output Total 1750 950 775 Balance -650 320 -507 Weight 120 lb 2.431 oz 119 lb 7.849 oz General appearance: PRESENT: no acute distress Respiratory exam: PRESENT: clear to auscultation rodrigo Cardiovascular exam: PRESENT: irregular rhythm - skips. ABSENT: diastolic murmur, systolic murmur GI/Abdominal exam: ABSENT: mass, organolmegaly, tenderness Extremities exam: ABSENT: pedal edema Neurological exam: PRESENT: oriented to situation Psychiatric exam: PRESENT: appropriate affect Results Laboratory Results: Labs- Last Values WBC 11.2 10^3/uL (4.0-10.5) H 12/01/18 00:50 RBC 3.28 10^6/uL (4.35-5.55) L 12/01/18 00:50 Hgb 9.4 g/dL (13.5-17.0) L 12/01/18 00:50 Hct 28.4 % (37.9-51.0) L 12/01/18 00:50 MCV 87 fl (80-97) 12/01/18 00:50 MCH 28.7 pg (27.0-33.4) 12/01/18 00:50 MCHC 33.2 g/dL (32.0-36.0) 12/01/18 00:50 RDW 16.5 % (11.5-14.0) H 12/01/18 00:50 Plt Count 213 10^3/uL (150-450) 12/01/18 00:50 Seg Neutrophils % 86.5 % (42-78) H 12/01/18 00:50 Lymphocytes % 7.3 % (13-45) L 12/01/18 00:50 Monocytes % 5.1 % (3-13) 12/01/18 00:50 Eosinophils % 0.5 % (0-6) 12/01/18 00:50 Basophils % 0.6 % (0-2) 12/01/18 00:50 Absolute Neutrophils 9.7 10^3/uL (1.7-8.2) H 12/01/18 00:50 Absolute Lymphocytes 0.8 10^3/uL (0.5-4.7) 12/01/18 00:50 Absolute Monocytes 0.6 10^3/uL (0.1-1.4) 12/01/18 00:50 Absolute Eosinophils 0.1 10^3/uL (0.0-0.6) 12/01/18 00:50 Absolute Basophils 0.1 10^3/uL (0.0-0.2) 12/01/18 00:50 Sodium 132.5 mmol/L (137-145) L 12/09/18 08:45 Potassium 4.3 mmol/L (3.6-5.0) 12/09/18 08:45 Chloride 97 mmol/L (98-107) L 12/09/18 08:45 Carbon Dioxide 28 mmol/L (22-30) 12/09/18 08:45 Anion Gap 8 (5-19) 12/09/18 08:45 BUN 32 mg/dL (7-20) H 12/09/18 08:45 Creatinine 1.86 mg/dL (0.52-1.25) H 12/09/18 08:45 Est GFR ( Amer) 42 (>60) L 12/09/18 08:45 Est GFR (Non-Af Amer) 35 (>60) L 12/09/18 08:45 Glucose 91 mg/dL (75-110) 12/09/18 08:45 Calcium 8.8 mg/dL (8.4-10.2) 12/09/18 08:45 Magnesium 2.0 mg/dL (1.6-2.3) 12/01/18 00:50 Total Bilirubin 0.5 mg/dL (0.2-1.3) 12/01/18 00:50 Direct Bilirubin 0.3 mg/dL (0.0-0.4) 12/01/18 00:50 Neonat Total Bilirubin Not Reportable 12/01/18 00:50 Neonat Direct Bilirubin Not Reportable 12/01/18 00:50 Neonat Indirect Bili Not Reportable 12/01/18 00:50 AST 12 U/L (17-59) L 12/01/18 00:50 ALT 19 U/L (21-72) L 12/01/18 00:50 Alkaline Phosphatase 82 U/L (38-126) 12/01/18 00:50 Troponin I 0.063 ng/mL 12/01/18 00:50 NT-Pro-B Natriuret Pep 15911 pg/mL (<450) H 12/07/18 04:33 Total Protein 5.3 g/dL (6.3-8.2) L 12/01/18 00:50 Albumin 2.8 g/dL (3.5-5.0) L 12/01/18 00:50 Impressions: Chest X-Ray 12/02/18 00:00 IMPRESSION: Little change from the prior exam. Persistent interstitial edema with small to moderate bilateral effusions copyright 2011 [employer]- All Rights Reserved Qualifiers - * PATIENT BEING DISCHARGED WITH ANY OF THE FOLLOWING DIAGNOSIS: Heart Failure HF Pt being discharged on ACEI for LVEF less than 40%?: No Reason(s) for not prescribing ACEI:: Medical Contraindication - recent hyperkalemia HF Pt being discharged on ARBS for LVEF less than 40%?: No Reason(s) for not prescribing ARBS:: Medical Contraindication - recent hyperkalemia HF Pt with Afib discharged with Warfarin?: No Reason(s) for not prescribing Warfarin:: Medical Contraindication - falls hits head HF Pt discharged on evidence-based Beta Landon:: Yes Plan Discharge Plan: home. 13d ov. Weigh daily. Call up 5#/w
[2018-12-10] MEDS: CLOPIDOGREL BISULFATE 75 MG TABLET PO SCH (09:30)
[2018-12-10] MEDS: CYANOCOBALAMIN (VITAMIN B-12) 1,000 MCG TABLET PO SCH (09:30)
[2018-12-10] MEDS: LANSOPRAZOLE 30 MG TAB.RAP.DR PO SCH (09:30)
[2018-12-10] MEDS: ASPIRIN 81 MG TABLET, ENT COATED PO SCH (09:30)
[2018-12-10] MEDS: POLYETHYLENE GLYCOL 3350 POWDER 17 GM/1 PACKET PO SCH (09:30)
[2018-12-10] MEDS: METOPROLOL SUCCINATE 50 MG TAB.SR.24H PO SCH (09:30)
[2018-12-10] MEDS: ALPRAZOLAM 0.5 MG TABLET PO SCH (09:30)
[2018-12-10] MEDS: FUROSEMIDE 20 MG TABLET PO SCH (09:31)
[2018-12-10] MEDS: RANOLAZINE 500 MG TAB.SR.12H PO SCH (09:31)
[2018-12-10] MEDS: FLUTICASONE NASAL SPRAY 50 MCG/SPRY 120 SPRAY/16 GM NASL SCH (09:31)
[2018-12-10] MEDS: PROMETHAZINE HCL 25 MG TABLET PO PRN (10:30)
[2018-12-10 11:00] VITALS: BP 148/62
== END 2018-12-10 13:15 | disposition home or self-care (01) | DRG 291 ==
LOC: ER 23:31 → EH 12-01 02:38 → 3W 12-01 05:05
PROVIDERS: ADMIT Family Medicine; ATTEND Family Medicine
PROC: 5A09357 Assistance with Respiratory Ventilation, Less than 24 Consecutive Hours, Continuous Positive Airway Pressure (ICD-10-PCS; principal; 2018-12-01)
DX: I13.0 Hypertensive heart and chronic kidney disease with heart failure and stage 1 through stage 4 chronic kidney disease, or unspecified chronic kidney disease (principal); I50.23 Acute on chronic systolic (congestive) heart failure; K55.1 Chronic vascular disorders of intestine; J43.1 Panlobular emphysema; K91.1 Postgastric surgery syndromes; I73.9 Peripheral vascular disease, unspecified; D63.1 Anemia in chronic kidney disease; N18.3 Chronic kidney disease, stage 3 (moderate); I48.0 Paroxysmal atrial fibrillation; I25.10 Atherosclerotic heart disease of native coronary artery without angina pectoris; E78.5 Hyperlipidemia, unspecified; J31.0 Chronic rhinitis; E03.9 Hypothyroidism, unspecified; Z95.5 Presence of coronary angioplasty implant and graft; I25.2 Old myocardial infarction; F43.10 Post-traumatic stress disorder, unspecified; Z85.46 Personal history of malignant neoplasm of prostate; Z85.89 Personal history of malignant neoplasm of other organs and systems; Z95.820 Peripheral vascular angioplasty status with implants and grafts; Z87.891 Personal history of nicotine dependence; Z82.49 Family history of ischemic heart disease and other diseases of the circulatory system; Z80.0 Family history of malignant neoplasm of digestive organs; Z79.02 Long term (current) use of antithrombotics/antiplatelets; Z79.82 Long term (current) use of aspirin; Z88.6 Allergy status to analgesic agent; Z90.3 Acquired absence of stomach [part of]
CPT/HCPCS: 36415; 71045; 71046; 80048; 80053; 83735; 83880; 84484; 85025; 93005; 93010; 93306; 94660; 96374; 99291; J1940; J2405; J3490

== ENCOUNTER 2019-03-08 01:13 | Emergency (ER) | payer MEDICARE, OTHER ==
[2019-03-08 02:17] LABS: ABSOLUTE BASOPHILS # (AUTO) 0.1 10^3/uL (0.0-0.2); ABSOLUTE EOSINOPHILS # (AUTO) 0.1 10^3/uL (0.0-0.6); ABSOLUTE LYMPHOCYTES (AUTO) 1.2 10^3/uL (0.5-4.7); ABSOLUTE MONOCYTES (AUTO) 0.6 10^3/uL (0.1-1.4); BASOPHILS % (AUTO) 0.5 % (0-2); EOSINOPHILS % (AUTO) 0.5 % (0-6); HEMATOCRIT 33.1 % (37.9-51.0); HEMOGLOBIN 10.9 g/dL (13.5-17.0); LYMPHOCYTES % (AUTO) 11.1 % (13-45); MEAN CORPUSCULAR HEMOGLOBIN 28.9 pg (27.0-33.4); MEAN CORPUSCULAR VOLUME 88 fl (80-97); MONOCYTES % (AUTO) 5.2 % (3-13); PLATELET COUNT 169 10^3/uL (150-450); RED BLOOD COUNT 3.78 10^6/uL (4.35-5.55); RED CELL DISTRIBUTION WIDTH 16.2 % (11.5-14.0); SEGMENTED NEUTROPHILS % (AUTO) 82.7 % (42-78); TOTAL CELLS COUNTED % (AUTO) 100 %; WHITE BLOOD COUNT 10.9 10^3/uL (4.0-10.5)
--- NOTE | 2019-03-08 02:33 | RADIOLOGY REPORT (SQ) ---
EXAM DESCRIPTION: XR CHEST 1 VIEW COMPLETED DATE/TME: 03/08/2019 01:20 CLINICAL HISTORY: 89 years, Male, sob COMPARISON: None. NUMBER OF VIEWS: One TECHNIQUE: AP view of the chest LIMITATIONS: None. FINDINGS: Lungs are clear. The heart is normal in size. There is no pneumothorax or pleural effusion. There is no acute fracture IMPRESSION: No acute cardiopulmonary abnormality copyright 2010 [employer]- All Rights Reserved
[2019-03-08 02:43] LABS: ALANINE AMINOTRANSFERASE 14 U/L (21-72); ALBUMIN 3.5 g/dL (3.5-5.0); ALKALINE PHOSPHATASE 73 U/L (38-126); ANION GAP 12 (5-19); ASPARTATE AMINO TRANSFERASE 10 U/L (17-59); BILIRUBIN,DIRECT 0.4 mg/dL (0.0-0.4); BILIRUBIN,TOTAL 0.7 mg/dL (0.2-1.3); BLOOD UREA NITROGEN 54 mg/dL (7-20); CARBON DIOXIDE 22 mmol/L (22-30); CHLORIDE 104 mmol/L (98-107); GLUCOSE 114 mg/dL (75-110); SODIUM 137.7 mmol/L (137-145); TOTAL PROTEIN 6.3 g/dL (6.3-8.2)
[2019-03-08 02:51] LABS: NT PRO BNP 7020 pg/mL (<450)
[2019-03-08 02:54] LABS: TROPONIN I < 0.012 ng/mL
--- NOTE | 2019-03-08 03:03 | ER Document Report ---
ED General - General Chief Complaint: Shortness Of Breath Stated Complaint: DIFFICULTY BREATHING Time Seen by Provider: 03/08/19 01:19 Primary Care Provider: ROMEL LAMB MD [Primary Care Provider] - Follow up as needed Notes: Patient is an 89-year-old male with a past medical history of CHF, hypertension, chronic kidney disease, presents with an episode of shortness of breath that has spontaneously resolved. Severe when present. At the time of my evaluation the patient denies any symptoms. Episode started shortly prior to arrival lasted approximately 20 to 30 minutes and then spontaneously resolved. Patient states that the episode came on abruptly without triggering or exacerbating factor. Likewise resolved without intervention. Son at bedside states that they did check a pulse oximeter at home and that it was 98% on room air at the time of patient complaining of shortness of breath. Patient states that he is had similar episodes in the past which he often attributes to anxiety. Has not seen his primary care doctor regarding today's concern. Does reside with his son. Arrives to the emergency department by EMS. TRAVEL OUTSIDE OF THE [place] IN LAST 30 DAYS: No - Related Data Allergies/Adverse Reactions: morphine [Morphine] Allergy (Severe, Verified 03/31/18 11:01) Hallucinations tetracycline [Tetracycline] Allergy (Unknown, Verified 03/31/18 11:01) Past Medical History - General Information source: Patient - Social History Smoking Status: Never Smoker Frequency of alcohol use: None Drug Abuse: None Lives with: Family Family History: CAD, DM, Hypertension, Malignancy - Colon cancer Patient has suicidal ideation: No Patient has homicidal ideation: No - Past Medical History Cardiac Medical History: Reports: Hx Atrial Fibrillation, Hx Congestive Heart Failure, Hx Coronary Artery Disease, Hx Heart Attack - X3=STENTS/ 2001 & 2017, Hx Hypercholesterolemia, Hx Hypertension - MEDICATED, Hx Peripheral Vascular Disease Pulmonary Medical History: Reports: Hx COPD Denies: Hx Asthma Neurological Medical History: Denies: Hx Cerebrovascular Accident, Hx Seizures Endocrine Medical History: Reports: Hx Hypothyroidism Renal/ Medical History: Denies: Hx Peritoneal Dialysis GI Medical History: Reports: Hx Ulcer. Denies: Hx Hepatitis, Hx Hiatal Hernia Musculoskeletal Medical History: Denies Hx Arthritis Psychiatric Medical History: Reports: Hx Post Traumatic Stress Disorder Denies: Hx Depression - anxiety Infectious Medical History: Denies: Hx Hepatitis Past Surgical History: Reports: Hx Abdominal Surgery - 65% of stomach removed, Hx Bowel Surgery - x10 V&A w/ B-II anastomosis, Hx Cardiac Catheterization, Hx Carotid Endarterectomy - RIGHT SIDE, Hx Coronary Stent, Hx Vascular Surgery - ILIAC, FEMORAL STENTS, aortic aneurysm stent graft. Denies: Hx Open Heart Surgery, Hx Pacemaker - Immunizations Hx Diphtheria, Pertussis, Tetanus Vaccination: Yes Hx Pneumococcal Vaccination: 09/29/15 Review of Systems - Review of Systems Notes: Constitutional: Negative for fever. HENT: Negative for sore throat. Eyes: Negative for visual changes. Cardiovascular: Negative for chest pain. Respiratory: Positive for shortness of breath now resolved Gastrointestinal: Negative for abdominal pain, vomiting or diarrhea. Genitourinary: Negative for dysuria. Musculoskeletal: Negative for back pain. Skin: Negative for rash. Neurological: Negative for headaches, weakness or numbness. 10 point ROS negative except as marked above and in HPI. Physical Exam - Vital signs Vitals: Pulse Ox 98 03/08/19 01:18 Interpretation: Normal Notes: PHYSICAL EXAMINATION: GENERAL: Frail, elderly female in no acute distress HEAD: Atraumatic, normocephalic. EYES: Pupils equal round and reactive to light, extraocular movements intact, sclera anicteric, conjunctiva are normal. ENT: nares patent, oropharynx clear without exudates. Moderately dry mucous membranes. NECK: Normal range of motion, supple without lymphadenopathy LUNGS: Breath sounds clear to auscultation bilaterally and equal. No wheezes rales or rhonchi. HEART: Regular rate and rhythm without murmurs ABDOMEN: Soft, nontender, normoactive bowel sounds. No guarding, no rebound. No masses appreciated. EXTREMITIES: Normal range of motion, no pitting or edema. No cyanosis. NEUROLOGICAL: No focal neurological deficits. Moves all extremities spontaneously and on command. PSYCH: Normal mood, normal affect. SKIN: Warm, Dry, normal turgor, no rashes or lesions noted. Course - Re-evaluation Re-evalutation: 03/08/19 03:01 Patient presents with an episode of shortness of breath that spontaneously resol katharine after arrival to the emergency department. Patient states that this occurred earlier, although his son at the bedside states that they checked his pulse oximeter at home and it was 98% on room air. Patient and son likewise agreed that this could have been a presentation of anxiety. Patient denied any associated chest pain during this episode and is currently asymptomatic. Labs unchanged from previous with exception of mild worsening of his chronic kidney disease not likely contributing to his current presentation. Chest x-ray clear without evidence of acute infiltrates. Troponin negative, EKG unchanged from previous and patient adamantly denies chest pain. The son and patient have listed a preference for going home and given that the patient has had a relatively reassuring work-up I believe this is likewise appropriate. They do state that he continues to lose weight and become more debilitated with subsequent hospitalization would like to avoid additional hospitalizations. At this time will discharge with return precautions and follow-up recommendations. Verbal discharge instructions given a the bedside and opportunity for questions given. Medication warnings reviewed. Patient is in agreement with this plan and has verbalized understanding of return precautions and the need for primary care follow-up in the next 24-72 hours. - Vital Signs Vital signs: Temp Pulse Resp BP Pulse Ox 97.6 F 20 115/61 97 03/08/19 01:30 03/08/19 01:23 03/08/19 01:23 03/08/19 01:23 - Laboratory Result Diagrams: 03/08/19 02:00 03/08/19 02:00 Laboratory results interpreted by me: 03/08/19 03/08/19 03/08/19 02:00 02:00 02:00 WBC 10.9 H RBC 3.78 L Hgb 10.9 L Hct 33.1 L RDW 16.2 H Seg Neutrophils % 82.7 H Lymphocytes % 11.1 L Absolute Neutrophils 9.0 H BUN 54 H Creatinine 2.24 H Est GFR ( Amer) 34 L Est GFR (Non-Af Amer) 28 L Glucose 114 H AST 10 L ALT 14 L NT-Pro-B Natriuret Pep 7020 H - Diagnostic Test Radiology reviewed: Image reviewed, Reports reviewed Radiology results interpreted by me: 03/08/19 03:00 Chest x-ray: No acute infiltrate or pneumothorax - EKG Interpretation by Me Additional EKG results interpreted by me: 03/08/19 03:00 Sinus rhythm, rate 67, no ST elevations or depression block present. Unchanged from previous. Intermittent PVCs. Discharge - Discharge Clinical Impression: Shortness of breath CHF (congestive heart failure) Qualifiers: Heart failure type: unspecified Heart failure chronicity: chronic Qualified Code(s): I50.9 - Heart failure, unspecified Chronic kidney disease Qualifiers: Chronic kidney disease stage: unspecified stage Qualified Code(s): N18.9 - Chronic kidney disease, unspecified Condition: Stable Disposition: HOME, SELF-CARE Additional Instructions: You were seen today for an episode of shortness of breath. Your chest x-ray, labs, and overall evaluation are reassuring at this time. After conversation, we have agreed that going home is the most appropriate course of action at this time particularly given that you become so debilitated after courses in the hospital. Please follow-up with Dr. Lamb within the next 24 to 48 hours. Return to the emergency department immediately if you have recurrence of shortness of breath, chest pain, develop a fever greater than 100.4 F, or have any other symptoms that are worrisome to you. Referrals: ROMEL LAMB MD [Primary Care Provider] - Follow up in 3-5 days
[2019-03-08 04:11] VITALS: BP 101/55
--- NOTE | 2019-03-08 07:30 | EKG REPORT ---
SEVERITY:- ABNORMAL ECG - SINUS RHYTHM VENTRICULAR PREMATURE COMPLEX LEFT BUNDLE BRANCH BLOCK : Confirmed by: Jon Vela MD 08-Mar-2019 07:30:19
== END 2019-03-08 04:20 | disposition home or self-care (01) ==
LOC: ER 01:13
DX: R06.02 Shortness of breath (principal); I13.0 Hypertensive heart and chronic kidney disease with heart failure and stage 1 through stage 4 chronic kidney disease, or unspecified chronic kidney disease; N18.9 Chronic kidney disease, unspecified; I50.9 Heart failure, unspecified; I25.10 Atherosclerotic heart disease of native coronary artery without angina pectoris; J44.9 Chronic obstructive pulmonary disease, unspecified
CPT/HCPCS: 36415; 71045; 80053; 83880; 84484; 85025; 93005; 93010; 99285

== ENCOUNTER 2019-03-09 01:35 | Inpatient (IN) | payer OTHER, MEDICARE ==
--- NOTE | 2019-03-09 01:54 | ER Document Report ---
ED General - General Stated Complaint: SHORTNESS OF BREATH Time Seen by Provider: 03/09/19 01:40 Primary Care Provider: ROMEL LAMB MD [Primary Care Provider] - Follow up as needed Notes: Patient is an 89-year-old male with a past medical history of CHF, hypertension, chronic kidney disease, presents with complaints of shortness of breath. Patient was seen by me yesterday, had no symptoms at that time was discharged and states that he was doing well again until this evening when he began having shortness of breath and coughing. Symptoms were relatively abrupt in onset, improved after being placed on CPAP for short period time by EMS this time he feels quite well. Denies chest pain. Nothing obviously triggered his symptoms tonight, resolved with CPAP. Denies any syncope, fever or constitutional symptoms. Has not yet followed up with his primary care doctor. TRAVEL OUTSIDE OF THE [place] IN LAST 30 DAYS: No - Related Data Allergies/Adverse Reactions: morphine [Morphine] Allergy (Severe, Verified 03/31/18 11:01) Hallucinations tetracycline [Tetracycline] Allergy (Unknown, Verified 03/31/18 11:01) Past Medical History - General Information source: Patient - Social History Smoking Status: Never Smoker Frequency of alcohol use: None Drug Abuse: None Lives with: Family Family History: CAD, DM, Hypertension, Malignancy - Colon cancer - Past Medical History Cardiac Medical History: Reports: Hx Atrial Fibrillation, Hx Congestive Heart Failure, Hx Coronary Artery Disease, Hx Heart Attack - X3=STENTS/ 2001 & 2017, Hx Hypercholesterolemia, Hx Hypertension - MEDICATED, Hx Peripheral Vascular Disease Pulmonary Medical History: Reports: Hx COPD Denies: Hx Asthma Neurological Medical History: Denies: Hx Cerebrovascular Accident, Hx Seizures Endocrine Medical History: Reports: Hx Hypothyroidism Renal/ Medical History: Denies: Hx Peritoneal Dialysis GI Medical History: Reports: Hx Ulcer. Denies: Hx Hepatitis, Hx Hiatal Hernia Musculoskeletal Medical History: Denies Hx Arthritis Psychiatric Medical History: Reports: Hx Post Traumatic Stress Disorder Denies: Hx Depression - anxiety Infectious Medical History: Denies: Hx Hepatitis Past Surgical History: Reports: Hx Abdominal Surgery - 65% of stomach removed, Hx Bowel Surgery - x10 V&A w/ B-II anastomosis, Hx Cardiac Catheterization, Hx Carotid Endarterectomy - RIGHT SIDE, Hx Coronary Stent, Hx Vascular Surgery - ILIAC, FEMORAL STENTS, aortic aneurysm stent graft. Denies: Hx Open Heart Surgery, Hx Pacemaker - Immunizations Hx Diphtheria, Pertussis, Tetanus Vaccination: Yes Hx Pneumococcal Vaccination: 09/29/15 Review of Systems - Review of Systems Notes: Constitutional: Negative for fever. HENT: Negative for sore throat. Eyes: Negative for visual changes. Cardiovascular: Negative for chest pain. Respiratory: Positive for shortness of breath. Gastrointestinal: Negative for abdominal pain, vomiting or diarrhea. Genitourinary: Negative for dysuria. Musculoskeletal: Negative for back pain. Skin: Negative for rash. Neurological: Negative for headaches, weakness or numbness. 10 point ROS negative except as marked above and in HPI. Physical Exam - Vital signs Vitals: Temp Pulse Ox 98.1 F 92 03/09/19 01:40 03/09/19 01:40 Interpretation: Normal Notes: PHYSICAL EXAMINATION: GENERAL: Frail, elderly male in no acute distress HEAD: Atraumatic, normocephalic. EYES: Pupils equal round and reactive to light, extraocular movements intact, sclera anicteric, conjunctiva are normal. ENT: nares patent, oropharynx clear without exudates. Moist mucous membranes. NECK: Normal range of motion, supple without lymphadenopathy LUNGS: Breath sounds clear to auscultation bilaterally and equal. No wheezes rales or rhonchi. HEART: Regular rate and rhythm without murmurs ABDOMEN: Soft, nontender, normoactive bowel sounds. No guarding, no rebound. No masses appreciated. EXTREMITIES: Normal range of motion, no pitting or edema. No cyanosis. NEUROLOGICAL: No focal neurological deficits. Moves all extremities spontaneously and on command. PSYCH: Normal mood, normal affect. SKIN: Warm, Dry, normal turgor, no rashes or lesions noted. Course - Re-evaluation Re-evalutation: 03/09/19 01:55 Patient presents with acute shortness of breath now resolved. Patient has no findings on clinical exam, unchanged today, vitals are within normal limits without hypertension, tachycardia or hypoxemia at time of initial evaluation. Will obtain labs, chest x-ray and reassess the patient. 03/09/19 03:24 Chest x-ray demonstrates right lower lobe pneumonia. Labs worsened significa ntly since yesterday and the patient is now developed leukocytosis as well as worsening renal function. Blood pressures have down trended somewhat. Currently 93 and 60. Patient will not begin receiving IV fluid resuscitation as it appears that his shortness of breath and cough is related to an underlying pneumonia and requires fluid resuscitation. Will be quite gentle with my fluid resuscitation boluses at 500 cc initially given the patient's history of systolic heart failure. Patient has been started on ceftriaxone and azithromycin acquired pneumonia. Cultures, lactate will be obtained. I discussed this case with Dr. Lamb the patient's primary care physician who is accepted to the telemetry unit. - Vital Signs Vital signs: Temp Pulse Resp BP Pulse Ox 98.1 F 24 H 93/60 L 98 03/09/19 01:40 03/09/19 03:16 03/09/19 03:16 03/09/19 03:16 - Laboratory Result Diagrams: 03/09/19 02:39 03/09/19 02:39 Laboratory results interpreted by me: 03/09/19 03/09/19 02:39 02:39 WBC 18.4 H RBC 3.96 L Hgb 11.2 L Hct 34.4 L RDW 15.9 H Seg Neuts % (Manual) 86 H Lymphocytes % (Manual) 8 L Monocytes % (Manual) 2 L Abs Neuts (Manual) 16.6 H Potassium 5.2 H BUN 58 H Creatinine 2.44 H Est GFR ( Amer) 31 L Est GFR (Non-Af Amer) 25 L - Diagnostic Test Radiology reviewed: Image reviewed, Reports reviewed Radiology results interpreted by me: 03/09/19 03:20 Chest x-ray: Right basilar infiltrate suspicious for pneumonia - EKG Interpretation by Me Additional EKG results interpreted by me: 03/09/19 03:25 Sinus rhythm, rate 81, left bundle branch block unchanged from previous. Inte rmittent PVCs. QTC 488. Discharge - Discharge Clinical Impression: Acute kidney injury superimposed on chronic kidney disease Right lower lobe pneumonia Qualifiers: Pneumonia type: due to unspecified organism Qualified Code(s): J18.1 - Lobar pneumonia, unspecified organism Sepsis Qualifiers: Sepsis type: sepsis due to unspecified organism Qualified Code(s): A41.9 - Sepsis, unspecified organism Condition: Fair Disposition: ADMITTED INPATIENT Admitting Provider: Leonid Unit Admitted: Telemetry Referrals: ROMEL LAMB MD [Primary Care Provider] - Follow up as needed
--- NOTE | 2019-03-09 02:36 | RADIOLOGY REPORT (SQ) ---
EXAM DESCRIPTION: XR CHEST 1 VIEW COMPLETED DATE/TME: 03/09/2019 01:40 CLINICAL HISTORY: 89 years, Male, sob COMPARISON: 03/08/2019 chest x-ray NUMBER OF VIEWS: 1 TECHNIQUE: Portable chest LIMITATIONS: None. FINDINGS: Heart size normal. Atheromatous change thoracic aorta. Osteopenia. COPD. New patchy airspace opacity right lung base suspicious for pneumonia. No pneumothorax IMPRESSION: New right basilar airspace opacity worrisome for pneumonia. Osteopenia. COPD copyright 2010 [employer]- All Rights Reserved
[2019-03-09 02:58] LABS: HEMATOCRIT 34.4 % (37.9-51.0); HEMOGLOBIN 11.2 g/dL (13.5-17.0); MEAN CORPUSCULAR HEMOGLOBIN 28.2 pg (27.0-33.4); MEAN CORPUSCULAR HGB CONC 32.5 g/dL (32.0-36.0); MEAN CORPUSCULAR VOLUME 87 fl (80-97); PLATELET COUNT 159 10^3/uL (150-450); RED BLOOD COUNT 3.96 10^6/uL (4.35-5.55); RED CELL DISTRIBUTION WIDTH 15.9 % (11.5-14.0); WHITE BLOOD COUNT 18.4 10^3/uL (4.0-10.5)
[2019-03-09 03:11] LABS: ABSOLUTE LYMPHOCYTES# (MANUAL) 1.5 10^3/uL (0.5-4.7); ABSOLUTE MONOCYTES # (MANUAL) 0.4 10^3/uL (0.1-1.4); BAND NEUTROPHILS % (MANUAL) 4 % (3-5); BASOPHILS % (MANUAL) 0 % (0-2); EOSINOPHILS % (MANUAL) 0 % (0-6); LYMPHOCYTES % (MANUAL) 8 % (13-45); MONOCYTES % (MANUAL) 2 % (3-13); SEGMENTED NEUTROPHILS % (MAN) 86 % (42-78); TOTAL CELLS COUNTED 100
[2019-03-09 03:12] LABS: ANISOCYTOSIS 1+
[2019-03-09 03:13] LABS: PLATELET COMMENT ADEQUATE
[2019-03-09 03:16] LABS: ANION GAP 14 (5-19); BLOOD UREA NITROGEN 58 mg/dL (7-20); CALCIUM 9.2 mg/dL (8.4-10.2); CARBON DIOXIDE 22 mmol/L (22-30); CHLORIDE 104 mmol/L (98-107); GLUCOSE 104 mg/dL (75-110); POTASSIUM 5.2 mmol/L (3.6-5.0); SODIUM 139.6 mmol/L (137-145)
[2019-03-09] MEDS ORDERED: AZITHROMYCIN 250 MG TABLET PO ONE (03:19)
[2019-03-09] MEDS ORDERED: CEFTRIAXONE INJ 1000 MG VIAL IV ONE (03:19)
[2019-03-09] MEDS ORDERED: RINGERS SOLUTION,LACTATED 500 ML IV ONE (03:19)
[2019-03-09 03:27] LABS: TROPONIN I 0.018 ng/mL
[2019-03-09] MEDS ORDERED: ACETAMINOPHEN 325 MG TABLET PO ONE (04:04)
[2019-03-09] MEDS ORDERED: LIDOCAINE 5% (700 MG) TRANSDERMAL ADH..PATCH TP ONE (04:04)
--- NOTE | 2019-03-09 07:54 | EKG REPORT ---
SEVERITY:- ABNORMAL ECG - SINUS RHYTHM VENTRICULAR PREMATURE COMPLEX LEFT ANTERIOR FASCICULAR BLOCK. 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
[2019-03-09] MEDS: IPRATROPIUM/ALBUTEROL 0.5-2.5 MG/3 ML AMPUL NEB SCH ×3 (08:07→20:17)
--- NOTE | 2019-03-09 08:25 | PDOC H&P ---
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 1m ago levaquin helped. 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 GI Medical History: Reports: Other - esophageal stricture Denies: Hepatitis, Hiatal Hernia Musculoskeltal Medical History: Reports: None Skin Medical History: Reports: None Psychiatric Medical History: Reports: Post Traumatic Stress Disorder, Other - panic Traumatic Medical History: Reports: None Hematology: Reports: Anemia - renal Denies: Sickle Cell Disease Infectious Medical History: Reports: None Past Surgical History Past Surgical History: Reports: Cardiac Catheterization, Carotid Endarterectomy - RIGHT SIDE, Coronary Stent, Vascular Surgery - ILIAC, FEMORAL STENTS, aortic aneurysm stent graft Denies: Pacemaker Social History Information Source: Dr. Lindsay Lives with: Family Smoking Status: Never Smoker Frequency of Alcohol Use: None Hx Recreational Drug Use: No Drugs: None Hx Prescription Drug Abuse: No - Advance Directive Resuscitation Status: Full Code Family History Family History: CAD, DM, Hypertension, Malignancy - Colon cancer Parental Family History Reviewed: Yes Children Family History Reviewed: Yes Sibling(s) Family History Reviewed.: Yes Medication/Allergy Home Medications: Alprazolam [Xanax 0.5 mg Tablet] 0.5 mg PO Q6HP PRN MDD 4 MG 12/01/18 Aspirin [Ecotrin 81 mg EC Tablet] 81 mg PO DAILY 12/01/18 Cetirizine HCl [Zyrtec 10 mg Tablet] 1 tab PO QHS 12/01/18 Clopidogrel Bisulfate [Plavix 75 mg Tablet] 75 mg PO DAILY 12/01/18 Cyanocobalamin (Vitamin B-12) [Vitamin B12] 2,500 mcg PO DAILY 12/01/18 Fluticasone Propionate [Flonase Nasal [place] 50 Mcg/[place] 16 gm] 2 sprays NASL DAILY 12/01/18 Levothyroxine Sodium [Synthroid 0.05 mg Tablet] 50 mcg PO Q6AM 12/01/18 Metoprolol Succinate [Toprol Xl 50 mg Tab.sr] 50 mg PO DAILY 12/01/18 Pantoprazole Sodium [Protonix] 40 mg PO Q6AM 12/01/18 Polyethylene Glycol 3350 [Miralax Powder 17 gm/Packet] 1 packet PO DAILY 12/01/18 Promethazine HCl [Phenergan 25 mg Tablet] 25 mg PO BIDP PRN 12/01/18 Ranolazine [Ranexa 500 mg Tab.sr] 500 mg PO Q12 12/01/18 Atorvastatin Calcium [Lipitor 20 mg Tablet] 20 mg PO QHS 03/09/19 Furosemide [Lasix] 20 mg PO QAM 03/09/19 Ketoconazole [Nizoral 2% Shampoo 120 ml Bottle] 1 applic TOP ASDIR PRN 03/09/19 Polyvinyl Alcohol/Povidone/Pf [Refresh Classic Eye Drops] 1 each 03/09/19 Allergies/Adverse Reactions: morphine [Morphine] Allergy (Severe, Verified 03/31/18 11:01) Hallucinations tetracycline [Tetracycline] Allergy (Unknown, Verified 03/31/18 11:01) Review of Systems Constitutional: PRESENT: weight loss. ABSENT: fever(s), headache(s) Nose, Mouth, and Throat: ABSENT: sore throat Cardiovascular: PRESENT: dyspnea on exertion, orthropnea. ABSENT: chest pain Respiratory: PRESENT: cough, dyspnea, sputum Gastrointestinal: PRESENT: abdominal pain, constipation. ABSENT: hematochezia, vomiting Genitourinary: PRESENT: dysuria. ABSENT: hematuria Integumentary: ABSENT: rash Physical Exam Vital Signs: Temp Pulse Resp BP Pulse Ox 98.1 F 76 24 H 101/66 99 03/09/19 01:40 03/09/19 05:00 03/09/19 04:45 03/09/19 04:45 03/09/19 04:45 Intake & Output 03/07/19 03/08/19 03/09/19 07:59 07:59 07:59 Intake Total 67 Balance 67 Weight 112 lb 6.972 oz General appearance: PRESENT: no acute distress, thin Eye exam: ABSENT: conjunctival injection, scleral icterus Mouth exam: PRESENT: dry mucosa Respiratory exam: PRESENT: clear to auscultation rodrigo Cardiovascular exam: ABSENT: diastolic murmur, irregular rhythm, systolic murmur GI/Abdominal exam: ABSENT: mass, organolmegaly, tenderness Extremities exam: ABSENT: pedal edema Neurological exam: PRESENT: oriented to situation Psychiatric exam: PRESENT: anxious Results Laboratory Results: Abnormal - 24 hr 03/09/19 03/09/19 03/09/19 02:39 02:39 02:39 WBC 18.4 H RBC 3.96 L Hgb 11.2 L Hct 34.4 L RDW 15.9 H Seg Neuts % (Manual) 86 H Lymphocytes % (Manual) 8 L Monocytes % (Manual) 2 L Abs Neuts (Manual) 16.6 H Potassium 5.2 H BUN 58 H Creatinine 2.44 H Est GFR ( Amer) 31 L Est GFR (Non-Af Amer) 25 L NT-Pro-B Natriuret Pep 6290 H Impressions: Chest X-Ray 03/09/19 01:40 IMPRESSION: New right basilar airspace opacity worrisome for pneumonia. Osteopenia. COPD copyright 2011 [employer]- All Rights Reserved Assessment & Plan - Diagnosis (1) Right lower lobe pneumonia Qualifiers: Pneumonia type: due to unspecified organism Qualified Code(s): J18.1 - Lobar pneumonia, unspecified organism Is this a current diagnosis for this admission?: Yes Plan: julieta gates (2) Sepsis Qualifiers: Sepsis type: sepsis due to unspecified organism Qualified Code(s): A41.9 - Sepsis, unspecified organism Is this a current diagnosis for this admission?: Yes Plan: Qsofa+ by hypotension & tachypnea (3) Acute on chronic systolic (congestive) heart failure Is this a current diagnosis for this admission?: Yes Plan: hold diuretic for now (4) CKD (chronic kidney disease), stage IV Is this a current diagnosis for this admission?: Yes (5) Anemia of renal disease Is this a current diagnosis for this admission?: Yes (6) Atherosclerosis of superior mesenteric artery Is this a current diagnosis for this admission?: Yes (7) Celiac artery stenosis Is this a current diagnosis for this admission?: Yes (8) Postgastric surgery syndrome Is this a current diagnosis for this admission?: Yes - Inpatient Certification Based on my medical assessment, after consideration of the patient's comorbidities, presenting symptoms, or acuity I expect that the services needed warrant INPATIENT care.: Yes I certify that my determination is in accordance with my understanding of Medicare's requirements for reasonable and necessary INPATIENT services [42 CFR 412.3e].: Yes Medical Necessity: Failure to Improve With Outpatient Therapy, Significant Comorbidiites Make Outpatient Treatment Too Risky, Need Close Monitoring Due to Risk of Patient Decompensation, Need For IV Fluids, Need For Continuous Telemetry Monitoring, Need for Nebulizer Therapy and Monitoring of Response, Need for IV Antibiotics, Risk of Complication if Not Cared For in Hospital, Risk of Diagnosis Which Will Require Inpatient Eval/Care/Monitoring
[2019-03-09] MEDS ORDERED: (PENDING PHARMACY ID) (Polyvinyl Alcohol/Povidone/Pf [Refresh Classic Eye Drops] 1 DROP) OU SCH (09:15)
[2019-03-09] MEDS ORDERED: POLYVINYL ALCOHOL 1.4% OPH SOLN 15 ML OU PRN (09:20)
[2019-03-09] MEDS ORDERED: (PENDING PHARMACY ID) (Cyanocobalamin (Vitamin B-12) [Vitamin B12] 2,500 MCG) PO SCH (10:00)
[2019-03-09] MEDS: FLUTICASONE NASAL SPRAY 50 MCG/SPRY 120 SPRAY/16 GM NASL SCH (10:20)
[2019-03-09] MEDS: CEFTRIAXONE SODIUM 1,000 MG in DEXTROSE 5%-WATER 50 ML IV SCH (10:20)
[2019-03-09] MEDS: RANOLAZINE 500 MG TAB.SR.12H PO SCH ×2 (10:21→21:19)
[2019-03-09] MEDS: CLOPIDOGREL BISULFATE 75 MG TABLET PO SCH (10:21)
[2019-03-09] MEDS: ENOXAPARIN SODIUM INJ 30 MG/0.3 ML DISP.SYRIN SUBCUT SCH (10:21)
[2019-03-09] MEDS: POLYETHYLENE GLYCOL 3350 POWDER 17 GM/1 PACKET PO SCH (10:21)
[2019-03-09] MEDS: LUBIPROSTONE 24 MCG CAPSULE PO SCH ×2 (10:21→17:04)
[2019-03-09] MEDS: CYANOCOBALAMIN (VITAMIN B-12) 1,000 MCG TABLET PO SCH (10:22)
[2019-03-09] MEDS: ASPIRIN 81 MG TABLET, ENT COATED PO SCH (10:22)
[2019-03-09] MEDS: FAMOTIDINE 20 MG TABLET PO SCH (10:22)
[2019-03-09] MEDS: LEVOTHYROXINE SODIUM 0.05 MG TABLET PO SCH (10:22)
[2019-03-09] MEDS: ALPRAZOLAM 0.5 MG TABLET PO PRN ×2 (10:22→21:19)
[2019-03-09] MEDS: PROMETHAZINE HCL 25 MG TABLET PO PRN (12:04)
[2019-03-09] MEDS: ATORVASTATIN CALCIUM 20 MG TABLET PO SCH (21:19)
[2019-03-09] MEDS: CETIRIZINE 10 MG TABLET PO SCH (21:19)
[2019-03-09] MEDS ORDERED: CEFTRIAXONE 1 GM/D5W RTU 1 GM/50 ML RTUPB IV SCH (22:00)
[2019-03-10] MEDS: IPRATROPIUM/ALBUTEROL 0.5-2.5 MG/3 ML AMPUL NEB SCH ×4 (02:02→20:49)
[2019-03-10] MEDS: LEVOTHYROXINE SODIUM 0.05 MG TABLET PO SCH (05:08)
[2019-03-10 05:29] LABS: ANION GAP 10 (5-19); BLOOD UREA NITROGEN 66 mg/dL (7-20); CALCIUM 8.7 mg/dL (8.4-10.2); CARBON DIOXIDE 23 mmol/L (22-30); CHLORIDE 102 mmol/L (98-107); GLUCOSE 82 mg/dL (75-110); POTASSIUM 4.7 mmol/L (3.6-5.0); SODIUM 135.1 mmol/L (137-145)
[2019-03-10] MEDS: 1/2 NORMAL SALINE 1,000 ML IV PRN ×2 (06:35→09:10)
--- NOTE | 2019-03-10 07:20 | PDOC PROGRESS REPORT ---
Subjective Progress Note for:: 03/10/19 Subjective:: better. Less sputum Reason For Visit: PNEUMONIA Physical Exam Vital Signs: Temp Pulse Resp BP Pulse Ox 98.2 F 66 20 114/50 L 97 03/09/19 08:00 03/10/19 07:00 03/10/19 02:05 03/09/19 08:00 03/10/19 02:05 Intake & Output 03/08/19 03/09/19 03/10/19 07:59 07:59 07:59 Intake Total 500 565 Output Total 155 Balance 500 410 Weight 104 lb 15.04 oz General appearance: PRESENT: no acute distress Respiratory exam: PRESENT: rhonchi Cardiovascular exam: ABSENT: diastolic murmur, irregular rhythm, systolic murmur GI/Abdominal exam: ABSENT: mass, organolmegaly, tenderness Extremities exam: ABSENT: pedal edema Neurological exam: PRESENT: oriented to situation Psychiatric exam: PRESENT: appropriate affect Results Laboratory Results: 03/09/19 02:39 03/10/19 04:25 03/10/19 04:25 Sodium 135.1 L Potassium 4.7 Chloride 102 Carbon Dioxide 23 Anion Gap 10 BUN 66 H Creatinine 2.60 H Est GFR ( Amer) 28 L Est GFR (Non-Af Amer) 23 L Glucose 82 Calcium 8.7 Impressions: Chest X-Ray 03/09/19 01:40 IMPRESSION: New right basilar airspace opacity worrisome for pneumonia. Osteopenia. COPD copyright 2011 [employer]- All Rights Reserved Assessment & Plan - Diagnosis (1) Right lower lobe pneumonia Qualifiers: Pneumonia type: due to unspecified organism Qualified Code(s): J18.1 - Lobar pneumonia, unspecified organism Is this a current diagnosis for this admission?: Yes Plan: continue azith ceftri (2) Sepsis Qualifiers: Sepsis type: sepsis due to unspecified organism Qualified Code(s): A41.9 - Sepsis, unspecified organism Is this a current diagnosis for this admission?: Yes (3) Acute on chronic systolic (congestive) heart failure Is this a current diagnosis for this admission?: Yes Plan: half normal 50/h for bun66 (4) CKD (chronic kidney disease), stage IV Is this a current diagnosis for this admission?: Yes (5) Anemia of renal disease Is this a current diagnosis for this admission?: Yes (6) Atherosclerosis of superior mesenteric artery Is this a current diagnosis for this admission?: Yes (7) Celiac artery stenosis Is this a current diagnosis for this admission?: Yes (8) Postgastric surgery syndrome Is this a current diagnosis for this admission?: Yes
[2019-03-10] MEDS: CEFTRIAXONE SODIUM 1,000 MG in DEXTROSE 5%-WATER 50 ML IV SCH (09:07)
[2019-03-10] MEDS: RANOLAZINE 500 MG TAB.SR.12H PO SCH ×2 (09:08→21:44)
[2019-03-10] MEDS: ASPIRIN 81 MG TABLET, ENT COATED PO SCH (09:08)
[2019-03-10] MEDS: CLOPIDOGREL BISULFATE 75 MG TABLET PO SCH (09:08)
[2019-03-10] MEDS: ALPRAZOLAM 0.5 MG TABLET PO PRN (09:08)
[2019-03-10] MEDS: FAMOTIDINE 20 MG TABLET PO SCH (09:08)
[2019-03-10] MEDS: CYANOCOBALAMIN (VITAMIN B-12) 1,000 MCG TABLET PO SCH (09:08)
[2019-03-10] MEDS: ENOXAPARIN SODIUM INJ 30 MG/0.3 ML DISP.SYRIN SUBCUT SCH (09:09)
[2019-03-10] MEDS: FLUTICASONE NASAL SPRAY 50 MCG/SPRY 120 SPRAY/16 GM NASL SCH (09:09)
[2019-03-10] MEDS: POLYETHYLENE GLYCOL 3350 POWDER 17 GM/1 PACKET PO SCH (09:09)
[2019-03-10] MEDS: LUBIPROSTONE 24 MCG CAPSULE PO SCH ×2 (09:09→17:16)
[2019-03-10] MEDS: AZITHROMYCIN 500 MG in DEXTROSE 5%-WATER 250 ML IV SCH (10:40)
[2019-03-10] MEDS: ATORVASTATIN CALCIUM 20 MG TABLET PO SCH (21:44)
[2019-03-10] MEDS: CETIRIZINE 10 MG TABLET PO SCH (21:45)
[2019-03-11] MEDS: IPRATROPIUM/ALBUTEROL 0.5-2.5 MG/3 ML AMPUL NEB SCH ×5 (02:16→20:38)
[2019-03-11] MEDS: LEVOTHYROXINE SODIUM 0.05 MG TABLET PO SCH (05:22)
[2019-03-11] MEDS: 1/2 NORMAL SALINE 1,000 ML IV PRN (05:23)
[2019-03-11 05:47] LABS: ANION GAP 11 (5-19); BLOOD UREA NITROGEN 60 mg/dL (7-20); CALCIUM 8.8 mg/dL (8.4-10.2); CARBON DIOXIDE 21 mmol/L (22-30); CHLORIDE 104 mmol/L (98-107); GLUCOSE 93 mg/dL (75-110); POTASSIUM 4.6 mmol/L (3.6-5.0); SODIUM 135.7 mmol/L (137-145)
--- NOTE | 2019-03-11 08:13 | PDOC PROGRESS REPORT ---
Subjective Progress Note for:: 03/11/19 Subjective:: less cough Reason For Visit: PNEUMONIA Physical Exam Vital Signs: Temp Pulse Resp BP Pulse Ox 98.3 F 86 18 120/53 L 98 03/11/19 03:15 03/11/19 03:15 03/11/19 03:15 03/11/19 03:15 03/11/19 03:15 Intake & Output 03/10/19 03/11/19 03/12/19 07:59 07:59 07:59 Intake Total 865 2350 Output Total 330 1325 Balance 535 1025 Weight 110 lb 7.225 oz 111 lb 8.862 oz General appearance: PRESENT: no acute distress Respiratory exam: PRESENT: rhonchi Cardiovascular exam: ABSENT: diastolic murmur, irregular rhythm, systolic murmur GI/Abdominal exam: ABSENT: mass, organolmegaly, tenderness Extremities exam: ABSENT: pedal edema Neurological exam: PRESENT: oriented to situation Psychiatric exam: PRESENT: appropriate affect Results Laboratory Results: 03/09/19 02:39 03/11/19 04:58 03/11/19 04:58 Sodium 135.7 L Potassium 4.6 Chloride 104 Carbon Dioxide 21 L Anion Gap 11 BUN 60 H Creatinine 2.56 H Est GFR ( Amer) 29 L Est GFR (Non-Af Amer) 24 L Glucose 93 Calcium 8.8 Impressions: Chest X-Ray 03/09/19 01:40 IMPRESSION: New right basilar airspace opacity worrisome for pneumonia. Osteopenia. COPD copyright 2011 [employer]- All Rights Reserved Assessment & Plan - Diagnosis (1) Right lower lobe pneumonia Qualifiers: Pneumonia type: due to unspecified organism Qualified Code(s): J18.1 - Lobar pneumonia, unspecified organism Is this a current diagnosis for this admission?: Yes Plan: blood cultures negative (2) Sepsis Qualifiers: Sepsis type: sepsis due to unspecified organism Qualified Code(s): A41.9 - Sepsis, unspecified organism Is this a current diagnosis for this admission?: Yes (3) Acute on chronic systolic (congestive) heart failure Is this a current diagnosis for this admission?: Yes (4) CKD (chronic kidney disease), stage IV Is this a current diagnosis for this admission?: Yes (5) Anemia of renal disease Is this a current diagnosis for this admission?: Yes (6) Atherosclerosis of superior mesenteric artery Is this a current diagnosis for this admission?: Yes (7) Celiac artery stenosis Is this a current diagnosis for this admission?: Yes (8) Postgastric surgery syndrome Is this a current diagnosis for this admission?: Yes - Inpatient Certification Medical Necessity: Failure to Improve With Outpatient Therapy, Significant Comorbidiites Make Outpatient Treatment Too Risky, Need Close Monitoring Due to Risk of Patient Decompensation, Need For IV Fluids, Need For Continuous Telemetry Monitoring, Need for IV Antibiotics, Risk of Complication if Not Cared For in Hospital, Risk of Diagnosis Which Will Require Inpatient Eval/Care/Monitoring
[2019-03-11] MEDS: RANOLAZINE 500 MG TAB.SR.12H PO SCH ×2 (10:39→22:42)
[2019-03-11] MEDS: ENOXAPARIN SODIUM INJ 30 MG/0.3 ML DISP.SYRIN SUBCUT SCH (10:39)
[2019-03-11] MEDS: ASPIRIN 81 MG TABLET, ENT COATED PO SCH (10:39)
[2019-03-11] MEDS: POLYETHYLENE GLYCOL 3350 POWDER 17 GM/1 PACKET PO SCH (10:39)
[2019-03-11] MEDS: FAMOTIDINE 20 MG TABLET PO SCH (10:40)
[2019-03-11] MEDS: CLOPIDOGREL BISULFATE 75 MG TABLET PO SCH (10:40)
[2019-03-11] MEDS: LUBIPROSTONE 24 MCG CAPSULE PO SCH ×2 (10:40→18:44)
[2019-03-11] MEDS: CYANOCOBALAMIN (VITAMIN B-12) 1,000 MCG TABLET PO SCH (10:40)
[2019-03-11] MEDS: CEFTRIAXONE SODIUM 1,000 MG in DEXTROSE 5%-WATER 50 ML IV SCH (10:41)
[2019-03-11] MEDS: AZITHROMYCIN 500 MG in DEXTROSE 5%-WATER 250 ML IV SCH (10:41)
[2019-03-11] MEDS: FLUTICASONE NASAL SPRAY 50 MCG/SPRY 120 SPRAY/16 GM NASL SCH (10:44)
[2019-03-11] MEDS: PROMETHAZINE HCL 25 MG TABLET PO PRN ×2 (12:19→22:48)
[2019-03-11] MEDS: ATORVASTATIN CALCIUM 20 MG TABLET PO SCH (22:41)
[2019-03-11] MEDS: TRAMADOL HCL 50 MG TABLET PO PRN (22:41)
[2019-03-11] MEDS: ALPRAZOLAM 0.5 MG TABLET PO PRN (22:41)
[2019-03-11] MEDS: CETIRIZINE 5 MG TABLET PO SCH (22:43)
[2019-03-12] MEDS: IPRATROPIUM/ALBUTEROL 0.5-2.5 MG/3 ML AMPUL NEB SCH ×4 (02:35→19:27)
[2019-03-12] MEDS: LEVOTHYROXINE SODIUM 0.05 MG TABLET PO SCH (05:02)
[2019-03-12 05:13] LABS: ANION GAP 9 (5-19); BLOOD UREA NITROGEN 49 mg/dL (7-20); CALCIUM 8.6 mg/dL (8.4-10.2); CARBON DIOXIDE 23 mmol/L (22-30); CHLORIDE 104 mmol/L (98-107); GLUCOSE 93 mg/dL (75-110); POTASSIUM 4.4 mmol/L (3.6-5.0)
[2019-03-12] MEDS: TRAMADOL HCL 50 MG TABLET PO PRN (07:33)
[2019-03-12] MEDS: ALPRAZOLAM 0.5 MG TABLET PO PRN ×2 (07:34→22:36)
[2019-03-12] MEDS: PROMETHAZINE HCL 25 MG TABLET PO PRN ×3 (07:34→22:42)
--- NOTE | 2019-03-12 08:10 | PDOC PROGRESS REPORT ---
Subjective Progress Note for:: 03/12/19 Subjective:: LLQ pain again yesterday. Tramadol helped. Happens monthly. Cough improving. Reason For Visit: PNEUMONIA Physical Exam Vital Signs: Temp Pulse Resp BP Pulse Ox 99.2 F 79 20 113/56 L 98 03/12/19 04:07 03/12/19 07:00 03/12/19 04:07 03/12/19 04:07 03/12/19 04:07 Intake & Output 03/11/19 03/12/19 03/13/19 07:59 07:59 07:59 Intake Total 2350 1770 Output Total 1445 680 Balance 905 1090 Weight 111 lb 8.862 oz 111 lb 8.862 oz General appearance: PRESENT: no acute distress Respiratory exam: PRESENT: clear to auscultation rodrigo Cardiovascular exam: ABSENT: diastolic murmur, irregular rhythm, systolic murmur GI/Abdominal exam: PRESENT: tenderness - mild LLQ. ABSENT: guarding, mass, organolmegaly Neurological exam: PRESENT: oriented to situation Psychiatric exam: PRESENT: appropriate affect Results Laboratory Results: 03/09/19 02:39 03/12/19 04:28 03/12/19 04:28 Sodium 136.0 L Potassium 4.4 Chloride 104 Carbon Dioxide 23 Anion Gap 9 BUN 49 H Creatinine 2.22 H Est GFR ( Amer) 34 L Est GFR (Non-Af Amer) 28 L Glucose 93 Calcium 8.6 Impressions: Chest X-Ray 03/09/19 01:40 IMPRESSION: New right basilar airspace opacity worrisome for pneumonia. Osteopenia. COPD copyright 2011 [employer]- All Rights Reserved Assessment & Plan - Diagnosis (1) Right lower lobe pneumonia Qualifiers: Pneumonia type: due to unspecified organism Qualified Code(s): J18.1 - Lobar pneumonia, unspecified organism Is this a current diagnosis for this admission?: Yes Plan: continue ceftri (2) Sepsis Qualifiers: Sepsis type: sepsis due to unspecified organism Qualified Code(s): A41.9 - Sepsis, unspecified organism Is this a current diagnosis for this admission?: Yes (3) Acute on chronic systolic (congestive) heart failure Is this a current diagnosis for this admission?: Yes (4) CKD (chronic kidney disease), stage IV Is this a current diagnosis for this admission?: Yes Plan: bun49 cr2.2 down (5) Anemia of renal disease Is this a current diagnosis for this admission?: Yes (6) Atherosclerosis of superior mesenteric artery Is this a current diagnosis for this admission?: Yes (7) Celiac artery stenosis Is this a current diagnosis for this admission?: Yes Plan: suspect cause of pain (8) Postgastric surgery syndrome Is this a current diagnosis for this admission?: Yes - Inpatient Certification Medical Necessity: Failure to Improve With Outpatient Therapy, Significant Comorbidiites Make Outpatient Treatment Too Risky, Need Close Monitoring Due to Risk of Patient Decompensation, Need For IV Fluids, Need for Pain Control, Need for IV Antibiotics, Risk of Complication if Not Cared For in Hospital, Risk of Diagnosis Which Will Require Inpatient Eval/Care/Monitoring
[2019-03-12] MEDS: ENOXAPARIN SODIUM INJ 30 MG/0.3 ML DISP.SYRIN SUBCUT SCH (09:45)
[2019-03-12] MEDS: CEFTRIAXONE SODIUM 1,000 MG in DEXTROSE 5%-WATER 50 ML IV SCH (09:45)
[2019-03-12] MEDS: RANOLAZINE 500 MG TAB.SR.12H PO SCH ×2 (09:46→22:36)
[2019-03-12] MEDS: POLYETHYLENE GLYCOL 3350 POWDER 17 GM/1 PACKET PO SCH (09:46)
[2019-03-12] MEDS: LUBIPROSTONE 24 MCG CAPSULE PO SCH ×2 (09:46→17:07)
[2019-03-12] MEDS: CYANOCOBALAMIN (VITAMIN B-12) 1,000 MCG TABLET PO SCH (09:47)
[2019-03-12] MEDS: FAMOTIDINE 20 MG TABLET PO SCH (09:47)
[2019-03-12] MEDS: CLOPIDOGREL BISULFATE 75 MG TABLET PO SCH (09:47)
[2019-03-12] MEDS: ASPIRIN 81 MG TABLET, ENT COATED PO SCH (09:47)
[2019-03-12] MEDS: FLUTICASONE NASAL SPRAY 50 MCG/SPRY 120 SPRAY/16 GM NASL SCH (09:53)
[2019-03-12] MEDS: OXYCODONE HCL IR 5 MG TABLET PO PRN ×2 (13:34→19:35)
[2019-03-12] MEDS: CETIRIZINE 5 MG TABLET PO SCH (22:36)
[2019-03-12] MEDS: ATORVASTATIN CALCIUM 20 MG TABLET PO SCH (22:36)
[2019-03-12] MEDS: 1/2 NORMAL SALINE 1,000 ML IV PRN (22:41)
[2019-03-13] MEDS: IPRATROPIUM/ALBUTEROL 0.5-2.5 MG/3 ML AMPUL NEB SCH ×4 (02:24→19:48)
[2019-03-13 05:10] LABS: ANION GAP 11 (5-19); BLOOD UREA NITROGEN 44 mg/dL (7-20); CALCIUM 8.3 mg/dL (8.4-10.2); CARBON DIOXIDE 20 mmol/L (22-30); CHLORIDE 104 mmol/L (98-107); GLUCOSE 81 mg/dL (75-110); POTASSIUM 4.7 mmol/L (3.6-5.0); SODIUM 134.7 mmol/L (137-145)
[2019-03-13] MEDS: LEVOTHYROXINE SODIUM 0.05 MG TABLET PO SCH (06:03)
[2019-03-13] MEDS: OXYCODONE HCL IR 5 MG TABLET PO PRN ×3 (06:55→21:08)
[2019-03-13] MEDS: PROMETHAZINE HCL 25 MG TABLET PO PRN ×3 (06:55→21:08)
[2019-03-13] MEDS: CYANOCOBALAMIN (VITAMIN B-12) 1,000 MCG TABLET PO SCH (09:53)
[2019-03-13] MEDS: RANOLAZINE 500 MG TAB.SR.12H PO SCH ×2 (09:53→21:09)
[2019-03-13] MEDS: FAMOTIDINE 20 MG TABLET PO SCH (09:55)
[2019-03-13] MEDS: CLOPIDOGREL BISULFATE 75 MG TABLET PO SCH (09:55)
[2019-03-13] MEDS: LUBIPROSTONE 24 MCG CAPSULE PO SCH ×2 (09:55→17:04)
[2019-03-13] MEDS: ALPRAZOLAM 0.5 MG TABLET PO PRN ×2 (09:55→21:08)
[2019-03-13] MEDS: ASPIRIN 81 MG TABLET, ENT COATED PO SCH (09:56)
[2019-03-13] MEDS: FLUTICASONE NASAL SPRAY 50 MCG/SPRY 120 SPRAY/16 GM NASL SCH (09:56)
[2019-03-13] MEDS: POLYETHYLENE GLYCOL 3350 POWDER 17 GM/1 PACKET PO SCH (09:57)
[2019-03-13] MEDS: ENOXAPARIN SODIUM INJ 30 MG/0.3 ML DISP.SYRIN SUBCUT SCH (09:57)
[2019-03-13] MEDS: CEFTRIAXONE SODIUM 1,000 MG in DEXTROSE 5%-WATER 50 ML IV SCH (10:02)
--- NOTE | 2019-03-13 12:58 | PDOC PROGRESS REPORT ---
Subjective Progress Note for:: 03/13/19 Subjective:: still LLQ pain. Oxycodone helped. Reason For Visit: PNEUMONIA Physical Exam Vital Signs: Temp Pulse Resp BP Pulse Ox 98.6 F 81 18 113/54 L 93 03/12/19 23:53 03/13/19 08:36 03/13/19 08:36 03/12/19 23:53 03/13/19 08:36 Intake & Output 03/12/19 03/13/19 03/14/19 07:59 07:59 07:59 Intake Total 1770 1337 50 Output Total 680 1450 Balance 1090 -113 50 Weight 111 lb 8.862 oz 111 lb 5.335 oz General appearance: PRESENT: mild distress Respiratory exam: PRESENT: clear to auscultation rodrigo Cardiovascular exam: ABSENT: diastolic murmur, irregular rhythm, systolic murmur GI/Abdominal exam: PRESENT: tenderness - moderate LLQ Extremities exam: ABSENT: pedal edema Neurological exam: PRESENT: oriented to situation Psychiatric exam: PRESENT: appropriate affect Results Laboratory Results: 03/09/19 02:39 03/13/19 04:21 03/13/19 04:21 Sodium 134.7 L Potassium 4.7 Chloride 104 Carbon Dioxide 20 L Anion Gap 11 BUN 44 H Creatinine 1.88 H Est GFR ( Amer) 41 L Est GFR (Non-Af Amer) 34 L Glucose 81 Calcium 8.3 L 03/09/19 02:39 Troponin I 0.018 NT-Pro-B Natriuret Pep 6290 H Impressions: Chest X-Ray 03/09/19 01:40 IMPRESSION: New right basilar airspace opacity worrisome for pneumonia. Osteopenia. COPD copyright 2011 [employer] [facility] [employer]- All Rights Reserved Assessment & Plan - Diagnosis (1) Right lower lobe pneumonia Qualifiers: Pneumonia type: due to unspecified organism Qualified Code(s): J18.1 - Lobar pneumonia, unspecified organism Is this a current diagnosis for this admission?: Yes Plan: d5 ceftri (2) Sepsis Qualifiers: Sepsis type: sepsis due to unspecified organism Qualified Code(s): A41.9 - Sepsis, unspecified organism Is this a current diagnosis for this admission?: Yes (3) Acute on chronic systolic (congestive) heart failure Is this a current diagnosis for this admission?: Yes (4) CKD (chronic kidney disease), stage IV Is this a current diagnosis for this admission?: Yes (5) Anemia of renal disease Is this a current diagnosis for this admission?: Yes (6) Atherosclerosis of superior mesenteric artery Is this a current diagnosis for this admission?: Yes Plan: ischemic pain (7) Celiac artery stenosis Is this a current diagnosis for this admission?: Yes (8) Postgastric surgery syndrome Is this a current diagnosis for this admission?: Yes - Inpatient Certification Medical Necessity: Failure to Improve With Outpatient Therapy, Significant Comorbidiites Make Outpatient Treatment Too Risky, Need Close Monitoring Due to Risk of Patient Decompensation, Need For Continuous Telemetry Monitoring, Need for Pain Control, Need for IV Antibiotics
[2019-03-13] MEDS: ATORVASTATIN CALCIUM 20 MG TABLET PO SCH (21:08)
[2019-03-13] MEDS: CETIRIZINE 5 MG TABLET PO SCH (21:08)
[2019-03-14] MEDS: IPRATROPIUM/ALBUTEROL 0.5-2.5 MG/3 ML AMPUL NEB SCH ×4 (02:07→20:22)
[2019-03-14] MEDS: LEVOTHYROXINE SODIUM 0.05 MG TABLET PO SCH (05:09)
[2019-03-14 05:51] LABS: ANION GAP 9 (5-19); BLOOD UREA NITROGEN 43 mg/dL (7-20); CALCIUM 8.6 mg/dL (8.4-10.2); CARBON DIOXIDE 21 mmol/L (22-30); CHLORIDE 104 mmol/L (98-107); GLUCOSE 72 mg/dL (75-110); POTASSIUM 5.3 mmol/L (3.6-5.0); SODIUM 134.4 mmol/L (137-145)
[2019-03-14] MEDS: OXYCODONE HCL IR 5 MG TABLET PO PRN ×2 (07:11→14:06)
[2019-03-14] MEDS: PROMETHAZINE HCL 25 MG TABLET PO PRN ×2 (07:12→19:30)
--- NOTE | 2019-03-14 07:18 | PDOC PROGRESS REPORT ---
Subjective Progress Note for:: 03/14/19 Subjective:: still LLQ pain. Cough is productive. Reason For Visit: PNEUMONIA Physical Exam Vital Signs: Temp Pulse Resp BP Pulse Ox 97.9 F 80 16 115/67 94 03/13/19 23:39 03/14/19 02:07 03/14/19 02:07 03/13/19 23:39 03/14/19 02:07 Intake & Output 03/12/19 03/13/19 03/14/19 07:59 07:59 07:59 Intake Total 1770 1337 287 Output Total 680 1450 500 Balance 1090 -113 -213 Weight 111 lb 8.862 oz 111 lb 5.335 oz 111 lb 1.808 oz General appearance: PRESENT: mild distress Respiratory exam: PRESENT: clear to auscultation rodrigo Cardiovascular exam: ABSENT: diastolic murmur, irregular rhythm, systolic murmur GI/Abdominal exam: PRESENT: tenderness - mild LLQ. ABSENT: mass, organolmegaly Extremities exam: ABSENT: pedal edema Neurological exam: PRESENT: oriented to situation Psychiatric exam: PRESENT: appropriate affect Results Laboratory Results: 03/09/19 02:39 03/14/19 05:02 03/14/19 05:02 Sodium 134.4 L Potassium 5.3 H Chloride 104 Carbon Dioxide 21 L Anion Gap 9 BUN 43 H Creatinine 1.93 H Est GFR ( Amer) 40 L Est GFR (Non-Af Amer) 33 L Glucose 72 L Calcium 8.6 03/09/19 04:14 Blood Blood Culture - Final NO GROWTH IN 5 DAYS 03/09/19 02:00 Blood Blood Culture - Final NO GROWTH IN 5 DAYS Impressions: Chest X-Ray 03/09/19 01:40 IMPRESSION: New right basilar airspace opacity worrisome for pneumonia. Osteopenia. COPD copyright 2011 [employer]- All Rights Reserved Assessment & Plan - Diagnosis (1) Right lower lobe pneumonia Qualifiers: Pneumonia type: due to unspecified organism Qualified Code(s): J18.1 - Lobar pneumonia, unspecified organism Is this a current diagnosis for this admission?: Yes Plan: d6 ceftri (2) Sepsis Qualifiers: Sepsis type: sepsis due to unspecified organism Qualified Code(s): A41.9 - Sepsis, unspecified organism Is this a current diagnosis for this admission?: Yes (3) Acute on chronic systolic (congestive) heart failure Is this a current diagnosis for this admission?: Yes (4) CKD (chronic kidney disease), stage IV Is this a current diagnosis for this admission?: Yes (5) Anemia of renal disease Is this a current diagnosis for this admission?: Yes (6) Atherosclerosis of superior mesenteric artery Is this a current diagnosis for this admission?: Yes (7) Celiac artery stenosis Is this a current diagnosis for this admission?: Yes (8) Postgastric surgery syndrome Is this a current diagnosis for this admission?: Yes Plan: suspect periodic pain from this and ischemia and adhesions - Inpatient Certification Medical Necessity: Failure to Improve With Outpatient Therapy, Significant Comorbidiites Make Outpatient Treatment Too Risky - many, Need Close Monitoring Due to Risk of Patient Decompensation - frail, Need For Continuous Telemetry Monitoring, Need for Pain Control, Need for IV Antibiotics, Risk of Complication if Not Cared For in Hospital, Risk of Diagnosis Which Will Require Inpatient Eval/Care/Monitoring - Plan Summary Plan Summary: continue ceftri oxy
[2019-03-14] MEDS: RANOLAZINE 500 MG TAB.SR.12H PO SCH ×2 (10:29→21:13)
[2019-03-14] MEDS: LUBIPROSTONE 24 MCG CAPSULE PO SCH ×2 (10:29→17:40)
[2019-03-14] MEDS: ASPIRIN 81 MG TABLET, ENT COATED PO SCH (10:30)
[2019-03-14] MEDS: CLOPIDOGREL BISULFATE 75 MG TABLET PO SCH (10:30)
[2019-03-14] MEDS: CEFTRIAXONE SODIUM 1,000 MG in DEXTROSE 5%-WATER 50 ML IV SCH (10:30)
[2019-03-14] MEDS: CYANOCOBALAMIN (VITAMIN B-12) 1,000 MCG TABLET PO SCH (10:30)
[2019-03-14] MEDS: ENOXAPARIN SODIUM INJ 30 MG/0.3 ML DISP.SYRIN SUBCUT SCH (10:30)
[2019-03-14] MEDS: FAMOTIDINE 20 MG TABLET PO SCH (10:30)
[2019-03-14] MEDS: FLUTICASONE NASAL SPRAY 50 MCG/SPRY 120 SPRAY/16 GM NASL SCH (10:31)
[2019-03-14] MEDS: POLYETHYLENE GLYCOL 3350 POWDER 17 GM/1 PACKET PO SCH (10:31)
[2019-03-14] MEDS: ALPRAZOLAM 0.5 MG TABLET PO PRN (21:13)
[2019-03-14] MEDS: ATORVASTATIN CALCIUM 20 MG TABLET PO SCH (21:13)
[2019-03-14] MEDS: CETIRIZINE 5 MG TABLET PO SCH (21:13)
[2019-03-15] MEDS: IPRATROPIUM/ALBUTEROL 0.5-2.5 MG/3 ML AMPUL NEB SCH ×4 (02:03→20:31)
[2019-03-15 05:14] LABS: ANION GAP 13 (5-19); BLOOD UREA NITROGEN 46 mg/dL (7-20); CALCIUM 9.2 mg/dL (8.4-10.2); CARBON DIOXIDE 19 mmol/L (22-30); CHLORIDE 103 mmol/L (98-107); GLUCOSE 70 mg/dL (75-110); POTASSIUM 5.3 mmol/L (3.6-5.0); SODIUM 134.9 mmol/L (137-145)
[2019-03-15] MEDS: LEVOTHYROXINE SODIUM 0.05 MG TABLET PO SCH (05:17)
[2019-03-15] MEDS: PROMETHAZINE HCL 25 MG TABLET PO PRN ×2 (05:17→16:13)
[2019-03-15] MEDS: OXYCODONE HCL IR 5 MG TABLET PO PRN ×2 (05:17→16:12)
--- NOTE | 2019-03-15 07:59 | PDOC PROGRESS REPORT ---
Subjective Progress Note for:: 03/15/19 Subjective:: still LLQ pain. Less cough. Nurse saw and cultured brown sputum yesterday. Reason For Visit: PNEUMONIA Physical Exam Vital Signs: Temp Pulse Resp BP Pulse Ox 97.5 F 70 15 136/60 H 95 03/15/19 00:00 03/15/19 02:04 03/15/19 02:04 03/15/19 00:00 03/15/19 02:04 Intake & Output 03/13/19 03/14/19 03/15/19 07:59 07:59 07:59 Intake Total 5819 201 0096 Output Total 1450 500 750 Balance -113 -213 250 Weight 111 lb 5.335 oz 111 lb 1.808 oz 109 lb 5.588 oz General appearance: PRESENT: mild distress Respiratory exam: ABSENT: clear to auscultation rodrigo Cardiovascular exam: ABSENT: diastolic murmur, irregular rhythm, systolic murmur GI/Abdominal exam: PRESENT: tenderness - moderate LLQ to deep palpation. ABSENT: mass, organolmegaly Extremities exam: ABSENT: pedal edema Neurological exam: PRESENT: oriented to situation Psychiatric exam: PRESENT: appropriate affect Results Laboratory Results: 03/09/19 02:39 03/15/19 04:18 03/15/19 04:18 Sodium 134.9 L Potassium 5.3 H Chloride 103 Carbon Dioxide 19 L Anion Gap 13 BUN 46 H Creatinine 2.17 H Est GFR ( Amer) 35 L Est GFR (Non-Af Amer) 29 L Glucose 70 L Calcium 9.2 03/09/19 04:14 Blood Blood Culture - Final NO GROWTH IN 5 DAYS 03/09/19 02:00 Blood Blood Culture - Final NO GROWTH IN 5 DAYS Impressions: Chest X-Ray 03/09/19 01:40 IMPRESSION: New right basilar airspace opacity worrisome for pneumonia. Osteopenia. COPD copyright 2011 [employer]- All Rights Reserved Assessment & Plan - Diagnosis (1) Right lower lobe pneumonia Qualifiers: Pneumonia type: due to unspecified organism Qualified Code(s): J18.1 - Lobar pneumonia, unspecified organism Is this a current diagnosis for this admission?: Yes Plan: d7 ceftri (2) Sepsis Qualifiers: Sepsis type: sepsis due to unspecified organism Qualified Code(s): A41.9 - Sepsis, unspecified organism Is this a current diagnosis for this admission?: Yes (3) Acute on chronic systolic (congestive) heart failure Is this a current diagnosis for this admission?: Yes (4) CKD (chronic kidney disease), stage IV Is this a current diagnosis for this admission?: Yes (5) Anemia of renal disease Is this a current diagnosis for this admission?: Yes (6) Atherosclerosis of superior mesenteric artery Is this a current diagnosis for this admission?: Yes (7) Celiac artery stenosis Is this a current diagnosis for this admission?: Yes (8) Postgastric surgery syndrome Is this a current diagnosis for this admission?: Yes Plan: explained no obvious solution - Inpatient Certification Medical Necessity: Significant Comorbidiites Make Outpatient Treatment Too Risky, Need Close Monitoring Due to Risk of Patient Decompensation, Need For Continuous Telemetry Monitoring, Need for Nebulizer Therapy and Monitoring of Response, Need for Pain Control, Need for IV Antibiotics, Risk of Complication if Not Cared For in Hospital, Risk of Diagnosis Which Will Require Inpatient Eval/Care/Monitoring
[2019-03-15] MEDS: ENOXAPARIN SODIUM INJ 30 MG/0.3 ML DISP.SYRIN SUBCUT SCH (09:04)
[2019-03-15] MEDS: LUBIPROSTONE 24 MCG CAPSULE PO SCH ×2 (09:05→17:38)
[2019-03-15] MEDS: CLOPIDOGREL BISULFATE 75 MG TABLET PO SCH (09:05)
[2019-03-15] MEDS: RANOLAZINE 500 MG TAB.SR.12H PO SCH ×2 (09:05→21:07)
[2019-03-15] MEDS: ALPRAZOLAM 0.5 MG TABLET PO PRN ×2 (09:05→21:07)
[2019-03-15] MEDS: FAMOTIDINE 20 MG TABLET PO SCH (09:05)
[2019-03-15] MEDS: CYANOCOBALAMIN (VITAMIN B-12) 1,000 MCG TABLET PO SCH (09:05)
[2019-03-15] MEDS: ASPIRIN 81 MG TABLET, ENT COATED PO SCH (09:06)
[2019-03-15] MEDS: FLUTICASONE NASAL SPRAY 50 MCG/SPRY 120 SPRAY/16 GM NASL SCH (09:06)
[2019-03-15] MEDS: POLYETHYLENE GLYCOL 3350 POWDER 17 GM/1 PACKET PO SCH (09:06)
[2019-03-15] MEDS: CEFTRIAXONE SODIUM 1,000 MG in DEXTROSE 5%-WATER 50 ML IV SCH (10:42)
[2019-03-15] MEDS ORDERED: CEFUROXIME 500 MG TABLET PO ONE (11:00)
[2019-03-15] MEDS: ATORVASTATIN CALCIUM 20 MG TABLET PO SCH (21:07)
[2019-03-15] MEDS: CETIRIZINE 5 MG TABLET PO SCH (21:07)
[2019-03-16] MEDS: PROMETHAZINE HCL 25 MG TABLET PO PRN (01:01)
[2019-03-16] MEDS: OXYCODONE HCL IR 5 MG TABLET PO PRN (01:01)
[2019-03-16] MEDS: IPRATROPIUM/ALBUTEROL 0.5-2.5 MG/3 ML AMPUL NEB SCH ×4 (02:36→20:17)
[2019-03-16 05:22] LABS: ANION GAP 9 (5-19); BLOOD UREA NITROGEN 51 mg/dL (7-20); CALCIUM 8.7 mg/dL (8.4-10.2); CARBON DIOXIDE 20 mmol/L (22-30); CHLORIDE 105 mmol/L (98-107); GLUCOSE 84 mg/dL (75-110); POTASSIUM 4.8 mmol/L (3.6-5.0); SODIUM 133.5 mmol/L (137-145)
[2019-03-16] MEDS: LEVOTHYROXINE SODIUM 0.05 MG TABLET PO SCH (06:26)
--- NOTE | 2019-03-16 07:40 | PDOC PROGRESS REPORT ---
Subjective Progress Note for:: 03/16/19 Subjective:: less pain Reason For Visit: PNEUMONIA Physical Exam Vital Signs: Temp Pulse Resp BP Pulse Ox 98.7 F 72 16 131/53 H 99 03/15/19 23:19 03/16/19 07:00 03/15/19 23:19 03/15/19 23:19 03/15/19 23:19 Intake & Output 03/14/19 03/15/19 03/16/19 07:59 07:59 07:59 Intake Total 287 1000 458 Output Total 500 750 350 Balance -213 250 108 Weight 111 lb 1.808 oz 109 lb 5.588 oz 107 lb 5.842 oz General appearance: PRESENT: no acute distress Respiratory exam: PRESENT: clear to auscultation rodrigo Cardiovascular exam: ABSENT: diastolic murmur, irregular rhythm, systolic murmur GI/Abdominal exam: ABSENT: mass, organolmegaly, tenderness Extremities exam: ABSENT: pedal edema Neurological exam: ABSENT: alert - somnolent on oxycodone Results Laboratory Results: 03/09/19 02:39 03/16/19 04:16 03/16/19 04:16 Sodium 133.5 L Potassium 4.8 Chloride 105 Carbon Dioxide 20 L Anion Gap 9 BUN 51 H Creatinine 2.17 H Est GFR ( Amer) 35 L Est GFR (Non-Af Amer) 29 L Glucose 84 Calcium 8.7 Impressions: Chest X-Ray 03/09/19 01:40 IMPRESSION: New right basilar airspace opacity worrisome for pneumonia. Osteopenia. COPD copyright 2011 [employer]- All Rights Reserved Assessment & Plan - Diagnosis (1) Right lower lobe pneumonia Qualifiers: Pneumonia type: due to unspecified organism Qualified Code(s): J18.1 - Lobar pneumonia, unspecified organism Is this a current diagnosis for this admission?: Yes Plan: yesterday lost IV before scheduled final ceftri. Gave ceftin. (2) Sepsis Qualifiers: Sepsis type: sepsis due to unspecified organism Qualified Code(s): A41.9 - Sepsis, unspecified organism Is this a current diagnosis for this admission?: Yes (3) Acute on chronic systolic (congestive) heart failure Is this a current diagnosis for this admission?: Yes (4) CKD (chronic kidney disease), stage IV Is this a current diagnosis for this admission?: Yes Plan: poor intake. Bun climbing again 60 43 51. Hope he will bounce back again, but he is becoming gradually more frail. (5) Anemia of renal disease Is this a current diagnosis for this admission?: Yes (6) Atherosclerosis of superior mesenteric artery Is this a current diagnosis for this admission?: Yes (7) Celiac artery stenosis Is this a current diagnosis for this admission?: Yes (8) Postgastric surgery syndrome Is this a current diagnosis for this admission?: Yes - Inpatient Certification Medical Necessity: Significant Comorbidiites Make Outpatient Treatment Too Risky, Need Close Monitoring Due to Risk of Patient Decompensation, Need For Continuous Telemetry Monitoring, Need for Nebulizer Therapy and Monitoring of Response, Need for Pain Control, Risk of Complication if Not Cared For in Hospital, Risk of Diagnosis Which Will Require Inpatient Eval/Care/Monitoring
[2019-03-16] MEDS: LUBIPROSTONE 24 MCG CAPSULE PO SCH ×2 (11:06→17:16)
[2019-03-16] MEDS: POLYETHYLENE GLYCOL 3350 POWDER 17 GM/1 PACKET PO SCH (11:07)
[2019-03-16] MEDS: ASPIRIN 81 MG TABLET, ENT COATED PO SCH (11:07)
[2019-03-16] MEDS: FLUTICASONE NASAL SPRAY 50 MCG/SPRY 120 SPRAY/16 GM NASL SCH (11:07)
[2019-03-16] MEDS: RANOLAZINE 500 MG TAB.SR.12H PO SCH ×2 (11:07→21:25)
[2019-03-16] MEDS: ENOXAPARIN SODIUM INJ 30 MG/0.3 ML DISP.SYRIN SUBCUT SCH (11:07)
[2019-03-16] MEDS: CLOPIDOGREL BISULFATE 75 MG TABLET PO SCH (11:07)
[2019-03-16] MEDS: CYANOCOBALAMIN (VITAMIN B-12) 1,000 MCG TABLET PO SCH (11:07)
[2019-03-16] MEDS: FAMOTIDINE 20 MG TABLET PO SCH (11:07)
[2019-03-16] MEDS: ATORVASTATIN CALCIUM 20 MG TABLET PO SCH (21:25)
[2019-03-16] MEDS: CETIRIZINE 5 MG TABLET PO SCH (21:25)
[2019-03-17] MEDS: IPRATROPIUM/ALBUTEROL 0.5-2.5 MG/3 ML AMPUL NEB SCH ×4 (03:11→20:21)
[2019-03-17] MEDS: LEVOTHYROXINE SODIUM 0.05 MG TABLET PO SCH (06:02)
--- NOTE | 2019-03-17 07:27 | PDOC PROGRESS REPORT ---
Subjective Progress Note for:: 03/17/19 Subjective:: less pain Reason For Visit: PNEUMONIA Physical Exam Vital Signs: Temp Pulse Resp BP Pulse Ox 98.0 F 92 17 121/57 L 96 03/16/19 23:50 03/17/19 02:00 03/16/19 23:50 03/16/19 23:50 03/16/19 23:50 Intake & Output 03/15/19 03/16/19 03/17/19 07:59 07:59 07:59 Intake Total 1000 458 835 Output Total 750 350 750 Balance 250 108 85 Weight 109 lb 5.588 oz 107 lb 5.842 oz 108 lb 14.534 oz General appearance: PRESENT: no acute distress Respiratory exam: PRESENT: clear to auscultation rodrigo Cardiovascular exam: ABSENT: diastolic murmur, irregular rhythm, systolic murmur GI/Abdominal exam: PRESENT: tenderness - mild LLQ. ABSENT: mass, organolmegaly Extremities exam: ABSENT: pedal edema Neurological exam: ABSENT: oriented to situation Psychiatric exam: PRESENT: appropriate affect Results Laboratory Results: 03/09/19 02:39 03/16/19 04:16 Impressions: Chest X-Ray 03/09/19 01:40 IMPRESSION: New right basilar airspace opacity worrisome for pneumonia. Osteopenia. COPD copyright 2011 [employer]- All Rights Reserved Assessment & Plan - Diagnosis (1) Right lower lobe pneumonia Qualifiers: Pneumonia type: due to unspecified organism Qualified Code(s): J18.1 - Lobar pneumonia, unspecified organism Is this a current diagnosis for this admission?: Yes (2) Sepsis Qualifiers: Sepsis type: sepsis due to unspecified organism Qualified Code(s): A41.9 - Sepsis, unspecified organism Is this a current diagnosis for this admission?: Yes (3) Acute on chronic systolic (congestive) heart failure Is this a current diagnosis for this admission?: Yes (4) CKD (chronic kidney disease), stage IV Is this a current diagnosis for this admission?: Yes (5) Anemia of renal disease Is this a current diagnosis for this admission?: Yes (6) Atherosclerosis of superior mesenteric artery Is this a current diagnosis for this admission?: Yes (7) Celiac artery stenosis Is this a current diagnosis for this admission?: Yes (8) Postgastric surgery syndrome Is this a current diagnosis for this admission?: Yes Plan: was to lethargic yesterday for PT. Stopped oxycodone. - Inpatient Certification Medical Necessity: Failure to Improve With Outpatient Therapy, Significant Comorbidiites Make Outpatient Treatment Too Risky, Need Close Monitoring Due to Risk of Patient Decompensation, Need For Continuous Telemetry Monitoring, Risk o f Complication if Not Cared For in Hospital, Risk of Diagnosis Which Will Require Inpatient Eval/Care/Monitoring
[2019-03-17 08:39] LABS: ANION GAP 9 (5-19); BLOOD UREA NITROGEN 48 mg/dL (7-20); CARBON DIOXIDE 22 mmol/L (22-30); CHLORIDE 105 mmol/L (98-107); GLUCOSE 98 mg/dL (75-110); POTASSIUM 4.5 mmol/L (3.6-5.0); SODIUM 136.3 mmol/L (137-145)
[2019-03-17] MEDS: ACETAMINOPHEN 325 MG TABLET PO PRN (09:42)
[2019-03-17] MEDS: CLOPIDOGREL BISULFATE 75 MG TABLET PO SCH (09:42)
[2019-03-17] MEDS: ASPIRIN 81 MG TABLET, ENT COATED PO SCH (09:42)
[2019-03-17] MEDS: CYANOCOBALAMIN (VITAMIN B-12) 1,000 MCG TABLET PO SCH (09:42)
[2019-03-17] MEDS: ENOXAPARIN SODIUM INJ 30 MG/0.3 ML DISP.SYRIN SUBCUT SCH (09:43)
[2019-03-17] MEDS: FAMOTIDINE 20 MG TABLET PO SCH (09:43)
[2019-03-17] MEDS: POLYETHYLENE GLYCOL 3350 POWDER 17 GM/1 PACKET PO SCH (09:43)
[2019-03-17] MEDS: PROMETHAZINE HCL 25 MG TABLET PO PRN ×2 (09:43→20:51)
[2019-03-17] MEDS: LUBIPROSTONE 24 MCG CAPSULE PO SCH ×2 (09:45→17:22)
[2019-03-17] MEDS: RANOLAZINE 500 MG TAB.SR.12H PO SCH ×2 (09:45→21:56)
[2019-03-17] MEDS: FLUTICASONE NASAL SPRAY 50 MCG/SPRY 120 SPRAY/16 GM NASL SCH (09:50)
[2019-03-17] MEDS: ATORVASTATIN CALCIUM 20 MG TABLET PO SCH (21:56)
[2019-03-17] MEDS: CETIRIZINE 5 MG TABLET PO SCH (21:56)
[2019-03-18] MEDS: IPRATROPIUM/ALBUTEROL 0.5-2.5 MG/3 ML AMPUL NEB SCH ×4 (02:24→20:21)
[2019-03-18] MEDS: PROMETHAZINE HCL 25 MG TABLET PO PRN ×2 (04:38→11:31)
[2019-03-18] MEDS: LEVOTHYROXINE SODIUM 0.05 MG TABLET PO SCH (06:02)
[2019-03-18 07:34] LABS: ANION GAP 10 (5-19); BLOOD UREA NITROGEN 44 mg/dL (7-20); CALCIUM 8.9 mg/dL (8.4-10.2); CARBON DIOXIDE 20 mmol/L (22-30); CHLORIDE 106 mmol/L (98-107); GLUCOSE 92 mg/dL (75-110); POTASSIUM 4.7 mmol/L (3.6-5.0); SODIUM 135.9 mmol/L (137-145)
--- NOTE | 2019-03-18 07:47 | PDOC PROGRESS REPORT ---
Subjective Progress Note for:: 03/18/19 Subjective:: nausea after enema with good results. Less pain. Walked 70' Reason For Visit: PNEUMONIA Physical Exam Vital Signs: Temp Pulse Resp BP Pulse Ox 98.2 F 87 16 131/62 H 99 03/17/19 23:05 03/18/19 02:00 03/17/19 23:05 03/17/19 23:05 03/17/19 23:05 Intake & Output 03/16/19 03/17/19 03/18/19 07:59 07:59 07:59 Intake Total 391 402 5315 Output Total 659 530 6212 Balance 108 85 10 Weight 107 lb 5.842 oz 108 lb 14.534 oz 108 lb 0.424 oz General appearance: PRESENT: no acute distress Respiratory exam: PRESENT: clear to auscultation rodrigo Cardiovascular exam: PRESENT: irregular rhythm - trigeminy. ABSENT: diastolic murmur, systolic murmur GI/Abdominal exam: PRESENT: tenderness - minimal LLQ tenderness. ABSENT: mass, organolmegaly Extremities exam: ABSENT: pedal edema Neurological exam: PRESENT: oriented to situation Psychiatric exam: PRESENT: appropriate affect Results Laboratory Results: 03/09/19 02:39 03/18/19 06:35 03/17/19 03/18/19 06:40 06:35 Sodium 136.3 L 135.9 L Potassium 4.5 4.7 Chloride 105 106 Carbon Dioxide 22 20 L Anion Gap 9 10 BUN 48 H 44 H Creatinine 2.18 H 1.86 H Est GFR ( Amer) 35 L 42 L Est GFR (Non-Af Amer) 29 L 35 L Glucose 98 92 Calcium 9.0 8.9 03/15/19 10:45 Sputum Gram Stain - Final 03/15/19 10:45 Sputum Sputum Culture - Final Yeast, Not Juliette Albicans Normal Sherie Impressions: Chest X-Ray 03/09/19 01:40 IMPRESSION: New right basilar airspace opacity worrisome for pneumonia. Osteopenia. COPD copyright 2011 [employer] [employer]- All Rights Reserved Assessment & Plan - Diagnosis (1) Right lower lobe pneumonia Qualifiers: Pneumonia type: due to unspecified organism Qualified Code(s): J18.1 - Lobar pneumonia, unspecified organism Is this a current diagnosis for this admission?: Yes (2) Sepsis Qualifiers: Sepsis type: sepsis due to unspecified organism Qualified Code(s): A41.9 - Sepsis, unspecified organism Is this a current diagnosis for this admission?: Yes (3) Acute on chronic systolic (congestive) heart failure Is this a current diagnosis for this admission?: Yes (4) CKD (chronic kidney disease), stage IV Is this a current diagnosis for this admission?: Yes (5) Anemia of renal disease Is this a current diagnosis for this admission?: Yes (6) Atherosclerosis of superior mesenteric artery Is this a current diagnosis for this admission?: Yes (7) Celiac artery stenosis Is this a current diagnosis for this admission?: Yes (8) Postgastric surgery syndrome Is this a current diagnosis for this admission?: Yes Plan: hope enema helped. Needs nutrition and exercise before home. - Inpatient Certification Medical Necessity: Significant Comorbidiites Make Outpatient Treatment Too Risky, Need Close Monitoring Due to Risk of Patient Decompensation, Need For Continuous Telemetry Monitoring, Need for Nebulizer Therapy and Monitoring of Response, Need for Pain Control, Risk of Complication if Not Cared For in [facility], Risk of Diagnosis Which Will Require Inpatient Eval/Care/Monitoring
[2019-03-18] MEDS: CLOPIDOGREL BISULFATE 75 MG TABLET PO SCH (10:02)
[2019-03-18] MEDS: RANOLAZINE 500 MG TAB.SR.12H PO SCH ×2 (10:02→21:27)
[2019-03-18] MEDS: LUBIPROSTONE 24 MCG CAPSULE PO SCH ×2 (10:02→17:04)
[2019-03-18] MEDS: ASPIRIN 81 MG TABLET, ENT COATED PO SCH (10:02)
[2019-03-18] MEDS: FAMOTIDINE 20 MG TABLET PO SCH (10:02)
[2019-03-18] MEDS: CYANOCOBALAMIN (VITAMIN B-12) 1,000 MCG TABLET PO SCH (10:02)
[2019-03-18] MEDS: POLYETHYLENE GLYCOL 3350 POWDER 17 GM/1 PACKET PO SCH (10:03)
[2019-03-18] MEDS: FLUTICASONE NASAL SPRAY 50 MCG/SPRY 120 SPRAY/16 GM NASL SCH (10:03)
[2019-03-18] MEDS: ENOXAPARIN SODIUM INJ 30 MG/0.3 ML DISP.SYRIN SUBCUT SCH (10:03)
[2019-03-18] MEDS: ACETAMINOPHEN 325 MG TABLET PO PRN ×2 (11:31→19:38)
[2019-03-18] MEDS: ALPRAZOLAM 0.5 MG TABLET PO PRN (21:27)
[2019-03-18] MEDS: CETIRIZINE 5 MG TABLET PO SCH (21:27)
[2019-03-18] MEDS: ATORVASTATIN CALCIUM 20 MG TABLET PO SCH (21:27)
[2019-03-19] MEDS: IPRATROPIUM/ALBUTEROL 0.5-2.5 MG/3 ML AMPUL NEB SCH ×4 (03:12→19:39)
[2019-03-19] MEDS: LEVOTHYROXINE SODIUM 0.05 MG TABLET PO SCH (05:48)
--- NOTE | 2019-03-19 06:53 | PDOC PROGRESS REPORT ---
Subjective Progress Note for:: 03/19/19 Subjective:: better after big stool. Ate hamburger last night. Reason For Visit: PNEUMONIA Physical Exam Vital Signs: Temp Pulse Resp BP Pulse Ox 98.2 F 83 16 112/59 L 99 03/19/19 00:00 03/19/19 02:00 03/19/19 00:00 03/19/19 00:00 03/19/19 00:00 Intake & Output 03/17/19 03/18/19 03/19/19 07:59 07:59 07:59 Intake Total 835 1110 2056 Output Total 750 1100 700 Balance 85 10 1356 Weight 108 lb 14.534 oz 108 lb 0.424 oz 108 lb 7.479 oz General appearance: PRESENT: no acute distress Respiratory exam: PRESENT: clear to auscultation rodrigo Cardiovascular exam: ABSENT: diastolic murmur, irregular rhythm, systolic murmur GI/Abdominal exam: ABSENT: mass, organolmegaly, tenderness Extremities exam: ABSENT: pedal edema Neurological exam: PRESENT: oriented to situation Psychiatric exam: PRESENT: appropriate affect Results Laboratory Results: 03/09/19 02:39 03/18/19 06:35 03/18/19 06:35 Sodium 135.9 L Potassium 4.7 Chloride 106 Carbon Dioxide 20 L Anion Gap 10 BUN 44 H Creatinine 1.86 H Est GFR ( Amer) 42 L Est GFR (Non-Af Amer) 35 L Glucose 92 Calcium 8.9 Impressions: Chest X-Ray 03/09/19 01:40 IMPRESSION: New right basilar airspace opacity worrisome for pneumonia. Osteopenia. COPD copyright 2011 [employer]- All Rights Reserved Assessment & Plan - Diagnosis (1) Right lower lobe pneumonia Qualifiers: Pneumonia type: due to unspecified organism Qualified Code(s): J18.1 - Lobar pneumonia, unspecified organism Is this a current diagnosis for this admission?: Yes (2) Sepsis Qualifiers: Sepsis type: sepsis due to unspecified organism Qualified Code(s): A41.9 - Sepsis, unspecified organism Is this a current diagnosis for this admission?: Yes (3) Acute on chronic systolic (congestive) heart failure Is this a current diagnosis for this admission?: Yes (4) CKD (chronic kidney disease), stage IV Is this a current diagnosis for this admission?: Yes (5) Anemia of renal disease Is this a current diagnosis for this admission?: Yes (6) Atherosclerosis of superior mesenteric artery Is this a current diagnosis for this admission?: Yes (7) Celiac artery stenosis Is this a current diagnosis for this admission?: Yes (8) Postgastric surgery syndrome Is this a current diagnosis for this admission?: Yes Plan: Hope continues to improve. needs him at home since she fractured her pelvic ramus. - Inpatient Certification Medical Necessity: Significant Comorbidiites Make Outpatient Treatment Too Risky, Need Close Monitoring Due to Risk of Patient Decompensation, Need For Continuous Telemetry Monitoring, Need for Nebulizer Therapy and Monitoring of Response, Need for Pain Control, Risk of Complication if Not Cared For in Hospital, Risk of Diagnosis Which Will Require Inpatient Eval/Care/Monitoring
[2019-03-19] MEDS: POLYETHYLENE GLYCOL 3350 POWDER 17 GM/1 PACKET PO SCH (10:42)
[2019-03-19] MEDS: ENOXAPARIN SODIUM INJ 30 MG/0.3 ML DISP.SYRIN SUBCUT SCH (10:42)
[2019-03-19] MEDS: LUBIPROSTONE 24 MCG CAPSULE PO SCH ×3 (10:42→17:06)
[2019-03-19] MEDS: FLUTICASONE NASAL SPRAY 50 MCG/SPRY 120 SPRAY/16 GM NASL SCH (10:42)
[2019-03-19] MEDS: RANOLAZINE 500 MG TAB.SR.12H PO SCH ×2 (10:45→21:52)
[2019-03-19] MEDS: FAMOTIDINE 20 MG TABLET PO SCH (10:45)
[2019-03-19] MEDS: ASPIRIN 81 MG TABLET, ENT COATED PO SCH (10:45)
[2019-03-19] MEDS: CLOPIDOGREL BISULFATE 75 MG TABLET PO SCH (10:45)
[2019-03-19] MEDS: CYANOCOBALAMIN (VITAMIN B-12) 1,000 MCG TABLET PO SCH (10:46)
[2019-03-19] MEDS: PROMETHAZINE HCL 25 MG TABLET PO PRN (11:57)
[2019-03-19] MEDS: ALPRAZOLAM 0.5 MG TABLET PO PRN (21:51)
[2019-03-19] MEDS: ATORVASTATIN CALCIUM 20 MG TABLET PO SCH (21:52)
[2019-03-19] MEDS: CETIRIZINE 5 MG TABLET PO SCH (21:52)
[2019-03-20] MEDS: IPRATROPIUM/ALBUTEROL 0.5-2.5 MG/3 ML AMPUL NEB SCH ×4 (02:12→20:50)
[2019-03-20] MEDS: LEVOTHYROXINE SODIUM 0.05 MG TABLET PO SCH (05:33)
[2019-03-20] MEDS: LUBIPROSTONE 24 MCG CAPSULE PO SCH ×2 (09:40→17:03)
[2019-03-20] MEDS: FAMOTIDINE 20 MG TABLET PO SCH (09:41)
[2019-03-20] MEDS: RANOLAZINE 500 MG TAB.SR.12H PO SCH ×2 (09:41→21:45)
[2019-03-20] MEDS: CLOPIDOGREL BISULFATE 75 MG TABLET PO SCH (09:41)
[2019-03-20] MEDS: ASPIRIN 81 MG TABLET, ENT COATED PO SCH (09:41)
[2019-03-20] MEDS: CYANOCOBALAMIN (VITAMIN B-12) 1,000 MCG TABLET PO SCH (09:41)
[2019-03-20] MEDS: ENOXAPARIN SODIUM INJ 30 MG/0.3 ML DISP.SYRIN SUBCUT SCH (09:43)
[2019-03-20] MEDS: POLYETHYLENE GLYCOL 3350 POWDER 17 GM/1 PACKET PO SCH (09:45)
[2019-03-20] MEDS: FLUTICASONE NASAL SPRAY 50 MCG/SPRY 120 SPRAY/16 GM NASL SCH (09:47)
[2019-03-20] MEDS: ALPRAZOLAM 0.5 MG TABLET PO PRN (09:50)
--- NOTE | 2019-03-20 10:04 | PDOC PROGRESS REPORT ---
Subjective Progress Note for:: 03/20/19 Subjective:: missed xanax last night because it was written q6h prn instead to q12 scheduled. Reason For Visit: PNEUMONIA Physical Exam Vital Signs: Temp Pulse Resp BP Pulse Ox 98.8 F 82 18 122/74 96 03/20/19 07:50 03/20/19 07:57 03/20/19 07:57 03/20/19 07:50 03/20/19 07:57 Intake & Output 03/19/19 03/20/19 03/21/19 07:59 07:59 07:59 Intake Total 2056 1200 Output Total 700 900 Balance 1356 300 Weight 108 lb 7.479 oz 104 lb 15.04 oz General appearance: PRESENT: mild distress Respiratory exam: PRESENT: clear to auscultation rodrigo Cardiovascular exam: ABSENT: diastolic murmur, irregular rhythm, systolic murmur GI/Abdominal exam: ABSENT: mass, organolmegaly, tenderness Extremities exam: ABSENT: pedal edema Neurological exam: PRESENT: oriented to situation Psychiatric exam: PRESENT: anxious Results Laboratory Results: 03/09/19 02:39 03/18/19 06:35 Impressions: Chest X-Ray 03/09/19 01:40 IMPRESSION: New right basilar airspace opacity worrisome for pneumonia. Osteopenia. COPD copyright 2011 [employer]- All Rights Reserved Assessment & Plan - Diagnosis (1) Right lower lobe pneumonia Qualifiers: Pneumonia type: due to unspecified organism Qualified Code(s): J18.1 - Lobar pneumonia, unspecified organism Is this a current diagnosis for this admission?: Yes (2) Sepsis Qualifiers: Sepsis type: sepsis due to unspecified organism Qualified Code(s): A41.9 - Sepsis, unspecified organism Is this a current diagnosis for this admission?: Yes (3) Acute on chronic systolic (congestive) heart failure Is this a current diagnosis for this admission?: Yes (4) CKD (chronic kidney disease), stage IV Is this a current diagnosis for this admission?: Yes (5) Anemia of renal disease Is this a current diagnosis for this admission?: Yes (6) Atherosclerosis of superior mesenteric artery Is this a current diagnosis for this admission?: Yes (7) Celiac artery stenosis Is this a current diagnosis for this admission?: Yes (8) Postgastric surgery syndrome Is this a current diagnosis for this admission?: Yes Plan: son cant care for both his mother and him at once. Plan is rehab on friday in 2d (9) Panic Is this a current diagnosis for this admission?: Yes Plan: q12h scheduled - Inpatient Certification Medical Necessity: Failure to Improve With Outpatient Therapy, Significant Comorbidiites Make Outpatient Treatment Too Risky, Need Close Monitoring Due to Risk of Patient Decompensation, Need For Continuous Telemetry Monitoring, Risk of Complication if Not Cared For in Hospital, Risk of Diagnosis Which Will Require Inpatient Eval/Care/Monitoring
[2019-03-20] MEDS: ALPRAZOLAM 0.5 MG TABLET PO SCH ×2 (11:10→21:45)
[2019-03-20] MEDS: PROMETHAZINE HCL 25 MG TABLET PO PRN (16:12)
[2019-03-20] MEDS: CETIRIZINE 5 MG TABLET PO SCH (21:45)
[2019-03-20] MEDS: ATORVASTATIN CALCIUM 20 MG TABLET PO SCH (21:49)
[2019-03-21] MEDS: PROMETHAZINE HCL 25 MG TABLET PO PRN ×2 (02:36→14:53)
[2019-03-21] MEDS: IPRATROPIUM/ALBUTEROL 0.5-2.5 MG/3 ML AMPUL NEB SCH ×4 (03:11→20:44)
[2019-03-21] MEDS: LEVOTHYROXINE SODIUM 0.05 MG TABLET PO SCH (05:48)
--- NOTE | 2019-03-21 07:59 | PDOC PROGRESS REPORT ---
Subjective Progress Note for:: 03/21/19 Subjective:: no abdominal pain Reason For Visit: PNEUMONIA Physical Exam Vital Signs: Temp Pulse Resp BP Pulse Ox 97.5 F 85 17 131/61 H 100 03/20/19 23:17 03/21/19 02:00 03/20/19 23:17 03/20/19 23:17 03/20/19 23:17 Intake & Output 03/19/19 03/20/19 03/21/19 07:59 07:59 07:59 Intake Total 2056 1200 356 Output Total 700 900 600 Balance 1356 300 -244 Weight 108 lb 7.479 oz 104 lb 15.04 oz 108 lb 0.424 oz General appearance: PRESENT: no acute distress Respiratory exam: PRESENT: clear to auscultation rodrigo Cardiovascular exam: ABSENT: diastolic murmur, irregular rhythm, systolic murmur GI/Abdominal exam: ABSENT: mass, organolmegaly, tenderness Extremities exam: ABSENT: pedal edema Neurological exam: PRESENT: oriented to situation Psychiatric exam: PRESENT: appropriate affect Results Laboratory Results: 03/09/19 02:39 03/18/19 06:35 Impressions: Chest X-Ray 03/09/19 01:40 IMPRESSION: New right basilar airspace opacity worrisome for pneumonia. Osteopenia. COPD copyright 2011 [employer]- All Rights Reserved Assessment & Plan - Diagnosis (1) Right lower lobe pneumonia Qualifiers: Pneumonia type: due to unspecified organism Qualified Code(s): J18.1 - Lobar pneumonia, unspecified organism Is this a current diagnosis for this admission?: Yes (2) Sepsis Qualifiers: Sepsis type: sepsis due to unspecified organism Qualified Code(s): A41.9 - Sepsis, unspecified organism Is this a current diagnosis for this admission?: Yes (3) Acute on chronic systolic (congestive) heart failure Is this a current diagnosis for this admission?: Yes (4) CKD (chronic kidney disease), stage IV Is this a current diagnosis for this admission?: Yes (5) Anemia of renal disease Is this a current diagnosis for this admission?: Yes (6) Atherosclerosis of superior mesenteric artery Is this a current diagnosis for this admission?: Yes (7) Celiac artery stenosis Is this a current diagnosis for this admission?: Yes (8) Postgastric surgery syndrome Is this a current diagnosis for this admission?: Yes Plan: improved. To rehab tomorrow on Friday. (9) Panic Is this a current diagnosis for this admission?: Yes - Inpatient Certification Medical Necessity: Failure to Improve With Outpatient Therapy, Significant Comorbidiites Make Outpatient Treatment Too Risky, Need Close Monitoring Due to Risk of Patient Decompensation, Need For Continuous Telemetry Monitoring, Need for Nebulizer Therapy and Monitoring of Response, Risk of Complication if Not Cared For in Hospital, Risk of Diagnosis Which Will Require Inpatient Eval/Care/Monitoring
[2019-03-21] MEDS: RANOLAZINE 500 MG TAB.SR.12H PO SCH ×2 (09:35→21:25)
[2019-03-21] MEDS: CYANOCOBALAMIN (VITAMIN B-12) 1,000 MCG TABLET PO SCH (09:35)
[2019-03-21] MEDS: LUBIPROSTONE 24 MCG CAPSULE PO SCH ×2 (09:35→17:24)
[2019-03-21] MEDS: ASPIRIN 81 MG TABLET, ENT COATED PO SCH (09:36)
[2019-03-21] MEDS: FAMOTIDINE 20 MG TABLET PO SCH (09:36)
[2019-03-21] MEDS: ALPRAZOLAM 0.5 MG TABLET PO SCH ×2 (09:36→21:25)
[2019-03-21] MEDS: CLOPIDOGREL BISULFATE 75 MG TABLET PO SCH (09:36)
[2019-03-21] MEDS: FLUTICASONE NASAL SPRAY 50 MCG/SPRY 120 SPRAY/16 GM NASL SCH ×2 (09:37→09:50)
[2019-03-21] MEDS: ENOXAPARIN SODIUM INJ 30 MG/0.3 ML DISP.SYRIN SUBCUT SCH (09:38)
[2019-03-21] MEDS: POLYETHYLENE GLYCOL 3350 POWDER 17 GM/1 PACKET PO SCH (09:49)
[2019-03-21] MEDS: ATORVASTATIN CALCIUM 20 MG TABLET PO SCH (21:25)
[2019-03-21] MEDS: CETIRIZINE 5 MG TABLET PO SCH (21:25)
[2019-03-22] MEDS: IPRATROPIUM/ALBUTEROL 0.5-2.5 MG/3 ML AMPUL NEB SCH ×3 (03:43→13:11)
[2019-03-22] MEDS: LEVOTHYROXINE SODIUM 0.05 MG TABLET PO SCH (06:08)
--- NOTE | 2019-03-22 07:29 | PDOC TRANSFER SUMMARY ---
General Admission Date/PCP: 03/09/19 03:34 ROMEL LAMB MD Admission Date: 03/09/19 Transfer Date: 03/22/19 Accepting Facility: Other (Comments) - [facility] Accepting Physician: romel lamb Resuscitation Status: Full Code - Transfer Diagnosis (1) Right lower lobe pneumonia Is this a current diagnosis for this admission?: Yes (2) Sepsis Is this a current diagnosis for this admission?: Yes (3) Acute on chronic systolic (congestive) heart failure Is this a current diagnosis for this admission?: Yes (4) CKD (chronic kidney disease), stage IV Is this a current diagnosis for this admission?: Yes (5) Anemia of renal disease Is this a current diagnosis for this admission?: Yes (6) Atherosclerosis of superior mesenteric artery Is this a current diagnosis for this admission?: Yes (7) Celiac artery stenosis Is this a current diagnosis for this admission?: Yes (8) Postgastric surgery syndrome Is this a current diagnosis for this admission?: Yes (9) Panic Is this a current diagnosis for this admission?: Yes - Transfer Medications Home Medications: Alprazolam [Xanax 0.5 mg Tablet] 0.5 mg PO BID MDD 4 MG 12/01/18 Aspirin [Ecotrin 81 mg EC Tablet] 81 mg PO DAILY 12/01/18 Clopidogrel Bisulfate [Plavix 75 mg Tablet] 75 mg PO DAILY 12/01/18 Cyanocobalamin (Vitamin B-12) [Vitamin B12] 2,500 mcg PO DAILY 12/01/18 Fluticasone Propionate [Flonase Nasal [place] 50 Mcg/[place] 16 gm] 2 sprays NASL DAILY 12/01/18 Levothyroxine Sodium [Synthroid 0.05 mg Tablet] 50 mcg PO Q6AM 12/01/18 Metoprolol Succinate [Toprol Xl 50 mg Tab.sr] 50 mg PO DAILY 12/01/18 Pantoprazole Sodium [Protonix] 40 mg PO Q6AM 12/01/18 Promethazine HCl [Phenergan 25 mg Tablet] 25 mg PO BIDP PRN 12/01/18 Ranolazine [Ranexa 500 mg Tab.sr] 500 mg PO Q12 12/01/18 Atorvastatin Calcium [Lipitor 20 mg Tablet] 20 mg PO QHS 03/09/19 Furosemide [Lasix] 20 mg PO QAM 03/09/19 Ketoconazole [Nizoral 2% Shampoo 120 ml Bottle] 1 applic TOP ASDIR PRN 03/09/19 Polyvinyl Alcohol/Povidone/Pf [Refresh Classic Eye Drops] 1 drop OU BIDP PRN 03/09/19 Transfer Medications: Current Medications Acetaminophen (Tylenol 325 Mg Tablet) 325 mg PO Q4HP PRN PRN Reason: FOR PAIN Stop: 04/16/19 07:22 Last Admin: 03/18/19 19:38 Dose: 325 mg Documented by: Alprazolam (Xanax 0.5 Mg Tablet) 0.5 mg PO Q12 YESENIA Stop: 03/27/19 09:59 Last Admin: 03/21/19 21:25 Dose: 0.5 mg Documented by: Artificial Tears (Liquitears 1.4% Ophth Soln 15 Ml) 1 drop OU BIDP PRN PRN Reason: DRY EYES Stop: 04/08/19 09:19 Last Admin: 03/12/19 11:22 Dose: 1 drop Documented by: Aspirin (Ecotrin 81 Mg Ec Tablet) 81 mg PO DAILY [facility] Stop: 04/08/19 09:59 Last Admin: 03/21/19 09:36 Dose: 81 mg Documented by: Atorvastatin Calcium (Lipitor 20 Mg Tablet) 20 mg PO QHS YESENIA Stop: 04/08/19 21:59 Last Admin: 03/21/19 21:25 Dose: 20 mg Documented by: Cetirizine HCl (Zyrtec 5 Mg Tablet) 5 mg PO QHS YESENIA Stop: 04/10/19 21:59 Last Admin: 03/21/19 21:25 Dose: 5 mg Documented by: Clopidogrel Bisulfate (Plavix 75 Mg Tablet) 75 mg PO DAILY YESENIA Stop: 04/08/19 09:59 Last Admin: 03/21/19 09:36 Dose: 75 mg Documented by: Cyanocobalamin (Vitamin B-12 1000 Mcg Tablet) 2,500 mcg PO DAILY YESENIA Stop: 04/08/19 09:59 Last Admin: 03/21/19 09:35 Dose: 2,500 mcg Documented by: Famotidine (Pepcid 20 Mg Tablet) 20 mg PO DAILY YESENIA Stop: 04/08/19 09:59 Last Admin: 03/21/19 09:36 Dose: 20 mg Documented by: Fluticasone Propionate (Flonase Nasal [place] 50 Mcg/[place] 16 Gm) 2 spray NASL DAILY YESENIA Stop: 04/08/19 09:59 Last Admin: 03/21/19 09:50 Dose: Not Given Documented by: Levothyroxine Sodium (Synthroid 0.05 Mg Tablet) 0.05 mg PO Q6AM YESENIA Stop: 04/08/19 09:59 Last Admin: 03/21/19 05:48 Dose: 0.05 mg Documented by: Lubiprostone (Amitiza 24 Mcg Capsule) 24 mcg PO BID YESENIA Stop: 04/08/19 10:59 Last Admin: 03/21/19 17:24 Dose: 24 mcg Documented by: Polyethylene Glycol (Miralax Powder 17 Gm/Packet) 17 gm PO DAILY YESENIA Stop: 04/08/19 09:59 Last Admin: 03/21/19 09:49 Dose: Not Given Documented by: Promethazine HCl (Phenergan 25 Mg Tablet) 25 mg PO Q6HP PRN PRN Reason: NAUSEA/VOMITING Stop: 04/10/19 21:55 Last Admin: 03/21/19 14:53 Dose: 25 mg Documented by: Ranolazine (Ranexa 500 Mg Tab.Sr) 500 mg PO Q12 YESENIA Stop: 04/08/19 09:59 Last Admin: 03/21/19 21:25 Dose: 500 mg Documented by: - Allergies Allergies/Adverse Reactions: morphine [Morphine] Allergy (Severe, Verified 03/31/18 11:01) Hallucinations tetracycline [Tetracycline] Allergy (Unknown, Verified 03/31/18 11:01) - Diet/Activity Discharge Diet: As Tolerated Discharge Activity: Supervised Activity Hospital Course Hospital Course: Cough improved on azithromycin and ceftriaxone. 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 Oxycodone helped. Eventually pain subsided. He resumed eating stooling and walking. His broke her pelvis. His son has his hands full caring for her at home now. Physical Exam Vital Signs: Temp Pulse Resp BP Pulse Ox 98.1 F 83 17 108/63 98 03/21/19 23:46 03/22/19 02:00 03/21/19 23:46 03/21/19 23:46 03/21/19 23:46 Intake & Output 03/20/19 03/21/19 03/22/19 07:59 07:59 07:59 Intake Total 1200 356 720 Output Total 900 600 300 Balance 300 -244 420 Weight 104 lb 15.04 oz 108 lb 0.424 oz General appearance: PRESENT: no acute distress Respiratory exam: PRESENT: clear to auscultation rodrigo Cardiovascular exam: ABSENT: diastolic murmur, irregular rhythm, systolic murmur GI/Abdominal exam: ABSENT: mass, organolmegaly, tenderness Extremities exam: ABSENT: pedal edema Neurological exam: PRESENT: oriented to situation Psychiatric exam: PRESENT: appropriate affect Results Laboratory Results: Labs- Last Values WBC 18.4 10^3/uL (4.0-10.5) H 03/09/19 02:39 RBC 3.96 10^6/uL (4.35-5.55) L 03/09/19 02:39 Hgb 11.2 g/dL (13.5-17.0) L 03/09/19 02:39 Hct 34.4 % (37.9-51.0) L 03/09/19 02:39 MCV 87 fl (80-97) 03/09/19 02:39 MCH 28.2 pg (27.0-33.4) 03/09/19 02:39 MCHC 32.5 g/dL (32.0-36.0) 03/09/19 02:39 RDW 15.9 % (11.5-14.0) H 03/09/19 02:39 Plt Count 159 10^3/uL (150-450) 03/09/19 02:39 Total Counted 100 03/09/19 02:39 Seg Neutrophils % Not Reportable 03/09/19 02:39 Seg Neuts % (Manual) 86 % (42-78) H 03/09/19 02:39 Band Neutrophils % 4 % (3-5) 03/09/19 02:39 Lymphocytes % Not Reportable 03/09/19 02:39 Lymphocytes % (Manual) 8 % (13-45) L 03/09/19 02:39 Monocytes % Not Reportable 03/09/19 02:39 Monocytes % (Manual) 2 % (3-13) L 03/09/19 02:39 Eosinophils % Not Reportable 03/09/19 02:39 Eosinophils % (Manual) 0 % (0-6) 03/09/19 02:39 Basophils % Not Reportable 03/09/19 02:39 Basophils % (Manual) 0 % (0-2) 03/09/19 02:39 Absolute Neutrophils Not Reportable 03/09/19 02:39 Abs Neuts (Manual) 16.6 10^3/uL (1.7-8.2) H 03/09/19 02:39 Absolute Lymphocytes Not Reportable 03/09/19 02:39 Abs Lymphs (Manual) 1.5 10^3/uL (0.5-4.7) 03/09/19 02:39 Absolute Monocytes Not Reportable 03/09/19 02:39 Abs Monocytes (Manual) 0.4 10^3/uL (0.1-1.4) 03/09/19 02:39 Absolute Eosinophils Not Reportable 03/09/19 02:39 Absolute Eos (Manual) 0.0 10^3/uL (0.0-0.6) 03/09/19 02:39 Absolute Basophils Not Reportable 03/09/19 02:39 Abs Basophils (Manual) 0.0 10^3/uL (0.0-0.2) 03/09/19 02:39 Platelet Comment ADEQUATE 03/09/19 02:39 Anisocytosis 1+ 03/09/19 02:39 Sodium 135.9 mmol/L (137-145) L 03/18/19 06:35 Potassium 4.7 mmol/L (3.6-5.0) 03/18/19 06:35 Chloride 106 mmol/L (98-107) 03/18/19 06:35 Carbon Dioxide 20 mmol/L (22-30) L 03/18/19 06:35 Anion Gap 10 (5-19) 03/18/19 06:35 BUN 44 mg/dL (7-20) H 03/18/19 06:35 Creatinine 1.86 mg/dL (0.52-1.25) H 03/18/19 06:35 Est GFR ( Amer) 42 (>60) L 03/18/19 06:35 Est GFR (Non-Af Amer) 35 (>60) L 03/18/19 06:35 Glucose 92 mg/dL (75-110) 03/18/19 06:35 Lactic Acid 1.4 mmol/L (0.7-2.1) 03/09/19 04:14 Calcium 8.9 mg/dL (8.4-10.2) 03/18/19 06:35 Troponin I 0.018 ng/mL 03/09/19 02:39 NT-Pro-B Natriuret Pep 6290 pg/mL (<450) H 03/09/19 02:39 Impressions: Chest X-Ray 03/09/19 01:40 IMPRESSION: New right basilar airspace opacity worrisome for pneumonia. Osteopenia. COPD copyright 2011 [employer]- All Rights Reserved Plan Discharge Plan: I will follow at [facility].
[2019-03-22] MEDS: CYANOCOBALAMIN (VITAMIN B-12) 1,000 MCG TABLET PO SCH (09:09)
[2019-03-22] MEDS: ACETAMINOPHEN 325 MG TABLET PO PRN (09:11)
[2019-03-22] MEDS: LUBIPROSTONE 24 MCG CAPSULE PO SCH (09:11)
[2019-03-22] MEDS: CLOPIDOGREL BISULFATE 75 MG TABLET PO SCH (09:12)
[2019-03-22] MEDS: RANOLAZINE 500 MG TAB.SR.12H PO SCH (09:12)
[2019-03-22] MEDS: ASPIRIN 81 MG TABLET, ENT COATED PO SCH (09:12)
[2019-03-22] MEDS: ALPRAZOLAM 0.5 MG TABLET PO SCH (09:12)
[2019-03-22] MEDS: FAMOTIDINE 20 MG TABLET PO SCH (09:12)
[2019-03-22] MEDS: ENOXAPARIN SODIUM INJ 30 MG/0.3 ML DISP.SYRIN SUBCUT SCH (09:13)
[2019-03-22] MEDS: FLUTICASONE NASAL SPRAY 50 MCG/SPRY 120 SPRAY/16 GM NASL SCH (09:16)
[2019-03-22] MEDS: POLYETHYLENE GLYCOL 3350 POWDER 17 GM/1 PACKET PO SCH (09:16)
[2019-03-22 12:35] VITALS: BP 109/61
== END 2019-03-22 17:20 | DRG 871 ==
LOC: ER 01:35 → EH 03:34 → 3S 06:29 → 4S 03-12 04:51 → 4N 03-16 13:35
PROVIDERS: ADMIT Family Medicine; ATTEND Family Medicine
DX: A41.9 Sepsis, unspecified organism (principal); I50.23 Acute on chronic systolic (congestive) heart failure; J18.1 Lobar pneumonia, unspecified organism; N18.4 Chronic kidney disease, stage 4 (severe); K55.1 Chronic vascular disorders of intestine; I77.4 Celiac artery compression syndrome; I13.0 Hypertensive heart and chronic kidney disease with heart failure and stage 1 through stage 4 chronic kidney disease, or unspecified chronic kidney disease; N17.9 Acute kidney failure, unspecified; D63.1 Anemia in chronic kidney disease; J43.9 Emphysema, unspecified; I25.10 Atherosclerotic heart disease of native coronary artery without angina pectoris; E78.5 Hyperlipidemia, unspecified; E03.9 Hypothyroidism, unspecified; F43.10 Post-traumatic stress disorder, unspecified; K91.1 Postgastric surgery syndromes; Y83.8 Other surgical procedures as the cause of abnormal reaction of the patient, or of later complication, without mention of misadventure at the time of the procedure; F41.0 Panic disorder [episodic paroxysmal anxiety]; I25.2 Old myocardial infarction; Z95.5 Presence of coronary angioplasty implant and graft; Z88.6 Allergy status to analgesic agent; Z79.899 Other long term (current) drug therapy; Z88.1 Allergy status to other antibiotic agents; Z79.82 Long term (current) use of aspirin; Z82.49 Family history of ischemic heart disease and other diseases of the circulatory system; Z83.3 Family history of diabetes mellitus
CPT/HCPCS: 36415; 71045; 80048; 83605; 83880; 84484; 85025; 87040; 87070; 87205; 93005; 93010; 94640; 99285; J0456; J0696; J1650; J3490; J7060; J7120; J7620

== ENCOUNTER 2019-04-04 14:26 | Emergency (ER) | payer OTHER, MEDICARE ==
--- NOTE | 2019-04-04 14:43 | ER Document Report ---
ED General - General Stated Complaint: WEAKNESS Time Seen by Provider: 04/04/19 14:39 Primary Care Provider: ROMEL LAMB MD [Primary Care Provider] - Follow up as needed TRAVEL OUTSIDE OF THE [place] IN LAST 30 DAYS: No - HPI Patient complains to provider of: failure to thrive Notes: Demented 89-year-old male presents from his half-way for possible dehydration. Patient has a decreased oral intake at the half-way. They are requesting IV placed and fluid resuscitation. - Related Data Allergies/Adverse Reactions: morphine [Morphine] Allergy (Severe, Verified 03/31/18 11:01) Hallucinations tetracycline [Tetracycline] Allergy (Unknown, Verified 03/31/18 11:01) Past Medical History - Social History Smoking Status: Unknown if Ever Smoked Family History: CAD, DM, Hypertension, Malignancy - Colon cancer - Past Medical History Cardiac Medical History: Reports: Hx Atrial Fibrillation, Hx Congestive Heart Failure, Hx Coronary Artery Disease, Hx Heart Attack - X3=STENTS/ 2001 & 2017, Hx Hypercholesterolemia, Hx Hypertension - MEDICATED, Hx Peripheral Vascular Disease Pulmonary Medical History: Reports: Hx COPD, Hx Respiratory Failure Denies: Hx Asthma Neurological Medical History: Denies: Hx Cerebrovascular Accident, Hx Seizures Endocrine Medical History: Reports: Hx Hypothyroidism Renal/ Medical History: Denies: Hx Peritoneal Dialysis GI Medical History: Reports: Hx Ulcer. Denies: Hx Hepatitis, Hx Hiatal Hernia Musculoskeletal Medical History: Denies Hx Arthritis Psychiatric Medical History: Reports: Hx Post Traumatic Stress Disorder Denies: Hx Depression - anxiety Infectious Medical History: Denies: Hx Hepatitis Past Surgical History: Reports: Hx Abdominal Surgery - 65% of stomach removed, Hx Bowel Surgery - x10 V&A w/ B-II anastomosis, Hx Cardiac Catheterization, Hx Carotid Endarterectomy - RIGHT SIDE, Hx Coronary Stent, Hx Vascular Surgery - ILIAC, FEMORAL STENTS, aortic aneurysm stent graft. Denies: Hx Open Heart Surgery, Hx Pacemaker - Immunizations Hx Diphtheria, Pertussis, Tetanus Vaccination: Yes Hx Pneumococcal Vaccination: 09/29/15 Review of Systems - Review of Systems Notes: REVIEW OF SYSTEMS: CONSTITUTIONAL: -fevers, -chills EENT: -eye pain, -difficulty swallowing, -nasal congestion CARDIOVASCULAR: -chest pain, -syncope. RESPIRATORY: -cough, -SOB GASTROINTESTINAL: -abdominal pain, -nausea, -vomiting, -diarrhea GENITOURINARY: -dysuria, -hematuria MUSCULOSKELETAL: -back pain, -neck pain SKIN: -rash or skin lesions. HEMATOLOGIC: -easy bruising or bleeding. LYMPHATIC: -swollen, enlarged glands. NEUROLOGICAL: -altered mental status or loss of consciousness, -headache, - neurologic symptoms PSYCHIATRIC: -anxiety, -depression. ALL OTHER SYSTEMS REVIEWED AND NEGATIVE. Physical Exam - Vital signs Vitals: Resp Pulse Ox 25 H 94 04/04/19 14:38 04/04/19 14:38 - Notes Notes: Insert my physical exam. PHYSICAL EXAMINATION: GENERAL: Well-appearing, well-nourished and in no acute distress. HEAD: Atraumatic, normocephalic. EYES: Pupils equal round and reactive to light, extraocular movements intact, sclera anicteric, conjunctiva are normal. ENT: nares patent, oropharynx clear without exudates. Moist mucous membranes. NECK: Normal range of motion, supple without lymphadenopathy LUNGS: Breath sounds clear to auscultation bilaterally and equal. No wheezes rales or rhonchi. HEART: Regular rate and rhythm without murmurs ABDOMEN: Soft, nontender, normoactive bowel sounds. No guarding, no rebound. No masses appreciated. EXTREMITIES: Normal range of motion, no pitting or edema. No cyanosis. NEUROLOGICAL: Cranial nerves grossly intact. Normal speech, normal gait. Normal sensory and motor exams. PSYCH: Normal mood, normal affect. SKIN: Warm, Dry, normal turgor, no rashes or lesions noted. Course - Re-evaluation Re-evalutation: 04/04/19 15:41 Demented elderly male presents with decreased oral intake from half-way. They are looking for fluid resuscitation and IV. Patient scheduled to see his family doctor tomorrow. Patient has no complaints 04/04/19 15:41 Out elevation in potassium. But preserved kidney function. Patient given a liter normal saline solution feeling markedly improved will be discharged back to his half-way - Vital Signs Vital signs: Temp Pulse Resp BP Pulse Ox 98.8 F 20 149/59 H 97 04/04/19 15:01 04/04/19 15:01 04/04/19 15:01 04/04/19 15:01 - Laboratory Result Diagrams: 04/04/19 14:37 04/04/19 14:37 Laboratory results interpreted by me: 07/07/19 07/07/19 14:37 14:37 WBC 10.8 H RBC 3.69 L Hgb 10.7 L Hct 32.4 L RDW 16.1 H Seg Neuts % (Manual) 87 H Band Neutrophils % 1 L Lymphocytes % (Manual) 6 L Abs Neuts (Manual) 9.5 H Potassium 5.2 H Carbon Dioxide 19 L BUN 55 H Creatinine 1.96 H Est GFR ( Amer) 39 L Est GFR (Non-Af Amer) 33 L Discharge - Discharge Clinical Impression: Dehydration Condition: Stable Disposition: HOME, SELF-CARE Instructions: Dehydration ([facility]) Referrals: ROMEL LAMB MD [Primary Care Provider] - Follow up as needed
[2019-04-04 14:53] LABS: HEMATOCRIT 32.4 % (37.9-51.0); HEMOGLOBIN 10.7 g/dL (13.5-17.0); MEAN CORPUSCULAR VOLUME 88 fl (80-97); PLATELET COUNT 265 10^3/uL (150-450); RED BLOOD COUNT 3.69 10^6/uL (4.35-5.55); RED CELL DISTRIBUTION WIDTH 16.1 % (11.5-14.0); WHITE BLOOD COUNT 10.8 10^3/uL (4.0-10.5)
[2019-04-04 15:09] LABS: ANION GAP 14 (5-19); BLOOD UREA NITROGEN 55 mg/dL (7-20); CALCIUM 8.6 mg/dL (8.4-10.2); CARBON DIOXIDE 19 mmol/L (22-30); CHLORIDE 105 mmol/L (98-107); GLUCOSE 101 mg/dL (75-110); POTASSIUM 5.2 mmol/L (3.6-5.0); SODIUM 137.6 mmol/L (137-145)
[2019-04-04 15:25] LABS: ABSOLUTE LYMPHOCYTES# (MANUAL) 0.6 10^3/uL (0.5-4.7); ABSOLUTE MONOCYTES # (MANUAL) 0.6 10^3/uL (0.1-1.4); BAND NEUTROPHILS % (MANUAL) 1 % (3-5); BASOPHILS % (MANUAL) 0 % (0-2); EOSINOPHILS % (MANUAL) 0 % (0-6); LYMPHOCYTES % (MANUAL) 6 % (13-45); MONOCYTES % (MANUAL) 6 % (3-13); SEGMENTED NEUTROPHILS % (MAN) 87 % (42-78); TOTAL CELLS COUNTED 100
[2019-04-04 15:28] LABS: ANISOCYTOSIS 1+; TOXIC GRANULATION 1+; TOXIC VACUOLATION PRESENT
[2019-04-04 15:31] LABS: BURR CELLS SLIGHT; PLATELET CLUMPS PRESENT; PLATELET COMMENT ADEQUATE; TEAR DROP CELLS SLIGHT
[2019-04-04] MEDS ORDERED: NORMAL SALINE 1000 ML 1,000 ML IV PRN (15:38)
[2019-04-04 17:51] VITALS: BP 133/63
== END 2019-04-04 17:50 | disposition home or self-care (01) ==
LOC: ER 14:26
DX: E86.0 Dehydration (principal); R53.1 Weakness; I48.91 Unspecified atrial fibrillation; I50.9 Heart failure, unspecified; E78.00 Pure hypercholesterolemia, unspecified; I10 Essential (primary) hypertension; J44.9 Chronic obstructive pulmonary disease, unspecified; Z88.6 Allergy status to analgesic agent; I25.2 Old myocardial infarction
CPT/HCPCS: 99285; 96360; 36415; 85025; 80048; J7030

== ENCOUNTER 2019-04-05 12:21 | Inpatient (IN) | payer OTHER, MEDICARE ==
[2019-04-05 14:25] LABS: APPEARANCE,URINE CLEAR; BILIRUBIN,URINE NEGATIVE (NEGATIVE); COLOR,URINE YELLOW; GLUCOSE, URINE NEGATIVE (NEGATIVE); KETONES,URINE NEGATIVE (NEGATIVE); LEUKOCYTE ESTERASE,URINE NEGATIVE (NEGATIVE); NITRITE,URINE NEGATIVE (NEGATIVE); PROTEIN,URINE 30 mg/dL (NEGATIVE); URINE SPECIFIC GRAVITY 1.014; UROBILINOGEN,URINE NEGATIVE mg/dL (<2.0)
[2019-04-05] MEDS ORDERED: PROMETHAZINE HCL INJ 25 MG/1 ML VIAL IV ONE (14:59)
[2019-04-05] MEDS ORDERED: NORMAL SALINE 1000 ML 1,000 ML IV ONE (15:02)
--- NOTE | 2019-04-05 15:11 | ER Document Report ---
ED GI/ - General Chief Complaint: Nausea Stated Complaint: ABDOMINAL PAIN Time Seen by Provider: 04/05/19 14:51 Primary Care Provider: ROMEL LAMB MD [Primary Care Provider] - Follow up as needed Mode of Arrival: Medic Information source: Patient, Relative TRAVEL OUTSIDE OF THE [place] IN LAST 30 DAYS: No - HPI Patient complains to provider of: Abdominal pain, Other - productive cough Onset: This morning - pt is in NH with c/o abdominal pain with nausea and productive cough earlier today. Denies fever - Related Data Allergies/Adverse Reactions: morphine [Morphine] Allergy (Severe, Verified 03/31/18 11:01) Hallucinations tetracycline [Tetracycline] Allergy (Unknown, Verified 03/31/18 11:01) Past Medical History - General Information source: Patient, Relative - Social History Smoking Status: Unknown if Ever Smoked Family History: CAD, DM, Hypertension, Malignancy - Colon cancer Patient has suicidal ideation: No Patient has homicidal ideation: No - Past Medical History Cardiac Medical History: Reports: Hx Atrial Fibrillation, Hx Congestive Heart Failure, Hx Coronary Artery Disease, Hx Heart Attack - X3=STENTS/ 2001 & 2017, Hx Hypercholesterolemia, Hx Hypertension - MEDICATED, Hx Peripheral Vascular Disease Pulmonary Medical History: Reports: Hx COPD, Hx Respiratory Failure Denies: Hx Asthma Neurological Medical History: Denies: Hx Cerebrovascular Accident, Hx Seizures Endocrine Medical History: Reports: Hx Hypothyroidism Renal/ Medical History: Denies: Hx Peritoneal Dialysis GI Medical History: Reports: Hx Ulcer. Denies: Hx Hepatitis, Hx Hiatal Hernia Musculoskeletal Medical History: Denies Hx Arthritis Psychiatric Medical History: Reports: Hx Post Traumatic Stress Disorder Denies: Hx Depression - anxiety Infectious Medical History: Denies: Hx Hepatitis Past Surgical History: Reports: Hx Abdominal Surgery - 65% of stomach removed, Hx Bowel Surgery - x10 V&A w/ B-II anastomosis, Hx Cardiac Catheterization, Hx Carotid Endarterectomy - RIGHT SIDE, Hx Coronary Stent, Hx Vascular Surgery - ILIAC, FEMORAL STENTS, aortic aneurysm stent graft. Denies: Hx Open Heart Surgery, Hx Pacemaker - Immunizations Hx Diphtheria, Pertussis, Tetanus Vaccination: Yes Hx Pneumococcal Vaccination: 09/29/15 Review of Systems - Review of Systems Constitutional: See HPI, Weakness EENT: No symptoms reported Cardiovascular: No symptoms reported Respiratory: See HPI, Cough Gastrointestinal: See HPI, Abdominal pain, Nausea Neurological/Psychological: No symptoms reported -: Yes All other systems reviewed and negative Physical Exam - Vital signs Vitals: Resp 20 04/05/19 12:51 - General General appearance: Alert In distress: None - HEENT Mucous membranes: Normal Pharynx: Normal Neck: Normal - Respiratory Respiratory status: No respiratory distress Breath sounds: Normal - Cardiovascular Rhythm: Regular Heart sounds: Normal auscultation Murmur: No - Abdominal Inspection: Normal Distension: No distension Bowel sounds: Normal Tenderness: Tender - min TTP LUQ without peritoneal signs - Neurological Neuro grossly intact: Yes Cognition: Normal Course - Re-evaluation Re-evalutation: 04/05/19 17:28 pt's exam unchanged from prior exams -- will call Dr. Lamb for admission - Vital Signs Vital signs: Temp Pulse Resp BP Pulse Ox 98.8 F 77 20 134/67 H 96 04/05/19 12:57 04/05/19 12:57 04/05/19 14:02 04/05/19 14:02 04/05/19 14:02 - Laboratory Result Diagrams: 04/05/19 16:25 04/05/19 16:25 Laboratory results interpreted by me: 04/05/19 04/05/19 04/05/19 14:11 16:25 16:25 RBC 3.24 L Hgb 9.2 L Hct 28.3 L RDW 15.9 H Seg Neutrophils % 85.1 H Lymphocytes % 7.8 L Sodium 136.2 L BUN 46 H Creatinine 1.60 H Est GFR ( Amer) 50 L Est GFR (Non-Af Amer) 41 L Glucose 114 H Calcium 8.0 L ALT 11 L Total Protein 5.1 L Albumin 2.6 L Lipase 10.2 L Urine Protein 30 H - Diagnostic Test Radiology reviewed: Reports reviewed - RLL pneumonia - EKG Interpretation by Me EKG shows normal: Sinus rhythm Rate: Normal Rhythm: NSR - nsr with multiple PVC's and no acute change Critical Care Note - Critical Care Note Total time excluding time spent on procedures (mins): 30 Discharge - Discharge Clinical Impression: Pneumonia Qualifiers: Pneumonia type: aspiration pneumonia Aspiration pneumonia type: unspecified Laterality: right Lung location: lower lobe of lung Qualified Code(s): J69.0 - Pneumonitis due to inhalation of food and vomit Condition: Fair Disposition: ADMITTED OBSERVATION Admitting Provider: Leonid Unit Admitted: Medical Floor Referrals: ROMEL LAMB MD [Primary Care Provider] - Follow up as needed
--- NOTE | 2019-04-05 15:51 | RADIOLOGY REPORT (SQ) ---
EXAM DESCRIPTION: CT ABD/PELVIS NO ORAL OR IV COMPLETED DATE/TIME: 04/05/2019 3:08 pm REASON FOR STUDY: abd pain COMPARISON: CT abdomen pelvis 05/11/2018, 01/15/2018, 12/10/2015 Two-view chest 04/05/2019 TECHNIQUE: CT scan of the abdomen and pelvis performed without intravenous or oral contrast. Images reviewed with lung, soft tissue, and bone windows. Reconstructed coronal and sagittal MPR images revi ewed. All images stored on PACS. All CT scanners at this facility use dose modulation, iterative reconstruction, and/or weight based d osing when appropriate to reduce radiation dose to as low as reasonably achievable (ALARA). [facility]: Dose Right [facility]: CareDose [facility]: Dose Right [facility]: Teradose 4D [facility]: [employer] RADIATION DOSE: CT Rad equipment meets quality standard of care and radiation dose reduction techniq ues were employed. CTDIvol: 5.0 mGy. DLP: 265 mGy-cm.mGy. LIMITATIONS: None. FINDINGS: LOWER CHEST: Very dense consolidation is present in the right lower lobe worrisome for pne umonia. There is debris in the right lower lobe airways, aspiration should be considered. Patchy right middle lobe airspace disease is present worrisome for pneumonia. Trace right pleural effusion NON-CONTRASTED LIVER, SPLEEN, ADRENALS: Evaluation limited by lack of IV contrast. No identified sign ificant masses. PANCREAS: No masses. No peripancreatic inflammatory changes. GALLBLADDER: Stones in the gallbladder without pericholecystic fluid by CT RIGHT KIDNEY AND URETER: No suspicious masses. Assessment limited by lack of IV contrast. Multiple r ight renal cortical cysts, the largest is 4 cm in the right mid-pole kidney. No significant calcific ations. No hydronephrosis or hydroureter. LEFT KIDNEY AND URETER: No suspicious masses. Assessment limited by lack of IV contrast. No signifi cant calcifications. No hydronephrosis or hydroureter. AORTA AND RETROPERITONEUM: Infrarenal abdominal aortic aneurysm treated with aorto bi-iliac stent gra ft. The infrarenal abdominal aorta measures 5 cm transverse by 4 cm AP with dense along the SMA and celiac arteries. No retroperitoneal hemorrhage or masses BOWEL AND PERITONEAL CAVITY: No CT evidence of free intraperitoneal air or fluid. No bowel obstructi on. APPENDIX: Normal. PELVIS, BLADDER, AND ABDOMINAL WALL:Treatment markers/radiotherapy treatment seeds in the prostate. Intact bilateral inguinal hernia repairs. No pelvic masses or adenopathy. BONES: No significant findings. OTHER: No other significant finding. IMPRESSION: Right middle and lower lobe pneumonia worrisome for aspiration. Trace right pleural eff usion COMMENT: Quality ID # [id number]: Final reports with documentation of one or more dose reduction techniques (e.g., Automated exposure control, adjustment of the mA and/or kV according to patient size, use of iterative reconstruction technique) TECHNICAL DOCUMENTATION: JOB ID: [id number] [employer]- All Rights Reserved Reading location - IP/workstation name: [email or web address]
--- NOTE | 2019-04-05 16:06 | RADIOLOGY REPORT (SQ) ---
EXAM DESCRIPTION: CHEST 2 VIEWS COMPLETED DATE/TIME: 04/05/2019 3:26 pm REASON FOR STUDY: productive cough COMPARISON: 03/09/2019, 03/08/2019 EXAM PARAMETERS: NUMBER OF VIEWS: two views TECHNIQUE: Digital Frontal and Lateral radiographic views of the chest acquired. RADIATION DOSE: NA LIMITATIONS: none FINDINGS: LUNGS AND PLEURA: Dense consolidation right lower lobe worrisome for pneumonia. Aspiratio n should be considered. Left lung well inflated and clear. No gross pleural effusion or pneumothorax. MEDIASTINUM AND HILAR STRUCTURES: No masses or contour abnormalities. HEART AND VASCULAR STRUCTURES: Heart normal size. No evidence for failure. BONES: No acute findings. HARDWARE: Surgical clips left upper quadrant OTHER: No other significant finding. IMPRESSION: Dense right lower lobe pneumonia worrisome for aspiration TECHNICAL DOCUMENTATION: JOB ID: [id number] [employer]- All Rights Reserved Reading location - IP/workstation name: [email or web address]
[2019-04-05] MEDS ORDERED: LEVOFLOXACIN 750 MG/D5W RTU 750 MG/150 ML RTUPB IV ONE (16:17)
[2019-04-05 17:05] LABS: ABSOLUTE LYMPHOCYTES (AUTO) 0.7 10^3/uL (0.5-4.7); ABSOLUTE MONOCYTES (AUTO) 0.6 10^3/uL (0.1-1.4); ABSOLUTE NEUT (AUTO) 7.9 10^3/uL (1.7-8.2); BASOPHILS % (AUTO) 0.2 % (0-2); EOSINOPHILS % (AUTO) 0.1 % (0-6); HEMATOCRIT 28.3 % (37.9-51.0); HEMOGLOBIN 9.2 g/dL (13.5-17.0); LYMPHOCYTES % (AUTO) 7.8 % (13-45); MEAN CORPUSCULAR HEMOGLOBIN 28.4 pg (27.0-33.4); MEAN CORPUSCULAR HGB CONC 32.4 g/dL (32.0-36.0); MEAN CORPUSCULAR VOLUME 88 fl (80-97); MONOCYTES % (AUTO) 6.8 % (3-13); PLATELET COUNT 235 10^3/uL (150-450); RED BLOOD COUNT 3.24 10^6/uL (4.35-5.55); RED CELL DISTRIBUTION WIDTH 15.9 % (11.5-14.0); SEGMENTED NEUTROPHILS % (AUTO) 85.1 % (42-78); TOTAL CELLS COUNTED % (AUTO) 100 %; WHITE BLOOD COUNT 9.3 10^3/uL (4.0-10.5)
[2019-04-05] MEDS ORDERED: PIPERACILLIN/TAZOBACTAM 3.375 GM VIAL IV ONE (17:10)
[2019-04-05] MEDS ORDERED: VANCOMYCIN HCL INJ 1000 MG VIAL IV ONE (17:10)
[2019-04-05 17:13] LABS: ALANINE AMINOTRANSFERASE 11 U/L (21-72); ALBUMIN 2.6 g/dL (3.5-5.0); ALKALINE PHOSPHATASE 71 U/L (38-126); ANION GAP 9 (5-19); ASPARTATE AMINO TRANSFERASE 19 U/L (17-59); BILIRUBIN,DIRECT 0.4 mg/dL (0.0-0.4); BILIRUBIN,TOTAL 0.5 mg/dL (0.2-1.3); BLOOD UREA NITROGEN 46 mg/dL (7-20); CARBON DIOXIDE 22 mmol/L (22-30); CHLORIDE 105 mmol/L (98-107); GLUCOSE 114 mg/dL (75-110); LIPASE 10.2 U/L (23-300); POTASSIUM 4.6 mmol/L (3.6-5.0); SODIUM 136.2 mmol/L (137-145); TOTAL PROTEIN 5.1 g/dL (6.3-8.2)
[2019-04-05] MEDS ORDERED: ACETAMINOPHEN 325 MG TABLET PO PRN (18:40)
--- NOTE | 2019-04-05 19:29 | EKG REPORT ---
SEVERITY:- ABNORMAL ECG - SINUS RHYTHM MULTIPLE VENTRICULAR PREMATURE COMPLEXES LEFT BUNDLE BRANCH BLOCK : Confirmed by: Marie Leal MD 05-Apr-2019 19:27:39
[2019-04-05] MEDS ORDERED: VANCOMYCIN HCL 0 MG in DEXTROSE 5%-WATER 250 ML IV NR (19:45)
[2019-04-05] MEDS: DEXTROSE 5%-1/2 NORMAL SALINE 1,000 ML IV PRN (20:26)
[2019-04-05] MEDS: ALPRAZOLAM 0.5 MG TABLET PO SCH (20:30)
[2019-04-05] MEDS: VANCOMYCIN HCL 500 MG in DEXTROSE 5%-WATER 100 ML IV SCH (22:17)
[2019-04-05] MEDS: PIPERACILLIN SODIUM/TAZOBACTAM 3.375 GM in NORMAL SALINE 100 ML IV SCH (23:51)
--- NOTE | 2019-04-06 05:15 | PDOC H&P ---
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 4d solid dysphagia vomiting recurrent cough. Told SNF he was dying. They sent to ER for the 2nd time in 2d. He remains full code. 3y ago Dr Euceda dilated distal esophageal stricture to 11mm by tearing mucosa. Grade 4 esophagitis healed on pantoprazole. He chokes after the food goes down. Past Medical History Cardiac Medical History: Reports: Atrial Fibrillation, Congestive Heart Failure, Coronary Artery Disease, Myocardial Infarction - X3=STENTS/ 2001 & 2017, Hyperlipidema, Hypertension - MEDICATED, Peripheral Vascular Disease Pulmonary Medical History: Reports: Chronic Obstructive Pulmonary Disease (COPD), Respiratory Failure Denies: Asthma Neurological Medical History: Denies: Seizures Endocrine Medical History: Reports: Hypothyroidism GI Medical History: Reports: Gastroesophageal Reflux Disease - erosive with stricture few years ago. Improved on pantoprazole bid. Denies: Hepatitis, Hiatal Hernia Musculoskeltal Medical History: Denies: Arthritis Psychiatric Medical History: Reports: Post Traumatic Stress Disorder Denies: Depression - anxiety Hematology: Reports: Anemia - renal Denies: Sickle Cell Disease Past Surgical History Past Surgical History: Reports: Cardiac Catheterization, Carotid Endarterectomy - RIGHT SIDE, Coronary Stent, Vascular Surgery - ILIAC, FEMORAL STENTS, aortic aneurysm stent graft Denies: Pacemaker Social History Information Source: Dr. Lindsay Lives with: Family Smoking Status: Former Smoker Frequency of Alcohol Use: None Hx Recreational Drug Use: No Drugs: None Hx Prescription Drug Abuse: No - Advance Directive Resuscitation Status: Full Code Family History Family History: CAD, DM, Hypertension, Malignancy - Colon cancer Parental Family History Reviewed: Yes Children Family History Reviewed: Yes Sibling(s) Family History Reviewed.: Yes Medication/Allergy Home Medications: Acetaminophen [Tylenol] 325 mg PO Q4HP PRN 04/05/19 Alprazolam [Xanax 0.5 mg Tablet] 0.5 mg PO BID 04/05/19 Aspirin [Ecotrin 81 mg EC Tablet] 81 mg PO DAILY 04/05/19 Atorvastatin Calcium [Lipitor 20 mg Tablet] 20 mg PO QHS 04/05/19 Clopidogrel Bisulfate [Plavix 75 mg Tablet] 75 mg PO DAILY 04/05/19 Cyanocobalamin (Vitamin B-12) [Vitamin B12] 2,500 mcg PO DAILY 04/05/19 Famotidine [Pepcid 20 mg Tablet] 20 mg PO DAILY 04/05/19 Fluticasone Propionate [Flonase Nasal [place] 50 Mcg/[place] 16 gm] 2 spray NASL DAILY 04/05/19 Furosemide [Lasix 20 mg Tablet] 20 mg PO QAM 04/05/19 Ketoconazole [Nizoral 2% Shampoo 120 Ml Bottle] 1 applic TP DAILYP PRN 04/05/19 Ketotifen Fumarate [Refresh] 1 ml OU BIDP PRN 04/05/19 Levothyroxine Sodium [Synthroid 50 Mcg Tablet] 50 mcg PO Q6AM 04/05/19 Lubiprostone [Amitiza 24 Mcg Capsule] 24 mcg PO Q12 04/05/19 Metoprolol Succinate [Toprol Xl 50 mg Tab.sr] 50 mg PO DAILY 04/05/19 Polyethylene Glycol 3350 [Miralax Powder 17 gm/Packet] 1 packet PO DAILY 04/05/19 Promethazine HCl [Phenergan 25 mg Tablet] 25 mg PO Q6HP PRN 04/05/19 Ranolazine [Ranexa 500 mg Tab.sr] 500 mg PO Q12 04/05/19 Allergies/Adverse Reactions: morphine [Morphine] Allergy (Severe, Verified 03/31/18 11:01) Hallucinations tetracycline [Tetracycline] Allergy (Unknown, Verified 03/31/18 11:01) Review of Systems Constitutional: PRESENT: anorexia, weakness, weight loss. ABSENT: fever(s) Nose, Mouth, and Throat: PRESENT: sore throat Cardiovascular: PRESENT: dyspnea on exertion. ABSENT: chest pain Respiratory: PRESENT: cough, sputum Gastrointestinal: PRESENT: abdominal pain - improved, constipation, heartburn, nausea, vomiting. ABSENT: diarrhea, hematochezia Genitourinary: PRESENT: dysuria. ABSENT: hematuria Integumentary: ABSENT: rash Physical Exam Vital Signs: Temp Pulse Resp BP Pulse Ox 98.8 F 77 21 H 116/66 97 04/05/19 12:57 04/05/19 12:57 04/05/19 19:01 04/05/19 19:01 04/05/19 19:01 Intake & Output 04/04/19 04/05/19 04/06/19 07:59 07:59 07:59 Weight 114 lb 6.719 oz General appearance: PRESENT: no acute distress Throat exam: ABSENT: post pharyngeal erythema Neck exam: ABSENT: lymphadenopathy, tenderness, thyromegaly, tracheal deviation Respiratory exam: PRESENT: clear to auscultation rodrigo Cardiovascular exam: ABSENT: diastolic murmur, irregular rhythm, systolic murmur GI/Abdominal exam: ABSENT: mass, organolmegaly, tenderness Extremities exam: ABSENT: pedal edema Neurological exam: PRESENT: oriented to situation Psychiatric exam: PRESENT: appropriate affect Results Laboratory Results: Abnormal - 24 hr 04/05/19 04/05/19 04/05/19 14:11 16:25 16:25 RBC 3.24 L Hgb 9.2 L Hct 28.3 L RDW 15.9 H Seg Neutrophils % 85.1 H Lymphocytes % 7.8 L Sodium 136.2 L BUN 46 H Creatinine 1.60 H Est GFR ( Amer) 50 L Est GFR (Non-Af Amer) 41 L Glucose 114 H Calcium 8.0 L ALT 11 L Total Protein 5.1 L Albumin 2.6 L Lipase 10.2 L Urine Protein 30 H Impressions: Abdomen/Pelvis CT 04/05/19 14:59 IMPRESSION: Right middle and lower lobe pneumonia worrisome for aspiration. Trace right pleural effusion Chest X-Ray 04/05/19 14:59 IMPRESSION: Dense right lower lobe pneumonia worrisome for aspiration Assessment & Plan - Diagnosis (1) Pneumonia Qualifiers: Pneumonia type: aspiration pneumonia Aspiration pneumonia type: due to regurgitated food Laterality: right Lung location: lower lobe of lung Qualified Code(s): J69.0 - Pneumonitis due to inhalation of food and vomit Is this a current diagnosis for this admission?: Yes Plan: failed azith & ceftri. Try zosyn & vanc (2) Dysphagia Qualifiers: Dysphagia type: esophageal phase Qualified Code(s): R13.10 - Dysphagia, unspecified Is this a current diagnosis for this admission?: Yes Plan: consult Dr Euceda 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 - Inpatient Certification Based on my medical assessment, after consideration of the patient's comorbidities, presenting symptoms, or acuity I expect that the services needed warrant INPATIENT care.: Yes I certify that my determination is in accordance with my understanding of Medicare's requirements for reasonable and necessary INPATIENT services [42 CFR 412.3e].: Yes Medical Necessity: Failure to Improve With Outpatient Therapy, Significant Comorbidiites Make Outpatient Treatment Too Risky, Need Close Monitoring Due to Risk of Patient Decompensation, Need For IV Fluids, Need For Continuous Telemetry Monitoring, Need for IV Antibiotics, Risk of Complication if Not Cared For in Hospital, Risk of Diagnosis Which Will Require Inpatient Eval/Care/Monitoring
[2019-04-06] MEDS: PANTOPRAZOLE SODIUM 40 MG TABLET.DR PO SCH ×3 (06:06→18:20)
[2019-04-06] MEDS: PIPERACILLIN SODIUM/TAZOBACTAM 3.375 GM in NORMAL SALINE 100 ML IV SCH ×3 (06:06→18:19)
[2019-04-06] MEDS: LEVOTHYROXINE SODIUM 0.05 MG TABLET PO SCH (06:25)
[2019-04-06] MEDS: ALPRAZOLAM 0.5 MG TABLET PO SCH ×2 (07:57→21:08)
[2019-04-06] MEDS: ENOXAPARIN SODIUM INJ 30 MG/0.3 ML DISP.SYRIN SUBCUT SCH (11:20)
--- NOTE | 2019-04-06 22:16 | Operative Report ---
Operative Report DATE OF SURGERY: 04/06/19 PREOPERATIVE DIAGNOSIS: Pneumonia, dysphasia. Critical need for intravenous ac cess POSTOPERATIVE DIAGNOSIS: Same OPERATION: Left internal jugular triple-lumen central venous catheter placed under ultrasound guidance SURGEON: YOLI NINA ANESTHESIA: Local TISSUE REMOVED OR ALTERED: None COMPLICATIONS: None ESTIMATED BLOOD LOSS: 20 cc INTRAOPERATIVE FINDINGS: None PROCEDURE: Informed consent was obtained. Procedure was done at the patient's bedside. Patient's left neck was prepped and draped in usual sterile fashion. Local anesthetic was administered. The left internal jugular vein was visualized with the ultrasound. The left internal jugular vein was cannulated without difficulty. Triple-lumen central venous catheter was placed via the Seldinger technique without difficulty. It withdrew blood and flushed easily. It was sutured in place. Dressings were applied. Stat portable chest x-ray was ordered. Patient tolerated procedure well with no apparent complications.
--- NOTE | 2019-04-06 23:22 | RADIOLOGY REPORT (SQ) ---
EXAM DESCRIPTION: XR CHEST 1 VIEW COMPLETED DATE/TME: 04/06/2019 00:00 CLINICAL HISTORY: 89 years, Male, Central Line Placement. Central Line Placed. COMPARISON: 03/09/2019 chest NUMBER OF VIEWS: 1 TECHNIQUE: Portable chest LIMITATIONS: None. FINDINGS: Heart size is normal. Central venous catheter in place. Atheromatous change thoracic aorta. Worsening airspace opacity right lung base. Osteopenia. No pneumothorax IMPRESSION: Worsening airspace opacity right lung base likely reflecting worsening pneumonia copyright 2010 [employer]- All Rights Reserved
[2019-04-06] MEDS: VANCOMYCIN HCL 500 MG in DEXTROSE 5%-WATER 100 ML IV SCH (23:25)
[2019-04-07] MEDS: PIPERACILLIN SODIUM/TAZOBACTAM 3.375 GM in NORMAL SALINE 100 ML IV SCH ×4 (00:48→18:11)
[2019-04-07] MEDS: DEXTROSE 5%-1/2 NORMAL SALINE 1,000 ML IV PRN ×2 (00:50→21:13)
[2019-04-07] MEDS: PANTOPRAZOLE SODIUM 40 MG TABLET.DR PO SCH ×2 (05:28→18:11)
[2019-04-07] MEDS: LEVOTHYROXINE SODIUM 0.05 MG TABLET PO SCH (05:28)
--- NOTE | 2019-04-07 07:39 | PDOC PROGRESS REPORT ---
Subjective Progress Note for:: 04/07/19 Subjective:: less cough & dysphagia Reason For Visit: PNEUMONIA Physical Exam Vital Signs: Temp Pulse Resp BP Pulse Ox 100.0 F 78 20 103/53 L 91 L 04/06/19 20:00 04/07/19 02:00 04/06/19 20:00 04/06/19 20:00 04/06/19 20:00 Intake & Output 04/05/19 04/06/19 04/07/19 07:59 07:59 07:59 Intake Total 1450 1620 Output Total 425 650 Balance 1025 970 Weight 114 lb 13.773 oz 114 lb 10.246 oz General appearance: PRESENT: no acute distress Respiratory exam: PRESENT: clear to auscultation rodrigo Cardiovascular exam: ABSENT: diastolic murmur, irregular rhythm, systolic murmur GI/Abdominal exam: ABSENT: mass, organolmegaly, tenderness Extremities exam: ABSENT: pedal edema Neurological exam: PRESENT: oriented to situation Psychiatric exam: PRESENT: appropriate affect Results Laboratory Results: 04/05/19 16:25 04/05/19 16:25 Impressions: Abdomen/Pelvis CT 04/05/19 14:59 IMPRESSION: Right middle and lower lobe pneumonia worrisome for aspiration. Trace right pleural effusion Chest X-Ray 04/06/19 00:00 IMPRESSION: Worsening airspace opacity right lung base likely reflecting worsening pneumonia copyright 2011 [employer]- All Rights Reserved Assessment & Plan - Diagnosis (1) Pneumonia Qualifiers: Pneumonia type: aspiration pneumonia Aspiration pneumonia type: due to regurgitated food Laterality: right Lung location: lower lobe of lung Qualified Code(s): J69.0 - Pneumonitis due to inhalation of food and vomit Is this a current diagnosis for this admission?: Yes Plan: gram stain gram postitives (2) Dysphagia Qualifiers: Dysphagia type: esophageal phase Qualified Code(s): R13.10 - Dysphagia, unspecified Is this a current diagnosis for this admission?: Yes Plan: consulted ST & gi 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 - Inpatient Certification Medical Necessity: Failure to Improve With Outpatient Therapy, Significant Comorbidiites Make Outpatient Treatment Too Risky, Need Close Monitoring Due to Risk of Patient Decompensation, Need For IV Fluids, Need for IV Antibiotics, Risk of Complication if Not Cared For in Hospital, Risk of Diagnosis Which Will Require Inpatient Eval/Care/Monitoring
[2019-04-07] MEDS: ENOXAPARIN SODIUM INJ 30 MG/0.3 ML DISP.SYRIN SUBCUT SCH (09:42)
[2019-04-07] MEDS: ALPRAZOLAM 0.5 MG TABLET PO SCH ×2 (09:42→19:57)
[2019-04-07] MEDS: VANCOMYCIN HCL 500 MG in DEXTROSE 5%-WATER 100 ML IV SCH (21:11)
[2019-04-08] MEDS: PIPERACILLIN SODIUM/TAZOBACTAM 3.375 GM in NORMAL SALINE 100 ML IV SCH ×5 (00:20→23:37)
[2019-04-08] MEDS: LEVOTHYROXINE SODIUM 0.05 MG TABLET PO SCH (05:16)
[2019-04-08] MEDS: PANTOPRAZOLE SODIUM 40 MG TABLET.DR PO SCH ×2 (05:16→17:20)
--- NOTE | 2019-04-08 07:23 | PDOC PROGRESS REPORT ---
Subjective Progress Note for:: 04/08/19 Subjective:: less cough. No longer choking Reason For Visit: PNEUMONIA Physical Exam Vital Signs: Temp Pulse Resp BP Pulse Ox 98.1 F 93 17 126/62 H 98 04/07/19 23:28 04/08/19 02:00 04/07/19 23:28 04/07/19 23:28 04/07/19 23:28 Intake & Output 04/06/19 04/07/19 04/08/19 07:59 07:59 07:59 Intake Total 1450 1720 1950 Output Total 233 934 6828 Balance 1025 1070 900 Weight 114 lb 13.773 oz 114 lb 10.246 oz 115 lb 1.301 oz General appearance: PRESENT: no acute distress Respiratory exam: PRESENT: clear to auscultation rodrigo Cardiovascular exam: ABSENT: diastolic murmur, irregular rhythm, systolic murmur GI/Abdominal exam: ABSENT: mass, organolmegaly, tenderness Extremities exam: ABSENT: pedal edema Neurological exam: PRESENT: oriented to situation Psychiatric exam: PRESENT: appropriate affect Results Laboratory Results: 04/05/19 16:25 04/05/19 16:25 Impressions: Abdomen/Pelvis CT 04/05/19 14:59 IMPRESSION: Right middle and lower lobe pneumonia worrisome for aspiration. Trace right pleural effusion Chest X-Ray 04/06/19 00:00 IMPRESSION: Worsening airspace opacity right lung base likely reflecting worsening pneumonia copyright 2011 [employer]- All Rights Reserved Assessment & Plan - Diagnosis (1) Pneumonia Qualifiers: Pneumonia type: aspiration pneumonia Aspiration pneumonia type: due to regurgitated food Laterality: right Lung location: lower lobe of lung Qualified Code(s): J69.0 - Pneumonitis due to inhalation of food and vomit Is this a current diagnosis for this admission?: Yes Plan: vanc level (2) Dysphagia Qualifiers: Dysphagia type: esophageal phase Qualified Code(s): R13.10 - Dysphagia, unspecified Is this a current diagnosis for this admission?: Yes Plan: passed bedside ST eval. ST feels dysphagia is esophageal. No GI consult yet. 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 - Inpatient Certification Medical Necessity: Failure to Improve With Outpatient Therapy, Significant Comorbidiites Make Outpatient Treatment Too Risky, Need Close Monitoring Due to Risk of Patient Decompensation, Need For IV Fluids, Need For Continuous Telemetry Monitoring, Need for IV Antibiotics, Risk of Complication if Not Cared For in Hospital, Risk of Diagnosis Which Will Require Inpatient Ev al/Care/Monitoring
[2019-04-08] MEDS: ENOXAPARIN SODIUM INJ 30 MG/0.3 ML DISP.SYRIN SUBCUT SCH (10:00)
[2019-04-08] MEDS ORDERED: ACETAMINOPHEN 325 MG TABLET PO PRN (14:05)
[2019-04-08] MEDS: ALPRAZOLAM 0.5 MG TABLET PO SCH ×2 (16:13→17:58)
[2019-04-08] MEDS: ONDANSETRON 4 MG TAB.RAPDIS PO PRN (17:11)
[2019-04-08] MEDS: DEXTROSE 5%-1/2 NORMAL SALINE 1,000 ML IV PRN (21:10)
[2019-04-08] MEDS: VANCOMYCIN HCL 500 MG in DEXTROSE 5%-WATER 100 ML IV SCH (21:11)
[2019-04-09] MEDS: ONDANSETRON 4 MG TAB.RAPDIS PO PRN ×2 (05:24→17:39)
[2019-04-09] MEDS: LEVOTHYROXINE SODIUM 0.05 MG TABLET PO SCH (05:24)
[2019-04-09] MEDS: PANTOPRAZOLE SODIUM 40 MG TABLET.DR PO SCH ×2 (05:24→16:07)
[2019-04-09] MEDS: ALPRAZOLAM 0.5 MG TABLET PO SCH ×2 (05:24→17:40)
[2019-04-09] MEDS: PIPERACILLIN SODIUM/TAZOBACTAM 3.375 GM in NORMAL SALINE 100 ML IV SCH ×4 (05:24→23:38)
--- NOTE | 2019-04-09 06:58 | PDOC PROGRESS REPORT ---
Subjective Progress Note for:: 04/09/19 Subjective:: minimal cough Reason For Visit: PNEUMONIA Physical Exam Vital Signs: Temp Pulse Resp BP Pulse Ox 98.7 F 81 17 116/68 97 04/09/19 00:00 04/09/19 02:00 04/09/19 00:00 04/09/19 00:00 04/09/19 00:00 Intake & Output 04/07/19 04/08/19 04/09/19 07:59 07:59 07:59 Intake Total 1720 1950 2220 Output Total 650 1050 1425 Balance 1070 900 795 Weight 114 lb 10.246 oz 115 lb 1.301 oz 115 lb 15.41 oz General appearance: PRESENT: no acute distress Respiratory exam: PRESENT: clear to auscultation rodrigo Cardiovascular exam: PRESENT: irregular rhythm - skips. ABSENT: diastolic murmur, systolic murmur GI/Abdominal exam: ABSENT: mass, organolmegaly, tenderness Extremities exam: ABSENT: pedal edema Neurological exam: PRESENT: oriented to situation Psychiatric exam: PRESENT: appropriate affect Results Laboratory Results: 04/05/19 16:25 04/09/19 01:55 04/09/19 01:55 Creatinine 1.39 H Est GFR ( Amer) 58 L Est GFR (Non-Af Amer) 48 L 04/05/19 17:25 Sputum Gram Stain - Final 04/05/19 17:25 Sputum Sputum Culture - Final NORMAL MANOLO Impressions: Abdomen/Pelvis CT 04/05/19 14:59 IMPRESSION: Right middle and lower lobe pneumonia worrisome for aspiration. Trace right pleural effusion Chest X-Ray 04/06/19 00:00 IMPRESSION: Worsening airspace opacity right lung base likely reflecting worsening pneumonia copyright 2011 [employer]- All Rights Reserved Assessment & Plan - Diagnosis (1) Pneumonia Qualifiers: Pneumonia type: aspiration pneumonia Aspiration pneumonia type: due to regurgitated food Laterality: right Lung location: lower lobe of lung Qualified Code(s): J69.0 - Pneumonitis due to inhalation of food and vomit Is this a current diagnosis for this admission?: Yes Plan: vanc level pending (2) Dysphagia Qualifiers: Dysphagia type: esophageal phase Qualified Code(s): R13.10 - Dysphagia, unspecified Is this a current diagnosis for this admission?: Yes Plan: cookie swallow pending 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
--- NOTE | 2019-04-09 09:11 | ST Inp Modified Barium Swallow ---
Medical Diagnosis - Medical Diagnoses Medical Diagnosis Description & ICD-10 Code(s): pneumonia, dysphagia ST Inpatient [facility] [place] - General Date: 04/09/19 - History History Obtained From: Other - EMR -: Medical - per EMR: patient admitted 04/05/19 with "dysphagia cough". Reportedly had 4 days of "solid dysphagia vomiting, recurrent cough". Patient has history of grade 4 esophagitis "healed on pantoprazole". EMR indicates that "he chokes after the food goes down". Patient does have history of recurrent pneumonia. Baseline diet was thin liquids and regular solids, current diet is honey thick liquids and puree solids. Medications: Medications Reviewed Allergies: Refer to medical record - Subjective Current Nutritional Means: PO Current PO Diet: Pureed, Thickened liquids - honey Current Symptoms: Coughing, Pneumonia Pain: Patient reports, 0/5 - Objective Assessment: Upright, Left Lateral - Food Trials Food Trials Used: Thin liquids, Honey-thickened liquids, Pureed, Regular The Patient: Was Able to Self Feed - Assessment Labial Function: Within Normal Limits Lingual Function: Within Normal Limits Mandibular Function: Within Normal Limits Laryngeal Function: clear voicing - Pharyngeal Stage Initiation of Pharyngeal Stage: Normal Decreased Laryngeal Elevation: No Reduced Velo-Pharyngeal Closure: no Reduced Pressure Generation: No Reduced Tongue Base Retraction: No Pre-Swallowing Pooling in Valleculae: None Pre-Swallowing Pooling in Pyriforms: None Reduced Thyro-Hyiod Approximation: No Reduced Epiglottic Excursion: No Multiple Swallows With: Cleared w/ Liquid Assist Post Swallow Residuals in Valleculae: Mild Post Swallow Residuals in Pyriforms: Mild Pahryngeal Stage Comments: Patient does not demonstrate aspiration on the swallow. Patient is at risk of aspiration after the swallow due to incomplete clearance of material through the upper esophageal sphincter. Recommend thin liquids and mechanical soft, chopped meats diet. Penetration of thin liquids seen with cup sips, flash. Penetration with straw sips of thin liquids, deep. - Esophageal Stage Esophageal Stage Comments: Difficulty clearing entire bolus through the UES. - Impression/Summary Laryngeal Penetration: Yes, Flash - during the swallow with cup sips of thin liquids, Deep - during the swallow with straw sips of thin liquids Tracheal Aspiration: no Risk of Aspiration: Moderate Risk Due To: Patient is at risk of aspiration after the swallow due to residuals just above level of the UES. No aspiration seen on this study. - Recommendations Solid Diet Recommendations: Mechanical Soft, Chopped Meat Liquid Diet Recommendations: Thin Strict Aspitarion Precautions: Yes Dysphagia Therapy with FRUIT ROOM HAND: Follow Up PRN Recommended Techniques: Alternate Bites/Sips Supervision: Independent Other Recommendations: Recommend no straws - Time Total Time: 30 Total Timed Minutes: 30
--- NOTE | 2019-04-09 10:46 | RADIOLOGY REPORT (SQ) ---
EXAM DESCRIPTION: DICK SWALLOW COMPLETED DATE/TIME: 04/09/2019 8:56 am REASON FOR STUDY: aspiration recurrent pneumonia COMPARISON: None. TECHNIQUE: Videofluoroscopic swallowing examination was performed in conjunction with speech patholo gy. Videofluoroscopic imaging was obtained and reviewed and these are the findings: RADIATION DOSE: 2 minutes 39 seconds of fluoroscopy was used. 2 images saved to PACS. LIMITATIONS: None FINDINGS: The patient was brought into the fluoro room and placed upright on a modified barium swall ow chair. The patient was then given multiple consistencies mixed with barium to swallow under live fluoroscopic video guidance. According to the Speech Pathologist there was laryngeal penetration of thin liquids. There is penetration to the level of the cords of post swallow residual contrast from the piriform sinuses. IMPRESSION: PENETRATION OF POST SWALLOW RESIDUAL CONTRAST TO THE LEVEL OF THE CORDS. ASPIRATION WAS NOT SEEN BUT IS SUSPECTED. PLEASE SEE SPEECH PATHOLOGIST REPORT FOR OTHER FINDINGS AND RECOMMENDATIO NS. COMMENT: Quality ID [id number]: Final reports for procedures using fluoroscopy that document radiation exp osure indices, or exposure time and number of fluorographic images (if radiation exposure indices are not available) TECHNICAL DOCUMENTATION: JOB ID: [id number] [email or web address]- All Rights Reserved Reading location - IP/workstation name: [email or web address] [id number]
[2019-04-09] MEDS: DEXTROSE 5%-1/2 NORMAL SALINE 1,000 ML IV PRN ×2 (12:37→23:39)
[2019-04-09] MEDS: ENOXAPARIN SODIUM INJ 30 MG/0.3 ML DISP.SYRIN SUBCUT SCH (12:41)
[2019-04-09] MEDS: VANCOMYCIN HCL 500 MG in DEXTROSE 5%-WATER 100 ML IV SCH (21:02)
[2019-04-09 21:44] LABS: VANCOMYCIN,TROUGH 7.3 ug/mL (5.0-20.0)
[2019-04-10] MEDS: ONDANSETRON 4 MG TAB.RAPDIS PO PRN ×2 (00:49→08:56)
[2019-04-10] MEDS: PIPERACILLIN SODIUM/TAZOBACTAM 3.375 GM in NORMAL SALINE 100 ML IV SCH ×3 (05:32→17:00)
[2019-04-10] MEDS: PANTOPRAZOLE SODIUM 40 MG TABLET.DR PO SCH ×2 (05:32→16:58)
[2019-04-10] MEDS: LEVOTHYROXINE SODIUM 0.05 MG TABLET PO SCH (05:32)
[2019-04-10] MEDS: ALPRAZOLAM 0.5 MG TABLET PO SCH ×2 (05:32→17:00)
--- NOTE | 2019-04-10 09:33 | PDOC PROGRESS REPORT ---
Subjective Subjective:: diarrhea*3 nausea cough Reason For Visit: PNEUMONIA Physical Exam Vital Signs: Temp Pulse Resp BP Pulse Ox 98.7 F 82 14 101/53 L 99 04/10/19 00:00 04/10/19 02:00 04/10/19 00:00 04/10/19 00:00 04/10/19 00:00 Intake & Output 04/09/19 04/10/19 04/11/19 07:59 07:59 07:59 Intake Total 3220 3070 Output Total 1425 1350 Balance 1795 1720 Weight 115 lb 15.41 oz 113 lb 1.554 oz General appearance: PRESENT: no acute distress Respiratory exam: PRESENT: clear to auscultation rodrigo Cardiovascular exam: PRESENT: irregular rhythm - skips. ABSENT: diastolic murmur, systolic murmur GI/Abdominal exam: PRESENT: tenderness - mild BLQ. ABSENT: mass, organolmegaly Extremities exam: ABSENT: pedal edema Neurological exam: PRESENT: oriented to situation Psychiatric exam: PRESENT: appropriate affect Results Laboratory Results: 04/05/19 16:25 04/09/19 01:55 Impressions: Abdomen/Pelvis CT 04/05/19 14:59 IMPRESSION: Right middle and lower lobe pneumonia worrisome for aspiration. Trace right pleural effusion Chest X-Ray 04/06/19 00:00 IMPRESSION: Worsening airspace opacity right lung base likely reflecting worsening pneumonia copyright 2011 [employer]- All Rights Reserved Modified Barium Swallow 04/09/19 00:00 IMPRESSION: PENETRATION OF POST SWALLOW RESIDUAL CONTRAST TO THE LEVEL OF THE CORDS. ASPIRATION WAS NOT SEEN BUT IS SUSPECTED. PLEASE SEE SPEECH PATHOLOGIST REPORT FOR OTHER FINDINGS AND RECOMMENDATIONS. Assessment & Plan - Diagnosis (1) Pneumonia Qualifiers: Pneumonia type: aspiration pneumonia Aspiration pneumonia type: due to regurgitated food Laterality: right Lung location: lower lobe of lung Qualified Code(s): J69.0 - Pneumonitis due to inhalation of food and vomit Is this a current diagnosis for this admission?: Yes Plan: vanc7. C diff (2) Dysphagia Qualifiers: Dysphagia type: esophageal phase Qualified Code(s): R13.10 - Dysphagia, unspecified Is this a current diagnosis for this admission?: Yes Plan: cookie swallow penetrated to cords. 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 - Inpatient Certification Medical Necessity: Failure to Improve With Outpatient Therapy, Significant Comorbidiites Make Outpatient Treatment Too Risky, Need Close Monitoring Due to Risk of Patient Decompensation, Need For IV Fluids, Need For Continuous Telemetry Monitoring, Need for IV Antibiotics, Risk of Complication if Not Cared For in Hospital, Risk of Diagnosis Which Will Require Inpatient E daron/Care/Monitoring
[2019-04-10] MEDS: VANCOMYCIN HCL 1,250 MG in DEXTROSE 5%-WATER 250 ML IV SCH (09:56)
[2019-04-10] MEDS: ENOXAPARIN SODIUM INJ 30 MG/0.3 ML DISP.SYRIN SUBCUT SCH (09:57)
[2019-04-11] MEDS: PIPERACILLIN SODIUM/TAZOBACTAM 3.375 GM in NORMAL SALINE 100 ML IV SCH ×5 (00:14→23:51)
[2019-04-11] MEDS: PANTOPRAZOLE SODIUM 40 MG TABLET.DR PO SCH ×2 (05:55→17:22)
[2019-04-11] MEDS: ALPRAZOLAM 0.5 MG TABLET PO SCH ×2 (05:56→17:22)
[2019-04-11] MEDS: LEVOTHYROXINE SODIUM 0.05 MG TABLET PO SCH (05:56)
[2019-04-11] MEDS: ONDANSETRON 4 MG TAB.RAPDIS PO PRN (05:57)
[2019-04-11] MEDS: DEXTROSE 5%-1/2 NORMAL SALINE 1,000 ML IV PRN ×2 (06:45→17:25)
--- NOTE | 2019-04-11 08:13 | PDOC PROGRESS REPORT ---
Subjective Progress Note for:: 04/11/19 Subjective:: less cough sputum now clear Reason For Visit: PNEUMONIA Physical Exam Vital Signs: Temp Pulse Resp BP Pulse Ox 98.9 F 84 16 124/68 100 04/11/19 00:00 04/11/19 02:00 04/11/19 00:00 04/11/19 00:00 04/11/19 00:00 Intake & Output 04/10/19 04/11/19 04/12/19 07:59 07:59 07:59 Intake Total 3070 1880 Output Total 1350 1200 Balance 1720 680 Weight 113 lb 1.554 oz 113 lb 1.554 oz General appearance: PRESENT: no acute distress Respiratory exam: PRESENT: clear to auscultation rodrigo Cardiovascular exam: ABSENT: diastolic murmur, irregular rhythm, systolic murmur GI/Abdominal exam: ABSENT: mass, organolmegaly, tenderness Extremities exam: ABSENT: pedal edema Neurological exam: PRESENT: oriented to situation Psychiatric exam: PRESENT: appropriate affect Results Laboratory Results: 04/05/19 16:25 04/09/19 01:55 04/05/19 17:25 Blood Blood Culture - Final NO GROWTH IN 5 DAYS 04/05/19 17:00 Blood Blood Culture - Final NO GROWTH IN 5 DAYS Impressions: Abdomen/Pelvis CT 04/05/19 14:59 IMPRESSION: Right middle and lower lobe pneumonia worrisome for aspiration. Trace right pleural effusion Chest X-Ray 04/06/19 00:00 IMPRESSION: Worsening airspace opacity right lung base likely reflecting worsening pneumonia copyright 2011 [employer]- All Rights Reserved Modified Barium Swallow 04/09/19 00:00 IMPRESSION: PENETRATION OF POST SWALLOW RESIDUAL CONTRAST TO THE LEVEL OF THE CORDS. ASPIRATION WAS NOT SEEN BUT IS SUSPECTED. PLEASE SEE SPEECH PATHOLOGIST REPORT FOR OTHER FINDINGS AND RECOMMENDATIONS. Assessment & Plan - Diagnosis (1) Pneumonia Qualifiers: Pneumonia type: aspiration pneumonia Aspiration pneumonia type: due to regurgitated food Laterality: right Lung location: lower lobe of lung Qualified Code(s): J69.0 - Pneumonitis due to inhalation of food and vomit Is this a current diagnosis for this admission?: Yes Plan: d7 antibiotics (2) Dysphagia Qualifiers: Dysphagia type: esophageal phase Qualified Code(s): R13.10 - Dysphagia, unspecified Is this a current diagnosis for this admission?: Yes Plan: Ba swallow tomorrow 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
[2019-04-11] MEDS: VANCOMYCIN HCL 1,250 MG in DEXTROSE 5%-WATER 250 ML IV SCH (11:05)
[2019-04-11] MEDS: ENOXAPARIN SODIUM INJ 30 MG/0.3 ML DISP.SYRIN SUBCUT SCH (11:09)
[2019-04-12] MEDS: PIPERACILLIN SODIUM/TAZOBACTAM 3.375 GM in NORMAL SALINE 100 ML IV SCH ×4 (06:41→23:00)
[2019-04-12] MEDS: ALPRAZOLAM 0.5 MG TABLET PO SCH ×2 (06:42→17:06)
[2019-04-12] MEDS: PANTOPRAZOLE SODIUM 40 MG TABLET.DR PO SCH ×2 (06:42→17:06)
[2019-04-12] MEDS: LEVOTHYROXINE SODIUM 0.05 MG TABLET PO SCH (06:42)
--- NOTE | 2019-04-12 06:56 | PDOC PROGRESS REPORT ---
Subjective Progress Note for:: 04/12/19 Subjective:: more cough Reason For Visit: PNEUMONIA Physical Exam Vital Signs: Temp Pulse Resp BP Pulse Ox 98.8 F 88 16 122/60 99 04/12/19 03:26 04/12/19 03:26 04/12/19 03:26 04/12/19 03:26 04/12/19 03:26 Intake & Output 04/10/19 04/11/19 04/12/19 07:59 07:59 07:59 Intake Total 3070 1980 2830 Output Total 1350 1200 925 Balance 0966 563 4568 Weight 113 lb 1.554 oz 113 lb 1.554 oz 113 lb 1.554 oz General appearance: PRESENT: no acute distress Respiratory exam: PRESENT: clear to auscultation rodrigo Cardiovascular exam: ABSENT: diastolic murmur, irregular rhythm, systolic murmur GI/Abdominal exam: ABSENT: mass, organolmegaly, tenderness Extremities exam: ABSENT: pedal edema Neurological exam: PRESENT: oriented to situation Psychiatric exam: PRESENT: appropriate affect Results Laboratory Results: 04/05/19 16:25 04/09/19 01:55 Impressions: Abdomen/Pelvis CT 04/05/19 14:59 IMPRESSION: Right middle and lower lobe pneumonia worrisome for aspiration. Trace right pleural effusion Chest X-Ray 04/06/19 00:00 IMPRESSION: Worsening airspace opacity right lung base likely reflecting worsening pneumonia copyright 2011 [employer]- All Rights Reserved Modified Barium Swallow 04/09/19 00:00 IMPRESSION: PENETRATION OF POST SWALLOW RESIDUAL CONTRAST TO THE LEVEL OF THE CORDS. ASPIRATION WAS NOT SEEN BUT IS SUSPECTED. PLEASE SEE SPEECH PATHOLOGIST REPORT FOR OTHER FINDINGS AND RECOMMENDATIONS. Assessment & Plan - Diagnosis (1) Pneumonia Qualifiers: Pneumonia type: aspiration pneumonia Aspiration pneumonia type: due to regurgitated food Laterality: right Lung location: lower lobe of lung Qualified Code(s): J69.0 - Pneumonitis due to inhalation of food and vomit Is this a current diagnosis for this admission?: Yes Plan: d7 antibiotics. Diarrhea stopped. C diff not collected. 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 - Inpatient Certification Medical Necessity: Failure to Improve With Outpatient Therapy, Significant Comorbidiites Make Outpatient Treatment Too Risky, Need Close Monitoring Due to Risk of Patient Decompensation, Need For IV Fluids, Need For Continuous Telemetry Monitoring, Need for IV Antibiotics, Risk of Complication if Not Cared For in Hospital, Risk of Diagnosis Which Will Require Inpatient Eval/Care/Monitoring
[2019-04-12] MEDS: VANCOMYCIN HCL 1,250 MG in DEXTROSE 5%-WATER 250 ML IV SCH (10:01)
[2019-04-12] MEDS: ENOXAPARIN SODIUM INJ 30 MG/0.3 ML DISP.SYRIN SUBCUT SCH (10:02)
[2019-04-12] MEDS: DEXTROSE 5%-1/2 NORMAL SALINE 1,000 ML IV PRN (13:19)
--- NOTE | 2019-04-12 15:58 | RADIOLOGY REPORT (SQ) ---
EXAM DESCRIPTION: BARIUM SWALLOW ESOPHAGUS COMPLETED DATE/TIME: 04/12/2019 8:57 am REASON FOR STUDY: solid dysphagia aspiration pneumonia COMPARISON: Barium swallow 12/15/2015. TECHNIQUE: Under fluoroscopic guidance, patient ingested effervescent granules followed by thick and thin barium. Fluoroscopic spot images and routine radiographic images acquired and stored on PACS. 12 MM BARIUM TABLET GIVEN: Patient swallowed 12 mm barium tablet without difficulty. The tablet stuc k at the distal esophagus for approximately 5 minutes before passing into the stomach. LIMITATIONS: None. FLUOROSCOPY TIME: FLUORO TIME: 2.47 minutes 11 images saved to PACS. FINDINGS: NEUROMUSCULAR COORDINATION OF SWALLOW: Significant aspiration seen during study. ESOPHAGEAL MOTILITY: Normal peristalsis. No esophageal spasm. ESOPHAGEAL MUCOSA: Normal mucosa without masses or ulceration. Smooth tapered narrowing of the dista l esophagus. GASTRO-ESOPHAGEAL JUNCTION: No hiatal hernia. Gastroesophageal reflux demonstrated. Surgical change s consistent with gastric resection. NON-GI TRACT STRUCTURES: No significant finding. OTHER: No other significant finding. IMPRESSION: ASPIRATION. GASTROESOPHAGEAL REFLUX. SURGICAL CHANGES CONSISTENT WITH GASTRIC RESECTIO N. RECOMMENDATION: None COMMENT: None Quality ID [id number]: Final reports for procedures using fluoroscopy that document radiation exposure helen charlette, or exposure time and number of fluorographic images (if radiation exposure indices are not avail able) TECHNICAL DOCUMENTATION: JOB ID: [id number] [employer]- All Rights Reserved Reading location - IP/workstation name: [email or web address]
[2019-04-13] MEDS: ALPRAZOLAM 0.5 MG TABLET PO SCH ×2 (05:31→18:10)
[2019-04-13] MEDS: LEVOTHYROXINE SODIUM 0.05 MG TABLET PO SCH (05:31)
[2019-04-13] MEDS: PANTOPRAZOLE SODIUM 40 MG TABLET.DR PO SCH ×2 (05:31→18:10)
--- NOTE | 2019-04-13 08:08 | PDOC PROGRESS REPORT ---
Subjective Progress Note for:: 04/13/19 Subjective:: same Reason For Visit: PNEUMONIA Physical Exam Vital Signs: Temp Pulse Resp BP Pulse Ox 98.1 F 87 16 115/51 L 100 04/12/19 23:34 04/13/19 07:00 04/12/19 23:34 04/12/19 23:34 04/12/19 23:34 Intake & Output 04/12/19 04/13/19 04/14/19 07:59 07:59 07:59 Intake Total 3930 1296 Output Total 925 1300 Balance 3005 -4 Weight 113 lb 1.554 oz 115 lb 15.41 oz General appearance: PRESENT: no acute distress Respiratory exam: PRESENT: rhonchi Cardiovascular exam: ABSENT: diastolic murmur, systolic murmur GI/Abdominal exam: ABSENT: mass, organolmegaly, tenderness Extremities exam: ABSENT: pedal edema Neurological exam: PRESENT: oriented to situation Psychiatric exam: PRESENT: appropriate affect Results Laboratory Results: 04/05/19 16:25 04/09/19 01:55 Impressions: Abdomen/Pelvis CT 04/05/19 14:59 IMPRESSION: Right middle and lower lobe pneumonia worrisome for aspiration. Trace right pleural effusion Chest X-Ray 04/06/19 00:00 IMPRESSION: Worsening airspace opacity right lung base likely reflecting worsening pneumonia copyright 2011 [employer]- All Rights Reserved Modified Barium Swallow 04/09/19 00:00 IMPRESSION: PENETRATION OF POST SWALLOW RESIDUAL CONTRAST TO THE LEVEL OF THE CORDS. ASPIRATION WAS NOT SEEN BUT IS SUSPECTED. PLEASE SEE SPEECH PATHOLOGIST REPORT FOR OTHER FINDINGS AND RECOMMENDATIONS. Esophagus X-Ray 04/12/19 07:00 IMPRESSION: ASPIRATION. GASTROESOPHAGEAL REFLUX. SURGICAL CHANGES CONSISTENT WITH GASTRIC RESECTION. Assessment & Plan - Diagnosis (1) Dysphagia Qualifiers: Dysphagia type: esophageal phase Qualified Code(s): R13.10 - Dysphagia, unspecified Is this a current diagnosis for this admission?: Yes Plan: Ba swallow showed distal taper. Needs Escop. Consult Dr Mckinney. Dr Euceda did last one but is has not been funeral professional since admission. (2) Pneumonia Qualifiers: Pneumonia type: aspiration pneumonia Aspiration pneumonia type: due to regurgitated food Laterality: right Lung location: lower lobe of lung Qualified Code(s): J69.0 - Pneumonitis due to inhalation of food and vomit Is this a current diagnosis for this admission?: Yes 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 - Inpatient Certification Medical Necessity: Failure to Improve With Outpatient Therapy, Significant Comorbidiites Make Outpatient Treatment Too Risky, Need Close Monitoring Due to Risk of Patient Decompensation, Need For IV Fluids, Need For Continuous Telemetry Monitoring, Need for IV Antibiotics, Need for Surgery, Risk of Complication if Not Cared For in Hospital, Risk of Diagnosis Which Will Require Inpatient Eval/Care/Monitoring
[2019-04-13] MEDS: ENOXAPARIN SODIUM INJ 30 MG/0.3 ML DISP.SYRIN SUBCUT SCH (09:58)
[2019-04-13 11:51] LABS: VANCOMYCIN,TROUGH 23.4 ug/mL (5.0-20.0)
--- NOTE | 2019-04-13 12:40 | PDOC CONSULTATION ---
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 is a 89 year old male I am asked to see this patient who is a patient of Dr Euceda was admitted for aspiration pneumonia patient had a barium swallow that showed a 5 mm tablet get hung up at the distal esophageal junction asked to confirm findings via EGD patient can be schedule while he is an inpatient has a history of gastric resection in the past patient admits to ongoing problems with dysphagia and swallowing Past Medical History Cardiac Medical History: Reports: Atrial Fibrillation, Congestive Heart Failure, Coronary Artery Disease, Myocardial Infarction - X3=STENTS/ 2001 & 2017, Hyperlipidema, Hypertension - MEDICATED, Peripheral Vascular Disease Pulmonary Medical History: Reports: Chronic Obstructive Pulmonary Disease (COPD), Respiratory Failure Denies: Asthma Neurological Medical History: Denies: Seizures Endocrine Medical History: Reports: Hypothyroidism GI Medical History: Reports: Gastroesophageal Reflux Disease - erosive with stricture few years ago. Improved on pantoprazole bid. Denies: Hepatitis, Hiatal Hernia Musculoskeltal Medical History: Denies: Arthritis Psychiatric Medical History: Reports: Post Traumatic Stress Disorder Denies: Depression - anxiety Hematology: Reports: Anemia - renal Denies: Sickle Cell Disease Past Surgical History Past Surgical History: Reports: Cardiac Catheterization, Carotid Endarterectomy - RIGHT SIDE, Coronary Stent, Vascular Surgery - ILIAC, FEMORAL STENTS, aortic aneurysm stent graft Denies: Pacemaker Social History Lives with: Family Smoking Status: Former Smoker Frequency of Alcohol Use: None Hx Recreational Drug Use: No Drugs: None Hx Prescription Drug Abuse: No - Advance Directive Resuscitation Status: Full Code Family History Family History: CAD, DM, Hypertension, Malignancy - Colon cancer Parental Family History Reviewed: Yes Children Family History Reviewed: Unknown Sibling(s) Family History Reviewed.: Unknown Medication/Allergy Home Medications: Acetaminophen [Tylenol] 325 mg PO Q4HP PRN 04/05/19 Alprazolam [Xanax 0.5 mg Tablet] 0.5 mg PO BID 04/05/19 Aspirin [Ecotrin 81 mg EC Tablet] 81 mg PO DAILY 04/05/19 Atorvastatin Calcium [Lipitor 20 mg Tablet] 20 mg PO QHS 04/05/19 Clopidogrel Bisulfate [Plavix 75 mg Tablet] 75 mg PO DAILY 04/05/19 Cyanocobalamin (Vitamin B-12) [Vitamin B12] 2,500 mcg PO DAILY 04/05/19 Famotidine [Pepcid 20 mg Tablet] 20 mg PO DAILY 04/05/19 Fluticasone Propionate [Flonase Nasal Douglass 50 Mcg/Douglass 16 gm] 2 spray NASL DAILY 04/05/19 Furosemide [Lasix 20 mg Tablet] 20 mg PO QAM 04/05/19 Ketoconazole [Nizoral 2% Shampoo 120 Ml Bottle] 1 applic TP DAILYP PRN 04/05/19 Ketotifen Fumarate [Refresh] 1 ml OU BIDP PRN 04/05/19 Levothyroxine Sodium [Synthroid 50 Mcg Tablet] 50 mcg PO Q6AM 04/05/19 Lubiprostone [Amitiza 24 Mcg Capsule] 24 mcg PO Q12 04/05/19 Metoprolol Succinate [Toprol Xl 50 mg Tab.sr] 50 mg PO DAILY 04/05/19 Polyethylene Glycol 3350 [Miralax Powder 17 gm/Packet] 1 packet PO DAILY 04/05/19 Promethazine HCl [Phenergan 25 mg Tablet] 25 mg PO Q6HP PRN 04/05/19 Ranolazine [Ranexa 500 mg Tab.sr] 500 mg PO Q12 04/05/19 Allergies/Adverse Reactions: morphine [Morphine] Allergy (Severe, Verified 03/31/18 11:01) Hallucinations tetracycline [Tetracycline] Allergy (Unknown, Verified 03/31/18 11:01) Review of Systems Constitutional: ABSENT: fever(s), night sweats, weakness Eyes: ABSENT: visual disturbances Nose, Mouth, and Throat: ABSENT: mouth pain Cardiovascular: ABSENT: edema, orthropnea Respiratory: ABSENT: dyspnea, hemoptysis Gastrointestinal: ABSENT: diarrhea, hematemesis, hematochezia, melena Genitourinary: ABSENT: dysuria, hematuria Musculoskeletal: ABSENT: deformity, joint swelling Integumentary: ABSENT: pruritus Neurological: ABSENT: syncope, tingling, tremor(s) Endocrine: ABSENT: polydipsia, polyphagia, polyuria Hematologic/Lymphatic: ABSENT: easy bruising, lymphadenopathy Physical Exam Vital Signs: Temp Pulse Resp BP Pulse Ox 97.8 F 90 15 135/98 H 98 04/13/19 07:44 04/13/19 07:44 04/13/19 07:44 04/13/19 07:44 04/13/19 07:44 Intake & Output 04/12/19 04/13/19 04/14/19 06:59 06:59 06:59 Intake Total 3830 1396 Output Total 925 1300 Balance 2905 96 Weight 51.3 kg 52.6 kg General appearance: PRESENT: no acute distress Head exam: PRESENT: atraumatic, normocephalic Eye exam: PRESENT: EOMI, PERRLA. ABSENT: nystagmus, periorbital swelling, scleral icterus Mouth exam: PRESENT: moist, neck supple Throat exam: ABSENT: tonsillar exudate, tonsillogmegaly Neck exam: ABSENT: meningismus, tenderness, thyromegaly Respiratory exam: PRESENT: symmetrical, unlabored. ABSENT: tachypnea, wheezes Cardiovascular exam: PRESENT: RRR, +S1, +S2 GI/Abdominal exam: PRESENT: soft. ABSENT: rebound, rigid, tenderness Extremities exam: ABSENT: joint swelling Musculoskeletal exam: PRESENT: full ROM Neurological exam: PRESENT: oriented to time, oriented to situation, CN II-XII grossly intact Focused psych exam: ABSENT: restlessness Skin exam: PRESENT: normal color. ABSENT: mottled, pallor, urticaria, vesicles Results Laboratory Results: 04/05/19 16:25 04/13/19 09:36 04/13/19 09:36 Creatinine 1.35 H Est GFR ( Amer) > 60 Est GFR (Non-Af Amer) 50 L Impressions: Abdomen/Pelvis CT 04/05/19 14:59 IMPRESSION: Right middle and lower lobe pneumonia worrisome for aspiration. Trace right pleural effusion Chest X-Ray 04/06/19 00:00 IMPRESSION: Worsening airspace opacity right lung base likely reflecting worsening pneumonia copyright 2011 [employer]- All Rights Reserved Modified Barium Swallow 04/09/19 00:00 IMPRESSION: PENETRATION OF POST SWALLOW RESIDUAL CONTRAST TO THE LEVEL OF THE CORDS. ASPIRATION WAS NOT SEEN BUT IS SUSPECTED. PLEASE SEE SPEECH PATHOLOGIST REPORT FOR OTHER FINDINGS AND RECOMMENDATIONS. Esophagus X-Ray 04/12/19 07:00 IMPRESSION: ASPIRATION. GASTROESOPHAGEAL REFLUX. SURGICAL CHANGES CONSISTENT WITH GASTRIC RESECTION. Assessment & Plan - Diagnosis (1) Dysphagia Qualifiers: Dysphagia type: esophageal phase Qualified Code(s): R13.10 - Dysphagia, unspecified Is this a current diagnosis for this admission?: Yes Plan: abnormal barium swallow, indicating a possible stricture, vs a Schatzki's ring will need an EGD Risks,benefits, and alternatives are discussed with further recommendations to follow - Time Time Spent: 50 to 70 Minutes
[2019-04-14] MEDS: DEXTROSE 5%-1/2 NORMAL SALINE 1,000 ML IV PRN ×2 (03:47→20:18)
[2019-04-14] MEDS: ALPRAZOLAM 0.5 MG TABLET PO SCH ×2 (05:37→17:18)
[2019-04-14] MEDS: PANTOPRAZOLE SODIUM 40 MG TABLET.DR PO SCH ×2 (05:37→17:18)
[2019-04-14] MEDS: LEVOTHYROXINE SODIUM 0.05 MG TABLET PO SCH (05:37)
[2019-04-14] MEDS ORDERED: DEXTROSE 40% GEL 15 GM TUBE PO PRN ×2 (07:43)
[2019-04-14] MEDS ORDERED: GLUCAGON,HUMAN RECOMB 1 MG INJ SUBCUT PRN (07:43)
[2019-04-14] MEDS ORDERED: DEXTROSE 50%-WATER 25 GM/50 ML DISP.SYRIN IV PRN ×2 (07:43)
[2019-04-14] MEDS ORDERED: ONDANSETRON HCL INJ/PF 4 MG/2 ML SDV ONE (07:50)
[2019-04-14] MEDS ORDERED: NALOXONE HCL INJ/PF 0.4 MG/1 ML SDV ONE (07:50)
[2019-04-14] MEDS ORDERED: DIPHENHYDRAMINE HCL 50 MG/ML VIAL ONE (07:50)
[2019-04-14] MEDS ORDERED: FENTANYL CITRATE INJ/PF 100 MCG/2 ML AMPUL ONE (07:50)
[2019-04-14] MEDS ORDERED: FLUMAZENIL INJ 0.5 MG/5 ML VIAL ONE (07:50)
[2019-04-14] MEDS ORDERED: EPINEPHRINE INJ 1 MG/10 ML DISP.SYRIN ONE (07:51)
[2019-04-14] MEDS ORDERED: GLUCAGON,HUMAN RECOMB 1 MG INJ ONE (07:51)
--- NOTE | 2019-04-14 08:12 | PDOC PROGRESS REPORT ---
Subjective Progress Note for:: 04/14/19 Subjective:: no complaints Reason For Visit: PNEUMONIA Physical Exam Vital Signs: Temp Pulse Resp BP Pulse Ox 98.3 F 80 18 139/85 H 100 04/13/19 23:19 04/14/19 02:00 04/13/19 23:19 04/13/19 23:19 04/13/19 23:19 Intake & Output 04/13/19 04/14/19 04/15/19 07:59 07:59 07:59 Intake Total 2296 600 Output Total 1300 1155 Balance 996 -555 Weight 115 lb 15.41 oz 115 lb 15.41 oz General appearance: PRESENT: no acute distress Respiratory exam: PRESENT: clear to auscultation rodrigo Cardiovascular exam: ABSENT: diastolic murmur, irregular rhythm, systolic murmur GI/Abdominal exam: ABSENT: mass, organolmegaly, tenderness Extremities exam: ABSENT: pedal edema Neurological exam: PRESENT: oriented to situation Psychiatric exam: PRESENT: appropriate affect Results Laboratory Results: 04/05/19 16:25 04/13/19 09:36 Impressions: Abdomen/Pelvis CT 04/05/19 14:59 IMPRESSION: Right middle and lower lobe pneumonia worrisome for aspiration. Trace right pleural effusion Chest X-Ray 04/06/19 00:00 IMPRESSION: Worsening airspace opacity right lung base likely reflecting worsening pneumonia copyright 2011 [employer] [facility]- All Rights Reserved Modified Barium Swallow 04/09/19 00:00 IMPRESSION: PENETRATION OF POST SWALLOW RESIDUAL CONTRAST TO THE LEVEL OF THE CORDS. ASPIRATION WAS NOT SEEN BUT IS SUSPECTED. PLEASE SEE SPEECH PATHOLOGIST REPORT FOR OTHER FINDINGS AND RECOMMENDATIONS. Esophagus X-Ray 04/12/19 07:00 IMPRESSION: ASPIRATION. GASTROESOPHAGEAL REFLUX. SURGICAL CHANGES CONSISTENT WITH GASTRIC RESECTION. Assessment & Plan - Diagnosis (1) Dysphagia Qualifiers: Dysphagia type: esophageal phase Qualified Code(s): R13.10 - Dysphagia, unspecified Is this a current diagnosis for this admission?: Yes (2) Pneumonia Qualifiers: Pneumonia type: aspiration pneumonia Aspiration pneumonia type: due to regurgitated food Laterality: right Lung location: lower lobe of lung Qualified Code(s): J69.0 - Pneumonitis due to inhalation of food and vomit Is this a current diagnosis for this admission?: Yes 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 (10) Esophageal stricture Is this a current diagnosis for this admission?: Yes Plan: endoscopy today - Inpatient Certification Medical Necessity: Failure to Improve With Outpatient Therapy, Significant Comorbidiites Make Outpatient Treatment Too Risky, Need Close Monitoring Due to Risk of Patient Decompensation, Need For IV Fluids, Need For Continuous Telemetry Monitoring, Need for Surgery, Risk of Complication if Not Cared For in Hospital, Risk of Diagnosis Which Will Require Inpatient Eval/Care/Monitoring
[2019-04-14] MEDS: MIDAZOLAM 2 MG/2 ML INJ ONE ×2 (09:27→09:35)
--- NOTE | 2019-04-14 09:47 | Operative Report ---
Operative Report DATE OF SURGERY: 04/14/19 Operative Report: The risks benefits and alternatives of the procedure explained to the patient in detail and informed consent is obtained.A GIF Olympus video scope was inserted into the patient's mouth and hypopharynx, the esophagus is identified intubated and insufflated, the scope was then advanced through the esophagus stomach and duodenum, retroflexion maneuver is done, the esophagus stomach and first and second portions of the duodenum examined. PREOPERATIVE DIAGNOSIS: Abnormal barium swallow POSTOPERATIVE DIAGNOSIS: Mild Schatzki's ring that is broken. Status post gastric resection in the past. Gastritis and a polyp status post biopsy OPERATION: EGD with biopsy SURGEON: ALFONSO COURTNEY ANESTHESIA: Moderate Sedation - 3 mg of Versed, 25 mcg of fentanyl. Conscious sedation monitoring time 30 minutes. TISSUE REMOVED OR ALTERED: As noted above COMPLICATIONS: None. ESTIMATED BLOOD LOSS: None. INTRAOPERATIVE FINDINGS: As noted above. PROCEDURE: Patient tolerated the procedure well. No immediate postprocedure complications are noted. Patient sent back to his room in good condition. Resume soft diet as tolerated. Resume previous activity level. Wait on biopsies. Follow-up with Dr. Euceda as an outpatient. Would consider outpatient manometry study rule out achalasia
[2019-04-14] MEDS: ENOXAPARIN SODIUM INJ 30 MG/0.3 ML DISP.SYRIN SUBCUT SCH (10:42)
[2019-04-15] MEDS: PANTOPRAZOLE SODIUM 40 MG TABLET.DR PO SCH ×2 (05:17→17:54)
[2019-04-15] MEDS: ALPRAZOLAM 0.5 MG TABLET PO SCH ×2 (05:17→17:54)
[2019-04-15] MEDS: LEVOTHYROXINE SODIUM 0.05 MG TABLET PO SCH (05:17)
[2019-04-15] MEDS: DEXTROSE 5%-1/2 NORMAL SALINE 1,000 ML IV PRN (05:19)
--- NOTE | 2019-04-15 07:40 | PDOC PROGRESS REPORT ---
Subjective Progress Note for:: 04/15/19 Subjective:: swallowing mechanical diet better. Wants rehab. Reason For Visit: PNEUMONIA Physical Exam Vital Signs: Temp Pulse Resp BP Pulse Ox 98.3 F 81 18 131/80 H 98 04/15/19 00:08 04/15/19 02:00 04/15/19 00:08 04/15/19 00:08 04/15/19 00:08 Intake & Output 04/13/19 04/14/19 04/15/19 07:59 07:59 07:59 Intake Total 2296 600 2600 Output Total 1300 1155 1090 Balance 996 -555 1510 Weight 115 lb 15.41 oz 115 lb 15.41 oz 115 lb 4.828 oz General appearance: PRESENT: no acute distress Respiratory exam: PRESENT: clear to auscultation rodrigo Cardiovascular exam: PRESENT: irregular rhythm - skips. ABSENT: diastolic murmur, systolic murmur GI/Abdominal exam: ABSENT: mass, organolmegaly, tenderness Extremities exam: ABSENT: pedal edema Neurological exam: PRESENT: oriented to situation Psychiatric exam: PRESENT: appropriate affect Results Laboratory Results: 04/05/19 16:25 04/13/19 09:36 Impressions: Abdomen/Pelvis CT 04/05/19 14:59 IMPRESSION: Right middle and lower lobe pneumonia worrisome for aspiration. Trace right pleural effusion Chest X-Ray 04/06/19 00:00 IMPRESSION: Worsening airspace opacity right lung base likely reflecting worsening pneumonia copyright 2011 [facility] [employer]- All Rights Reserved Modified Barium Swallow 04/09/19 00:00 IMPRESSION: PENETRATION OF POST SWALLOW RESIDUAL CONTRAST TO THE LEVEL OF THE CORDS. ASPIRATION WAS NOT SEEN BUT IS SUSPECTED. PLEASE SEE SPEECH PATHOLOGIST REPORT FOR OTHER FINDINGS AND RECOMMENDATIONS. Esophagus X-Ray 04/12/19 07:00 IMPRESSION: ASPIRATION. GASTROESOPHAGEAL REFLUX. SURGICAL CHANGES CONSISTENT WITH GASTRIC RESECTION. Assessment & Plan - Diagnosis (1) Dysphagia Qualifiers: Dysphagia type: esophageal phase Qualified Code(s): R13.10 - Dysphagia, unspecified Is this a current diagnosis for this admission?: Yes Plan: advance diet to regular. To rehab tomorrow if tolerates regular diet. (2) Pneumonia Qualifiers: Pneumonia type: aspiration pneumonia Aspiration pneumonia type: due to regurgitated food Laterality: right Lung location: lower lobe of lung Qualified Code(s): J69.0 - Pneumonitis due to inhalation of food and vomit Is this a current diagnosis for this admission?: Yes 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 (10) Esophageal stricture Is this a current diagnosis for this admission?: Yes - Inpatient Certification Medical Necessity: Failure to Improve With Outpatient Therapy, Significant Comorbidiites Make Outpatient Treatment Too Risky, Need Close Monitoring Due to Risk of Patient Decompensation, Need For Continuous Telemetry Monitoring, Risk of Complication if Not Cared For in Hospital, Risk of Diagnosis Which Will Require Inpatient Eval/Care/Monitoring
[2019-04-15] MEDS: CLOPIDOGREL BISULFATE 75 MG TABLET PO SCH (09:10)
[2019-04-15] MEDS: LUBIPROSTONE 24 MCG CAPSULE PO SCH ×2 (09:10→22:11)
[2019-04-15] MEDS: FLUTICASONE NASAL SPRAY 50 MCG/SPRY 120 SPRAY/16 GM NASL SCH (09:10)
[2019-04-15] MEDS ORDERED: ATORVASTATIN CALCIUM 20 MG TABLET PO SCH (22:00)
[2019-04-16] MEDS: PANTOPRAZOLE SODIUM 40 MG TABLET.DR PO SCH (06:41)
[2019-04-16] MEDS: LEVOTHYROXINE SODIUM 0.05 MG TABLET PO SCH (06:41)
--- NOTE | 2019-04-16 08:20 | PDOC TRANSFER SUMMARY ---
General Admission Date/PCP: 04/05/19 18:41 ROMEL LAMB MD Admission Date: 04/05/19 Transfer Date: 04/16/19 Resuscitation Status: Full Code - Transfer Diagnosis (1) Pneumonia Is this a current diagnosis for this admission?: Yes (2) Dysphagia Is this a current diagnosis for this admission?: Yes (3) Acquired esophageal ring Is this a current diagnosis for this admission?: Yes (4) Acute on chronic systolic (congestive) heart failure Is this a current diagnosis for this admission?: Yes (5) Atherosclerosis of superior mesenteric artery Is this a current diagnosis for this admission?: Yes (6) Celiac artery stenosis Is this a current diagnosis for this admission?: Yes (7) Full code status Is this a current diagnosis for this admission?: Yes (8) Hypothyroidism Is this a current diagnosis for this admission?: Yes (9) Postgastric surgery syndrome Is this a current diagnosis for this admission?: Yes (10) Esophagitis Is this a current diagnosis for this admission?: Yes - Transfer Medications Home Medications: Acetaminophen [Tylenol] 325 mg PO Q4HP PRN 04/05/19 Alprazolam [Xanax 0.5 mg Tablet] 0.5 mg PO BID 04/05/19 Aspirin [Ecotrin 81 mg EC Tablet] 81 mg PO DAILY 04/05/19 Atorvastatin Calcium [Lipitor 20 mg Tablet] 20 mg PO QHS 04/05/19 Clopidogrel Bisulfate [Plavix 75 mg Tablet] 75 mg PO DAILY 04/05/19 Cyanocobalamin (Vitamin B-12) [Vitamin B12] 2,500 mcg PO DAILY 04/05/19 Fluticasone Propionate [Flonase Nasal [place] 50 Mcg/[place] 16 gm] 2 spray NASL DAILY 04/05/19 Furosemide [Lasix 20 mg Tablet] 20 mg PO QAM 04/05/19 Ketoconazole [Nizoral 2% Shampoo 120 ml Bottle] 1 applic TP DAILYP PRN 04/05/19 Ketotifen Fumarate [Refresh] 1 ml OU BIDP PRN 04/05/19 Levothyroxine Sodium [Synthroid 0.05 mg Tablet] 50 mcg PO Q6AM 04/05/19 Lubiprostone [Amitiza 24 Mcg Capsule] 24 mcg PO Q12 04/05/19 Metoprolol Succinate [Toprol Xl 50 mg Tab.sr] 50 mg PO DAILY 04/05/19 Polyethylene Glycol 3350 [Miralax Powder 17 gm/Packet] 1 packet PO DAILY 9 Promethazine HCl [Phenergan 25 mg Tablet] 25 mg PO Q6HP PRN 04/05/19 Ranolazine [Ranexa 500 mg Tab.sr] 500 mg PO Q12 04/05/19 Transfer Medications: Current Medications Acetaminophen (Tylenol 325 Mg Tablet) 650 mg PO Q6HP PRN PRN Reason: pain or temp greater than 101F Stop: 05/08/19 14:04 Alprazolam (Xanax 0.5 Mg Tablet) 0.5 mg PO Q12A [facility] Stop: 04/23/19 08:29 Atorvastatin Calcium (Lipitor 20 Mg Tablet) 20 mg PO QHS [facility] Stop: 05/15/19 21:59 Last Admin: 04/15/19 22:11 Dose: 20 mg Documented by: Clopidogrel Bisulfate (Plavix 75 Mg Tablet) 75 mg PO DAILY [facility] Stop: 05/15/19 09:59 Last Admin: 04/15/19 09:10 Dose: 75 mg Documented by: Fluticasone Propionate (Flonase Nasal [place] 50 Mcg/[place] 16 Gm) 2 spray NASL DAILY [facility] Stop: 05/15/19 09:59 Last Admin: 04/15/19 09:10 Dose: 1 spr Documented by: Levothyroxine Sodium (Synthroid 0.05 Mg Tablet) 0.05 mg PO Q6AM [facility] Stop: 05/06/19 05:59 Last Admin: 04/16/19 06:41 Dose: 0.05 mg Documented by: Lubiprostone (Amitiza 24 Mcg Capsule) 24 mcg PO Q12 [facility] Stop: 05/15/19 09:59 Last Admin: 04/15/19 22:11 Dose: 24 mcg Documented by: Ondansetron HCl (Zofran Odt 4 Mg Tablet) 4 mg PO Q4HP PRN PRN Reason: FOR NAUSEA/VOMITING Stop: 05/06/19 10:00 Last Admin: 04/11/19 05:57 Dose: 4 mg Documented by: Pantoprazole Sodium (Protonix [address] Tablet) 40 mg PO BID@0600,1700 [facility] Stop: 05/06/19 05:59 Last Admin: 04/16/19 06:41 Dose: 40 mg Documented by: - Allergies Allergies/Adverse Reactions: morphine [Morphine] Allergy (Severe, Verified 03/31/18 11:01) Hallucinations tetracycline [Tetracycline] Allergy (Unknown, Verified 03/31/18 11:01) - Diet/Activity Discharge Diet: Regular Discharge Activity: Supervised Activity Hospital Course Hospital Course: Treated 2nd aspiration pneumonia in a month [facility]. Coolie swallow showed penetration to cords. Ba swallow showed schatzki's ring whict Dr Faye gabriel. Solid dysphagia gone. Physical Exam Vital Signs: Temp Pulse Resp BP Pulse Ox 98.3 F 114 H 17 141/72 H 100 04/15/19 23:08 04/16/19 07:00 04/15/19 23:08 04/15/19 23:08 04/15/19 23:08 Intake & Output 04/15/19 04/16/19 04/17/19 07:59 07:59 07:59 Intake Total 2600 922 Output Total 1090 782 Balance 1510 140 Weight 115 lb 4.828 oz 115 lb 4.828 oz General appearance: PRESENT: no acute distress Respiratory exam: PRESENT: clear to auscultation rodrigo Cardiovascular exam: ABSENT: diastolic murmur, irregular rhythm, systolic murmur GI/Abdominal exam: ABSENT: mass, organolmegaly, tenderness Extremities exam: ABSENT: pedal edema Neurological exam: PRESENT: oriented to situation Psychiatric exam: PRESENT: appropriate affect Results Laboratory Results: Labs- Last Values WBC 9.3 10^3/uL (4.0-10.5) 04/05/19 16:25 RBC 3.24 10^6/uL (4.35-5.55) L 04/05/19 16:25 Hgb 9.2 g/dL (13.5-17.0) L 04/05/19 16:25 Hct 28.3 % (37.9-51.0) L 04/05/19 16:25 MCV 88 fl (80-97) 04/05/19 16:25 MCH 28.4 pg (27.0-33.4) 04/05/19 16:25 MCHC 32.4 g/dL (32.0-36.0) 04/05/19 16:25 RDW 15.9 % (11.5-14.0) H 04/05/19 16:25 Plt Count 235 10^3/uL (150-450) 04/05/19 16:25 Seg Neutrophils % 85.1 % (42-78) H 04/05/19 16:25 Lymphocytes % 7.8 % (13-45) L 04/05/19 16:25 Monocytes % 6.8 % (3-13) 04/05/19 16:25 Eosinophils % 0.1 % (0-6) 04/05/19 16:25 Basophils % 0.2 % (0-2) 04/05/19 16:25 Absolute Neutrophils 7.9 10^3/uL (1.7-8.2) 04/05/19 16:25 Absolute Lymphocytes 0.7 10^3/uL (0.5-4.7) 04/05/19 16:25 Absolute Monocytes 0.6 10^3/uL (0.1-1.4) 04/05/19 16:25 Absolute Eosinophils 0.0 10^3/uL (0.0-0.6) 04/05/19 16:25 Absolute Basophils 0.0 10^3/uL (0.0-0.2) 04/05/19 16:25 Sodium 136.2 mmol/L (137-145) L 04/05/19 16:25 Potassium 4.6 mmol/L (3.6-5.0) 04/05/19 16:25 Chloride 105 mmol/L (98-107) 04/05/19 16:25 Carbon Dioxide 22 mmol/L (22-30) 04/05/19 16:25 Anion Gap 9 (5-19) 04/05/19 16:25 BUN 46 mg/dL (7-20) H 04/05/19 16:25 Creatinine 1.35 mg/dL (0.52-1.25) H 04/13/19 09:36 Est GFR ( Amer) > 60 (>60) 04/13/19 09:36 Est GFR (Non-Af Amer) 50 (>60) L 04/13/19 09:36 Glucose 114 mg/dL (75-110) H 04/05/19 16:25 POC Glucose 92 mg/dL (70-110) 04/09/19 12:09 Lactic Acid 1.1 mmol/L (0.7-2.1) 04/05/19 17:00 Calcium 8.0 mg/dL (8.4-10.2) L 04/05/19 16:25 Total Bilirubin 0.5 mg/dL (0.2-1.3) 04/05/19 16:25 Direct Bilirubin 0.4 mg/dL (0.0-0.4) 04/05/19 16:25 Neonat Total Bilirubin Not Reportable 04/05/19 16:25 Neonat Direct Bilirubin Not Reportable 04/05/19 16:25 Neonat Indirect Bili Not Reportable 04/05/19 16:25 AST 19 U/L (17-59) 04/05/19 16:25 ALT 11 U/L (21-72) L 04/05/19 16:25 Alkaline Phosphatase 71 U/L (38-126) 04/05/19 16:25 Total Protein 5.1 g/dL (6.3-8.2) L 04/05/19 16:25 Albumin 2.6 g/dL (3.5-5.0) L 04/05/19 16:25 Lipase 10.2 U/L (23-300) L 04/05/19 16:25 Urine Color YELLOW 04/05/19 14:11 Urine Appearance CLEAR 04/05/19 14:11 Urine pH 5.0 (5.0-9.0) 04/05/19 14:11 Ur Specific [place] 1.014 04/05/19 14:11 Urine Protein 30 mg/dL (NEGATIVE) H 04/05/19 14:11 Urine Glucose (UA) NEGATIVE mg/dL (NEGATIVE) 04/05/19 14:11 Urine Ketones NEGATIVE mg/dL (NEGATIVE) 04/05/19 14:11 Urine Blood NEGATIVE (NEGATIVE) 04/05/19 14:11 Urine Nitrite NEGATIVE (NEGATIVE) 04/05/19 14:11 Urine Bilirubin NEGATIVE (NEGATIVE) 04/05/19 14:11 Urine Urobilinogen NEGATIVE mg/dL (<2.0) 04/05/19 14:11 Ur Leukocyte Esterase NEGATIVE (NEGATIVE) 04/05/19 14:11 Urine WBC (Auto) 0 /HPF 04/05/19 14:11 Urine RBC (Auto) 1 /HPF 04/05/19 14:11 U Hyaline Cast (Auto) 3 /LPF 04/05/19 14:11 Urine Mucus (Auto) RARE /LPF 04/05/19 14:11 Urine Ascorbic Acid NEGATIVE (NEGATIVE) 04/05/19 14:11 Time Trough Drawn 0936 04/13/19 09:36 Vancomycin Trough 23.4 ug/mL (5.0-20.0) H 04/13/19 09:36 Impressions: Abdomen/Pelvis CT 04/05/19 14:59 IMPRESSION: Right middle and lower lobe pneumonia worrisome for aspiration. Trace right pleural effusion Chest X-Ray 04/06/19 00:00 IMPRESSION: Worsening airspace opacity right lung base likely reflecting worsening pneumonia copyright 2011 [employer]- All Rights Reserved Modified Barium Swallow 04/09/19 00:00 IMPRESSION: PENETRATION OF POST SWALLOW RESIDUAL CONTRAST TO THE LEVEL OF THE CORDS. ASPIRATION WAS NOT SEEN BUT IS SUSPECTED. PLEASE SEE SPEECH PATHOLOGIST REPORT FOR OTHER FINDINGS AND RECOMMENDATIONS. Esophagus X-Ray 04/12/19 07:00 IMPRESSION: ASPIRATION. GASTROESOPHAGEAL REFLUX. SURGICAL CHANGES CONSISTENT WITH GASTRIC RESECTION. Plan Discharge Plan: [facility] will follow
[2019-04-16] MEDS ORDERED: ALPRAZOLAM 0.5 MG TABLET PO SCH (08:30)
[2019-04-16] MEDS: LUBIPROSTONE 24 MCG CAPSULE PO SCH (11:38)
[2019-04-16] MEDS: FLUTICASONE NASAL SPRAY 50 MCG/SPRY 120 SPRAY/16 GM NASL SCH (11:39)
[2019-04-16] MEDS: CLOPIDOGREL BISULFATE 75 MG TABLET PO SCH (11:39)
[2019-04-16 12:56] VITALS: BP 115/51
== END 2019-04-16 13:10 | DRG 177 ==
LOC: ER 12:21 → EH 17:46 → OBSVTOIN 18:41 → 4S 04-06 03:34
PROVIDERS: ADMIT Family Medicine; ATTEND Family Medicine
PROC: 02HV33Z Insertion of Infusion Device into Superior Vena Cava, Percutaneous Approach (ICD-10-PCS; principal; 2019-04-06)
PROC: 0DB58ZX Excision of Esophagus, Via Natural or Artificial Opening Endoscopic, Diagnostic (ICD-10-PCS; 2019-04-14)
PROC: 0DB78ZX Excision of Stomach, Pylorus, Via Natural or Artificial Opening Endoscopic, Diagnostic (ICD-10-PCS; 2019-04-14)
DX: J69.0 Pneumonitis due to inhalation of food and vomit (principal); I50.23 Acute on chronic systolic (congestive) heart failure; K55.1 Chronic vascular disorders of intestine; I77.4 Celiac artery compression syndrome; Z88.5 Allergy status to narcotic agent; Z88.8 Allergy status to other drugs, medicaments and biological substances; I48.91 Unspecified atrial fibrillation; I25.10 Atherosclerotic heart disease of native coronary artery without angina pectoris; I25.2 Old myocardial infarction; Z95.5 Presence of coronary angioplasty implant and graft; E78.5 Hyperlipidemia, unspecified; I11.0 Hypertensive heart disease with heart failure; I73.9 Peripheral vascular disease, unspecified; J44.9 Chronic obstructive pulmonary disease, unspecified; E03.9 Hypothyroidism, unspecified; Z87.11 Personal history of peptic ulcer disease; F43.10 Post-traumatic stress disorder, unspecified; Z95.0 Presence of cardiac pacemaker; Z95.820 Peripheral vascular angioplasty status with implants and grafts; I49.3 Ventricular premature depolarization; R13.10 Dysphagia, unspecified; K21.0 Gastro-esophageal reflux disease with esophagitis; Z90.3 Acquired absence of stomach [part of]; K22.2 Esophageal obstruction; K29.70 Gastritis, unspecified, without bleeding; K31.7 Polyp of stomach and duodenum
CPT/HCPCS: 36415; 43239; 71045; 71046; 74176; 74220; 74230; 80053; 80202; 81001; 82565; 82962; 83605; 83690; 85025; 87040; 87070; 87205; 88305; 88342; 93005; 93010; 96361; 96365; 96366; 96375; 99291; J0171; J1200; J1610; J1650; J1956; J2250; J2310; J2405; J2543; J2550; J3010; J3370; J3490; J7030; J7050; J7060; S0119

== ENCOUNTER 2019-05-07 17:09 | Inpatient (IN) | payer OTHER, MEDICARE ==
[2019-05-07] MEDS ORDERED: PANTOPRAZOLE SODIUM 40 MG VIAL IV PRN (17:53)
--- NOTE | 2019-05-07 18:26 | ER Document Report ---
ED General - General Chief Complaint: GI Bleeding Stated Complaint: GI BLEED Time Seen by Provider: 05/07/19 17:34 Primary Care Provider: ROMEL LAMB MD [Primary Care Provider] - Follow up as needed TRAVEL OUTSIDE OF THE [place] IN LAST 30 DAYS: No - HPI Notes: Patient is a 89-year-old male that presents to the emergency department for chief complaint of black stools. Patient states he started having black stools yesterday. He reports one large one yesterday and 2 smaller ones today. He also reports a new sharp pain on his right side that began yesterday. The pain is been fluctuant and is currently not present. He denied any aggravating or relieving factors. Patient does take aspirin and Plavix. He denies history of GI bleeding in the past. He did have blood work drawn at his nursing facility this morning which showed a hemoglobin of 7.9 which is why patient was referred to the emergency room. He denies any associated fever nausea or vomiting. He denies ever needing blood transfusion in the past. Past Medical History: CAD, A. fib, CKD, esophageal strictures Past Surgical History: Reviewed in chart Social History: Lives at residential facility. Denies current tobacco and alcohol use Family History: Reviewed and noncontributory for presenting illness Allergies: Reviewed, see documented allergy list. REVIEW OF SYSTEMS: CONSTITUTIONAL : No fever No chills No diaphoresis No recent illness EENT: No vision changes No congestion No sore throat CARDIOVASCULAR: No chest pain No palpitations RESPIRATORY: No shortness of breath No cough No difficulty breathing GASTROINTESTINAL: abdominal pain Black stools No nausea No vomiting No diarrhea GENITOURINARY: No dysuria No hematuria No difficulty urinating MUSCULOSKELETAL: No back pain No leg pain No arm pain SKIN: No rashes No lesions LYMPHATIC: No swollen, enlarged glands. NEUROLOGICAL: No lightheadedness No headache No weakness No paresthesias PSYCHIATRIC: No anxiety No depression PHYSICAL EXAMINATION: Vital signs reviewed, nursing noted reviewed. GENERAL: Well-appearing, well-nourished and in no acute distress. HEAD: Atraumatic, normocephalic. EYES: Eyes appear normal, extraocular movements intact, sclera anicteric, conjunctiva are mildly pale ENT: nares patent, oropharynx clear without exudates. Moist mucous membranes. NECK: Normal range of motion, supple without lymphadenopathy LUNGS: Breath sounds clear to auscultation bilaterally and equal. No wheezes rales or rhonchi. HEART: Regular rate and rhythm without murmurs ABDOMEN: Soft, nontender, normoactive bowel sounds. No rebound, guarding, or rigidity. No masses appreciated. EXTREMITIES: Nontender, good range of motion, no pitting or edema. NEUROLOGICAL: No focal neurological deficits. Moves all extremities spontaneously Motor and sensory grossly intact on exam. PSYCH: Normal mood, normal affect. SKIN: Warm, Dry, normal turgor, pale - Related Data Allergies/Adverse Reactions: morphine [Morphine] Allergy (Severe, Verified 03/31/18 11:01) Hallucinations tetracycline [Tetracycline] Allergy (Unknown, Verified 03/31/18 11:01) Past Medical History - Social History Smoking Status: Never Smoker Frequency of alcohol use: None Drug Abuse: None Family History: CAD, DM, Hypertension, Malignancy - Colon cancer Patient has suicidal ideation: No Patient has homicidal ideation: No - Past Medical History Cardiac Medical History: Reports: Hx Atrial Fibrillation, Hx Congestive Heart Failure, Hx Coronary Artery Disease, Hx Heart Attack - X3=STENTS/ 2001 & 2017, Hx Hypercholesterolemia, Hx Hypertension - MEDICATED, Hx Peripheral Vascular Disease Pulmonary Medical History: Reports: Hx COPD, Hx Respiratory Failure Denies: Hx Asthma Neurological Medical History: Denies: Hx Cerebrovascular Accident, Hx Seizures Endocrine Medical History: Reports: Hx Hypothyroidism Renal/ Medical History: Denies: Hx Peritoneal Dialysis GI Medical History: Reports: Hx Gastroesophageal Reflux Disease - erosive with stricture few years ago. Improved on pantoprazole bid., Hx Ulcer. Denies: Hx Hepatitis, Hx Hiatal Hernia Musculoskeletal Medical History: Denies Hx Arthritis Psychiatric Medical History: Reports: Hx Post Traumatic Stress Disorder Denies: Hx Depression - anxiety Infectious Medical History: Denies: Hx Hepatitis Past Surgical History: Reports: Hx Abdominal Surgery - 65% of stomach removed, Hx Bowel Surgery - x10 V&A w/ B-II anastomosis, Hx Cardiac Catheterization, Hx Carotid Endarterectomy - RIGHT SIDE, Hx Coronary Stent, Hx Vascular Surgery - ILIAC, FEMORAL STENTS, aortic aneurysm stent graft. Denies: Hx Open Heart Surgery, Hx Pacemaker - Immunizations Hx Diphtheria, Pertussis, Tetanus Vaccination: Yes Hx Pneumococcal Vaccination: 09/29/15 Physical Exam - Vital signs Vitals: Temp Resp BP Pulse Ox 98.0 F 16 135/75 H 98 05/07/19 17:10 08/09/19 17:10 05/07/19 17:10 05/07/19 17:10 Course - Re-evaluation Re-evalutation: 05/07/19 18:26 Vitals reviewed. Nursing notes reviewed. Patient is well-appearing but mildly pale. He is not tachycardic or hypotensive. Patient does report black stools and chart review shows a steadily declining hemoglobin consistent with acute GI bleeding. 05/07/19 19:16 Repeat hemoglobin in the emergency room today is 9.2 which is the same as yesterday. Patient is anticoagulated, anemic and having an acute GI bleed. I did discuss his care briefly with Dr. Boogie who agrees to perform endoscopy and colonoscopy if necessary while patient is admitted to the hospital. Patient's care was also discussed with Dr. Bill who will admit him for further monitoring of his bleeding. Patient in agreement with this plan of care and stable for admission. Laboratory 05/07/19 05/07/19 05/07/19 18:28 18:28 18:28 WBC 6.3 RBC 3.17 L Hgb 9.2 L Hct 28.0 L MCV 89 MCH 28.9 MCHC 32.7 RDW 17.5 H Plt Count 234 Seg Neutrophils % 69.8 Lymphocytes % 17.9 Monocytes % 9.8 Eosinophils % 0.8 Basophils % 1.7 Absolute Neutrophils 4.4 Absolute Lymphocytes 1.1 Absolute Monocytes 0.6 Absolute Eosinophils 0.1 Absolute Basophils 0.1 PT 13.8 INR 1.06 APTT 28.3 Sodium 131.1 L Potassium 4.6 Chloride 97 L Carbon Dioxide 27 Anion Gap 7 BUN 41 H Creatinine 2.17 H Est GFR ( Amer) 35 L Est GFR (Non-Af Amer) 29 L Glucose 90 Calcium 8.1 L Total Bilirubin 0.4 Direct Bilirubin 0.3 Neonat Total Bilirubin Not Reportable Neonat Direct Bilirubin Not Reportable Neonat Indirect Bili Not Reportable AST 32 ALT 10 Alkaline Phosphatase 65 Total Protein 5.6 L Albumin 2.9 L Lipase 22.5 L - Vital Signs Vital signs: Temp Pulse Resp BP Pulse Ox 97.9 F 15 135/71 H 100 05/07/19 18:48 05/07/19 18:00 05/07/19 17:38 05/07/19 18:00 - Laboratory Result Diagrams: 05/07/19 18:28 05/07/19 18:28 Laboratory results interpreted by me: 05/07/19 05/07/19 18:28 18:28 RBC 3.17 L Hgb 9.2 L Hct 28.0 L RDW 17.5 H Sodium 131.1 L Chloride 97 L BUN 41 H Creatinine 2.17 H Est GFR ( Amer) 35 L Est GFR (Non-Af Amer) 29 L Calcium 8.1 L Total Protein 5.6 L Albumin 2.9 L Lipase 22.5 L Discharge - Discharge Clinical Impression: Hyponatremia Anemia Qualifiers: Anemia type: unspecified type Qualified Code(s): D64.9 - Anemia, unspecified GI hemorrhage Qualifiers: GI bleed type/associated pathology: unspecified gastrointestinal hemorrhage type Qualified Code(s): K92.2 - Gastrointestinal hemorrhage, unspecified Condition: Stable Disposition: ADMITTED INPATIENT Admitting Provider: Landy (Hospitalist) Unit Admitted: Telemetry Referrals: ROMEL LAMB MD [Primary Care Provider] - Follow up as needed
[2019-05-07 18:45] LABS: ABSOLUTE BASOPHILS # (AUTO) 0.1 10^3/uL (0.0-0.2); ABSOLUTE EOSINOPHILS # (AUTO) 0.1 10^3/uL (0.0-0.6); ABSOLUTE LYMPHOCYTES (AUTO) 1.1 10^3/uL (0.5-4.7); ABSOLUTE MONOCYTES (AUTO) 0.6 10^3/uL (0.1-1.4); ABSOLUTE NEUT (AUTO) 4.4 10^3/uL (1.7-8.2); BASOPHILS % (AUTO) 1.7 % (0-2); EOSINOPHILS % (AUTO) 0.8 % (0-6); HEMOGLOBIN 9.2 g/dL (13.5-17.0); LYMPHOCYTES % (AUTO) 17.9 % (13-45); MEAN CORPUSCULAR HEMOGLOBIN 28.9 pg (27.0-33.4); MEAN CORPUSCULAR HGB CONC 32.7 g/dL (32.0-36.0); MEAN CORPUSCULAR VOLUME 89 fl (80-97); MONOCYTES % (AUTO) 9.8 % (3-13); PLATELET COUNT 234 10^3/uL (150-450); RED BLOOD COUNT 3.17 10^6/uL (4.35-5.55); RED CELL DISTRIBUTION WIDTH 17.5 % (11.5-14.0); SEGMENTED NEUTROPHILS % (AUTO) 69.8 % (42-78); TOTAL CELLS COUNTED % (AUTO) 100 %; WHITE BLOOD COUNT 6.3 10^3/uL (4.0-10.5)
[2019-05-07 18:55] LABS: ALBUMIN 2.9 g/dL (3.5-5.0); ALKALINE PHOSPHATASE 65 U/L (38-126); ANION GAP 7 (5-19); ASPARTATE AMINO TRANSFERASE 32 U/L (17-59); BILIRUBIN,DIRECT 0.3 mg/dL (0.0-0.4); BILIRUBIN,TOTAL 0.4 mg/dL (0.2-1.3); BLOOD UREA NITROGEN 41 mg/dL (7-20); CALCIUM 8.1 mg/dL (8.4-10.2); CARBON DIOXIDE 27 mmol/L (22-30); CHLORIDE 97 mmol/L (98-107); GLUCOSE 90 mg/dL (75-110); POTASSIUM 4.6 mmol/L (3.6-5.0); TOTAL PROTEIN 5.6 g/dL (6.3-8.2)
[2019-05-07 19:03] LABS: INTERNATIONAL RATION (INR) 1.06; PROTHROMBIN TIME 13.8 SEC (11.4-15.4)
[2019-05-07 19:04] LABS: PARTIAL THROMBOPLASTIN TIME 28.3 SEC (23.5-35.8)
[2019-05-07] MEDS ORDERED: MAGNESIUM HYDROXIDE SUSP 30 ML UDCUP PO PRN (20:01)
[2019-05-07] MEDS ORDERED: MAG HYDROX/AL HYDROX/SIMETH SUSP 30 ML UDCUP PO PRN (20:01)
[2019-05-07] MEDS ORDERED: DEXTROSE 40% GEL 15 GM TUBE PO PRN ×2 (20:01)
[2019-05-07] MEDS ORDERED: RINGERS SOLUTION,LACTATED 1,000 ML IV PRN (20:01)
[2019-05-07] MEDS ORDERED: LEVALBUTEROL HCL NEB 0.63 MG/3 ML AMPUL NEB PRN (20:01)
[2019-05-07] MEDS ORDERED: GLUCAGON,HUMAN RECOMB 1 MG INJ SUBCUT PRN (20:01)
[2019-05-07] MEDS ORDERED: DEXTROSE 50%-WATER 25 GM/50 ML DISP.SYRIN IV PRN ×2 (20:01)
[2019-05-07] MEDS ORDERED: HYDRALAZINE HCL INJ/PF 20 MG/1 ML SDV IV PRN (20:08)
[2019-05-07] MEDS ORDERED: ACETAMINOPHEN 325 MG TABLET PO PRN (20:08)
[2019-05-07] MEDS ORDERED: ACETAMINOPHEN 650 MG SUPP.RECT PR PRN (20:08)
[2019-05-07] MEDS ORDERED: NALBUPHINE HCL INJ 10 MG/1 ML AMPULE IV PRN (20:08)
--- NOTE | 2019-05-07 20:44 | PDOC CONSULTATION ---
Consultation Consult Date: 05/07/19 Attending physician:: ANTONIO QUILSE Provider Consulted: MIGUEL ANGEL REES Consult reason:: gi bleed History of Present Illness Admission Date/PCP: 05/07/19 19:24 ROMEL LAMB MD History of Present Illness: ROSELYN DECKER is a 89 year old male Patient is a 89-year-old male that presents to the emergency department for chief complaint of black stools. Patient states he started having black stools yesterday. He reports one large one yesterday and 2 smaller ones today. He also reports a new sharp pain on his right side that began yesterday. He denied any aggravating or relieving factors. Patient does take aspirin and Plavix. He denies history of GI bleeding in the past. He did have blood work drawn at his nursing facility this morning which showed a hemoglobin of 7.9 which is why patient was referred to the emergency room. He denies any associated fever nausea or vomiting. He denies ever needing blood transfusion in the past. Past Medical History Cardiac Medical History: Reports: Atrial Fibrillation, Congestive Heart Failure, Coronary Artery Disease, Myocardial Infarction - X3=STENTS/ 2001 & 2017, Hyperlipidema, Hypertension - MEDICATED, Peripheral Vascular Disease Pulmonary Medical History: Reports: Chronic Obstructive Pulmonary Disease (COPD), Respiratory Failure Denies: Asthma EENT Medical History: Reports: Cataracts Denies: Ears - Hearing aids Neurological Medical History: Denies: Hemorrhagic CVA, Ischemic CVA, Seizures Endocrine Medical History: Reports: Hypothyroidism Denies: Diabetes Mellitus Type 1, Diabetes Mellitus Type 2, Hyperthyroidism, Obesity Renal/ Medical History: Reports: Chronic Kidney Disease Denies: Nephrolithiasis Malignancy Medical History: Reports: None GI Medical History: Reports: Gastroesophageal Reflux Disease - Erosive GERD with esophageal strictures., Other - Chronic ischemic abdominal pain Denies: Cirrhosis, Crohn's Disease, Diverticulitis, Hepatitis, Hiatal Hernia, Ulcerative Colitis Musculoskeltal Medical History: Denies: Arthritis, Gout Skin Medical History: Denies: Eczema, Psoriasis Psychiatric Medical History: Reports: General Anxiety Disorder, Post Traumatic Stress Disorder, Tobacco Dependency Denies: Alcohol Dependency, Depression, Substance Abuse Traumatic Medical History: Reports: None Hematology: Reports: Anemia - Chronic due to kidney disease Denies: Sickle Cell Disease, Bleeding Tendencies Infectious Medical History: Reports: None Past Surgical History Past Surgical History: Reports: Cardiac Catheterization, Carotid Endarterectomy - RIGHT SIDE, Coronary Stent, Vascular Surgery - ILIAC, FEMORAL STENTS, aortic aneurysm stent graft, Other - Upper endoscopies, cataract surgery Denies: Pacemaker Social History [facility] with: [facility] Smoking Status: Former Smoker Frequency of Alcohol Use: None Hx Recreational Drug Use: No Drugs: None Hx Prescription Drug Abuse: No - Advance Directive Resuscitation Status: Full Code Family History Family History: CAD, DM, Hypertension, Malignancy - Colon cancer Parental Family History Reviewed: No Children Family History Reviewed: NA Sibling(s) Family History Reviewed.: NA Medication/Allergy Allergies/Adverse Reactions: morphine [Morphine] Allergy (Severe, Verified 03/31/18 11:01) Hallucinations tetracycline [Tetracycline] Allergy (Unknown, Verified 03/31/18 11:01) Review of Systems Constitutional: ABSENT: chills, fever(s), headache(s), weight gain, weight loss Eyes: ABSENT: visual disturbances Ears: ABSENT: hearing changes Nose, Mouth, and Throat: ABSENT: as per HPI, headache(s), mouth pain, sore throat, vertigo, other Breasts: ABSENT: as per HPI, other Cardiovascular: ABSENT: as per HPI, chest pain, dyspnea on exertion, edema, orthropnea, palpitations, other Respiratory: ABSENT: as per HPI, cough, dyspnea, hemoptysis, sputum, other Gastrointestinal: PRESENT: hematochezia Genitourinary: ABSENT: as per HPI, difficulty urinating, dysuria, hematuria, nocturia, other Musculoskeletal: ABSENT: as per HPI, back pain, deformity, joint swelling, muscle weakness, other Integumentary: ABSENT: as per HPI, diaphoresis, erythema, lesions, pruritus, rash, wounds, other Neurological: ABSENT: as per HPI, abnormal gait, abnormal movements, abnormal speech, confusion, convulsions, dizziness, focal weakness, frequent falls, lack of coordination, memory loss, numbness, paresthesias, restless legs, syncope, tingling, tremor(s), vertigo, weakness, other Psychiatric: ABSENT: anxiety, depression, homidical ideation, suicidal ideation Endocrine: ABSENT: cold intolerance, heat intolerance, polydipsia, polyuria Hematologic/Lymphatic: ABSENT: easy bleeding, easy bruising Physical Exam Vital Signs: Temp Pulse Resp BP Pulse Ox 97.9 F 17 128/71 H 100 05/07/19 18:48 05/07/19 20:01 05/07/19 20:01 05/07/19 20:01 Intake & Output 05/06/19 05/07/19 05/08/19 06:59 06:59 06:59 Weight 49.895 kg General appearance: PRESENT: cooperative Head exam: PRESENT: normocephalic Eye exam: PRESENT: PERRLA Ear exam: PRESENT: normal external ear exam Mouth exam: PRESENT: moist Neck exam: PRESENT: full ROM Respiratory exam: PRESENT: clear to auscultation rodrigo Cardiovascular exam: PRESENT: RRR Pulses: PRESENT: normal radial pulses, normal femoral pulses Vascular exam: PRESENT: normal capillary refill GI/Abdominal exam: PRESENT: soft Rectal exam: PRESENT: deferred, heme (+) stool Extremities exam: PRESENT: full ROM Musculoskeletal exam: PRESENT: full ROM Neurological exam: PRESENT: awake Psychiatric exam: PRESENT: appropriate affect Skin exam: PRESENT: dry Results Laboratory Results: 05/07/19 18:28 05/07/19 18:28 05/07/19 05/07/19 05/07/19 18:28 18:28 18:28 WBC 6.3 RBC 3.17 L Hgb 9.2 L Hct 28.0 L MCV 89 MCH 28.9 MCHC 32.7 RDW 17.5 H Plt Count 234 Seg Neutrophils % 69.8 Lymphocytes % 17.9 Monocytes % 9.8 Eosinophils % 0.8 Basophils % 1.7 Absolute Neutrophils 4.4 Absolute Lymphocytes 1.1 Absolute Monocytes 0.6 Absolute Eosinophils 0.1 Absolute Basophils 0.1 Sodium 131.1 L Potassium 4.6 Chloride 97 L Carbon Dioxide 27 Anion Gap 7 BUN 41 H Creatinine 2.17 H Est GFR ( Amer) 35 L Est GFR (Non-Af Amer) 29 L Glucose 90 Calcium 8.1 L Total Bilirubin 0.4 AST 32 Alkaline Phosphatase 65 Total Protein 5.6 L Albumin 2.9 L Lipase 22.5 L Blood Type O POSITIVE Antibody Screen NEGATIVE Assessment & Plan - Plan Summary Plan Summary: Impression is an 89-year-old male care home patient who presents with melanotic stools and is on aspirin and Plavix for significant cardiac history with coronary artery stents and status post CABG history of atrial fibrillation has a pacemaker Patient was noted to have a hemoglobin of 7.8 at his care home today but when he was sent to the emergency room the hemoglobin was 9.2 Patient also has a history of esophageal stricture with status post dilatation to hold his Plavix and reassess his bleeding as his hemoglobin did not significantly drop since the from the care home If the patient's hemoglobin remained stable and there is no further evidence of melena we will discuss appropriateness of upper and lower endoscopy surgery will follow
[2019-05-07 21:13] LABS: FREE T3 2.18 pg/mL (2.77-5.27); FREE T4 (FREE THYROXINE) 1.31 ng/dL (0.78-2.19)
[2019-05-07 21:27] LABS: THYROID STIMULATING HORMONE 5.11 uIU/mL (0.47-4.68)
[2019-05-07] MEDS: METOCLOPRAMIDE HCL INJ/PF 10 MG/2 ML SDV IV SCH (23:13)
[2019-05-07] MEDS: ATORVASTATIN CALCIUM 20 MG TABLET PO SCH (23:14)
[2019-05-07] MEDS: ALPRAZOLAM 0.5 MG TABLET PO SCH (23:14)
[2019-05-07] MEDS: RANOLAZINE 500 MG TAB.SR.12H PO SCH (23:14)
[2019-05-07] MEDS: LUBIPROSTONE 24 MCG CAPSULE PO SCH (23:14)
[2019-05-08 00:29] LABS: APPEARANCE,URINE CLEAR; BILIRUBIN,URINE NEGATIVE (NEGATIVE); COLOR,URINE YELLOW; GLUCOSE, URINE NEGATIVE (NEGATIVE); KETONES,URINE NEGATIVE (NEGATIVE); LEUKOCYTE ESTERASE,URINE NEGATIVE (NEGATIVE); NITRITE,URINE NEGATIVE (NEGATIVE); PROTEIN,URINE NEGATIVE (NEGATIVE); URINE SPECIFIC GRAVITY 1.006; UROBILINOGEN,URINE NEGATIVE mg/dL (<2.0)
[2019-05-08 01:06] LABS: HEMATOCRIT 25.8 % (37.9-51.0); HEMOGLOBIN 8.6 g/dL (13.5-17.0); MEAN CORPUSCULAR HEMOGLOBIN 29.2 pg (27.0-33.4); MEAN CORPUSCULAR HGB CONC 33.3 g/dL (32.0-36.0); MEAN CORPUSCULAR VOLUME 88 fl (80-97); PLATELET COUNT 202 10^3/uL (150-450); RED BLOOD COUNT 2.94 10^6/uL (4.35-5.55); RED CELL DISTRIBUTION WIDTH 17.1 % (11.5-14.0); WHITE BLOOD COUNT 5.8 10^3/uL (4.0-10.5)
--- NOTE | 2019-05-08 01:22 | PDOC H&P ---
History of Present Illness Admission Date/PCP: 05/07/19 19:24 ROMEL LAMB MD Patient complains of: Melena History of Present Illness: ROSELYN FULLER is a 89 year old male who presented to the emergency room with a 1 day history of melena. Patient is a resident at [facility] and had one large black stool yesterday and 2 smaller black stools prior to admission today. The stools have been associated with a sharp intermittent moderately severe pain in the right abdomen without radiation lasting for a few seconds up to a minute. Patient admits that he takes aspirin and Plavix as part of his regular medical regimen. He denies other associated or accompanying symptoms. He denies prior similar episodes. He has not identified any aggravating or ameliorating factors for his melena. At the alf he was noted to have a hemoglobin of 7.9 on the morning of admission. In the emergency room he was found to have a hemoglobin of 9.2 and the remainder of his evaluation was consistent with his baseline. Patient was subsequently admitted to the hospital for further evaluation and treatment. Past Medical History Cardiac Medical History: Reports: Atrial Fibrillation, Congestive Heart Failure, Coronary Artery Disease, Myocardial Infarction - X3=STENTS/ 2001 & 2017, Hyperlipidema, Hypertension - MEDICATED, Peripheral Vascular Disease Pulmonary Medical History: Reports: Chronic Obstructive Pulmonary Disease (COPD), Respiratory Failure Denies: Asthma EENT Medical History: Reports: Cataracts Denies: Ears - Hearing aids Neurological Medical History: Denies: Hemorrhagic CVA, Ischemic CVA, Seizures Endocrine Medical History: Reports: Hypothyroidism Denies: Diabetes Mellitus Type 1, Diabetes Mellitus Type 2, Hyperthyroidism, Obesity Renal/ Medical History: Reports: Chronic Kidney Disease Denies: Nephrolithiasis Malignancy Medical History: Reports: None GI Medical History: Reports: Gastroesophageal Reflux Disease - Erosive GERD with esophageal strictures., Other - Chronic ischemic abdominal pain Denies: Cirrhosis, Crohn's Disease, Diverticulitis, Hepatitis, Hiatal Hernia, Ulcerative Colitis Musculoskeltal Medical History: Denies: Arthritis, Gout Skin Medical History: Denies: Eczema, Psoriasis Psychiatric Medical History: Reports: General Anxiety Disorder, Post Traumatic Stress Disorder, Tobacco Dependency Denies: Alcohol Dependency, Depression, Substance Abuse Traumatic Medical History: Reports: None Hematology: Reports: Anemia - Chronic due to kidney disease Denies: Bleeding Tendencies Infectious Medical History: Reports: None Past Surgical History Past Surgical History: Reports: Cardiac Catheterization, Carotid Endarterectomy - RIGHT SIDE, Coronary Stent, Vascular Surgery - ILIAC, FEMORAL STENTS, aortic aneurysm stent graft, Other - Upper endoscopies, cataract surgery Social History Information Source: Patient Lives with: [facility] Smoking Status: Former Smoker Frequency of Alcohol Use: None Hx Recreational Drug Use: No Drugs: None Hx Prescription Drug Abuse: No - Advance Directive Resuscitation Status: Full Code Surrogate healthcare decision maker:: Luis Angel Fuller Family History Family History: CAD, DM, Hypertension, Malignancy - Colon cancer Parental Family History Reviewed: Yes Children Family History Reviewed: No Sibling(s) Family History Reviewed.: Yes Medication/Allergy Home Medications: Acetaminophen [Tylenol 325 mg Tablet] 325 mg PO Q6HP PRN 05/07/19 Alprazolam [Xanax 0.5 mg Tablet] 0.5 mg PO BIDP PRN 05/07/19 Aspirin [Adult Low Dose Aspirin EC] 81 mg PO DAILY 05/07/19 Atorvastatin Calcium [Lipitor 20 mg Tablet] 20 mg PO QHS 05/07/19 Clopidogrel Bisulfate [Plavix 75 mg Tablet] 75 mg PO DAILY 05/07/19 Cyanocobalamin (Vitamin B-12) [Vitamin B-12 SL 2500 mcg Tablet] 2,500 mcg SL DAILY 05/07/19 Furosemide [Lasix 20 mg Tablet] 20 mg PO DAILY 05/07/19 Ketoconazole [Nizoral 2% Shampoo 120 ml Bottle] 1 appful TOP DAILYP PRN 05/07/19 Ketotifen Fumarate [Refresh] 5 ml OU BIDP PRN 05/07/19 Levothyroxine Sodium [Synthroid 50 Mcg Tablet] 50 mcg PO QAM 05/07/19 Lubiprostone [Amitiza 24 Mcg Capsule] 24 mcg PO BID 05/07/19 Metoprolol Succinate [Toprol Xl 50 mg Tab.sr] 50 mg PO DAILY 05/07/19 Ondansetron HCl [Zofran 4 mg Tablet] 1 - 2 tab PO Q4HP PRN 05/07/19 Pantoprazole Sodium [Protonix [address] Tablet] 40 mg PO BID 05/07/19 Ranolazine [Ranexa 500 mg Tab.sr] 500 mg PO Q12 05/07/19 Allergies/Adverse Reactions: morphine [Morphine] Allergy (Severe, Verified 03/31/18 11:01) Hallucinations tetracycline [Tetracycline] Allergy (Unknown, Verified 03/31/18 11:01) Review of Systems Constitutional: ABSENT: chills, fever(s) Eyes: ABSENT: visual disturbances, other - Eye pain Ears: ABSENT: hearing changes, other - Ear pain Nose, Mouth, and Throat: ABSENT: mouth pain, sore throat Cardiovascular: ABSENT: chest pain, palpitations Respiratory: ABSENT: cough, dyspnea Gastrointestinal: PRESENT: as per HPI, abdominal pain, melena. ABSENT: constipation, diarrhea, nausea, vomiting Genitourinary: ABSENT: dysuria, hematuria Musculoskeletal: ABSENT: back pain, joint swelling, muscle weakness Integumentary: ABSENT: pruritus, rash Neurological: ABSENT: confusion, convulsions, focal weakness, memory loss, syncope Psychiatric: ABSENT: anxiety, depression Endocrine: ABSENT: cold intolerance, heat intolerance Hematologic/Lymphatic: ABSENT: easy bleeding, easy bruising Physical Exam Vital Signs: Temp Pulse Resp BP Pulse Ox 97.9 F 15 135/71 H 100 05/07/19 18:48 05/07/19 18:00 05/07/19 17:38 05/07/19 18:00 Intake & Output 05/05/19 05/06/19 05/07/19 23:59 23:59 23:59 Weight 49.895 kg General appearance: PRESENT: no acute distress, cooperative, thin Head exam: PRESENT: atraumatic, normocephalic Eye exam: PRESENT: conjunctiva pink. ABSENT: conjunctival injection, scleral icterus Ear exam: PRESENT: normal external ear exam. ABSENT: bleeding, drainage Mouth exam: PRESENT: dry mucosa, neck supple Neck exam: ABSENT: JVD, thyromegaly, tracheal deviation Respiratory exam: PRESENT: clear to auscultation rodrigo, symmetrical, unlabored Cardiovascular exam: PRESENT: RRR. ABSENT: clicks, gallop, rubs Pulses: PRESENT: normal radial pulses, normal dorsalis pedis pul Vascular exam: PRESENT: normal capillary refill. ABSENT: pallor GI/Abdominal exam: PRESENT: normal bowel sounds, soft. ABSENT: tenderness Rectal exam: PRESENT: deferred Extremities exam: ABSENT: joint swelling, pedal edema Musculoskeletal exam: PRESENT: full ROM, normal inspection. ABSENT: tenderness Neurological exam: PRESENT: alert, oriented to person, oriented to place, oriented to time, oriented to situation, CN II-XII grossly intact. ABSENT: motor sensory deficit Psychiatric exam: PRESENT: appropriate affect, normal mood Skin exam: PRESENT: dry, intact, warm. ABSENT: jaundice, rash, urticaria Results Laboratory Results: 05/07/19 18:28 05/07/19 18:28 05/07/19 05/07/19 05/07/19 18:28 18:28 18:28 WBC 6.3 RBC 3.17 L Hgb 9.2 L Hct 28.0 L MCV 89 MCH 28.9 MCHC 32.7 RDW 17.5 H Plt Count 234 Seg Neutrophils % 69.8 Lymphocytes % 17.9 Monocytes % 9.8 Eosinophils % 0.8 Basophils % 1.7 Absolute Neutrophils 4.4 Absolute Lymphocytes 1.1 Absolute Monocytes 0.6 Absolute Eosinophils 0.1 Absolute Basophils 0.1 Sodium 131.1 L Potassium 4.6 Chloride 97 L Carbon Dioxide 27 Anion Gap 7 BUN 41 H Creatinine 2.17 H Est GFR ( Amer) 35 L Est GFR (Non-Af Amer) 29 L Glucose 90 Calcium 8.1 L Total Bilirubin 0.4 AST 32 Alkaline Phosphatase 65 Total Protein 5.6 L Albumin 2.9 L Lipase 22.5 L Blood Type O POSITIVE Antibody Screen NEGATIVE Assessment and Plan - Diagnosis (1) Upper gastrointestinal bleeding Is this a current diagnosis for this admission?: Yes Plan: Patient will be admitted for serial CBC evaluations and will be seen in consultation by Dr. Boogie for further evaluation. Transfusions will be given as required. (2) Acute kidney injury superimposed on chronic kidney disease Is this a current diagnosis for this admission?: Yes Plan: Patient's renal functions be monitored on a regular basis with a daily metabolic profile and magnesium levels. (3) Chronic vascular disorder of intestine Is this a current diagnosis for this admission?: Yes Plan: Patient's chronic intermittent abdominal pain be treated with Nubain 10 mg IV every 3 hours on a as needed basis. (4) GERD (gastroesophageal reflux disease) Qualifiers: Esophagitis presence: with esophagitis Qualified Code(s): K21.0 - Gastro- esophageal reflux disease with esophagitis Is this a current diagnosis for this admission?: Yes Plan: Patient will be maintained on Protonix during his hospital course and at discharge. Evaluation of his GERD and esophageal stricture will be undertaken by Dr. Boogie during his consultation. (5) Hypothyroidism Qualifiers: 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 Qualified Code(s): E03.4 - Atrophy of thyroid (acquired) Is this a current diagnosis for this admission?: Yes Plan: Patient will be continued on his thyroid replacement throughout his hospital course. A thyroid profile will be obtained to evaluate efficacy of current therapy. (6) Coronary artery disease Qualifiers: Coronary Disease-Associated Artery/Lesion type: [place] artery [place] vs. transplanted heart: [place] heart Associated angina: without angina Qualified Code(s): I25.10 - Atherosclerotic heart disease of [place] coronary artery without angina pectoris Is this a current diagnosis for this admission?: Yes Plan: Patient will be observed closely on telemetry unit. Angina will be treated as needed with sublingual nitroglycerin. (7) Chronic systolic congestive heart failure Is this a current diagnosis for this admission?: Yes Plan: Patient will be continued on his current medical regimen for heart failure and he will be observed closely for any changes in his cardiac status. (8) Anemia of renal disease Is this a current diagnosis for this admission?: Yes Plan: Patient's anemia will be monitored closely throughout his hospital stay with serial hemoglobins. (9) HTN (hypertension) Qualifiers: Hypertension type: essential hypertension Qualified Code(s): I10 - Essential (primary) hypertension Is this a current diagnosis for this admission?: Yes Plan: Patient's blood pressure will be monitored closely throughout his hospital course with appropriate interventions for excessive hypertension. - Time Time Spent with patient: 15-24 minutes Medications reviewed and adjusted accordingly: Yes Anticipated discharge: SNF - Inpatient Certification Based on my medical assessment, after consideration of the patient's comorbidities, presenting symptoms, or acuity I expect that the services needed warrant INPATIENT care.: Yes I certify that my determination is in accordance with my understanding of Medicare's requirements for reasonable and necessary INPATIENT services [42 CFR 412.3e].: Yes Medical Necessity: Significant Comorbidiites Make Outpatient Treatment Too Risky, Need Close Monitoring Due to Risk of Patient Decompensation, Need For Continuous Telemetry Monitoring, Need for Pain Control, Need for Surgery, Risk of Complication if Not Cared For in Hospital
[2019-05-08] MEDS: LEVOTHYROXINE SODIUM 0.05 MG TABLET PO SCH (06:37)
[2019-05-08 06:54] LABS: HEMOGLOBIN 8.6 g/dL (13.5-17.0); MEAN CORPUSCULAR HEMOGLOBIN 29.1 pg (27.0-33.4); MEAN CORPUSCULAR HGB CONC 33.1 g/dL (32.0-36.0); MEAN CORPUSCULAR VOLUME 88 fl (80-97); PLATELET COUNT 197 10^3/uL (150-450); RED BLOOD COUNT 2.95 10^6/uL (4.35-5.55); RED CELL DISTRIBUTION WIDTH 17.1 % (11.5-14.0); WHITE BLOOD COUNT 5.5 10^3/uL (4.0-10.5)
[2019-05-08 07:01] LABS: ANION GAP 7 (5-19); BLOOD UREA NITROGEN 37 mg/dL (7-20); CALCIUM 8.4 mg/dL (8.4-10.2); CARBON DIOXIDE 27 mmol/L (22-30); CHLORIDE 99 mmol/L (98-107); CHOLESTEROL 208.76 mg/dL (0-200); GLUCOSE 85 mg/dL (75-110); POTASSIUM 4.8 mmol/L (3.6-5.0); TRIGLYCERIDES 125 mg/dL (<150)
[2019-05-08 07:11] LABS: DIRECT LDL 124 mg/dL (<100)
[2019-05-08] MEDS ORDERED: ALPRAZOLAM 0.5 MG TABLET PO PRN (08:16)
--- NOTE | 2019-05-08 08:22 | PDOC PROGRESS REPORT ---
Subjective Progress Note for:: 05/08/19 Subjective:: May 08, 2019-no complaints this a.m. Reason For Visit: UGI BLEED Physical Exam Vital Signs: Temp Pulse Resp BP Pulse Ox 97.8 F 68 18 133/69 H 99 05/08/19 03:00 05/08/19 07:00 05/08/19 03:00 05/08/19 03:00 05/08/19 03:00 Intake & Output 05/07/19 05/08/19 05/09/19 06:59 06:59 06:59 Intake Total 220 Output Total 1000 Balance -780 Weight 49.895 kg General appearance: PRESENT: no acute distress, well-developed, well-nourished Head exam: PRESENT: atraumatic, normocephalic Eye exam: PRESENT: conjunctiva pink, EOMI, PERRLA. ABSENT: scleral icterus Ear exam: PRESENT: normal external ear exam Mouth exam: PRESENT: moist, tongue midline Neck exam: ABSENT: carotid bruit, JVD, lymphadenopathy, thyromegaly Respiratory exam: PRESENT: clear to auscultation rodrigo. ABSENT: rales, rhonchi, wheezes Cardiovascular exam: PRESENT: RRR. ABSENT: diastolic murmur, rubs, systolic murmur Pulses: PRESENT: normal dorsalis pedis pul Vascular exam: PRESENT: normal capillary refill GI/Abdominal exam: PRESENT: normal bowel sounds, soft. ABSENT: distended, guarding, mass, organolmegaly, rebound, tenderness Rectal exam: PRESENT: deferred Extremities exam: PRESENT: full ROM. ABSENT: calf tenderness, clubbing, pedal edema Neurological exam: PRESENT: alert, awake, oriented to person, oriented to place, oriented to time, oriented to situation, CN II-XII grossly intact. ABSENT: motor sensory deficit Psychiatric exam: PRESENT: appropriate affect, normal mood. ABSENT: homicidal ideation, suicidal ideation Skin exam: PRESENT: dry, intact, warm. ABSENT: cyanosis, rash Results Laboratory Results: 05/08/19 06:35 05/08/19 06:35 05/07/19 05/07/19 05/07/19 18:28 18:28 18:28 WBC 6.3 RBC 3.17 L Hgb 9.2 L Hct 28.0 L MCV 89 MCH 28.9 MCHC 32.7 RDW 17.5 H Plt Count 234 Seg Neutrophils % 69.8 Lymphocytes % 17.9 Monocytes % 9.8 Eosinophils % 0.8 Basophils % 1.7 Absolute Neutrophils 4.4 Absolute Lymphocytes 1.1 Absolute Monocytes 0.6 Absolute Eosinophils 0.1 Absolute Basophils 0.1 Sodium 131.1 L Potassium 4.6 Chloride 97 L Carbon Dioxide 27 Anion Gap 7 BUN 41 H Creatinine 2.17 H Est GFR ( Amer) 35 L Est GFR (Non-Af Amer) 29 L Glucose 90 Calcium 8.1 L Magnesium Total Bilirubin 0.4 AST 32 Alkaline Phosphatase 65 Total Protein 5.6 L Albumin 2.9 L Triglycerides Cholesterol LDL Cholesterol Direct VLDL Cholesterol HDL Cholesterol Lipase 22.5 L TSH Free T4 Free T3 pg/mL Urine Color Urine Appearance Urine pH Ur Specific [place] Urine Protein Urine Glucose (UA) Urine Ketones Urine Blood Urine Nitrite Ur Leukocyte Esterase Urine RBC (Auto) Blood Type O POSITIVE Antibody Screen NEGATIVE 05/07/19 05/07/19 05/08/19 18:28 23:11 01:00 WBC 5.8 RBC 2.94 L Hgb 8.6 L Hct 25.8 L MCV 88 MCH 29.2 MCHC 33.3 RDW 17.1 H Plt Count 202 Seg Neutrophils % Lymphocytes % Monocytes % Eosinophils % Basophils % Absolute Neutrophils Absolute Lymphocytes Absolute Monocytes Absolute Eosinophils Absolute Basophils Sodium Potassium Chloride Carbon Dioxide Anion Gap BUN Creatinine Est GFR ( Amer) Est GFR (Non-Af Amer) Glucose Calcium Magnesium Total Bilirubin AST Alkaline Phosphatase Total Protein Albumin Triglycerides Cholesterol LDL Cholesterol Direct VLDL Cholesterol HDL Cholesterol Lipase TSH 5.11 H Free T4 1.31 Free T3 pg/mL 2.18 L Urine Color YELLOW Urine Appearance CLEAR Urine pH 6.0 Ur Specific [place] 1.006 Urine Protein NEGATIVE Urine Glucose (UA) NEGATIVE Urine Ketones NEGATIVE Urine Blood NEGATIVE Urine Nitrite NEGATIVE Ur Leukocyte Esterase NEGATIVE Urine RBC (Auto) 0 Blood Type Antibody Screen 05/08/19 05/08/19 06:35 06:35 WBC 5.5 RBC 2.95 L Hgb 8.6 L Hct 26.0 L MCV 88 MCH 29.1 MCHC 33.1 RDW 17.1 H Plt Count 197 Seg Neutrophils % Lymphocytes % Monocytes % Eosinophils % Basophils % Absolute Neutrophils Absolute Lymphocytes Absolute Monocytes Absolute Eosinophils Absolute Basophils Sodium 133.0 L Potassium 4.8 Chloride 99 Carbon Dioxide 27 Anion Gap 7 BUN 37 H Creatinine 2.09 H Est GFR ( Amer) 37 L Est GFR (Non-Af Amer) 30 L Glucose 85 Calcium 8.4 Magnesium 2.1 Total Bilirubin AST Alkaline Phosphatase Total Protein Albumin Triglycerides 125 Cholesterol 208.76 H LDL Cholesterol Direct 124 H VLDL Cholesterol 25.0 HDL Cholesterol 61 Lipase TSH Free T4 Free T3 pg/mL Urine Color Urine Appearance Urine pH Ur Specific [place] Urine Protein Urine Glucose (UA) Urine Ketones Urine Blood Urine Nitrite Ur Leukocyte Esterase Urine RBC (Auto) Blood Type Antibody Screen 05/07/19 18:28 NT-Pro-B Natriuret Pep 9030 H Assessment and Plan - Diagnosis (1) GI hemorrhage Qualifiers: GI bleed type/associated pathology: unspecified gastrointestinal hemorrhage type Qualified Code(s): K92.2 - Gastrointestinal hemorrhage, unspecified Is this a current diagnosis for this admission?: Yes Plan: May 08, 2019-hemoglobin stable at this time. Patient has chronic anemia from looking at past admissions. We will continue to follow CBC consult surgery for colonoscopy/endoscopy if needed. (2) Anemia Qualifiers: Anemia type: unspecified type Qualified Code(s): D64.9 - Anemia, unspecified Is this a current diagnosis for this admission?: Yes Plan: May 08, 2019-chronic stable continue to follow daily CBCs (3) Chronic kidney disease, stage 3 (moderate) Is this a current diagnosis for this admission?: Yes Plan: May 08, 2019-chronic stable (4) Chronic systolic congestive heart failure Is this a current diagnosis for this admission?: Yes Plan: Patient will be continued on his current medical regimen for heart failure and he will be observed closely for any changes in his cardiac status. May 08, 2019-at this time will DC IV hydration as patient hemoglobin is stable. I will continue his current therapy for heart failure as well. (5) Hypothyroid Qualifiers: Hypothyroidism type: acquired Qualified Code(s): E03.9 - Hypothyroidism, unspecified Is this a current diagnosis for this admission?: Yes Plan: May 08, 2019-continue home Synthroid dosing - Time Time Spent with patient: 15-24 minutes - Inpatient Certification Based on my medical assessment, after consideration of the patient's c omorbidities, presenting symptoms, or acuity I expect that the services needed warrant INPATIENT care.: Yes I certify that my determination is in accordance with my understanding of Medicare's requirements for reasonable and necessary INPATIENT services [42 CFR 412.3e].: Yes Medical Necessity: Other - Monitor for bleeding
--- NOTE | 2019-05-08 08:23 | Progress Note Acknowledgement ---
Progress Note Acknowledgement Progess Note Acknowledgement: I, the undersigned member of the medical staff with appropriate privileges and with supervisory authority over [Antoni Castellon], a dependent practice allied health professional, acknowledge that I have reviewed the progress notes entered on this patient, and in my professional judgment believe that the assessment made and/or any care evidenced was appropriate
[2019-05-08] MEDS: METOCLOPRAMIDE HCL INJ/PF 10 MG/2 ML SDV IV SCH ×4 (08:49→22:19)
[2019-05-08] MEDS ORDERED: RANOLAZINE 500 MG TAB.SR.12H PO SCH (10:00)
[2019-05-08] MEDS ORDERED: METOPROLOL SUCCINATE 50 MG TAB.SR.24H PO SCH (10:00)
[2019-05-08] MEDS: FUROSEMIDE 20 MG TABLET PO SCH (10:39)
[2019-05-08] MEDS: PANTOPRAZOLE SODIUM 40 MG TABLET.DR PO SCH ×2 (10:39→17:19)
[2019-05-08] MEDS: RANOLAZINE 500 MG TAB.SR.12H PO SCH ×2 (10:39→22:19)
[2019-05-08] MEDS: LUBIPROSTONE 24 MCG CAPSULE PO SCH ×2 (10:40→22:19)
[2019-05-08] MEDS: METOPROLOL SUCCINATE 50 MG TAB.SR.24H PO SCH (10:40)
[2019-05-08] MEDS: ASPIRIN 81 MG TABLET, ENT COATED PO SCH (10:40)
[2019-05-08] MEDS: DOCUSATE SODIUM 100 MG CAPSULE PO SCH ×2 (10:40→17:19)
[2019-05-08] MEDS: ALPRAZOLAM 0.5 MG TABLET PO SCH ×2 (10:40→22:19)
[2019-05-08] MEDS: CYANOCOBALAMIN (VITAMIN B-12) 1,000 MCG TABLET PO SCH (10:40)
--- NOTE | 2019-05-08 11:28 | PDOC PROGRESS REPORT ---
Subjective Progress Note for:: 05/08/19 Subjective:: This is an 89-year-old male with a history of gastritis, discovered by Dr. Mckinney on EGD last month. He reports continued melanotic stools. He presents for weakness and anemia. His last melanotic stool was yesterday. He has not had any further stools today. His last colonoscopy was in 2014, and found a single, small polyp in the ascending colon. Today he denies fevers, chills, chest pain, nausea, vomiting, shortness of breath, headache, blurry vision, or abdominal pain. He is somewhat hard of hearing. Reason For Visit: UGI BLEED Physical Exam Vital Signs: Temp Pulse Resp BP Pulse Ox 98.9 F 76 16 123/62 95 05/08/19 08:04 05/08/19 08:04 05/08/19 08:04 05/08/19 08:04 05/08/19 08:04 Intake & Output 05/07/19 05/08/19 05/09/19 06:59 06:59 06:59 Intake Total 220 Output Total 1000 Balance -780 Weight 49.895 kg General appearance: PRESENT: no acute distress, cooperative, hard of hearing. ABSENT: disheveled Head exam: PRESENT: atraumatic, normocephalic Eye exam: PRESENT: EOMI, PERRLA. ABSENT: scleral icterus Mouth exam: PRESENT: moist, neck supple Neck exam: ABSENT: meningismus, tenderness, thyromegaly, tracheal deviation Respiratory exam: PRESENT: unlabored. ABSENT: chest wall tenderness, tachypnea, wheezes Cardiovascular exam: PRESENT: irregular rhythm Pulses: PRESENT: normal radial pulses GI/Abdominal exam: PRESENT: soft. ABSENT: distended, rigid, tenderness Rectal exam: PRESENT: deferred Extremities exam: ABSENT: clubbing Neurological exam: PRESENT: alert, awake, oriented to person, oriented to place Psychiatric exam: ABSENT: agitated, anxious, depressed Focused psych exam: ABSENT: delusional Skin exam: ABSENT: cyanosis, erythema, jaundice Results Laboratory Results: 05/08/19 06:35 05/08/19 06:35 05/07/19 05/07/19 05/07/19 18:28 18:28 18:28 WBC 6.3 RBC 3.17 L Hgb 9.2 L Hct 28.0 L MCV 89 MCH 28.9 MCHC 32.7 RDW 17.5 H Plt Count 234 Seg Neutrophils % 69.8 Lymphocytes % 17.9 Monocytes % 9.8 Eosinophils % 0.8 Basophils % 1.7 Absolute Neutrophils 4.4 Absolute Lymphocytes 1.1 Absolute Monocytes 0.6 Absolute Eosinophils 0.1 Absolute Basophils 0.1 Sodium 131.1 L Potassium 4.6 Chloride 97 L Carbon Dioxide 27 Anion Gap 7 BUN 41 H Creatinine 2.17 H Est GFR ( Amer) 35 L Est GFR (Non-Af Amer) 29 L Glucose 90 Calcium 8.1 L Magnesium Total Bilirubin 0.4 AST 32 Alkaline Phosphatase 65 Total Protein 5.6 L Albumin 2.9 L Triglycerides Cholesterol LDL Cholesterol Direct VLDL Cholesterol HDL Cholesterol Lipase 22.5 L TSH Free T4 Free T3 pg/mL Urine Color Urine Appearance Urine pH Ur Specific [place] Urine Protein Urine Glucose (UA) Urine Ketones Urine Blood Urine Nitrite Ur Leukocyte Esterase Urine RBC (Auto) Blood Type O POSITIVE Antibody Screen NEGATIVE 05/07/19 05/07/19 05/08/19 18:28 23:11 01:00 WBC 5.8 RBC 2.94 L Hgb 8.6 L Hct 25.8 L MCV 88 MCH 29.2 MCHC 33.3 RDW 17.1 H Plt Count 202 Seg Neutrophils % Lymphocytes % Monocytes % Eosinophils % Basophils % Absolute Neutrophils Absolute Lymphocytes Absolute Monocytes Absolute Eosinophils Absolute Basophils Sodium Potassium Chloride Carbon Dioxide Anion Gap BUN Creatinine Est GFR ( Amer) Est GFR (Non-Af Amer) Glucose Calcium Magnesium Total Bilirubin AST Alkaline Phosphatase Total Protein Albumin Triglycerides Cholesterol LDL Cholesterol Direct VLDL Cholesterol HDL Cholesterol Lipase TSH 5.11 H Free T4 1.31 Free T3 pg/mL 2.18 L Urine Color YELLOW Urine Appearance CLEAR Urine pH 6.0 Ur Specific [place] 1.006 Urine Protein NEGATIVE Urine Glucose (UA) NEGATIVE Urine Ketones NEGATIVE Urine Blood NEGATIVE Urine Nitrite NEGATIVE Ur Leukocyte Esterase NEGATIVE Urine RBC (Auto) 0 Blood Type Antibody Screen 05/08/19 05/08/19 06:35 06:35 WBC 5.5 RBC 2.95 L Hgb 8.6 L Hct 26.0 L MCV 88 MCH 29.1 MCHC 33.1 RDW 17.1 H Plt Count 197 Seg Neutrophils % Lymphocytes % Monocytes % Eosinophils % Basophils % Absolute Neutrophils Absolute Lymphocytes Absolute Monocytes Absolute Eosinophils Absolute Basophils Sodium 133.0 L Potassium 4.8 Chloride 99 Carbon Dioxide 27 Anion Gap 7 BUN 37 H Creatinine 2.09 H Est GFR ( Amer) 37 L Est GFR (Non-Af Amer) 30 L Glucose 85 Calcium 8.4 Magnesium 2.1 Total Bilirubin AST Alkaline Phosphatase Total Protein Albumin Triglycerides 125 Cholesterol 208.76 H LDL Cholesterol Direct 124 H VLDL Cholesterol 25.0 HDL Cholesterol 61 Lipase TSH Free T4 Free T3 pg/mL Urine Color Urine Appearance Urine pH Ur Specific [place] Urine Protein Urine Glucose (UA) Urine Ketones Urine Blood Urine Nitrite Ur Leukocyte Esterase Urine RBC (Auto) Blood Type Antibody Screen 05/07/19 18:28 NT-Pro-B Natriuret Pep 9030 H Assessment & Plan - Diagnosis (1) Anemia Qualifiers: Anemia type: unspecified type Qualified Code(s): D64.9 - Anemia, unspecified Is this a current diagnosis for this admission?: Yes (2) GI hemorrhage Qualifiers: GI bleed type/associated pathology: unspecified gastrointestinal hemorrhage type Qualified Code(s): K92.2 - Gastrointestinal hemorrhage, unspecified Is this a current diagnosis for this admission?: Yes - Plan Summary Plan Summary: This is an 89-year-old male with melanotic stool and anemia. The patient continues to take his blood thinners. He has known gastritis, discovered last month by Dr. Mckinney. I have recommended he stop his Xarelto until his gastritis has completely resolved. Patient does not have evidence of acute GI blood loss. I believe his anemia is from chronic losses due to his gastritis and his Xare lto. Continue with antiacid medications. Stop Xarelto until gastritis has resolved. The patient may benefit from an outpatient colonoscopy to ensure that colon polyps are not contributing to his symptomatology. At this time, I do not believe inpatient EGD or colonoscopy is necessary.
[2019-05-08 12:40] LABS: HEMATOCRIT 25.6 % (37.9-51.0); HEMOGLOBIN 8.6 g/dL (13.5-17.0); MEAN CORPUSCULAR HEMOGLOBIN 29.4 pg (27.0-33.4); MEAN CORPUSCULAR HGB CONC 33.5 g/dL (32.0-36.0); MEAN CORPUSCULAR VOLUME 88 fl (80-97); PLATELET COUNT 204 10^3/uL (150-450); RED BLOOD COUNT 2.92 10^6/uL (4.35-5.55); RED CELL DISTRIBUTION WIDTH 17.3 % (11.5-14.0); WHITE BLOOD COUNT 6.4 10^3/uL (4.0-10.5)
[2019-05-08 19:35] LABS: HEMATOCRIT 28.6 % (37.9-51.0); HEMOGLOBIN 9.5 g/dL (13.5-17.0); MEAN CORPUSCULAR HEMOGLOBIN 29.2 pg (27.0-33.4); MEAN CORPUSCULAR HGB CONC 33.2 g/dL (32.0-36.0); MEAN CORPUSCULAR VOLUME 88 fl (80-97); PLATELET COUNT 228 10^3/uL (150-450); RED BLOOD COUNT 3.25 10^6/uL (4.35-5.55); WHITE BLOOD COUNT 8.6 10^3/uL (4.0-10.5)
[2019-05-08] MEDS ORDERED: ATORVASTATIN CALCIUM 20 MG TABLET PO SCH (22:00)
[2019-05-08] MEDS: ATORVASTATIN CALCIUM 20 MG TABLET PO SCH (22:19)
[2019-05-09] MEDS ORDERED: PROMETHAZINE HCL INJ 25 MG/1 ML VIAL IV PRN (04:38)
[2019-05-09] MEDS: LEVOTHYROXINE SODIUM 0.05 MG TABLET PO SCH (05:51)
[2019-05-09 07:07] LABS: ANION GAP 15 (5-19); BLOOD UREA NITROGEN 47 mg/dL (7-20); CALCIUM 8.5 mg/dL (8.4-10.2); CARBON DIOXIDE 21 mmol/L (22-30); CHLORIDE 96 mmol/L (98-107); POTASSIUM 5.1 mmol/L (3.6-5.0)
[2019-05-09 07:10] LABS: GLUCOSE 68 mg/dL (75-110)
[2019-05-09] MEDS: METOCLOPRAMIDE HCL INJ/PF 10 MG/2 ML SDV IV SCH ×4 (07:16→21:55)
--- NOTE | 2019-05-09 07:54 | PDOC PROGRESS REPORT ---
Subjective Progress Note for:: 05/09/19 Subjective:: feels well, no further bloody bm's Reason For Visit: UGI BLEED Physical Exam Vital Signs: Temp Pulse Resp BP Pulse Ox 98.5 F 78 15 128/63 H 96 05/09/19 03:12 05/09/19 03:12 05/09/19 03:12 05/09/19 03:12 05/09/19 03:12 Intake & Output 05/08/19 05/09/19 05/10/19 06:59 06:59 06:59 Intake Total 220 90 Output Total 1000 1200 Balance -780 -1110 Weight 49.895 kg 50.3 kg General appearance: PRESENT: no acute distress Head exam: PRESENT: normocephalic Eye exam: PRESENT: EOMI Mouth exam: PRESENT: moist Neck exam: PRESENT: full ROM Respiratory exam: PRESENT: clear to auscultation rodrigo Cardiovascular exam: PRESENT: RRR Pulses: PRESENT: +1 pedal pulses bilateral, +2 pedal pulses bilateral GI/Abdominal exam: PRESENT: soft Rectal exam: PRESENT: deferred Extremities exam: PRESENT: full ROM Musculoskeletal exam: PRESENT: full ROM Neurological exam: PRESENT: alert, awake, oriented to person Psychiatric exam: PRESENT: appropriate affect Skin exam: PRESENT: dry Results Laboratory Results: 05/08/19 19:20 05/09/19 06:18 05/08/19 05/08/19 05/09/19 12:27 19:20 06:18 WBC 6.4 8.6 RBC 2.92 L 3.25 L Hgb 8.6 L 9.5 L Hct 25.6 L 28.6 L MCV 88 88 MCH 29.4 29.2 MCHC 33.5 33.2 RDW 17.3 H 17.0 H Plt Count 204 228 Sodium 132.1 L Potassium 5.1 H Chloride 96 L Carbon Dioxide 21 L Anion Gap 15 BUN 47 H Creatinine 2.03 H Est GFR ( Amer) 38 L Est GFR (Non-Af Amer) 31 L Glucose 68 L Calcium 8.5 Magnesium 2.2 05/07/19 18:28 NT-Pro-B Natriuret Pep 9030 H Assessment & Plan - Diagnosis (1) GI hemorrhage Qualifiers: GI bleed type/associated pathology: unspecified gastrointestinal hemorrhage type Qualified Code(s): K92.2 - Gastrointestinal hemorrhage, unspecified Is this a current diagnosis for this admission?: Yes - Plan Summary Plan Summary: Patient's hemoglobin remained stable over the last 24 hours he he does not report any further bloody bowel movements After review with the patient's charts he underwent a colonoscopy approximately 5 years ago which showed a very small 2 mm polyp in the ascending colon which was removed in addition to that he has had multiple 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 recommend, restart diet would restart plavix in s2-3 more days will need f/u with gi for f/u colonoscopy please reconsult surgery as necessary.
[2019-05-09] MEDS ORDERED: LEVOTHYROXINE SODIUM 0.05 MG TABLET PO SCH (08:00)
[2019-05-09] MEDS: FUROSEMIDE 20 MG TABLET PO SCH (09:14)
[2019-05-09] MEDS: CYANOCOBALAMIN (VITAMIN B-12) 1,000 MCG TABLET PO SCH (09:14)
[2019-05-09] MEDS: DOCUSATE SODIUM 100 MG CAPSULE PO SCH ×2 (09:14→17:38)
[2019-05-09] MEDS: LUBIPROSTONE 24 MCG CAPSULE PO SCH ×2 (09:15→21:57)
[2019-05-09] MEDS: METOPROLOL SUCCINATE 50 MG TAB.SR.24H PO SCH (09:15)
[2019-05-09] MEDS: PANTOPRAZOLE SODIUM 40 MG TABLET.DR PO SCH ×2 (09:15→17:38)
[2019-05-09] MEDS: ALPRAZOLAM 0.5 MG TABLET PO SCH ×2 (09:15→21:56)
[2019-05-09] MEDS: ASPIRIN 81 MG TABLET, ENT COATED PO SCH (09:15)
[2019-05-09] MEDS: RANOLAZINE 500 MG TAB.SR.12H PO SCH ×2 (09:15→21:57)
[2019-05-09] MEDS: ONDANSETRON HCL INJ/PF 4 MG/2 ML SDV IV PRN (11:22)
--- NOTE | 2019-05-09 17:59 | EKG REPORT ---
SEVERITY:- ABNORMAL ECG - SINUS RHYTHM IVCD PROBABLE ANTEROSEPTAL INFARCT, OLD : Confirmed by: Jon Vela MD 09-May-2019 17:58:23
[2019-05-09] MEDS: ATORVASTATIN CALCIUM 20 MG TABLET PO SCH (21:56)
[2019-05-10 04:35] LABS: ANION GAP 8 (5-19); BLOOD UREA NITROGEN 48 mg/dL (7-20); CALCIUM 8.4 mg/dL (8.4-10.2); CARBON DIOXIDE 28 mmol/L (22-30); CHLORIDE 96 mmol/L (98-107); GLUCOSE 105 mg/dL (75-110); POTASSIUM 4.3 mmol/L (3.6-5.0)
[2019-05-10] MEDS: LEVOTHYROXINE SODIUM 0.05 MG TABLET PO SCH (05:31)
--- NOTE | 2019-05-10 09:47 | PDOC PROGRESS REPORT ---
Subjective Progress Note for:: 05/09/19 Subjective:: May 08, 2019-no complaints this a.m. May 09, 2019-pain with trying to eat breakfast Reason For Visit: UGI BLEED Physical Exam Vital Signs: Temp Pulse Resp BP Pulse Ox 99.2 F 83 18 111/55 L 94 05/10/19 00:33 05/10/19 07:00 05/10/19 00:33 05/10/19 00:33 05/10/19 00:33 Intake & Output 05/09/19 05/10/19 05/11/19 06:59 06:59 06:59 Intake Total 90 1218 Output Total 1200 1300 Balance -1110 -82 Weight 50.3 kg 46.3 kg General appearance: PRESENT: no acute distress, well-developed, well-nourished Neck exam: ABSENT: carotid bruit, JVD, lymphadenopathy, thyromegaly Respiratory exam: PRESENT: clear to auscultation rodrigo. ABSENT: rales, rhonchi, wheezes Cardiovascular exam: PRESENT: RRR. ABSENT: diastolic murmur, rubs, systolic murmur Pulses: PRESENT: +1 pedal pulses bilateral GI/Abdominal exam: PRESENT: soft, other - Hypoactive bowel sounds Extremities exam: PRESENT: full ROM. ABSENT: calf tenderness, clubbing, pedal edema Neurological exam: PRESENT: alert, awake, oriented to person, oriented to place, oriented to time, oriented to situation, CN II-XII grossly intact. ABSENT: motor sensory deficit Psychiatric exam: PRESENT: appropriate affect, normal mood. ABSENT: homicidal ideation, suicidal ideation Skin exam: PRESENT: dry, intact, warm. ABSENT: cyanosis, rash Results Laboratory Results: 05/08/19 19:20 05/10/19 03:49 05/10/19 03:49 Sodium 131.8 L Potassium 4.3 Chloride 96 L Carbon Dioxide 28 Anion Gap 8 BUN 48 H Creatinine 2.33 H Est GFR ( Amer) 32 L Est GFR (Non-Af Amer) 27 L Glucose 105 Calcium 8.4 Magnesium 2.3 05/07/19 05/09/19 18:28 12:51 Troponin I 0.023 NT-Pro-B Natriuret Pep 9030 H Assessment and Plan - Diagnosis (1) GI hemorrhage Qualifiers: GI bleed type/associated pathology: unspecified gastrointestinal hemorrhage type Qualified Code(s): K92.2 - Gastrointestinal hemorrhage, unspecified Is this a current diagnosis for this admission?: Yes Plan: May 08, 2019-hemoglobin stable at this time. Patient has chronic anemia from looking at past admissions. We will continue to follow CBC consult surgery for colonoscopy/endoscopy if needed. May 09, 2019-hemoglobin stable. Most likely chronic anemia. Surgery consult no intervention at this time will outpatient try to eat this morning which caused an increased amount of pain. Place patient back on n.p.o. status until supper. (2) Anemia Qualifiers: Anemia type: unspecified type Qualified Code(s): D64.9 - Anemia, unspecified Is this a current diagnosis for this admission?: Yes Plan: May 08, 2019-chronic stable continue to follow daily CBCs May 09, 2019-stable (3) Chronic kidney disease, stage 3 (moderate) Is this a current diagnosis for this admission?: Yes Plan: May 08, 2019-chronic stable May 09 1219-stable (4) Chronic systolic congestive heart failure Is this a current diagnosis for this admission?: Yes Plan: Patient will be continued on his current medical regimen for heart failure and he will be observed closely for any changes in his cardiac status. May 08, 2019-at this time will DC IV hydration as patient hemoglobin is stable. I will continue his current therapy for heart failure as well. May 09, 2019-stable patient continue with current therapy for heart failure (5) Hypothyroid Qualifiers: Hypothyroidism type: acquired Qualified Code(s): E03.9 - Hypothyroidism, unspecified Is this a current diagnosis for this admission?: Yes Plan: May 08, 2019-continue home Synthroid dosing May 09, 2019-continue Synthroid - Time Time Spent with patient: 15-24 minutes - Inpatient Certification Based on my medical assessment, after consideration of the patient's comorbidities, presenting symptoms, or acuity I expect that the services needed warrant INPATIENT care.: Yes I certify that my determination is in accordance with my understanding of Medicare's requirements for reasonable and necessary INPATIENT services [42 CFR 412.3e].: Yes Medical Necessity: Other - Continuous monitoring for ability to take oral intake
[2019-05-10] MEDS ORDERED: TEMAZEPAM 7.5 MG CAPSULE PO PRN (09:52)
--- NOTE | 2019-05-10 09:52 | PDOC PROGRESS REPORT ---
Subjective Progress Note for:: 05/10/19 Subjective:: May 08, 2019-no complaints this a.m. May 09, 2019-pain with trying to eat breakfast May 10, 2019-continue pain while trying to eat Reason For Visit: UGI BLEED Physical Exam Vital Signs: Temp Pulse Resp BP Pulse Ox 99.2 F 83 18 111/55 L 94 05/10/19 00:33 05/10/19 07:00 05/10/19 00:33 05/10/19 00:33 05/10/19 00:33 Intake & Output 05/09/19 05/10/19 05/11/19 06:59 06:59 06:59 Intake Total 90 1218 Output Total 1200 1300 Balance -1110 -82 Weight 50.3 kg 46.3 kg General appearance: PRESENT: no acute distress, well-developed, well-nourished Neck exam: ABSENT: carotid bruit, JVD, lymphadenopathy, thyromegaly Respiratory exam: PRESENT: clear to auscultation rodrigo. ABSENT: rales, rhonchi, wheezes Cardiovascular exam: PRESENT: RRR. ABSENT: diastolic murmur, rubs, systolic murmur Pulses: PRESENT: normal dorsalis pedis pul Vascular exam: PRESENT: normal capillary refill GI/Abdominal exam: PRESENT: soft, tenderness, other - Hypoactive bowel sounds Extremities exam: PRESENT: full ROM. ABSENT: calf tenderness, clubbing, pedal edema Neurological exam: PRESENT: alert, awake, oriented to person, oriented to place, oriented to time, oriented to situation, CN II-XII grossly intact. ABSENT: mo tor sensory deficit Psychiatric exam: PRESENT: appropriate affect, normal mood. ABSENT: homicidal ideation, suicidal ideation Skin exam: PRESENT: dry, intact, warm. ABSENT: cyanosis, rash Results Laboratory Results: 05/08/19 19:20 05/10/19 03:49 05/10/19 03:49 Sodium 131.8 L Potassium 4.3 Chloride 96 L Carbon Dioxide 28 Anion Gap 8 BUN 48 H Creatinine 2.33 H Est GFR ( Amer) 32 L Est GFR (Non-Af Amer) 27 L Glucose 105 Calcium 8.4 Magnesium 2.3 05/07/19 05/09/19 18:28 12:51 Troponin I 0.023 NT-Pro-B Natriuret Pep 9030 H Assessment and Plan - Diagnosis (1) GI hemorrhage Qualifiers: GI bleed type/associated pathology: unspecified gastrointestinal hemorrhage type Qualified Code(s): K92.2 - Gastrointestinal hemorrhage, unspecified Is this a current diagnosis for this admission?: Yes Plan: May 08, 2019-hemoglobin stable at this time. Patient has chronic anemia from looking at past admissions. We will continue to follow CBC consult surgery for colonoscopy/endoscopy if needed. May 09, 2019-hemoglobin stable. Most likely chronic anemia. Surgery consult no intervention at this time will outpatient try to eat this morning which caused an increased amount of pain. Place patient back on n.p.o. status until supper. May 10, 2019-stable. Patient be followed by surgery at this time. Patient continues have pain with p.o. intake. Will obtain CT of the abdomen pelvis this a.m. unable to use contrast secondary to creatinine. (2) Anemia Qualifiers: Anemia type: unspecified type Qualified Code(s): D64.9 - Anemia, unspecified Is this a current diagnosis for this admission?: Yes Plan: May 08, 2019-chronic stable continue to follow daily CBCs May 09, 2019-stable May 10, 2019-stable (3) Chronic kidney disease, stage 3 (moderate) Is this a current diagnosis for this admission?: Yes Plan: May 08, 2019-chronic stable May 09, 2019-stable May 10, 2019-stable (4) Chronic systolic congestive heart failure Is this a current diagnosis for this admission?: Yes Plan: Patient will be continued on his current medical regimen for heart failure and he will be observed closely for any changes in his cardiac status. May 08, 2019-at this time will DC IV hydration as patient hemoglobin is stable. I will continue his current therapy for heart failure as well. May 09, 2019-stable patient continue with current therapy for heart failure May 10, 2019-stable (5) Hypothyroid Qualifiers: Hypothyroidism type: acquired Qualified Code(s): E03.9 - Hypothyroidism, unspecified Is this a current diagnosis for this admission?: Yes Plan: May 08, 2019-continue home Synthroid dosing May 09, 2019-continue Synthroid May 10, 2019-continue Synthroid (6) Insomnia Is this a current diagnosis for this admission?: Yes Plan: May 10, 2019-Restoril 7.5 g p.o. at bedtime as needed - Time Time Spent with patient: 15-24 minutes - Inpatient Certification Based on my medical assessment, after consideration of the patient's comorbidities, presenting symptoms, or acuity I expect that the services needed warrant INPATIENT care.: Yes I certify that my determination is in accordance with my understanding of Medicare's requirements for reasonable and necessary INPATIENT services [42 CFR 412.3e].: Yes Medical Necessity: Other - Pain control, dietary intake monitoring
[2019-05-10] MEDS: METOCLOPRAMIDE HCL INJ/PF 10 MG/2 ML SDV IV SCH ×4 (10:19→21:11)
[2019-05-10] MEDS: RANOLAZINE 500 MG TAB.SR.12H PO SCH ×2 (10:20→21:10)
[2019-05-10] MEDS: CYANOCOBALAMIN (VITAMIN B-12) 1,000 MCG TABLET PO SCH (10:20)
[2019-05-10] MEDS: PANTOPRAZOLE SODIUM 40 MG TABLET.DR PO SCH ×2 (10:20→17:39)
[2019-05-10] MEDS: LUBIPROSTONE 24 MCG CAPSULE PO SCH ×2 (10:20→21:08)
[2019-05-10] MEDS: ALPRAZOLAM 0.5 MG TABLET PO SCH ×2 (10:20→21:10)
[2019-05-10] MEDS: FUROSEMIDE 20 MG TABLET PO SCH (10:20)
[2019-05-10] MEDS: DOCUSATE SODIUM 100 MG CAPSULE PO SCH ×2 (10:20→17:39)
[2019-05-10] MEDS: METOPROLOL SUCCINATE 50 MG TAB.SR.24H PO SCH (10:23)
[2019-05-10] MEDS: ASPIRIN 81 MG TABLET, ENT COATED PO SCH (10:29)
[2019-05-10] MEDS: ONDANSETRON HCL INJ/PF 4 MG/2 ML SDV IV PRN (11:37)
--- NOTE | 2019-05-10 13:24 | RADIOLOGY REPORT (SQ) ---
EXAM DESCRIPTION: CT ABD/PELVIS NO ORAL OR IV COMPLETED DATE/TIME: 05/10/2019 12:51 pm REASON FOR STUDY: continued left sided abdominal pain COMPARISON: 04/05/2019 TECHNIQUE: CT scan of the abdomen and pelvis performed without intravenous or oral contrast. Images reviewed with lung, soft tissue, and bone windows. Reconstructed coronal and sagittal MPR images revi ewed. All images stored on PACS. All CT scanners at this facility use dose modulation, iterative reconstruction, and/or weight based d osing when appropriate to reduce radiation dose to as low as reasonably achievable (ALARA). [facility]: Dose Right [facility]: CareDose [facility]: Dose Right [facility]: Teradose 4D [facility]: [employer] RADIATION DOSE: CT Rad equipment meets quality standard of care and radiation dose reduction techniq ues were employed. CTDIvol: 2.6 mGy. DLP: 132 mGy-cm.mGy. LIMITATIONS: None. FINDINGS: LOWER CHEST: There is considerable opacification in the right lower lobe. There is a smal l right pleural effusion. NON-CONTRASTED LIVER, SPLEEN, ADRENALS: Evaluation limited by lack of IV contrast. No identified sign ificant masses. PANCREAS: No masses. No peripancreatic inflammatory changes. GALLBLADDER: There are dense calcifications in the region of the neck of the gallbladder. RIGHT KIDNEY AND URETER: No suspicious masses. Assessment limited by lack of IV contrast. Renal vas cular calcifications are present. No hydronephrosis or hydroureter. LEFT KIDNEY AND URETER: No suspicious masses. Assessment limited by lack of IV contrast. Renal vasc ular calcifications are present. No hydronephrosis or hydroureter. AORTA AND RETROPERITONEUM: Abdominal aortic aneurysm with aortoiliac endograft. This is stable. BOWEL AND PERITONEAL CAVITY: No obvious masses or inflammatory changes. No free fluid. APPENDIX: Normal. PELVIS, BLADDER, AND ABDOMINAL WALL:Urinary bladder is normal. Prostate seed implants are present. BONES: No significant findings. OTHER: No other significant finding. IMPRESSION: 1. 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 2. There are calcifications inner near the neck of the gallbladder. These may be in the pancreas. These are stable. 3. Opacification in the right lower lobe, pneumonia versus atelectasis. Small right pleural effusio n. COMMENT: Quality ID # [id number]: Final reports with documentation of one or more dose reduction techniques (e.g., Automated exposure control, adjustment of the mA and/or kV according to patient size, use of iterative reconstruction technique) TECHNICAL DOCUMENTATION: JOB ID: [id number] [employer]- All Rights Reserved Reading location - IP/workstation name: [email or web address]
[2019-05-10] MEDS ORDERED: NALBUPHINE HCL INJ 10 MG/1 ML AMPULE IV PRN (14:56)
[2019-05-10] MEDS ORDERED: ONDANSETRON HCL INJ/PF 4 MG/2 ML SDV IV PRN (15:00)
[2019-05-10] MEDS ORDERED: ACETAMINOPHEN 650 MG SUPP.RECT PR PRN (15:03)
[2019-05-10] MEDS ORDERED: ACETAMINOPHEN 325 MG TABLET PO PRN (15:03)
[2019-05-10] MEDS: ATORVASTATIN CALCIUM 20 MG TABLET PO SCH (21:10)
[2019-05-11 05:23] LABS: HEMOGLOBIN 8.5 g/dL (13.5-17.0); MEAN CORPUSCULAR HEMOGLOBIN 29.7 pg (27.0-33.4); MEAN CORPUSCULAR HGB CONC 34.1 g/dL (32.0-36.0); MEAN CORPUSCULAR VOLUME 87 fl (80-97); PLATELET COUNT 188 10^3/uL (150-450); RED BLOOD COUNT 2.87 10^6/uL (4.35-5.55); RED CELL DISTRIBUTION WIDTH 17.3 % (11.5-14.0); WHITE BLOOD COUNT 6.2 10^3/uL (4.0-10.5)
[2019-05-11 05:50] LABS: ANION GAP 9 (5-19); BLOOD UREA NITROGEN 44 mg/dL (7-20); CALCIUM 8.4 mg/dL (8.4-10.2); CARBON DIOXIDE 28 mmol/L (22-30); CHLORIDE 96 mmol/L (98-107); GLUCOSE 93 mg/dL (75-110); POTASSIUM 4.3 mmol/L (3.6-5.0)
[2019-05-11] MEDS: LEVOTHYROXINE SODIUM 0.05 MG TABLET PO SCH (06:26)
[2019-05-11] MEDS ORDERED: NORMAL SALINE 250 ML IV PRN (07:38)
--- NOTE | 2019-05-11 08:09 | PDOC PROGRESS REPORT ---
Subjective Progress Note for:: 05/11/19 Subjective:: montoya walking 40' Reason For Visit: UGI BLEED: melana on aspirin & plavix with hct24 Physical Exam Vital Signs: Temp Pulse Resp BP Pulse Ox 98.4 F 70 17 96/58 L 88 L 05/10/19 17:40 05/11/19 07:00 05/10/19 17:40 05/10/19 17:40 05/10/19 17:40 Intake & Output 05/10/19 05/11/19 05/12/19 07:59 07:59 07:59 Intake Total 1218 Output Total 1300 300 Balance -82 -300 Weight 102 lb 1.184 oz 101 lb 3.075 oz General appearance: PRESENT: no acute distress Respiratory exam: PRESENT: clear to auscultation rodrigo Cardiovascular exam: ABSENT: diastolic murmur, irregular rhythm, systolic murmur GI/Abdominal exam: ABSENT: tenderness Extremities exam: ABSENT: pedal edema Neurological exam: PRESENT: alert Psychiatric exam: PRESENT: appropriate affect Results Laboratory Results: 05/11/19 05:04 05/11/19 05:04 05/11/19 05/11/19 05:04 05:04 WBC 6.2 RBC 2.87 L Hgb 8.5 L Hct 25.0 L MCV 87 MCH 29.7 MCHC 34.1 RDW 17.3 H Plt Count 188 Sodium 132.7 L Potassium 4.3 Chloride 96 L Carbon Dioxide 28 Anion Gap 9 BUN 44 H Creatinine 2.17 H Est GFR ( Amer) 35 L Est GFR (Non-Af Amer) 29 L Glucose 93 Calcium 8.4 Impressions: Abdomen/Pelvis CT 05/10/19 00:00 IMPRESSION: 1. 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 2. There are calcifications inner near the neck of the gallbladder. These may be in the pancreas. These are stable. 3. Opacification in the right lower lobe, pneumonia versus atelectasis. Small right pleural effusion. Assessment & Plan - Diagnosis (1) Upper gastrointestinal bleeding Is this a current diagnosis for this admission?: Yes Plan: hct fell to 25. 2u prbc. Stop aspirin. (2) Abdominal pain Qualifiers: Abdominal location: left lower quadrant Qualified Code(s): R10.32 - Left lower quadrant pain Is this a current diagnosis for this admission?: Yes Plan: always delays discharge (3) Anemia of renal disease Is this a current diagnosis for this admission?: Yes Plan: ferritin ok iron low - Inpatient Certification Based on my medical assessment, after consideration of the patient's comorbidities, presenting symptoms, or acuity I expect that the services needed warrant INPATIENT care.: Yes I certify that my determination is in accordance with my understanding of Medicare's requirements for reasonable and necessary INPATIENT services [42 CFR 412.3e].: Yes Medical Necessity: Failure to Improve With Outpatient Therapy, Significant Comorbidiites Make Outpatient Treatment Too Risky, Need Close Monitoring Due to Risk of Patient Decompensation, Need For IV Fluids, Need For Continuous Telemetry Monitoring, Need for Nebulizer Therapy and Monitoring of Response, Risk of Complication if Not Cared For in Hospital, Risk of Diagnosis Which Will Require Inpatient Eval/Care/Monitoring
[2019-05-11] MEDS ORDERED: PROMETHAZINE HCL 25 MG TABLET PO PRN (08:11)
[2019-05-11] MEDS: METOPROLOL SUCCINATE 50 MG TAB.SR.24H PO SCH (09:05)
[2019-05-11] MEDS: RANOLAZINE 500 MG TAB.SR.12H PO SCH ×2 (09:05→21:59)
[2019-05-11] MEDS: PANTOPRAZOLE SODIUM 40 MG TABLET.DR PO SCH ×2 (09:05→17:09)
[2019-05-11] MEDS: ALPRAZOLAM 0.5 MG TABLET PO SCH ×2 (09:06→22:00)
[2019-05-11] MEDS: LUBIPROSTONE 24 MCG CAPSULE PO SCH ×2 (09:06→21:56)
[2019-05-11] MEDS: CYANOCOBALAMIN (VITAMIN B-12) 1,000 MCG TABLET PO SCH (09:06)
[2019-05-11] MEDS: ATORVASTATIN CALCIUM 20 MG TABLET PO SCH (21:59)
[2019-05-12 04:14] LABS: ABSOLUTE LYMPHOCYTES (AUTO) 1.2 10^3/uL (0.5-4.7); ABSOLUTE MONOCYTES (AUTO) 0.6 10^3/uL (0.1-1.4); ABSOLUTE NEUT (AUTO) 7.4 10^3/uL (1.7-8.2); BASOPHILS % (AUTO) 0.2 % (0-2); EOSINOPHILS % (AUTO) 0.2 % (0-6); HEMATOCRIT 33.3 % (37.9-51.0); MEAN CORPUSCULAR HEMOGLOBIN 29.8 pg (27.0-33.4); MEAN CORPUSCULAR HGB CONC 34.1 g/dL (32.0-36.0); MEAN CORPUSCULAR VOLUME 88 fl (80-97); MONOCYTES % (AUTO) 6.3 % (3-13); PLATELET COUNT 155 10^3/uL (150-450); RED BLOOD COUNT 3.81 10^6/uL (4.35-5.55); SEGMENTED NEUTROPHILS % (AUTO) 80.3 % (42-78); TOTAL CELLS COUNTED % (AUTO) 100 %; WHITE BLOOD COUNT 9.3 10^3/uL (4.0-10.5)
[2019-05-12 04:17] LABS: HEMOGLOBIN 11.4 g/dL (13.5-17.0)
[2019-05-12] MEDS: LEVOTHYROXINE SODIUM 0.05 MG TABLET PO SCH (05:19)
--- NOTE | 2019-05-12 07:07 | PDOC PROGRESS REPORT ---
Subjective Progress Note for:: 05/12/19 Subjective:: Abdomen quit hurting, but last endoscopy did not end intermitant dysphagia. Blood helped dyspnea. Reason For Visit: UGI BLEED Physical Exam Vital Signs: Temp Pulse Resp BP Pulse Ox 100 F 72 18 101/51 L 97 05/11/19 22:26 05/12/19 02:00 05/11/19 22:26 05/11/19 22:26 05/11/19 22:26 Intake & Output 05/10/19 05/11/19 05/12/19 07:59 07:59 07:59 Intake Total 1218 990 Output Total 1300 300 700 Balance -82 -300 290 Weight 102 lb 1.184 oz 101 lb 3.075 oz 101 lb 3.075 oz General appearance: PRESENT: no acute distress Respiratory exam: PRESENT: rhonchi - R base Cardiovascular exam: ABSENT: diastolic murmur, irregular rhythm, systolic murmur GI/Abdominal exam: ABSENT: mass, organolmegaly, tenderness Extremities exam: ABSENT: pedal edema Neurological exam: PRESENT: alert Psychiatric exam: PRESENT: appropriate affect Results Laboratory Results: 05/12/19 03:43 05/11/19 05:04 05/11/19 05/12/19 08:58 03:43 WBC 9.3 RBC 3.81 L Hgb 11.4 L D Hct 33.3 L MCV 88 MCH 29.8 MCHC 34.1 RDW 16.0 H Plt Count 155 Seg Neutrophils % 80.3 H Lymphocytes % 13.0 Monocytes % 6.3 Eosinophils % 0.2 Basophils % 0.2 Absolute Neutrophils 7.4 Absolute Lymphocytes 1.2 Absolute Monocytes 0.6 Absolute Eosinophils 0.0 Absolute Basophils 0.0 Blood Type O POSITIVE Antibody Screen NEGATIVE Impressions: Abdomen/Pelvis CT 05/10/19 00:00 IMPRESSION: 1. 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 2. There are calcifications inner near the neck of the gallbladder. These may be in the pancreas. These are stable. 3. Opacification in the right lower lobe, pneumonia versus atelectasis. Small right pleural effusion. Assessment & Plan - Diagnosis (1) Upper gastrointestinal bleeding Is this a current diagnosis for this admission?: Yes Plan: hct33 (2) Acquired esophageal ring Is this a current diagnosis for this admission?: Yes Plan: risk for aspiration pneumonia continues. Puree did not help in past. (3) Abdominal pain Qualifiers: Abdominal location: left lower quadrant Qualified Code(s): R10.32 - Left lower quadrant pain Is this a current diagnosis for this admission?: Yes (4) Anemia of renal disease Is this a current diagnosis for this admission?: Yes - Inpatient Certification Medical Necessity: Failure to Improve With Outpatient Therapy, Significant Comorbidiites Make Outpatient Treatment Too Risky, Need Close Monitoring Due to Risk of Patient Decompensation, Need For Continuous Telemetry Monitoring, Risk of Complication if Not Cared For in Hospital, Risk of Diagnosis Which Will Require Inpatient Eval/Care/Monitoring
[2019-05-12] MEDS: PANTOPRAZOLE SODIUM 40 MG TABLET.DR PO SCH ×2 (10:02→17:16)
[2019-05-12] MEDS: CYANOCOBALAMIN (VITAMIN B-12) 1,000 MCG TABLET PO SCH (10:02)
[2019-05-12] MEDS: METOPROLOL SUCCINATE 50 MG TAB.SR.24H PO SCH (10:02)
[2019-05-12] MEDS: RANOLAZINE 500 MG TAB.SR.12H PO SCH ×2 (10:02→21:12)
[2019-05-12] MEDS: LUBIPROSTONE 24 MCG CAPSULE PO SCH ×2 (10:02→21:12)
[2019-05-12] MEDS: ALPRAZOLAM 0.5 MG TABLET PO SCH ×2 (10:03→21:12)
[2019-05-12] MEDS: ATORVASTATIN CALCIUM 20 MG TABLET PO SCH (21:12)
[2019-05-13] MEDS: LEVOTHYROXINE SODIUM 0.05 MG TABLET PO SCH (05:31)
--- NOTE | 2019-05-13 08:06 | PDOC TRANSFER SUMMARY ---
General Admission Date/PCP: 05/07/19 19:24 ROMEL LAMB MD Admission Date: 05/07/19 Transfer Date: 05/13/19 Accepting Facility: Other (Comments) - [facility] Accepting Physician: debi Resuscitation Status: Full Code - Transfer Diagnosis (1) Upper gastrointestinal bleeding Is this a current diagnosis for this admission?: Yes (2) Acquired esophageal ring Is this a current diagnosis for this admission?: Yes (3) Abdominal pain Is this a current diagnosis for this admission?: Yes (4) Anemia of renal disease Is this a current diagnosis for this admission?: Yes (5) Atherosclerosis of superior mesenteric artery Is this a current diagnosis for this admission?: Yes (6) Celiac artery stenosis Is this a current diagnosis for this admission?: Yes (7) Esophageal stricture Is this a current diagnosis for this admission?: Yes (8) Gastroesophageal reflux disease Is this a current diagnosis for this admission?: Yes (9) Hypothyroidism Is this a current diagnosis for this admission?: Yes (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 Is this a current diagnosis for this admission?: Yes (11) Persistent atrial fibrillation Is this a current diagnosis for this admission?: Yes (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 Is this a current diagnosis for this admission?: Yes - Transfer Medications Home Medications: Acetaminophen [Tylenol 325 mg Tablet] 325 mg PO Q6HP PRN 05/07/19 Alprazolam [Xanax 0.5 mg Tablet] 0.5 mg PO BIDP PRN 05/07/19 Aspirin [Adult Low Dose Aspirin EC] 81 mg PO DAILY 05/07/19 Atorvastatin Calcium [Lipitor 20 mg Tablet] 20 mg PO QHS 05/07/19 Clopidogrel Bisulfate [Plavix 75 mg Tablet] 75 mg PO DAILY 05/07/19 Cyanocobalamin (Vitamin B-12) [Vitamin B-12 SL 2500 mcg Tablet] 2,500 mcg SL DAILY 05/07/19 Furosemide [Lasix 20 mg Tablet] 20 mg PO DAILY 05/07/19 Ketoconazole [Nizoral 2% Shampoo 120 ml Bottle] 1 appful TOP DAILYP PRN 05/07/19 Ketotifen Fumarate [Refresh] 5 ml OU BIDP PRN 05/07/19 Levothyroxine Sodium [Synthroid 50 Mcg Tablet] 50 mcg PO QAM 05/07/19 Lubiprostone [Amitiza 24 Mcg Capsule] 24 mcg PO BID 05/07/19 Metoprolol Succinate [Toprol Xl 50 mg Tab.sr] 50 mg PO DAILY 05/07/19 Ondansetron HCl [Zofran 4 mg Tablet] 1 - 2 tab PO Q4HP PRN 05/07/19 Pantoprazole Sodium [Protonix [address] Tablet] 40 mg PO BID 05/07/19 Ranolazine [Ranexa 500 mg Tab.sr] 500 mg PO Q12 05/07/19 Transfer Medications: Current Medications Acetaminophen (Tylenol 325 Mg Tablet) 650 mg PO Q6HP PRN PRN Reason: For headache, pain or fever Stop: 06/09/19 15:02 Last Admin: 05/12/19 22:57 Dose: 650 mg Documented by: Alprazolam (Xanax 0.5 Mg Tablet) 0.5 mg PO Q12 YESENIA Stop: 05/14/19 21:59 Last Admin: 05/12/19 21:12 Dose: 0.5 mg Documented by: Atorvastatin Calcium (Lipitor 20 Mg Tablet) 20 mg PO QHS YESENIA Stop: 06/06/19 21:59 Last Admin: 05/12/19 21:12 Dose: 20 mg Documented by: Cyanocobalamin (Vitamin B-12 1000 Mcg Tablet) 2,000 mcg PO DAILY YESENIA Stop: 06/07/19 09:59 Last Admin: 05/12/19 10:02 Dose: 2,000 mcg Documented by: Levothyroxine Sodium (Synthroid 0.05 Mg Tablet) 0.05 mg PO Q6AM YESENIA Stop: 06/07/19 05:59 Last Admin: 05/13/19 05:31 Dose: 0.05 mg Documented by: Lubiprostone (Amitiza 24 Mcg Capsule) 24 mcg PO Q12 YESENIA Stop: 06/06/19 21:59 Last Admin: 05/12/19 21:12 Dose: 24 mcg Documented by: Metoprolol Succinate (Toprol Xl 50 Mg Tab.Sr) 50 mg PO DAILY YESENIA Stop: 06/07/19 09:59 Last Admin: 05/12/19 10:02 Dose: 50 mg Documented by: Pantoprazole Sodium (Protonix [address] Tablet) 40 mg PO DAILY [facility] Stop: 06/12/19 09:59 Promethazine HCl (Phenergan 25 Mg Tablet) 12.5 mg PO Q4HP PRN PRN Reason: UNRESOLVED NAUSEA/VOMITING Stop: 06/10/19 08:10 Ranolazine (Ranexa 500 Mg Tab.Sr) 500 mg PO Q12 YESENIA Stop: 06/06/19 21:59 Last Admin: 05/12/19 21:12 Dose: 500 mg Documented by: - Allergies Allergies/Adverse Reactions: morphine [Morphine] Allergy (Severe, Verified 03/31/18 11:01) Hallucinations tetracycline [Tetracycline] Allergy (Unknown, Verified 03/31/18 11:01) - Diet/Activity Discharge Diet: Other (Comments) - mechanical Discharge Activity: Supervised Activity Hospital Course Hospital Course: Although hct was 24 at [facility], it was 26 in ER. Plavix was stopped. In view of recent endoscopy, gastritis was suspected. Hct came up 29 then fell to 25. 2u prbc raised hct to 33. Aspirin was stopped. He had a few days of abdominal pain and anorexia again. CT showed endograft and RLL infiltrate or atelectasis. Now he is pain free and eating again without melana. In spite of esophageal ring stretch, he still chokes occasionally on food regardless whether ground or not. He knows he may have further aspirations and pneumonias, but he has been afebrile here. He still wants full code. Physical Exam Vital Signs: Temp Pulse Resp BP Pulse Ox 98.4 F 73 18 118/56 L 96 05/12/19 19:12 05/13/19 07:00 05/12/19 19:12 05/12/19 19:12 05/12/19 19:12 Intake & Output 05/11/19 05/12/19 05/13/19 07:59 07:59 07:59 Intake Total 990 814 Output Total 300 700 770 Balance -300 290 44 Weight 101 lb 3.075 oz 101 lb 3.075 oz 106 lb 4.205 oz General appearance: PRESENT: no acute distress Respiratory exam: PRESENT: rhonchi - R base Cardiovascular exam: ABSENT: diastolic murmur, irregular rhythm, systolic murmur GI/Abdominal exam: ABSENT: mass, organolmegaly, tenderness Extremities exam: ABSENT: pedal edema Neurological exam: PRESENT: alert Psychiatric exam: PRESENT: appropriate affect Results Laboratory Results: Labs- Last Values WBC 9.3 10^3/uL (4.0-10.5) 08/14/19 03:43 RBC 3.81 10^6/uL (4.35-5.55) L 05/12/19 03:43 Hgb 11.4 g/dL (13.5-17.0) L D 05/12/19 03:43 Hct 33.3 % (37.9-51.0) L 05/12/19 03:43 MCV 88 fl (80-97) 05/12/19 03:43 MCH 29.8 pg (27.0-33.4) 05/12/19 03:43 MCHC 34.1 g/dL (32.0-36.0) 05/12/19 03:43 RDW 16.0 % (11.5-14.0) H 05/12/19 03:43 Plt Count 155 10^3/uL (150-450) 05/12/19 03:43 Seg Neutrophils % 80.3 % (42-78) H 05/12/19 03:43 Lymphocytes % 13.0 % (13-45) 05/12/19 03:43 Monocytes % 6.3 % (3-13) 05/12/19 03:43 Eosinophils % 0.2 % (0-6) 05/12/19 03:43 Basophils % 0.2 % (0-2) 05/12/19 03:43 Absolute Neutrophils 7.4 10^3/uL (1.7-8.2) 05/12/19 03:43 Absolute Lymphocytes 1.2 10^3/uL (0.5-4.7) 05/12/19 03:43 Absolute Monocytes 0.6 10^3/uL (0.1-1.4) 05/12/19 03:43 Absolute Eosinophils 0.0 10^3/uL (0.0-0.6) 05/12/19 03:43 Absolute Basophils 0.0 10^3/uL (0.0-0.2) 05/12/19 03:43 PT 13.8 SEC (11.4-15.4) 05/07/19 18:28 INR 1.06 05/07/19 18:28 APTT 28.3 SEC (23.5-35.8) 05/07/19 18:28 Sodium 132.7 mmol/L (137-145) L 05/11/19 05:04 Potassium 4.3 mmol/L (3.6-5.0) 05/11/19 05:04 Chloride 96 mmol/L (98-107) L 05/11/19 05:04 Carbon Dioxide 28 mmol/L (22-30) 05/11/19 05:04 Anion Gap 9 (5-19) 05/11/19 05:04 BUN 44 mg/dL (7-20) H 05/11/19 05:04 Creatinine 2.17 mg/dL (0.52-1.25) H 05/11/19 05:04 Est GFR ( Amer) 35 (>60) L 05/11/19 05:04 Est GFR (Non-Af Amer) 29 (>60) L 05/11/19 05:04 Glucose 93 mg/dL (75-110) 05/11/19 05:04 POC Glucose 150 mg/dL (70-110) H 05/09/19 07:36 Calcium 8.4 mg/dL (8.4-10.2) 05/11/19 05:04 Magnesium 2.3 mg/dL (1.6-2.3) 05/10/19 03:49 Total Bilirubin 0.4 mg/dL (0.2-1.3) 05/07/19 18:28 Direct Bilirubin 0.3 mg/dL (0.0-0.4) 05/07/19 18:28 Neonat Total Bilirubin Not Reportable 05/07/19 18:28 Neonat Direct Bilirubin Not Reportable 05/07/19 18:28 Neonat Indirect Bili Not Reportable 05/07/19 18:28 AST 32 U/L (17-59) 05/07/19 18:28 ALT 10 U/L (<50) 05/07/19 18:28 Alkaline Phosphatase 65 U/L (38-126) 05/07/19 18:28 Troponin I 0.023 ng/mL 05/09/19 12:51 NT-Pro-B Natriuret Pep 9030 pg/mL (<450) H 05/07/19 18:28 Total Protein 5.6 g/dL (6.3-8.2) L 05/07/19 18:28 Albumin 2.9 g/dL (3.5-5.0) L 05/07/19 18:28 Triglycerides 125 mg/dL (<150) 05/08/19 06:35 Cholesterol 208.76 mg/dL (0-200) H 05/08/19 06:35 LDL Cholesterol Direct 124 mg/dL (<100) H 05/08/19 06:35 VLDL Cholesterol 25.0 mg/dL (10-31) 05/08/19 06:35 HDL Cholesterol 61 mg/dL (>40) 05/08/19 06:35 Lipase 22.5 U/L (23-300) L 05/07/19 18:28 TSH 5.11 uIU/mL (0.47-4.68) H 05/07/19 18:28 Free T4 1.31 ng/dL (0.78-2.19) 05/07/19 18:28 Free T3 pg/mL 2.18 pg/mL (2.77-5.27) L 05/07/19 18:28 Urine Color YELLOW 05/07/19 23:11 Urine Appearance CLEAR 05/07/19 23:11 Urine pH 6.0 (5.0-9.0) 05/07/19 23:11 Ur Specific Hurley 1.006 05/07/19 23:11 Urine Protein NEGATIVE mg/dL (NEGATIVE) 05/07/19 23:11 Urine Glucose (UA) NEGATIVE mg/dL (NEGATIVE) 05/07/19 23:11 Urine Ketones NEGATIVE mg/dL (NEGATIVE) 05/07/19 23:11 Urine Blood NEGATIVE (NEGATIVE) 05/07/19 23:11 Urine Nitrite NEGATIVE (NEGATIVE) 05/07/19 23:11 Urine Bilirubin NEGATIVE (NEGATIVE) 05/07/19 23:11 Urine Urobilinogen NEGATIVE mg/dL (<2.0) 05/07/19 23:11 Ur Leukocyte Esterase NEGATIVE (NEGATIVE) 05/07/19 23:11 Urine RBC (Auto) 0 /HPF 05/07/19 23:11 Urine Ascorbic Acid NEGATIVE (NEGATIVE) 05/07/19 23:11 Blood Type O POSITIVE 05/11/19 08:58 Antibody Screen NEGATIVE 05/11/19 08:58 Crossmatch See Detail 05/11/19 08:58 Impressions: Abdomen/Pelvis CT 05/10/19 00:00 IMPRESSION: 1. 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 2. There are calcifications inner near the neck of the gallbladder. These may be in the pancreas. These are stable. 3. Opacification in the right lower lobe, pneumonia versus atelectasis. Small right pleural effusion. Plan Discharge Plan: I will follow at [facility]
[2019-05-13] MEDS: CYANOCOBALAMIN (VITAMIN B-12) 1,000 MCG TABLET PO SCH (09:32)
[2019-05-13] MEDS: RANOLAZINE 500 MG TAB.SR.12H PO SCH (09:32)
[2019-05-13] MEDS: ALPRAZOLAM 0.5 MG TABLET PO SCH (09:32)
[2019-05-13] MEDS: METOPROLOL SUCCINATE 50 MG TAB.SR.24H PO SCH (09:33)
[2019-05-13] MEDS: LUBIPROSTONE 24 MCG CAPSULE PO SCH (09:33)
[2019-05-13] MEDS ORDERED: PANTOPRAZOLE SODIUM 40 MG TABLET.DR PO SCH (10:00)
[2019-05-13 12:26] VITALS: BP 107/74
== END 2019-05-13 12:45 | DRG 378 ==
LOC: ER 17:09 → EH 19:24 → 5 22:00
PROVIDERS: ADMIT Emergency Medicine; ATTEND Emergency Medicine
PROC: 30233N1 Transfusion of Nonautologous Red Blood Cells into Peripheral Vein, Percutaneous Approach (ICD-10-PCS; principal; 2019-05-11)
DX: K92.1 Melena (principal); I48.1 Persistent atrial fibrillation; I13.0 Hypertensive heart and chronic kidney disease with heart failure and stage 1 through stage 4 chronic kidney disease, or unspecified chronic kidney disease; I50.22 Chronic systolic (congestive) heart failure; K55.1 Chronic vascular disorders of intestine; I77.4 Celiac artery compression syndrome; I25.10 Atherosclerotic heart disease of native coronary artery without angina pectoris; E78.5 Hyperlipidemia, unspecified; I73.9 Peripheral vascular disease, unspecified; N18.3 Chronic kidney disease, stage 3 (moderate); D63.1 Anemia in chronic kidney disease; K21.0 Gastro-esophageal reflux disease with esophagitis; K29.70 Gastritis, unspecified, without bleeding; J43.1 Panlobular emphysema; F43.10 Post-traumatic stress disorder, unspecified; F41.1 Generalized anxiety disorder; E03.4 Atrophy of thyroid (acquired); K91.1 Postgastric surgery syndromes; K22.2 Esophageal obstruction; G47.00 Insomnia, unspecified; Z95.0 Presence of cardiac pacemaker; Z79.02 Long term (current) use of antithrombotics/antiplatelets; I25.2 Old myocardial infarction; Z79.82 Long term (current) use of aspirin; Z95.5 Presence of coronary angioplasty implant and graft; Z87.891 Personal history of nicotine dependence; Z82.49 Family history of ischemic heart disease and other diseases of the circulatory system; Z83.3 Family history of diabetes mellitus; Z88.6 Allergy status to analgesic agent; Z88.8 Allergy status to other drugs, medicaments and biological substances; Z79.899 Other long term (current) drug therapy
CPT/HCPCS: 36415; 36430; 74176; 80048; 80053; 80061; 81001; 82962; 83690; 83735; 83880; 84439; 84443; 84481; 84484; 85025; 85027; 85610; 85730; 86850; 86900; 86901; 86920; 93005; 93010; 99285; J2300; J2405; J2765; J3490; P9016; S0164

== ENCOUNTER 2019-05-15 05:06 | Emergency (ER) | payer MEDICARE, OTHER ==
[2019-05-15] MEDS ORDERED: LIDOCAINE 1% INJ-PF (10 MG/ML) 30 ML SDV INJ ONE (08:51)
--- NOTE | 2019-05-15 08:54 | ER Document Report ---
Addendum entered and electronically signed by OPAL JARVIS PA-C 05/15/19 09:50: Course - Re-evaluation Re-evalutation: 05/15/19 09:50 Add to exam: flap 1cm skin tear rt elbow. steri-stripped. - Vital Signs Vital signs: Temp Pulse Resp BP Pulse Ox 98.2 F 68 18 130/73 H 97 05/15/19 08:02 05/15/19 05:28 05/15/19 08:02 05/15/19 08:02 05/15/19 08:02 Original Note: HPI - HPI Time Seen by Provider: 05/15/19 08:45 Pain Level: 1 Notes: Patient is an 89-year-old male with an extensive medical history and on Plavix/aspirin who presents for forehead laceration and head injury status post fall about 4.5 hours ago. Patient states that his hearing aid fell to the floor when he was on his bed and he rolled over to pick it up, but fell on the concrete floor. Patient states that he did not lose consciousness or have any nausea/vomiting. Patient states that he is felt well since then. He has no other concerns or complaints. Denies any headache, fever, neck pain, changes in vision/speech/mentation/hearing, URI, sore throat, chest pain, palpitations, syncope, cough, shortness of breath, wheeze, dyspnea, abdominal pain, nausea/vomiting/diarrhea, urinary retention, dysuria, hematuria, loss of control of bowel or bladder, numbness/tingling, saddle anesthesia, muscle paralysis/weakness, or rash. - ROS Systems Reviewed and Negative: Yes All other systems reviewed and negative Past Medical History - Social History Smoking Status: Never Smoker Family History: CAD, DM, Hypertension, Malignancy - Colon cancer Patient has suicidal ideation: No Patient has homicidal ideation: No - Past Medical History Cardiac Medical History: Reports: Hx Atrial Fibrillation, Hx Congestive Heart Failure, Hx Coronary Artery Disease, Hx Heart Attack - X3=STENTS/ 2001 & 2017, Hx Hypercholesterolemia, Hx Hypertension - MEDICATED, Hx Peripheral Vascular Disease Pulmonary Medical History: Reports: Hx COPD, Hx Respiratory Failure Denies: Hx Asthma Neurological Medical History: Denies: Hx Cerebrovascular Accident, Hx Seizures Endocrine Medical History: Reports: Hx Hypothyroidism. Denies: Hx Diabetes Mellitus Type 1, Hx Diabetes Mellitus Type 2, Hx Hyperthyroidism Renal/ Medical History: Denies: Hx Peritoneal Dialysis GI Medical History: Reports: Hx Gastroesophageal Reflux Disease - Erosive GERD with esophageal strictures., Hx Ulcer. Denies: Hx Cirrhosis, Hx Crohn's Disease, Hx Diverticulitis, Hx Hepatitis, Hx Hiatal Hernia, Hx Ulcerative Colitis Musculoskeletal Medical History: Denies Hx Arthritis, Denies Hx Gout Skin Medical History: Denies Hx Eczema, Denies Hx Psoriasis Psychiatric Medical History: Reports: Hx Post Traumatic Stress Disorder Denies: Hx Depression Infectious Medical History: Denies: Hx Hepatitis Past Surgical History: Reports: Hx Abdominal Surgery - 65% of stomach removed, Hx Bowel Surgery - x10 V&A w/ B-II anastomosis, Hx Cardiac Catheterization, Hx Carotid Endarterectomy - RIGHT SIDE, Hx Coronary Stent, Hx Vascular Surgery - ILIAC, FEMORAL STENTS, aortic aneurysm stent graft, Other - Upper endoscopies, cataract surgery. Denies: Hx Open Heart Surgery, Hx Pacemaker - Immunizations Hx Diphtheria, Pertussis, Tetanus Vaccination: Yes Hx Pneumococcal Vaccination: 09/29/15 Vertical Provider Document - CONSTITUTIONAL Agree With Documented VS: Yes Notes: PHYSICAL EXAMINATION: accompanied by female nurse GENERAL: Well-appearing, well-nourished and in no acute distress. A&Ox4. Answers questions appropriately. HEAD: + linear superficial 1.5cm laceration mid forehead. No mojica sign or hematoma EYES: Pupils equal round and reactive to light, extraocular movements intact, sclera anicteric, conjunctiva are normal. No raccoon eyes/entrapment ENT: EAC clear b/l. TM's intact b/l without erythema, fluid, or perforation. Nares patent and without discharge. oropharynx clear without exudates. No tonsilar hypertrophy or erythema. Moist mucous membranes. No sinus tenderness. No hemotympanum/CSF discharge. NECK: Normal range of motion, supple without lymphadenopathy. No rigidity. No midline tenderness. Chest: No flail chest. equal rise/fall. Non-tender LUNGS: Breath sounds clear to auscultation bilaterally and equal. No wheezes rales or rhonchi. HEART: Regular rate and rhythm without murmurs, rubs, gallops. ABDOMEN: Soft, nontender, nondistended abdomen. No guarding, no rebound. Normal bowel sounds present. No CVA tenderness bilaterally. Musculoskeletal: Ext b/l: FROM to passive/active. Strength 5+/5. No deficits noted. No bony tenderness of extremities. Back: FROM to passive/active. Strength 5+/5. No vertebral point tenderness, stepoffs, or deformities. No other bony tenderness or ecchymosis. Extremities: No cyanosis, clubbing, or edema b/l. Peripheral pulses 2+. Capillary refill less than 2 seconds. NEUROLOGICAL: NIH 0. GCS 15. Cranial nerves grossly intact. Normal speech. Normal sensory, motor exams. Reflexes 2+ b/l. MIKAYLA's negative. Pronator drift negative. Heel/fletcher, finger/nose wnl. PSYCH: Normal mood, normal affect. SKIN: see above - INFECTION CONTROL TRAVEL OUTSIDE OF THE [place] IN LAST 30 DAYS: No Course - Re-evaluation Re-evalutation: 05/15/19 Patient is an afebrile, well-hydrated, 89-year-old male who presents with a forehead laceration status post head injury. Vitals are acceptable without significant tachycardia, tachypnea, or hypoxia. PE is otherwise unremarkable for any focal neurological deficits. CT scan of the head and cervical spine are unremarkable. Wound was thoroughly irrigated and cleansed. Wound edges approximate appropriately utilizing 2 simple interrupted sutures. Wound dressing placed and wound instructions reviewed. Tetanus updated today. No further work-up warranted. Patient is nontoxic-appearing and is able to tole rate p.o. without difficultly. Sutures will be removed in 5 days. Low suspicion for any acute glaucoma, temporal arteritis, meningitis, intracranial hemorrhage, ischemic stroke, or fracture at this time. Patient is aware that his condition can change from initial presentation and that he needs to monitor symptoms closely for any acute changes. Recheck with your PCM in 3 to 5 days. Return to the ED with any other worsening/concerning symptoms. Patient is in agreement. - Vital Signs Vital signs: Temp Pulse Resp BP Pulse Ox 98.5 F 68 18 113/75 98 05/15/19 05:28 05/15/19 05:28 05/15/19 05:28 05/15/19 07:02 05/15/19 07:51 Procedures - Laceration/Wound Repair Forehead Wound length (cm): 1.5 Wound's Depth, Shape: Superficial, Linear Laceration pre-procedure: Sterile PPE donned, Chloraprep applied, Sterile drapes applied Anesthetic type: 1% Lidocaine Volume Anesthetic (mLs): 3 Wound explored: Clean, No foreign body removed Irrigated w/ Saline (mLs): 120 Wound Debrided: Minimal Wound Repaired With: Sutures Suture Size/Type: 5:0, Nylon Number of Sutures: 2 Layer Closure?: No Post-procedure wound care: Sterile dressing applied Post-procedure NV exam normal: Yes Complications: No Right Elbow Wound length (cm): 1 - flap skin tear Wound's Depth, Shape: Superficial, Flap Wound explored: Clean, No foreign body removed Irrigated w/ Saline (mLs): 60 Wound Repaired With: Steri-strips Discharge - Discharge Clinical Impression: Forehead laceration Qualifiers: Encounter type: initial encounter Qualified Code(s): S01.81XA - Laceration without foreign body of other part of head, initial encounter Head injury Qualifiers: Encounter type: initial encounter Qualified Code(s): S09.90XA - Unspecified injury of head, initial encounter Condition: Stable Disposition: HOME, SELF-CARE Instructions: Antibiotic Ointment Protection ([facility]), Head Injury Precautions ([facility]), Soap Cleansing ([facility]) Additional Instructions: Do not shower or bathe for 24 hours. After 24 hours you may shower but no submersion of the wound under water. Keep the original dressing on the wound f or 24 hours unless the drainage soaks through. Change the dressing daily thereafter and keep the knots of the suture material clean from any dried discharge. You may leave the wound open to the air once there is no more discharge. See your PCM in 3-5 days for a recheck with suture removal in 5 days. Monitor for any signs of worsening pain or redness, purulent drainage, streaks, and/or fever. Return to the ED if noticing any of the above symptoms or as needed. Return to the ED with any worsening symptoms and/or development of fever, headache, changes in behavior/mentation/vision/speech, chest pain, palpitations, syncope, shortness of breath, trouble breathing, abdominal pain, n/v/d, blood in stool/urine, loss of control of bowel/bladder, urinary retention, muscle weakness/paralysis, saddle anesthesia, numbness/tingling, or other worsening symptoms that are concerning to you. Prescriptions: Cephalexin Monohydrate [Keflex 500 mg Capsule] 500 mg PO BID #10 capsule Referrals: ROMEL LAMB MD [Primary Care Provider] - Follow up in 3-5 days
--- NOTE | 2019-05-15 09:19 | RADIOLOGY REPORT (SQ) ---
EXAM DESCRIPTION: CT HEAD WITHOUT COMPLETED DATE/TIME: 05/15/2019 9:03 am REASON FOR STUDY: head lac, fall COMPARISON: 01/10/2016 TECHNIQUE: Axial images acquired through the brain without intravenous contrast. Images reviewed wit h bone, brain and subdural windows. Images stored on PACS. All CT scanners at this facility use dose modulation, iterative reconstruction, and/or weight based d osing when appropriate to reduce radiation dose to as low as reasonably achievable (ALARA). [facility]: Dose Right [facility]: CareDose [facility]: Dose Right [facility]: Teradose 4D [facility]: Smart [employer] RADIATION DOSE: CT Rad equipment meets quality standard of care and radiation dose reduction techniq ues were employed. CTDIvol: 53.2 mGy. DLP: 991 mGy-cm.. LIMITATIONS: None. FINDINGS: VENTRICLES: Normal size and contour. CEREBRUM: No masses. No hemorrhage. No midline shift. Age appropriate white matter. No evidence for a cute infarction. CEREBELLUM: No masses. No hemorrhage. No alteration of density. No evidence for acute infarction. EXTRA-AXIAL SPACES: No fluid collections. ORBITS AND GLOBE: No intra- or extraconal masses. Normal contour of globe without masses. CALVARIUM: No fracture. PARANASAL SINUSES: No fluid or mucosal thickening. SOFT TISSUES: No mass or hematoma. OTHER: No other significant finding. IMPRESSION: NO ACUTE INTRACRANIAL FINDINGS. EVIDENCE OF ACUTE STROKE: NO. TECHNICAL DOCUMENTATION: JOB ID: [id number] [place]-72 Quality ID # 436: Final reports with documentation of one or more dose reduction techniques (e.g., Au tomated exposure control, adjustment of the mA and/or kV according to patient size, use of iterative reconstruction technique) 2010 [employer]- All Rights Reserved Reading location - IP/workstation name: [email or web address]
[2019-05-15 09:22] VITALS: BP 130/73
--- NOTE | 2019-05-15 09:28 | RADIOLOGY REPORT (SQ) ---
EXAM DESCRIPTION: CT CERVICAL SPINE WITHOUT COMPLETED DATE/TIME: 05/15/2019 9:02 am REASON FOR STUDY: fall COMPARISON: 01/10/2016 TECHNIQUE: Axial images acquired through the cervical spine without intravenous contrast. Images re viewed with lung, soft tissue and bone windows. Reconstructed coronal and sagittal MPR images review ed. Images stored on PACS. All CT scanners at this facility use dose modulation, iterative reconstruction, and/or weight based d osing when appropriate to reduce radiation dose to as low as reasonably achievable (ALARA). [facility]: Dose Right [facility]: CareDose [facility]: Dose Right [facility]: Teradose 4D [facility]: [employer] RADIATION DOSE: CT Rad equipment meets quality standard of care and radiation dose reduction techniq ues were employed. CTDIvol: 8.3 mGy. DLP: 167 mGy-cm. mGy. LIMITATIONS: None. FINDINGS: ALIGNMENT: Anatomic. MINERALIZATION: Normal. VERTEBRAL BODIES: No fractures or dislocation. DISCS: Multilevel disc space narrowing with osteophytes. FACETS, LATERAL MASSES, POSTERIOR ELEMENTS: Facet arthropathy. No fractures. No dislocation. No ac jorje findings. HARDWARE: None in the spine. VISUALIZED RIBS: No fractures. LUNG APICES AND SOFT TISSUES: Right pleural effusion. OTHER: No other significant finding. IMPRESSION: No evidence for acute osseous injury. Right pleural effusion. TECHNICAL DOCUMENTATION: JOB ID: [id number] [place]-72 Quality ID # [id number]: Final reports with documentation of one or more dose reduction techniques (e.g., Au tomated exposure control, adjustment of the mA and/or kV according to patient size, use of iterative reconstruction technique) 2010 [employer]- All Rights Reserved Reading location - IP/workstation name: [email or web address]
[2019-05-15] MEDS ORDERED: DIPH/PERTUSS(ACELL)/TETANUS VAC/PF 0.5 ML SYR (>=10YO) IM ONE (09:34)
== END 2019-05-15 11:28 | disposition home or self-care (01) ==
LOC: ER 05:06
DX: S01.81XA Laceration without foreign body of other part of head, initial encounter (principal); S51.011A Laceration without foreign body of right elbow, initial encounter; W06.XXXA Fall from bed, initial encounter; Y93.89 Activity, other specified; I25.10 Atherosclerotic heart disease of native coronary artery without angina pectoris; I10 Essential (primary) hypertension; I25.2 Old myocardial infarction; I48.91 Unspecified atrial fibrillation; Z79.02 Long term (current) use of antithrombotics/antiplatelets; Z79.82 Long term (current) use of aspirin; Z95.5 Presence of coronary angioplasty implant and graft; J44.9 Chronic obstructive pulmonary disease, unspecified
CPT/HCPCS: 99284; 90471; 70450; 72125; 90715; 12011; J3490